=== PATIENT | male | born 1935 | race Caucasian/White ===

== ENCOUNTER 2017-01-24 16:46 | Inpatient (IN) | payer MEDICARE, OTHER, SELFPAY ==
[2017-01-24] VITALS (8 sets, daily range): BP systolic 94–124; BP diastolic 55–75; PULSE 73–82; RESP 16–20; TEMP 36.2–37; O2SAT 95–98; BMI 28.7; BMI 30.1
--- NOTE | 2017-01-24 17:23 | CT_ITS ---
CT Abdomen And Pelvis W/ Contrast INDICATION: RIGHT LEG SWELLING AND BACK PAIN X 6 DAYS, FACIAL SWELLING COMPARISON: None TECHNIQUE: Axial CT imaging of the abdomen and pelvis with IV contrast. Coronal and sagittal reformatted images. Radiation dose optimization technique applied. 86 mL of Isovue 300 were given. FINDINGS: Subsegmental atelectasis is seen at the visualized lung bases. The heart size is normal. The liver contains small cysts, otherwise homogeneous. Liver and spleen are normal in size. Gallbladder contains multiple small stones, no evidence of pericholecystic fluid. Adrenal glands and pancreas are unremarkable. The kidneys enhance contrast symmetrically bilaterally and are without evidence of hydronephrosis. A complex 6.5 cm left cortical renal cyst is present with a septation. Smaller right cortical renal cysts are present. Bowel loops are nondistended. Appendix is unremarkable. Urinary bladder is nondistended. There is no evidence of free air or free fluid. Osseous structures demonstrate multilevel degenerative disc disease, most severe at L4-5 with spinal canal and neuroforaminal narrowing. CT/Abdomen/Pelvis W IV Cont ONLY IMPRESSION: Small liver cysts and the 6.5 cm complex left cortical renal cyst. Follow-up as clinically warranted. Cholelithiasis without evidence of acute cholecystitis. Diffuse arteriosclerotic disease. L4-5 degenerative disc disease with spinal canal and neuroforaminal narrowing. at 1925 Reported and signed by: Beba Moser MD Electronically Signed: Beba Moser MD at 18:24 EDT Tel , Service support ,
[2017-01-24] MEDS: 0.9% Normal Saline 1,000 ML 150 ML IV ×2 (17:58→22:39)
[2017-01-24 18:31] LABS: Bacteria 0 SEEN /hpf (None Seen); Mucous, Urine 0 SEEN /hpf (<or=2+)
[2017-01-24 18:32] LABS: Color, Urine Yellow (Yellow); Glucose, Dipstick Normal (Normal); Ketone-Dipstick Negative (Negative); Leukocyte Esterase-Dipstick 25 /ul (Negative); Nitrite-Dipstick Negative (Negative); Occult Blood-Urine 250 /ul (Negative); Protein-Dipstick 30 mg/dl (Negative); Urine Clarity Clear (Clear); Urine Urobilinogen 1 mg/dl (Normal)
[2017-01-24 18:35] LABS: Anion Gap 8 (5-15); BUN 42 mg/dL (7-18); BUN/Creat Ratio 21.5 RATIO (10-20); Calcium,Total 8.6 mg/dL (8.5-10.1); Chloride 97 mmol/L (98-107); Creatinine, Serum 1.95 mg/dL (0.70-1.30); EST Glomerular Filtration Rate 35 mL/min (>60); Est Glom Filt Rate - Afr Amer 43 mL/min (>60); Glucose 110 mg/dL (70-110); Sodium Level 132 mmol/L (136-145)
[2017-01-24 18:38] LABS: Urine Bilirubin Dipstick 1 mg/dL (Negative)
[2017-01-24 18:42] LABS: Red Blood Cells-Urine 0-5 SEEN /hpf (0-5); Squamous Epithelial Cells - UA 0-5 SEEN /hpf (0-5); White Blood Cells 0-5 SEEN /hpf (0-5)
[2017-01-24 18:43] LABS: Hyaline Cast 10-25 SEEN /lpf (0-5)
[2017-01-24 18:46] LABS: Absolute Lymphocyte Count 0.51 X10^3/ul (0.83-4.51); Eosinophil# 0.26 X10^3/uL; Eosinophils% 5.2 % (0-5); Hematocrit 41.1 % (40-54); Hemoglobin 14.3 g/dl (13.0-16.5); Lymphocyte # 0.51 X10^3/ul (4.0); Lymphocyte % 10.1 % (19-41); Mean Corp Hgb Conc 34.8 g/gl (32-36); Mean Corpuscular Hgb 31.6 pg (27.0-32.0); Mean Corpuscular Volume 90.9 fL (80-94); Mean Platelet Vol. 11.2 fl (6.2-12.0); Monocyte# 0.31 X10^3/uL; Monocyte% 6.2 % (0-10); Neutrophil # 3.96 X10^3/uL (2.7-7.7); Neutrophil % 78.5 % (47-70); Platelet Count 120 K/mm3 (150-450); RBC Distribution Width CV 12.8 % (11.6-14.6); RBC Distribution Width SD 42.5 fl (35.1-43.9); Red Blood Count 4.52 M/mm3 (4.6-6.2)
[2017-01-24 18:50] LABS: Differential Indicated SCAN CRITERIA MET; POSITIVE COUNT NO; POSITIVE DIFFERENTIAL YES; POSITIVE MORPHOLOGY NO
[2017-01-24 19:00] LABS: CPK Total, Creatine Kinase 6022 U/L (39-308)
[2017-01-24 19:12] LABS: Anisocytosis RARE; Macrocytosis RARE; Platelet Estimate SLT DEC (ADEQ)
[2017-01-24] MEDS: Ondansetron 4 MG/2 ML Vial IV (20:31)
--- NOTE | 2017-01-24 20:34 | PCM.HP.STD ---
Problem List (1) Rhabdomyolysis Status: Acute (2) Swelling of right lower extremity Status: Acute (3) Allergic reaction caused by a drug Status: Acute (4) Hypothyroidism Status: Acute (5) Coronary artery disease Status: Chronic History of Present Illness Date of Admission: 01/24/17 Chief Complaint: Right lower extremity swelling since Tuesday and fever The patient is a 81 year old M history of coronary artery disease status post stents in 2005, last treadmill nuclear stress test in July 2013 was negative with EF 65% came to ER multiple times with right lower extremity pain and swelling with intermittent fever. 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 He had 2 venous Doppler recently and was negative for DVT. He also had right ankle and right leg x-ray which was negative. Patient denies claudication pain or rest pain. Last ER visit, he was given Keflex after that he developed hives on the face. In the ER, no fever noted, no tachycardia, tachypnea or hypoxia. WBC count is normal. CK and 6000, creatinine 1.95, BUN 42. Blood culture ?2 with PA and urine culture ordered. [] Past Medical History Past Medical History (Chronic Problems): Chronic Problems Coronary artery disease (Chronic) Allergies cephalexin [From Keflex] Allergy (Verified 01/24/17 16:48) Swelling diazepam [From Valium] Allergy (Verified 01/24/17 16:48) Other Home Medications: Ambulatory Orders Medication Instructions Recorded Clopidogrel Bisulfate [Plavix] 75 mg PO DAILY 04/08/13 Isosorbide Mononitrate [Imdur] 15 mg PO DAILY 04/08/13 Levothyroxine [Synthroid] 75 mcg PO DAILY 04/08/13 Metoprolol Tartrate [Lopressor] 25 mg PO BID 04/08/13 [place]-3 Fatty Acids/Fish Oil [Fish 1 each PO DAILY 04/08/13 Oil 1,000 mg Softgel] Donepezil HCl [Aricept] 5 mg PO DAILY 01/19/17 Hydrocodone/APAP 7.5-325/15Ml 5 - 10 ml PO Q4H PRN PRN #100 ml 01/21/17 [Lortab [Replacement] 7.5-325/15] Aspirin [Aspirin EC] 81 mg PO DAILY 01/22/17 Simvastatin [Zocor] 40 mg PO DAILY 01/22/17 Smoking Status: Former smoker - *Family History Paternal History Items: No pertinent history Review of Systems Constitutional: Reports: Chills, Fever HEENT: Denies: Head Aches, Sinus Congestion, Sinus Drainage Cardiovascular: Denies: Chest Pain, Palpitations Respiratory: Denies: Cough, Shortness of breath at rest, Sputum production Gastrointestinal: Denies: Abdominal Pain, Nausea, Vomiting Genitourinary: Denies: Dysuria Musculoskeletal: Denies: Joint Pain, Joint Tenderness Skin: Reports: Rash, Skin Changes - Small blister on the right. Denies: Wounds Neurological: Denies: Numbness, Tingling, Focal weakness Psychiatric: Denies: Anxiety, Depression, Homicidal Ideations, Suicidal Ideations Hematologic/ Lymphatic: Denies: Easy Bruising, Easy Bleeding VTE Information - Inpt Only VTE Present on Admission: No VTE Mechan Device Prophylaxis: Thigh High IRIS Hose VTE Pharm Prophylaxis ordered?: Yes - Physical Exam General: Alert, Oriented x3, Cooperative HEENT: Atraumatic, PERRLA, EOMI, Normocephalic Oral: Moist Mucosa Neck: Supple, No JVD, Negative Carotid Bruits Lungs: Clear to auscultation, Normal air movement, No rhonchi, No wheeze, No rales Cardiovascular: Regular rate, Regular Rhythm, Normal S1, Normal S2, No murmurs Abdomen: Bowel Sounds Present, Soft, Non Tender, Non-Distended Extremities: Capillary Refill Less than 3 Seconds, Edema - Right lower extremity edema with tenderness Skin: No breakdown, Rash Present - Erythematous rash present over right lower leg with a small blister but no bulla or cyst Musculoskeletal: No Tenderness to Palpation of Joints or Extremities Neurological: Cranial nerves II-XII grossly intact Psych/Mental Status: Normal Affect, Appropriate Vital Signs Temp Pulse Resp BP Pulse Ox 97.4 F 79 16 116/74 97 01/24/17 20:04 01/24/17 20:04 01/24/17 20:04 01/24/17 20:04 01/24/17 20:04 Oxygen Delivery Method Room Air Weight: 90.718 kg Body Mass Index (BMI) 28.7 Laboratory Tests Past 24 Hrs 01/24/17 01/24/17 01/24/17 17:55 17:55 17:55 WBC 5.0 RBC 4.52 L Hgb 14.3 Hct 41.1 MCV 90.9 MCH 31.6 MCHC 34.8 RDW 12.8 RDW Differential 42.5 Plt Count 120 L MPV 11.2 Immature Gran % (Auto) 0.000 Neut % (Auto) 78.5 H Lymph % (Auto) 10.1 L [place] % (Auto) 6.2 Eos % (Auto) 5.2 H Baso % (Auto) 0.0 Absolute Neuts (auto) 4.0 Absolute Lymphs (auto) 0.51 L Total Counted Not Reportable Differential Comment SEE COMMENT Platelet Estimate SLT DEC Anisocytosis RARE Macrocytosis RARE Sodium 132 L Potassium 5.0 Chloride 97 L Carbon Dioxide 27.0 Anion Gap 8 BUN 42 H Creatinine 1.95 H Estim Creat Clear Calc 31.20 Est GFR (MDRD) Af Amer 43 L Est GFR (MDRD) Non-Af 35 L BUN/Creatinine Ratio 21.5 H Glucose 110 Calcium 8.6 Total Creatine Kinase 6022 H Urine Color Urine Clarity Urine pH Ur Specific [place] Urine Protein Urine Glucose (UA) Urine Ketones Urine Occult Blood Urine Nitrite Urine Bilirubin Urine Urobilinogen Ur Leukocyte Esterase Urine RBC Urine WBC Ur Squamous Epith Cells Urine Bacteria Hyaline Casts Urine Mucus 01/24/17 18:26 WBC RBC Hgb Hct MCV MCH MCHC RDW RDW Differential Plt Count MPV Immature Gran % (Auto) Neut % (Auto) Lymph % (Auto) [place] % (Auto) Eos % (Auto) Baso % (Auto) Absolute Neuts (auto) Absolute Lymphs (auto) Total Counted Differential Comment Platelet Estimate Anisocytosis Macrocytosis Sodium Potassium Chloride Carbon Dioxide Anion Gap BUN Creatinine Estim Creat Clear Calc Est GFR (MDRD) Af Amer Est GFR (MDRD) Non-Af BUN/Creatinine Ratio Glucose Calcium Total Creatine Kinase Urine Color Yellow Urine Clarity Clear Urine pH 5.0 Ur Specific [place] 1.020 Urine Protein 30 H Urine Glucose (UA) Normal Urine Ketones Negative Urine Occult Blood 250 H Urine Nitrite Negative Urine Bilirubin 1 H Urine Urobilinogen 1 H Ur Leukocyte Esterase 25 H Urine RBC 0-5 SEEN Urine WBC 0-5 SEEN Ur Squamous Epith Cells 0-5 SEEN Urine Bacteria 0 SEEN Hyaline Casts 10-25 SEEN Urine Mucus 0 SEEN Assessment/Plan The patient is a 81 year old M history of coronary artery disease status post stents in 2005, last treadmill nuclear stress test in July 2013 was negative with EF 65% came to ER multiple times with right lower extremity pain and swelling with intermittent fever. 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 He had 2 venous Doppler recently and was negative for DVT. He also had right ankle and right leg x-ray which was negative. Patient denies claudication pain or rest pain. Last ER visit, he was given Keflex after that he developed hives on the face. In the ER, no fever noted, no tachycardia, tachypnea or hypoxia. WBC count is normal. CK and 6000, creatinine 1.95, BUN 42. Blood culture ?2 with PA and urine culture ordered. 1 right lower extremity swelling and erythema, probably inflammatory with rhabdomyolysis or possible viral: Patient is being admitted on the monitored bed. IV fluid normal saline at 1 50 mL/h. Monitor CK, kidney function and electrolytes. Currently, patient does not have SIRS criteria or qSOFA criteria and will hold on antibiotic. If patient develops fever, can consider fluoroquinolones. Follow blood culture, UA and urine culture. Right lower extremity rash probably from viral cause. Right lower extremity arterial Doppler ordered 2. Acute kidney injury with rhabdomyolysis: Creatinine 1.95, BUN 42. Baseline creatinine runs around 1.2, last one 1.5 on January 20, 2017. K5.0. Monitor urine lites and CK. 3. Elevated transaminases from myositis/viral college: During previous visit, total bili 1.8, AST 120 but ALT and alkaline phosphatase normal. AST from muscle origin. CRP, LFT, acute hepatitis profile and Starla-Davis virus profile ordered. 4. Other comorbidities including coronary artery disease status post stents, dyslipidemia, dementia and hypothyroidism: Home medication reconciliation done. Hold statin. 8. DVT prophylaxis: On heparin 5000 subcu twice daily and bilateral thigh-high IRIS hose.
[2017-01-24] MEDS: Metoprolol Tartrate 25 MG Tablet PO (22:38)
[2017-01-24] MEDS: Heparin Injection 5,000 UNITS/ML Syringe 5000 UNITS SC (22:38)
[2017-01-24 22:39] LABS: AST(SGOT) 171 U/L (15-37); Alanine Aminotransfer ALT/SGPT 92 U/L (12-78); Albumin, Serum 2.4 g/dL (3.4-5.0); Alkaline Phosphatase 58 U/L (45-117); Bilirubin, Direct 0.17 mg/dL (0.00-0.30); Globulin 3.4 g/dL (2.2-4.2); Protein, Total 5.8 g/dL (6.4-8.2)
[2017-01-25] VITALS (15 sets, daily range): BP systolic 112–133; BP diastolic 47–57; PULSE 76–122; RESP 18; TEMP 36.6–38.5; O2SAT 92–97
[2017-01-25] MEDS: 0.9% NaCl Peripheral Flush Adult/Peds IV ×3 (00:22→21:03)
[2017-01-25 03:44] LABS: Mucous, Urine 0 SEEN /hpf (<or=2+); White Blood Cells 0 SEEN /hpf (0-5)
[2017-01-25 03:48] LABS: Color, Urine Yellow (Yellow); Glucose, Dipstick Normal (Normal); Ketone-Dipstick 5 mg/dl (Negative); Leukocyte Esterase-Dipstick Negative /ul (Negative); Nitrite-Dipstick Negative (Negative); Occult Blood-Urine 25 /ul (Negative); Protein-Dipstick 30 mg/dl (Negative); Specific Gravity, Urine 1.015 (1.002-1.030); Urine Bilirubin Dipstick Negative (Negative); Urine Clarity Clear (Clear); Urine Urobilinogen Normal (Normal)
[2017-01-25 03:54] LABS: Bacteria RARE /hpf (None Seen); Red Blood Cells-Urine 0-5 SEEN /hpf (0-5); Squamous Epithelial Cells - UA 0-5 SEEN /hpf (0-5)
[2017-01-25] MEDS: 0.9% Normal Saline 1,000 ML 150 ML IV ×3 (04:35→18:00)
--- NOTE | 2017-01-25 05:55 | ADU_ITS ---
Reason For Study: swelling Right Velocities Left Velocities Common Femoral Artery, dist = 120 cm./sec. Common Femoral Artery, dist = 113 cm./sec. Supf Femoral Artery, prox = 154 cm./sec. Supf. Femoral Artery, prox = 147 cm./sec. Supf Femoral Artery, mid = 105 cm./sec. Supf. Femoral Artery, mid = 102 cm./sec. Supf Femoral Artery, dist. = 86.4 cm./sec. Supf. Femoral Artery, dist = 88.8 cm./sec. Profunda Femoral Artery = 96.6 cm./sec. Profunda Femoral Artery = 140 cm./sec. Popliteal Artery, mid = 84.1 cm./sec. Popliteal Artery, mid = 99.8 cm./sec. Post. Tibial Artery, mid = 165 cm./sec. Post. Tibial Artery, prox = 89.6 cm./sec. Post. Tibial Artery, dist = 117 cm./sec. Post Tibial Artery, mid = 127 cm./sec. Peroneal Artery, mid = 98.2 cm./sec. Post Tibial Artery, dist. = 88.8 cm./sec. Peroneal Artery,dist = 118 cm./sec. Peroneal Artery, prox = 58.1 cm./sec. Ant. Tibial Artery, prox = 84.5 cm./sec. Peroneal Artery, mid = 98.2 cm./sec. Ant. Tibial Artery, mid = 90.4 cm./sec. Peroneal Artery,dist. = 73.1 cm./sec. Ant. Tibial Artery, dist = 129 cm./sec. Ant.Tibial Artery, prox = 68.4 cm./sec. Unable to image Proximal [employer] and Peroneal A due Ant Tibial Artery, mid = 76.2 cm./sec. to edema. Ant. Tibial Artery, distal = 77.0 cm./sec. Interpretation Summary Pulsatile arterial flow and normal waveforms are demonstrated at all levels in the arterial tree of the lower extremities bilaterally. The right proximal posterior tibial artery and right peroneal artery were not visualized due to edema. There is no evidence of significant stenosis or occlusion. Ordering Physician: Santino Loza Referring Physician: Geo Morales MD Performed By: Adam Condon RVT
[2017-01-25] MEDS: Levothyroxine 75 MCG Tablet PO (05:56)
[2017-01-25 07:10] LABS: Absolute Neutrophil Count 3.4 X10^3/uL (2.0-7.7); Basophil# 0.01 X10^3/uL; Basophil% 0.2 % (0-1); Eosinophil# 0.31 X10^3/uL; Eosinophils% 6.8 % (0-5); Hematocrit 38.1 % (40-54); Hemoglobin 13.4 g/dl (13.0-16.5); Lymphocyte % 13.2 % (19-41); Mean Corp Hgb Conc 35.2 g/gl (32-36); Mean Corpuscular Hgb 31.9 pg (27.0-32.0); Mean Corpuscular Volume 90.7 fL (80-94); Mean Platelet Vol. 11.7 fl (6.2-12.0); Monocyte# 0.21 X10^3/uL; Monocyte% 4.6 % (0-10); Neutrophil # 3.37 X10^3/uL (2.7-7.7); Neutrophil % 74.5 % (47-70); Platelet Count 87 K/mm3 (150-450); RBC Distribution Width CV 12.8 % (11.6-14.6); RBC Distribution Width SD 41.9 fl (35.1-43.9); White Blood Count 4.5 K/mm3 (4.4-11.0)
[2017-01-25 07:15] LABS: Differential Indicated SCAN CRITERIA MET; POSITIVE COUNT NO; POSITIVE DIFFERENTIAL YES; POSITIVE MORPHOLOGY NO
[2017-01-25 07:34] LABS: Anion Gap 9 (5-15); BUN 32 mg/dL (7-18); BUN/Creat Ratio 23.2 RATIO (10-20); CPK Total, Creatine Kinase 3741 U/L (39-308); Calcium,Total 7.6 mg/dL (8.5-10.1); Chloride 101 mmol/L (98-107); Cholesterol 114 mg/dL (200); Creatinine, Serum 1.38 mg/dL (0.70-1.30); EST Glomerular Filtration Rate 53 mL/min (>60); Est Glom Filt Rate - Afr Amer 64 mL/min (>60); Estimated Creatinine Clearance 44.08 ml/min; Glucose 91 mg/dL (70-110); High Density Lipoprotein 22 mg/dL; Platelet Estimate SLT DEC (ADEQ); Potassium 4.8 mmol/L (3.5-5.1); Sodium Level 131 mmol/L (136-145); Triglycerides 207 mg/dL; Very Low Density Lipoprotein 41 mg/dL (5-40)
--- NOTE | 2017-01-25 09:05 | PCM.PN.HOSP ---
Patient Problems: Active and Suspected Problems Allergic reaction caused by a drug (Acute) Hypothyroidism (Acute) Rhabdomyolysis (Acute) Swelling of right lower extremity (Acute) Subjective: has been complaining of myalgias since last Tuesday. Denies any new medication(s). Also, complains of bilateral temproal region. + Jaw claudication. Vitals/I&O's: Vital Signs Temp Pulse Resp BP Pulse Ox 37.7 C 83 18 112/47 92 01/25/17 03:13 01/25/17 04:12 01/25/17 03:13 01/25/17 03:13 01/25/17 03:13 Oxygen Delivery Method Room Air Weight: 95.254 kg Body Mass Index (BMI) 30.1 Intake and Output for Last 24 Hours 01/23/17 01/24/17 01/25/17 23:59 23:59 23:59 Intake Total 1501 Output Total 600 Balance 901 General: Alert, Cooperative, No apparent distress HEENT: Atraumatic, Normocephalic, - - bilateral termporal fullness w/o tenderness. Neck: No Nodes, Thyroid Normal Size and Texture Lungs: Clear to auscultation, Normal air movement, No rhonchi, No wheeze Cardiovascular: Regular rate, Regular Rhythm, Normal S1, Normal S2, No murmurs Abdomen: Bowel Sounds Present, Soft, Non Tender, Non-Distended, No Hepato-splenomegaly Extremities: No clubbing, No cyanosis, No edema, No Calf Tenderness Skin: No rashes, No breakdown Musculoskeletal: No Tenderness to Palpation of Joints or Extremities, No Muscle Wasting Neurological: Neuro grossly intact, Motor Exam 5/5 strength throughout Psych/Mental Status: Normal Affect, Appropriate Laboratory Results 01/24/17 21:40: Total Bilirubin 0.80, Direct Bilirubin 0.17, AST 171 H, ALT 92 H, Alkaline Phosphatase 58, Total Protein 5.8 L, Albumin 2.4 L, Globulin 3.4 01/24/17 21:40: C-React Prot Ext Range 119.00 H 01/24/17 21:40: Troponin I < 0.02 01/25/17 02:30: Troponin I < 0.02 01/25/17 03:30: Urine Creatinine Pending 01/25/17 03:30: Urine Color Yellow, Urine Clarity Clear, Urine pH 5.0, Ur Specific [place] 1.015, Urine Protein 30 H, Urine Glucose (UA) Normal, Urine Ketones 5 H, Urine Occult Blood 25 H, Urine Nitrite Negative, Urine Bilirubin Negative, Urine Urobilinogen Normal, Ur Leukocyte Esterase Negative, Urine RBC 0-5 SEEN, Urine WBC 0 SEEN, Ur Squamous Epith Cells 0-5 SEEN, Urine Bacteria RARE, Urine Mucus 0 SEEN 01/25/17 03:30: Ur Random Sodium Pending, Urine Potassium Pending, Urine Chloride Pending 01/25/17 06:32: EBV Capsid Ag IgG Ab Pending, EBV Capsid Ag IgM Ab Pending, EBV Early Antigen IgG Pending 01/25/17 06:32: WBC 4.5, RBC 4.20 L, Hgb 13.4, Hct 38.1 L, MCV 90.7, MCH 31.9, MCHC 35.2, RDW 12.8, RDW Differential 41.9, Plt Count 87 L, MPV 11.7, Immature Gran % (Auto) 0.700, Neut % (Auto) 74.5 H, Lymph % (Auto) 13.2 L, [place] % (Auto) 4.6, Eos % (Auto) 6.8 H, Baso % (Auto) 0.2, Absolute Neuts (auto) 3.4, Absolute Lymphs (auto) 0.60 L, Total Counted Not Reportable, Platelet Estimate SLT 01/25/17 06:32: Sodium 131 L, Potassium 4.8, Chloride 101, Carbon Dioxide 21.0, Anion Gap 9, BUN 32 H, Creatinine 1.38 H, Estim Creat Clear Calc 44.08, Est GFR (MDRD) Af Amer 64, Est GFR (MDRD) Non-Af 53 L, BUN/Creatinine Ratio 23.2 H, Glucose 91, Calcium 7.6 L, Total Creatine Kinase 3741 H, Troponin I < 0.02, Triglycerides 207 H, Cholesterol 114, LDL Cholesterol 51, VLDL Cholesterol 41 H, HDL Cholesterol 22 L Current Medications Acetaminophen (Tylenol) 650 mg PO Q6H PRN PRN PRN Reason: Mild Pain (scale 0-3)/T>100.7 Hydrocodone Bitart/Acetaminophen (Lortab [Replacement] 7.5-325/15) 5 - 10 ml PO Q4H PRN PRN PRN Reason: PAIN Aspir[facility] ([facility]) [facility] Bisacodyl (Dulcolax) 10 mg RECTAL DAILY PRN PRN PRN Reason: Constipation Clopidogrel Bisulfate (Plavix) 75 mg PO DAILY [facility] Docusate Sodium (Colace) 200 mg PO BID PRN PRN PRN Reason: Constipation Donepezil HCl (Aricept) 5 mg PO DAILY [facility] Heparin Sodium (Porcine) () 5,000 units SC BID [facility] Last Admin: 01/24/17 22:38 Dose: 5,000 units Sodium Chloride () 1,000 mls @ 150 mls/hr IV .Q6H40M [facility] Last Admin: 01/25/17 04:35 Dose: 150 mls/hr Influenza Virus Vaccine Quadrival (Fluarix/Fluzone) 0.5 ml IM .ONCE ONE Stop: 01/25/17 10:01 Isosorbide Mononitrate (Imdur) 15 mg PO DAILY [facility] Levothyroxine Sodium (Synthroid) 75 mcg PO DAILY@0600 [facility] Last Admin: 01/25/17 05:56 Dose: 75 mcg Metoprolol Tartrate (Lopressor (Beta Norma)) 25 mg PO BID [facility] Last Admin: 01/24/17 22:38 Dose: 25 mg Morphine Sulfate (Morphine) 1 - 2 mg IV Q4H PRN PRN PRN Reason: SEVERE PAIN (6-10/10) Last Admin: 01/25/17 00:22 Dose: 2 mg Nutritional Formula (Lactose Free) (Ensure Enlive) 120 ml PO 4X/DAY [facility] Ondansetron HCl (Zofran) 4 mg IV Q8H PRN PRN PRN Reason: Nausea Sodium Chloride () 5 - 30 ml IV UD PRN PRN Reason: SALINE FLUSH Last Admin: 01/25/17 00:22 Dose: 10 ml Assessment/Plan Active and Suspected Problems Allergic reaction caused by a drug (Acute) Hypothyroidism (Acute) Rhabdomyolysis (Acute) Swelling of right lower extremity (Acute) 1. rhabdomyolysis unclear etiology no recent falls possibilities, though not exclusive: statin-induced, PMR/GCA, autoimmune (dermatomyosis, polymyositis.) check ESR, SANDRA, anti-Jo1, TSH continue with IVF. 2. ALPA improved continue to monitor 3. DVT prophylaxis LMWH heparin.
--- NOTE | 2017-01-25 09:14 | PN_ITS ---
Patient Problems: Active and Suspected Problems Allergic reaction caused by a drug (Acute) Hypothyroidism (Acute) Rhabdomyolysis (Acute) Swelling of right lower extremity (Acute) Subjective: has been complaining of myalgias since last Tuesday. Denies any new medication (s). Also, complains of bilateral temproal region. + Jaw claudication. Vitals/I&O's: Vital Signs Temp Pulse Resp BP Pulse Ox 37.7 C 83 18 112/47 92 01/25/17 03:13 01/25/17 04:12 01/25/17 03:13 01/25/17 03:13 01/25/17 03:13 Oxygen Delivery Method Room Air Weight: 95.254 kg Body Mass Index (BMI) 30.1 Intake and Output for Last 24 Hours 01/23/17 01/24/17 01/25/17 23:59 23:59 23:59 Intake Total 1501 Output Total 600 Balance 901 General: Alert, Cooperative, No apparent distress HEENT: Atraumatic, Normocephalic, - - bilateral termporal fullness w/o tenderness. Neck: No Nodes, Thyroid Normal Size and Texture Lungs: Clear to auscultation, Normal air movement, No rhonchi, No wheeze Cardiovascular: Regular rate, Regular Rhythm, Normal S1, Normal S2, No murmurs Abdomen: Bowel Sounds Present, Soft, Non Tender, Non-Distended, No Hepato- splenomegaly Extremities: No clubbing, No cyanosis, No edema, No Calf Tenderness Skin: No rashes, No breakdown Musculoskeletal: No Tenderness to Palpation of Joints or Extremities, No Muscle Wasting Neurological: Neuro grossly intact, Motor Exam 5/5 strength throughout Psych/Mental Status: Normal Affect, Appropriate Laboratory Results 01/24/17 21:40: Total Bilirubin 0.80, Direct Bilirubin 0.17, AST 171 H, ALT 92 H , Alkaline Phosphatase 58, Total Protein 5.8 L, Albumin 2.4 L, Globulin 3.4 01/24/17 21:40: C-React Prot Ext Range 119.00 H 01/24/17 21:40: Troponin I < 0.02 01/25/17 02:30: Troponin I < 0.02 01/25/17 03:30: Urine Creatinine Pending 01/25/17 03:30: Urine Color Yellow, Urine Clarity Clear, Urine pH 5.0, Ur Specific [place] 1.015, Urine Protein 30 H, Urine Glucose (UA) Normal, Urine Ketones 5 H, Urine Occult Blood 25 H, Urine Nitrite Negative, Urine Bilirubin Negative, Urine Urobilinogen Normal, Ur Leukocyte Esterase Negative, Urine RBC 0 -5 SEEN, Urine WBC 0 SEEN, Ur Squamous Epith Cells 0-5 SEEN, Urine Bacteria RARE , Urine Mucus 0 SEEN 01/25/17 03:30: Ur Random Sodium Pending, Urine Potassium Pending, Urine Chloride Pending 01/25/17 06:32: EBV Capsid Ag IgG Ab Pending, EBV Capsid Ag IgM Ab Pending, EBV Early Antigen IgG Pending 01/25/17 06:32: WBC 4.5, RBC 4.20 L, Hgb 13.4, Hct 38.1 L, MCV 90.7, MCH 31.9, MCHC 35.2, RDW 12.8, RDW Differential 41.9, Plt Count 87 L, MPV 11.7, Immature Gran % (Auto) 0.700, Neut % (Auto) 74.5 H, Lymph % (Auto) 13.2 L, [place] % (Auto) 4.6, Eos % (Auto) 6.8 H, Baso % (Auto) 0.2, Absolute Neuts (auto) 3.4, Absolute Lymphs (auto) 0.60 L, Total Counted Not Reportable, Platelet Estimate SLT 01/25/17 06:32: Sodium 131 L, Potassium 4.8, Chloride 101, Carbon Dioxide 21.0, Anion Gap 9, BUN 32 H, Creatinine 1.38 H, Estim Creat Clear Calc 44.08, Est GFR (MDRD) Af Amer 64, Est GFR (MDRD) Non-Af 53 L, BUN/Creatinine Ratio 23.2 H, Glucose 91, Calcium 7.6 L, Total Creatine Kinase 3741 H, Troponin I < 0.02, Triglycerides 207 H, Cholesterol 114, LDL Cholesterol 51, VLDL Cholesterol 41 H , HDL Cholesterol 22 L Current Medications Acetaminophen (Tylenol) 650 mg PO Q6H PRN PRN PRN Reason: Mild Pain (scale 0-3)/T>100.7 Hydrocodone Bitart/Acetaminophen (Lortab [Replacement] 7.5-325/15) 5 - 10 ml PO Q4H PRN PRN PRN Reason: PAIN [facility] ([facility]) [facility] Bisacodyl (Dulcolax) 10 mg RECTAL DAILY PRN PRN PRN Reason: Constipation Clopidogrel Bisulfate (Plavix) [address] [facility] Docusate Sodium (Colace) 200 mg PO BID PRN PRN PRN Reason: Constipation Donepezil HCl (Aricept) [address] [facility] Heparin Sodium (Porcine) () 5,[address] [facility] Last Admin: 01/24/17 22:38 Dose: 5,000 units Sodium Chloride () 1,000 mls @ 150 mls/hr IV .Q6H40M [facility] Last Admin: 01/25/17 04:35 Dose: 150 mls/hr Influenza Virus Vaccine Quadrival (Fluarix/Fluzone) 0.5 ml IM .ONCE ONE Stop: 01/25/17 10:01 Isosorbide Mononitrate (Imdur) [address] [facility] Levothyroxine Sodium (Synthroid) 75 mcg PO DAILY@0600 [facility] Last Admin: 01/25/17 05:56 Dose: 75 mcg Metoprolol Tartrate (Lopressor (Beta Norma)) [address] [facility] Last Admin: 01/24/17 22:38 Dose: 25 mg Morphine Sulfate (Morphine) 1 - 2 mg IV Q4H PRN PRN PRN Reason: SEVERE PAIN (6-10/10) Last Admin: 01/25/17 00:22 Dose: 2 mg Nutritional Formula (Lactose Free) (Ensure Enlive) 120 ml PO 4X/DAY [facility] Ondansetron HCl (Zofran) 4 mg IV Q8H PRN PRN PRN Reason: Nausea Sodium Chloride () 5 - 30 ml IV UD PRN PRN Reason: SALINE FLUSH Last Admin: 01/25/17 00:22 Dose: 10 ml Assessment/Plan Active and Suspected Problems Allergic reaction caused by a drug (Acute) Hypothyroidism (Acute) Rhabdomyolysis (Acute) Swelling of right lower extremity (Acute) 1. rhabdomyolysis * unclear etiology * no recent falls * possibilities, though not exclusive: statin-induced, PMR/GCA, autoimmune ( dermatomyosis, polymyositis.) * check ESR, SANDRA, anti-Jo1, TSH * continue with IVF. 2. ALPA * improved * continue to monitor 3. DVT prophylaxis * LMWH heparin.
[2017-01-25] MEDS: Heparin Injection 5,000 UNITS/ML Syringe 5000 UNITS SC ×2 (09:18→21:03)
[2017-01-25] MEDS: Clopidogrel Bisulfate 75 MG Tablet PO (09:18)
[2017-01-25] MEDS: HYDROCODONE/APAP 7.5-325/15ML 15 ML UDC PO ×3 (09:18→23:46)
[2017-01-25] MEDS: Aspirin E.C. 81 MG Tablet PO (09:18)
[2017-01-25] MEDS: Isosorbide Mononitrate 30 MG Tablet 15 MG PO (09:18)
[2017-01-25] MEDS: Metoprolol Tartrate 25 MG Tablet PO ×2 (09:28→21:09)
[2017-01-25 10:00] LABS: Thyroid Stim Hormone (TSH) 6.97 uIU/mL (0.358-3.74)
[2017-01-25 10:53] LABS: Erythrocyte Sedimentation Rate 21 mm/hr (0-20)
--- NOTE | 2017-01-25 11:53 | PCM.HP.ID ---
Reason for Consult: Rhabdomyolysis, right calf pain, fever at home History of Present Illness: The patient is a 81 year old M [] This is an 81-year-old gentleman with a history of coronary artery disease, who developed acute right calf pain last Tuesday. Patient was subsequently seen in emergency department had Doppler studies to rule out DVT and was given Keflex to go home on. Apparently patient developed a rash with Keflex and was admitted because of persistent right calf pain and swelling. No erythema of the right leg. Denies any trauma to the right leg. Was found to have a markedly elevated CPK levels consistent with rhabdomyolysis. He also has some renal insufficiency. Denies any cardiopulmonary distress no headaches no focal neurological symptoms he has not had any documented fevers during his hospitalization. No recent falls. No one has been ill for which she been in contact with. - Medical History Allergies/Adverse Reactions: Allergies cephalexin [From Keflex] Allergy (Verified 01/24/17 16:48) Swelling diazepam [From Valium] Allergy (Verified 01/24/17 16:48) Other Home Medications: Ambulatory Orders Medication Instructions Recorded Clopidogrel Bisulfate [Plavix] 75 mg PO DAILY 04/08/13 Isosorbide Mononitrate [Imdur] 15 mg PO DAILY 04/08/13 Levothyroxine [Synthroid] 75 mcg PO DAILY 04/08/13 Metoprolol Tartrate [Lopressor] 25 mg PO BID 04/08/13 [place]-3 Fatty Acids/Fish Oil [Fish 1 each PO DAILY 04/08/13 Oil 1,000 mg Softgel] Aspirin [Aspirin EC] 81 mg PO DAILY 01/22/17 Simvastatin [Zocor] 40 mg PO DAILY 01/22/17 Vital Signs Temp Pulse Resp BP Pulse Ox 99.0 F 95 18 133/51 95 01/25/17 09:05 01/25/17 09:28 01/25/17 09:05 01/25/17 09:05 01/25/17 09:05 Oxygen Delivery Method Room Air Weight: 95.254 kg Body Mass Index (BMI) 30.1 Laboratory Tests Past 24 Hrs 01/24/17 01/24/17 01/24/17 21:40 21:40 21:40 WBC RBC Hgb Hct MCV MCH MCHC RDW RDW Differential Plt Count MPV Immature Gran % (Auto) Neut % (Auto) Lymph % (Auto) [place] % (Auto) Eos % (Auto) Baso % (Auto) Absolute Neuts (auto) Absolute Lymphs (auto) Total Counted Platelet Estimate ESR Sodium Potassium Chloride Carbon Dioxide Anion Gap BUN Creatinine Estim Creat Clear Calc Est GFR (MDRD) Af Amer Est GFR (MDRD) Non-Af BUN/Creatinine Ratio Glucose Calcium Total Bilirubin 0.80 Direct Bilirubin 0.17 AST 171 H ALT 92 H Alkaline Phosphatase 58 Total Creatine Kinase Troponin I < 0.02 C-React Prot Ext Range 119.00 H Total Protein 5.8 L Albumin 2.4 L Globulin 3.4 Triglycerides Cholesterol LDL Cholesterol VLDL Cholesterol HDL Cholesterol TSH Urine Color Urine Clarity Urine pH Ur Specific Shirley Urine Protein Urine Glucose (UA) Urine Ketones Urine Occult Blood Urine Nitrite Urine Bilirubin Urine Urobilinogen Ur Leukocyte Esterase Urine RBC Urine WBC Ur Squamous Epith Cells Urine Bacteria Urine Mucus Ur Random Sodium Urine Creatinine Urine Potassium Urine Chloride SANDRA Screen DELTA-1 Antibody SS-A/Ro IgG Antibody SS-B/La IgG Antibody Sm (Morales) Antibody [employer]MER Antibody Scl-70 Scleroderma Ab Double Strand DNA Ab Centromere B Antibody EBV Capsid Ag IgG Ab EBV Capsid Ag IgM Ab EBV Early Antigen IgG Hepatitis A IgM Ab Hep Bs Antigen Hep B Core IgM Ab Hepatitis C Ab (EIA) 01/25/17 01/25/17 01/25/17 02:30 03:30 03:30 WBC RBC Hgb Hct MCV MCH MCHC RDW RDW Differential Plt Count MPV Immature Gran % (Auto) Neut % (Auto) Lymph % (Auto) [place] % (Auto) Eos % (Auto) Baso % (Auto) Absolute Neuts (auto) Absolute Lymphs (auto) Total Counted Platelet Estimate ESR Sodium Potassium Chloride Carbon Dioxide Anion Gap BUN Creatinine Estim Creat Clear Calc Est GFR (MDRD) Af Amer Est GFR (MDRD) Non-Af BUN/Creatinine Ratio Glucose Calcium Total Bilirubin Direct Bilirubin AST ALT Alkaline Phosphatase Total Creatine Kinase Troponin I < 0.02 C-React Prot Ext Range Total Protein Albumin Globulin Triglycerides Cholesterol LDL Cholesterol VLDL Cholesterol HDL Cholesterol TSH Urine Color Yellow Urine Clarity Clear Urine pH 5.0 Ur Specific [place] 1.015 Urine Protein 30 H Urine Glucose (UA) Normal Urine Ketones 5 H Urine Occult Blood 25 H Urine Nitrite Negative Urine Bilirubin Negative Urine Urobilinogen Normal Ur Leukocyte Esterase Negative Urine RBC 0-5 SEEN Urine WBC 0 SEEN Ur Squamous Epith Cells 0-5 SEEN Urine Bacteria RARE Urine Mucus 0 SEEN Ur Random Sodium Urine Creatinine Pending Urine Potassium Urine Chloride SANDRA Screen DELTA-1 Antibody SS-A/Ro IgG Antibody SS-B/La IgG Antibody Sm (Morales) Antibody [employer]GRAMMER Antibody Scl-70 Scleroderma Ab Double Strand DNA Ab Centromere B Antibody EBV Capsid Ag IgG Ab EBV Capsid Ag IgM Ab EBV Early Antigen IgG Hepatitis A IgM Ab Hep Bs Antigen Hep B Core IgM Ab Hepatitis C Ab (EIA) 01/25/17 01/25/17 01/25/17 03:30 06:32 06:32 WBC 4.5 RBC 4.20 L Hgb 13.4 Hct 38.1 L MCV 90.7 MCH 31.9 MCHC 35.2 RDW 12.8 RDW Differential 41.9 Plt Count 87 L MPV 11.7 Immature Gran % (Auto) 0.700 Neut % (Auto) 74.5 H Lymph % (Auto) 13.2 L [place] % (Auto) 4.6 Eos % (Auto) 6.8 H Baso % (Auto) 0.2 Absolute Neuts (auto) 3.4 Absolute Lymphs (auto) 0.60 L Total Counted Not Reportable Platelet Estimate SLT DEC ESR Sodium Potassium Chloride Carbon Dioxide Anion Gap BUN Creatinine Estim Creat Clear Calc Est GFR (MDRD) Af Amer Est GFR (MDRD) Non-Af BUN/Creatinine Ratio Glucose Calcium Total Bilirubin Direct Bilirubin AST ALT Alkaline Phosphatase Total Creatine Kinase Troponin I C-React Prot Ext Range Total Protein Albumin Globulin Triglycerides Cholesterol LDL Cholesterol VLDL Cholesterol HDL Cholesterol TSH Urine Color Urine Clarity Urine pH Ur Specific [place] Urine Protein Urine Glucose (UA) Urine Ketones Urine Occult Blood Urine Nitrite Urine Bilirubin Urine Urobilinogen Ur Leukocyte Esterase Urine RBC Urine WBC Ur Squamous Epith Cells Urine Bacteria Urine Mucus Ur Random Sodium Pending Urine Creatinine Urine Potassium Pending Urine Chloride Pending SANDRA Screen DELTA-1 Antibody SS-A/Ro IgG Antibody SS-B/La IgG Antibody Sm (Morales) Antibody [employer]GRAMMER Antibody Scl-70 Scleroderma Ab Double Strand DNA Ab Centromere B Antibody EBV Capsid Ag IgG Ab Pending EBV Capsid Ag IgM Ab Pending EBV Early Antigen IgG Pending Hepatitis A IgM Ab Hep Bs Antigen Hep B Core IgM Ab Hepatitis C Ab (EIA) 01/25/17 01/25/17 01/25/17 06:32 06:32 10:30 WBC RBC Hgb Hct MCV MCH MCHC RDW RDW Differential Plt Count MPV Immature Gran % (Auto) Neut % (Auto) Lymph % (Auto) [place] % (Auto) Eos % (Auto) Baso % (Auto) Absolute Neuts (auto) Absolute Lymphs (auto) Total Counted Platelet Estimate ESR Sodium 131 L Potassium 4.8 Chloride 101 Carbon Dioxide 21.0 Anion Gap 9 BUN 32 H Creatinine 1.38 H Estim Creat Clear Calc 44.08 Est GFR (MDRD) Af Amer 64 Est GFR (MDRD) Non-Af 53 L BUN/Creatinine Ratio 23.2 H Glucose 91 Calcium 7.6 L Total Bilirubin Direct Bilirubin AST ALT Alkaline Phosphatase Total Creatine Kinase 3741 H Troponin I < 0.02 C-React Prot Ext Range Total Protein Albumin Globulin Triglycerides 207 H Cholesterol 114 LDL Cholesterol 51 VLDL Cholesterol 41 H HDL Cholesterol 22 L TSH 6.97 H Urine Color Urine Clarity Urine pH Ur Specific [place] Urine Protein Urine Glucose (UA) Urine Ketones Urine Occult Blood Urine Nitrite Urine Bilirubin Urine Urobilinogen Ur Leukocyte Esterase Urine RBC Urine WBC Ur Squamous Epith Cells Urine Bacteria Urine Mucus Ur Random Sodium Urine Creatinine Urine Potassium Urine Chloride SANDRA Screen DELTA-1 Antibody SS-A/Ro IgG Antibody SS-B/La IgG Antibody Sm (Morales) Antibody [employer]GRAMMER Antibody Scl-70 Scleroderma Ab Double Strand DNA Ab Centromere B Antibody EBV Capsid Ag IgG Ab EBV Capsid Ag IgM Ab EBV Early Antigen IgG Hepatitis A IgM Ab Pending Hep Bs Antigen Pending Hep B Core IgM Ab Pending Hepatitis C Ab (EIA) Pending 01/25/17 01/25/17 10:30 10:30 WBC RBC Hgb Hct MCV MCH MCHC RDW RDW Differential Plt Count MPV Immature Gran % (Auto) Neut % (Auto) Lymph % (Auto) [place] % (Auto) Eos % (Auto) Baso % (Auto) Absolute Neuts (auto) Absolute Lymphs (auto) Total Counted Platelet Estimate ESR 21 H Sodium Potassium Chloride Carbon Dioxide Anion Gap BUN Creatinine Estim Creat Clear Calc Est GFR (MDRD) Af Amer Est GFR (MDRD) Non-Af BUN/Creatinine Ratio Glucose Calcium Total Bilirubin Direct Bilirubin AST ALT Alkaline Phosphatase Total Creatine Kinase Troponin I C-React Prot Ext Range Total Protein Albumin Globulin Triglycerides Cholesterol LDL Cholesterol VLDL Cholesterol HDL Cholesterol TSH Urine Color Urine Clarity Urine pH Ur Specific [place] Urine Protein Urine Glucose (UA) Urine Ketones Urine Occult Blood Urine Nitrite Urine Bilirubin Urine Urobilinogen Ur Leukocyte Esterase Urine RBC Urine WBC Ur Squamous Epith Cells Urine Bacteria Urine Mucus Ur Random Sodium Urine Creatinine Urine Potassium Urine Chloride SANDRA Screen Pending DELTA-1 Antibody Pending SS-A/Ro IgG Antibody Pending SS-B/La IgG Antibody Pending Sm (Morales) Antibody Pending [employer]IOR [employer] PROGRAMMER Antibody Pending Scl-70 Scleroderma Ab Pending Double Strand DNA Ab Pending Centromere B Antibody Pending EBV Capsid Ag IgG Ab EBV Capsid Ag IgM Ab EBV Early Antigen IgG Hepatitis A IgM Ab Hep Bs Antigen Hep B Core IgM Ab Hepatitis C Ab (EIA) - Other Studies Radiology: [] Other Studies: [] Route of nutrition/ use of supplements: [] Nutritional Intake: [] IV Site: [] Kraus Catheter: [] Patient is alert does not appear toxic head and neck exams unremarkable lungs are clear heart exam S1-S2 abdomen soft nontender his lower extremities there is no erythema there is no signs of active infection in his legs. Laboratory studies reviewed blood cultures are pending - Assessment/Plan Antibiotics: [] Assessment/Plan: [] Active and Suspected Problems Allergic reaction caused by a drug (Acute) Hypothyroidism (Acute) Rhabdomyolysis (Acute) Swelling of right lower extremity (Acute) Rhabdomyolysis and apparently fever at home. Clinically no signs of active infection at this time. We will continue to observe off antibiotic therapy. Etiology is rhabdomyolysis is unclear.
[2017-01-25] MEDS: Ondansetron 4 MG/2 ML Vial IV (17:01)
[2017-01-25 18:09] LABS: Urine Chloride 42 mmol/L (Not Establ.); Urine Sodium 15 mmol/L (Not Establ.)
[2017-01-25] MEDS: Docusate Sodium 100 MG Capsule 200 MG PO (19:38)
[2017-01-25] MEDS: Acetaminophen 325 MG Tablet 650 MG PO (21:03)
--- NOTE | 2017-01-25 21:09 | RAD_ITS ---
XR Chest 1 View INDICATION: SHORT OF BREATH COMPARISON: January 22, 2017 TECHNIQUE: Portable chest x-ray FINDINGS: The heart size is within normal limits, stable compared to the previous exam. Pulmonary vascularity is within normal limits. The lungs remain clear. No evidence of pleural effusion or pneumothorax. RAD/Chest 1 View (Portable) IMPRESSION: Stable examination without radiographic evidence of acute intrathoracic disease. at 2147 Reported and signed by: Beba Moser MD Electronically Signed: Beba Moser MD at 20:46 EDT Tel , Service support ,
--- NOTE | 2017-01-25 21:47 | NURSING ---
Spoke to Binta Simmons. Cannot evaluate until medically cleared. Follow protocol for suicide precautions.
--- NOTE | 2017-01-25 21:52 | NURSING ---
Yulisa, , notified via telephone of suicidal thoughts. States he lost his first at an early age due to disease and 2 sons to disease contracted from homosexuality. given direct line to floor. Notified of suicide prec and room camera.
[2017-01-25 22:21] LABS: AST(SGOT) 117 U/L (15-37); Alanine Aminotransfer ALT/SGPT 88 U/L (12-78); Albumin, Serum 1.9 g/dL (3.4-5.0); Alkaline Phosphatase 50 U/L (45-117); Bilirubin, Direct 0.18 mg/dL (0.00-0.30); Globulin 3.1 g/dL (2.2-4.2); Lactic Acid 1.3 mmol/L (0.4-2.0)
[2017-01-25] MEDS: 0.9% Normal Saline 1,000 ML 250 ML IV (23:00)
--- NOTE | 2017-01-25 23:22 | NURSING ---
Verbal handoff to UNIQUE Guardado. Debby to sit at bedside with patient.
[2017-01-26] VITALS (13 sets, daily range): BP systolic 101–113; BP diastolic 51–60; PULSE 82–108; RESP 16–18; TEMP 37.2–38.2; O2SAT 93–94
[2017-01-26] MEDS: 0.9% Normal Saline 1,000 ML 250 ML IV ×6 (02:12→22:34)
[2017-01-26 05:07] LABS: HEPATITIS B SURFACE AG Negative (Negative); Hepatitis A IgM Antibody Negative (Negative); Hepatitis B Core AB IgM Negative (Negative)
[2017-01-26] MEDS: Levothyroxine 75 MCG Tablet PO (05:35)
[2017-01-26] MEDS: 0.9% NaCl Peripheral Flush Adult/Peds IV (05:36)
[2017-01-26 06:09] LABS: Absolute Lymphocyte Count 0.74 X10^3/ul (0.83-4.51); Absolute Neutrophil Count 6.7 X10^3/uL (2.0-7.7); Eosinophil# 0.36 X10^3/uL; Eosinophils% 4.5 % (0-5); Lymphocyte # 0.74 X10^3/ul (4.0); Lymphocyte % 9.3 % (19-41); Mean Corpuscular Hgb 31.7 pg (27.0-32.0); Mean Corpuscular Volume 90.7 fL (80-94); Mean Platelet Vol. 10.7 fl (6.2-12.0); Monocyte# 0.17 X10^3/uL; Monocyte% 2.1 % (0-10); Neutrophil # 6.65 X10^3/uL (2.7-7.7); Neutrophil % 83.8 % (47-70); Platelet Count 161 K/mm3 (150-450); RBC Distribution Width CV 12.9 % (11.6-14.6); RBC Distribution Width SD 42.3 fl (35.1-43.9); Red Blood Count 4.41 M/mm3 (4.6-6.2); White Blood Count 7.9 K/mm3 (4.4-11.0)
[2017-01-26 06:33] LABS: POSITIVE COUNT NO; POSITIVE DIFFERENTIAL NO; POSITIVE MORPHOLOGY NO
[2017-01-26 06:55] LABS: Anion Gap 6 (5-15); BUN 29 mg/dL (7-18); BUN/Creat Ratio 19.3 RATIO (10-20); CPK Total, Creatine Kinase 2998 U/L (39-308); Calcium,Total 7.7 mg/dL (8.5-10.1); Chloride 104 mmol/L (98-107); Cholesterol 95 mg/dL (200); EST Glomerular Filtration Rate 48 mL/min (>60); Est Glom Filt Rate - Afr Amer 58 mL/min (>60); Estimated Creatinine Clearance 40.56 ml/min; Glucose 111 mg/dL (70-110); High Density Lipoprotein 19 mg/dL; Potassium 4.5 mmol/L (3.5-5.1); Sodium Level 135 mmol/L (136-145); Triglycerides 195 mg/dL; Very Low Density Lipoprotein 39 mg/dL (5-40)
[2017-01-26] MEDS: Aspirin E.C. 81 MG Tablet PO (08:28)
[2017-01-26] MEDS: HYDROCODONE/APAP 7.5-325/15ML 15 ML UDC PO ×3 (08:28→21:08)
[2017-01-26] MEDS: Clopidogrel Bisulfate 75 MG Tablet PO (08:33)
[2017-01-26] MEDS: Metoprolol Tartrate 25 MG Tablet PO ×2 (08:33→21:08)
[2017-01-26] MEDS: Isosorbide Mononitrate 30 MG Tablet 15 MG PO (08:34)
[2017-01-26 08:59] LABS: Hep C Antibodies <0.1 s/co ratio (0.0-0.9)
--- NOTE | 2017-01-26 09:59 | PN.ID_ITS ---
Patient Problems: Active and Suspected Problems Allergic reaction caused by a drug (Acute) Hypothyroidism (Acute) Rhabdomyolysis (Acute) Swelling of right lower extremity (Acute) Subjective: Patient is alert complaining of body aches. Also complains some nausea. Had low-grade fevers overnight this morning. No headaches. I did talk to the patient's at the bedside gave me more of a history over the last 1-2 weeks. Objective: Alert does not appear toxic lungs are clear heart exam S1-S2 abdomen soft no focal tenderness. Laboratory studies reviewed including chemistry profile CBC blood cultures remain negative to date - Physical Exam Vital Signs Temp Pulse Resp BP Pulse Ox 100.4 F 102 18 107/54 93 01/26/17 08:24 01/26/17 08:33 01/26/17 08:24 01/26/17 08:24 01/26/17 08:24 Oxygen Delivery Method Room Air Weight: 95.254 kg Body Mass Index (BMI) 30.1 Intake and Output for Last 24 Hours 01/24/17 01/25/17 01/26/17 23:59 23:59 23:59 Intake Total 4125 3110 Output Total 800 350 Balance 3325 2760 Laboratory Tests Past 24 Hrs 01/25/17 01/25/17 01/25/17 06:32 10:30 10:30 WBC RBC Hgb Hct MCV MCH MCHC RDW RDW Differential Plt Count MPV Immature Gran % (Auto) Neut % (Auto) Lymph % (Auto) [place] % (Auto) Eos % (Auto) Baso % (Auto) Absolute Neuts (auto) Absolute Lymphs (auto) Total Counted ESR 21 H Sodium Potassium Chloride Carbon Dioxide Anion Gap BUN Creatinine Estim Creat Clear Calc Est GFR (MDRD) Af Amer Est GFR (MDRD) Non-Af BUN/Creatinine Ratio Glucose Lactic Acid Calcium Total Bilirubin Direct Bilirubin AST ALT Alkaline Phosphatase Total Creatine Kinase Troponin I Total Protein Albumin Globulin Triglycerides Cholesterol LDL Cholesterol VLDL Cholesterol HDL Cholesterol TSH 6.97 H Ur Random Sodium Urine Creatinine Urine Potassium Urine Chloride SANDRA Screen DELTA-1 Antibody SS-A/Ro IgG Antibody SS-B/La IgG Antibody Sm (Morales) Antibody [employer]ELD [employer] MAN Antibody Scl-70 Scleroderma Ab Double Strand DNA Ab Centromere B Antibody Hepatitis A IgM Ab Negative Hep Bs Antigen Negative Hep B Core IgM Ab Negative Hepatitis C Ab (EIA) <0.1 01/25/17 01/25/17 01/25/17 10:30 12:58 17:30 WBC RBC Hgb Hct MCV MCH MCHC RDW RDW Differential Plt Count MPV Immature Gran % (Auto) Neut % (Auto) Lymph % (Auto) [place] % (Auto) Eos % (Auto) Baso % (Auto) Absolute Neuts (auto) Absolute Lymphs (auto) Total Counted ESR Sodium Potassium Chloride Carbon Dioxide Anion Gap BUN Creatinine Estim Creat Clear Calc Est GFR (MDRD) Af Amer Est GFR (MDRD) Non-Af BUN/Creatinine Ratio Glucose Lactic Acid Calcium Total Bilirubin Direct Bilirubin AST ALT Alkaline Phosphatase Total Creatine Kinase Troponin I < 0.02 Total Protein Albumin Globulin Triglycerides Cholesterol LDL Cholesterol VLDL Cholesterol HDL Cholesterol TSH Ur Random Sodium Urine Creatinine 211.00 Urine Potassium Urine Chloride SANDRA Screen Pending DELTA-1 Antibody Pending SS-A/Ro IgG Antibody Pending SS-B/La IgG Antibody Pending Sm (Morales) Antibody Pending [employer] Antibody Pending Scl-70 Scleroderma Ab Pending Double Strand DNA Ab Pending Centromere B Antibody Pending Hepatitis A IgM Ab Hep Bs Antigen Hep B Core IgM Ab Hepatitis C Ab (EIA) 01/25/17 01/25/17 01/25/17 17:30 21:42 21:42 WBC RBC Hgb Hct MCV MCH MCHC RDW RDW Differential Plt Count MPV Immature Gran % (Auto) Neut % (Auto) Lymph % (Auto) [place] % (Auto) Eos % (Auto) Baso % (Auto) Absolute Neuts (auto) Absolute Lymphs (auto) Total Counted ESR Sodium Potassium Chloride Carbon Dioxide Anion Gap BUN Creatinine Estim Creat Clear Calc Est GFR (MDRD) Af Amer Est GFR (MDRD) Non-Af BUN/Creatinine Ratio Glucose Lactic Acid 1.3 Calcium Total Bilirubin 0.70 Direct Bilirubin 0.18 AST 117 H ALT 88 H Alkaline Phosphatase 50 Total Creatine Kinase Troponin I Total Protein 5.0 L Albumin 1.9 L Globulin 3.1 Triglycerides Cholesterol LDL Cholesterol VLDL Cholesterol HDL Cholesterol TSH Ur Random Sodium 15 Urine Creatinine Urine Potassium 89.0 Urine Chloride 42 SANDRA Screen DELTA-1 Antibody SS-A/Ro IgG Antibody SS-B/La IgG Antibody Sm (Morales) Antibody [employer] Antibody Scl-70 Scleroderma Ab Double Strand DNA Ab Centromere B Antibody Hepatitis A IgM Ab Hep Bs Antigen Hep B Core IgM Ab Hepatitis C Ab (EIA) 10/18/17 10/18/17 05:30 05:30 WBC 7.9 RBC 4.41 L Hgb 14.0 Hct 40.0 MCV 90.7 MCH 31.7 MCHC 35.0 RDW 12.9 RDW Differential 42.3 Plt Count 161 MPV 10.7 Immature Gran % (Auto) 0.300 Neut % (Auto) 83.8 H Lymph % (Auto) 9.3 L [place] % (Auto) 2.1 Eos % (Auto) 4.5 Baso % (Auto) 0.0 Absolute Neuts (auto) 6.7 Absolute Lymphs (auto) 0.74 L Total Counted Not Reportable ESR Sodium 135 L Potassium 4.5 Chloride 104 Carbon Dioxide 25.0 Anion Gap 6 BUN 29 H Creatinine 1.50 H Estim Creat Clear Calc 40.56 Est GFR (MDRD) Af Amer 58 L Est GFR (MDRD) Non-Af 48 L BUN/Creatinine Ratio 19.3 Glucose 111 H Lactic Acid Calcium 7.7 L Total Bilirubin Direct Bilirubin AST ALT Alkaline Phosphatase Total Creatine Kinase 2998 H Troponin I Total Protein Albumin Globulin Triglycerides 195 Cholesterol 95 LDL Cholesterol 37 VLDL Cholesterol 39 HDL Cholesterol 19 L TSH Ur Random Sodium Urine Creatinine Urine Potassium Urine Chloride SANDRA Screen DELTA-1 Antibody SS-A/Ro IgG Antibody SS-B/La IgG Antibody Sm (Morales) Antibody [employer] Antibody Scl-70 Scleroderma Ab Double Strand DNA Ab Centromere B Antibody Hepatitis A IgM Ab Hep Bs Antigen Hep B Core IgM Ab Hepatitis C Ab (EIA) Route of nutrition/ use of supplements: [] Nutritional Intake: [] IV Site: [] Kraus Catheter: [] - Assessment/Plan Fever but no obvious sites of infection clinically would observe off antibiotics and follow his liver function tests CPK levels and renal profile.
[2017-01-26] MEDS: Docusate Sodium 100 MG Capsule 200 MG PO ×2 (11:23→18:31)
[2017-01-26] MEDS: Heparin Injection 5,000 UNITS/ML Syringe 5000 UNITS SC ×2 (11:23→21:09)
--- NOTE | 2017-01-26 11:56 | CASEMGMT ---
See RN CM Assessment link. SW referral-recommending crisis be called prior to dc when medically stable. Home on dc with family support. Raquel CALHOUN BSN ACM
--- NOTE | 2017-01-26 15:22 | PCM.PN.HOSP ---
Patient Problems: Active and Suspected Problems Allergic reaction caused by a drug (Acute) Hypothyroidism (Acute) Rhabdomyolysis (Acute) Swelling of right lower extremity (Acute) Subjective: Is resting comfortably, no complaints Objective: Vital signs trend reviewed, still with some low-grade fevers although trending down, T-max 100.8 Vitals/I&O's: Vital Signs Temp Pulse Resp BP Pulse Ox 99.0 F 94 18 101/60 93 01/26/17 14:00 01/26/17 14:00 01/26/17 14:00 01/26/17 14:00 01/26/17 14:00 Oxygen Delivery Method Room Air Weight: 210 lb Body Mass Index (BMI) 30.1 Intake and Output for Last 24 Hours 01/24/17 01/25/17 01/26/17 23:59 23:59 23:59 Intake Total 4125 4591 Output Total 800 450 Balance 3325 4141 General: Oriented x3, Cooperative Neck: No JVD Lungs: Clear to auscultation, Normal air movement Cardiovascular: Regular rate, Regular Rhythm, Normal S1, Normal S2 Abdomen: Soft, Non Tender Extremities: - - Right suprapatellar and joint effusion, mildly asymmetric right lower extremity edema Microbiology Past 72 Hours 01/25/17 03:30 Urine, Clean Catch Urine Culture - Preliminary GPC Poss Enterococcus sp Laboratory Results 01/25/17 10:30: Hepatitis A IgM Ab Negative, Hep Bs Antigen Negative, Hep B Core IgM Ab Negative, Hepatitis C Ab (EIA) <0.1 01/25/17 17:30: Urine Creatinine 211.00 01/25/17 17:30: Ur Random Sodium 15, Urine Potassium 89.0, Urine Chloride 42 01/25/17 21:42: Lactic Acid 1.3 01/25/17 21:42: Total Bilirubin 0.70, Direct Bilirubin 0.18, AST 117 H, ALT 88 H, Alkaline Phosphatase 50, Total Protein 5.0 L, Albumin 1.9 L, Globulin 3.1 01/26/17 05:30: WBC 7.9, RBC 4.41 L, Hgb 14.0, Hct 40.0, MCV 90.7, MCH 31.7, MCHC 35.0, RDW 12.9, RDW Differential 42.3, Plt Count 161, MPV 10.7, Immature Gran % (Auto) 0.300, Neut % (Auto) 83.8 H, Lymph % (Auto) 9.3 L, [place] % (Auto) 2.1, Eos % (Auto) 4.5, Baso % (Auto) 0.0, Absolute Neuts (auto) 6.7, Absolute Lymphs (auto) 0.74 L, Total Counted Not Reportable 01/26/17 05:30: Sodium 135 L, Potassium 4.5, Chloride 104, Carbon Dioxide 25.0, Anion Gap 6, BUN 29 H, Creatinine 1.50 H, Estim Creat Clear Calc 40.56, Est GFR (MDRD) Af Amer 58 L, Est GFR (MDRD) Non-Af 48 L, BUN/Creatinine Ratio 19.3, Glucose 111 H, Calcium 7.7 L, Total Creatine Kinase 2998 H, Triglycerides 195, Cholesterol 95, LDL Cholesterol 37, VLDL Cholesterol 39, HDL Cholesterol 19 L Current Medications Acetaminophen (Tylenol) 650 mg PO Q6H PRN PRN PRN Reason: Mild Pain (scale 0-3)/T>100.7 Last Admin: 01/25/17 21:03 Dose: 650 mg Hydrocodone Bitart/Acetaminophen (Lortab [Replacement] 7.5-325/15) 5 - 10 ml PO Q4H PRN PRN PRN Reason: PAIN Last Admin: 01/26/17 13:41 Dose: 10 ml [facility] Last Admin: 01/26/17 08:28 Dose: 81 mg Bisacodyl (Dulcolax) 10 mg RECTAL DAILY PRN PRN PRN Reason: Constipation Clopidogrel Bisulfate (Plavix) 75 mg PO DAILY [facility] Last Admin: 01/26/17 08:33 Dose: 75 mg Docusate Sodium (Colace) 200 mg PO BID PRN PRN PRN Reason: Constipation Last Admin: 01/26/17 11:23 Dose: 200 mg Donepezil HCl (Aricept) 5 mg PO DAILY [facility] Last Admin: 01/26/17 08:35 Dose: Not Given Heparin Sodium (Porcine) () 5,000 units SC BID [facility] Last Admin: 01/26/17 11:23 Dose: 5,000 units Sodium Chloride () 1,000 mls @ 250 mls/hr IV .Q4H [facility] Last Admin: 01/26/17 13:41 Dose: 250 mls/hr Isosorbide Mononitrate (Imdur) 15 mg PO DAILY [facility] Last Admin: 01/26/17 08:34 Dose: 15 mg Levothyroxine Sodium (Synthroid) 75 mcg PO DAILY@0600 [facility] Last Admin: 01/26/17 05:35 Dose: 75 mcg Metoprolol Tartrate (Lopressor (Beta Norma)) 25 mg PO BID [facility] Last Admin: 01/26/17 08:33 Dose: 25 mg Morphine Sulfate (Morphine) 1 - 2 mg IV Q4H PRN PRN PRN Reason: SEVERE PAIN (6-10) Last Admin: 01/26/17 11:23 Dose: 2 mg Nutritional Formula (Lactose Free) (Ensure Enlive) 120 ml PO 4X/DAY [facility] Last Admin: 01/26/17 13:41 Dose: 120 ml Ondansetron HCl (Zofran) 4 mg IV Q8H PRN PRN PRN Reason: Nausea Last Admin: 01/25/17 17:01 Dose: 4 mg Sodium Chloride () 5 - 30 ml IV UD PRN PRN Reason: SALINE FLUSH Last Admin: 01/26/17 05:36 Dose: 10 ml Assessment/Plan Active and Suspected Problems Allergic reaction caused by a drug (Acute) Hypothyroidism (Acute) Rhabdomyolysis (Acute) Swelling of right lower extremity (Acute) 81-year-old gentleman with history of CAD, PCI/stent 2005, nuclear stress test 2013 negative for ischemia EF 65%, admitted with acute rhabdomyolysis with ALPA BUN/creatinine 42/1.95. Transaminases were elevated 2-3 times control, AST 171, ALT 92, with normal total bilirubin and alkaline phosphatase. Initial CK 6022. He ruled out for acute coronary syndrome. He is being aggressively hydrated with improvement in CK and creatinine. Immunology panel is pending Hepatitis acute panel is negative. EBV titers pending. CBC was noncontributory. Chart notes indicate he had some fevers prior to admission with myalgias. Lower extremity duplex ultrasound 02/25 and 01/22/17 were negative for DVT R LE. CT abdomen pelvis 01/24/2017 revealed small liver cyst, 6.5 cm complex left renal cyst, cholelithiasis, DJD, diffuse arteriosclerotic disease. Has history of skin rash secondary to cephalexin He has been seen and followed in infectious disease consultation, agree with observing off antibiotics. His medications listed prior to admission were metoprolol, ImDur, levothyroxine, Plavix, fish oil, Zocor, aspirin, Aricept. 1. Rhabdomyolysis Improved with hydration. Statin discontinued. Etiologies may have been viral illness, with superimposed drug reaction/statin plus or minus Keflex 2. ALPA secondary to rhabdo -improved with hydration 3. Right lower extremity edema -he has right knee suprapatellar effusion, suspect this is related to this 4. Elevated AST, ALT in the setting of rhabdomyolysis 5. Mild thrombocytopenia 6. CAD 7. Hyperlipidemia 8. Hypothyroid Currently being monitored off antibiotics. Would add orthopedic consultation for right knee effusion. Will check right knee x-ray Serial lab ordered
--- NOTE | 2017-01-26 15:49 | PN_ITS ---
Patient Problems: Active and Suspected Problems Allergic reaction caused by a drug (Acute) Hypothyroidism (Acute) Rhabdomyolysis (Acute) Swelling of right lower extremity (Acute) Subjective: Is resting comfortably, no complaints Objective: Vital signs trend reviewed, still with some low-grade fevers although trending down, T-max 100.8 Vitals/I&O's: Vital Signs Temp Pulse Resp BP Pulse Ox 99.0 F 94 18 101/60 93 01/26/17 14:00 01/26/17 14:00 01/26/17 14:00 01/26/17 14:00 01/26/17 14:00 Oxygen Delivery Method Room Air Weight: 210 lb Body Mass Index (BMI) 30.1 Intake and Output for Last 24 Hours 01/24/17 01/25/17 01/26/17 23:59 23:59 23:59 Intake Total 4125 4591 Output Total 800 450 Balance 3325 4141 General: Oriented x3, Cooperative Neck: No JVD Lungs: Clear to auscultation, Normal air movement Cardiovascular: Regular rate, Regular Rhythm, Normal S1, Normal S2 Abdomen: Soft, Non Tender Extremities: - - Right suprapatellar and joint effusion, mildly asymmetric right lower extremity edema Microbiology Past 72 Hours 01/25/17 03:30 Urine, Clean Catch Urine Culture - Preliminary GPC Poss Enterococcus sp Laboratory Results 01/25/17 10:30: Hepatitis A IgM Ab Negative, Hep Bs Antigen Negative, Hep B Core IgM Ab Negative, Hepatitis C Ab (EIA) <0.1 01/25/17 17:30: Urine Creatinine 211.00 01/25/17 17:30: Ur Random Sodium 15, Urine Potassium 89.0, Urine Chloride 42 01/25/17 21:42: Lactic Acid 1.3 01/25/17 21:42: Total Bilirubin 0.70, Direct Bilirubin 0.18, AST 117 H, ALT 88 H , Alkaline Phosphatase 50, Total Protein 5.0 L, Albumin 1.9 L, Globulin 3.1 01/26/17 05:30: WBC 7.9, RBC 4.41 L, Hgb 14.0, Hct 40.0, MCV 90.7, MCH 31.7, MCHC 35.0, RDW 12.9, RDW Differential 42.3, Plt Count 161, MPV 10.7, Immature Gran % (Auto) 0.300, Neut % (Auto) 83.8 H, Lymph % (Auto) 9.3 L, [place] % (Auto) 2.1, Eos % (Auto) 4.5, Baso % (Auto) 0.0, Absolute Neuts (auto) 6.7, Absolute Lymphs (auto) 0.74 L, Total Counted Not Reportable 01/26/17 05:30: Sodium 135 L, Potassium 4.5, Chloride 104, Carbon Dioxide 25.0, Anion Gap 6, BUN 29 H, Creatinine 1.50 H, Estim Creat Clear Calc 40.56, Est GFR (MDRD) Af Amer 58 L, Est GFR (MDRD) Non-Af 48 L, BUN/Creatinine Ratio 19.3, Glucose 111 H, Calcium 7.7 L, Total Creatine Kinase 2998 H, Triglycerides 195, Cholesterol 95, LDL Cholesterol 37, VLDL Cholesterol 39, HDL Cholesterol 19 L Current Medications Acetaminophen (Tylenol) 650 mg PO Q6H PRN PRN PRN Reason: Mild Pain (scale 0-3)/T>100.7 Last Admin: 01/25/17 21:03 Dose: 650 mg Hydrocodone Bitart/Acetaminophen (Lortab [Replacement] 7.5-325/15) 5 - 10 ml PO Q4H PRN PRN PRN Reason: PAIN Last Admin: 01/26/17 13:41 Dose: 10 ml [facility]) [facility] Last Admin: 01/26/17 08:28 Dose: 81 mg Bisacodyl (Dulcolax) 10 mg RECTAL DAILY PRN PRN PRN Reason: Constipation Clopidogrel Bisulfate (Plavix) 75 mg PO DAILY [facility] Last Admin: 01/26/17 08:33 Dose: 75 mg Docusate Sodium (Colace) 200 mg PO BID PRN PRN PRN Reason: Constipation Last Admin: 01/26/17 11:23 Dose: 200 mg Donepezil HCl (Aricept) 5 mg PO DAILY [facility] Last Admin: 01/26/17 08:35 Dose: Not Given Heparin Sodium (Porcine) () 5,000 units SC BID [facility] Last Admin: 01/26/17 11:23 Dose: 5,000 units Sodium Chloride () 1,000 mls @ 250 mls/hr IV .Q4H [facility] Last Admin: 01/26/17 13:41 Dose: 250 mls/hr Isosorbide Mononitrate (Imdur) 15 mg PO DAILY [facility] Last Admin: 01/26/17 08:34 Dose: 15 mg Levothyroxine Sodium (Synthroid) 75 mcg PO DAILY@0600 [facility] Last Admin: 01/26/17 05:35 Dose: 75 mcg Metoprolol Tartrate (Lopressor (Beta Norma)) 25 mg PO BID [facility] Last Admin: 01/26/17 08:33 Dose: 25 mg Morphine Sulfate (Morphine) 1 - 2 mg IV Q4H PRN PRN PRN Reason: SEVERE PAIN (6-10) Last Admin: 01/26/17 11:23 Dose: 2 mg Nutritional Formula (Lactose Free) (Ensure Enlive) 120 ml PO 4X/DAY [facility] Last Admin: 01/26/17 13:41 Dose: 120 ml Ondansetron HCl (Zofran) 4 mg IV Q8H PRN PRN PRN Reason: Nausea Last Admin: 01/25/17 17:01 Dose: 4 mg Sodium Chloride () 5 - 30 ml IV UD PRN PRN Reason: SALINE FLUSH Last Admin: 01/26/17 05:36 Dose: 10 ml Assessment/Plan Active and Suspected Problems Allergic reaction caused by a drug (Acute) Hypothyroidism (Acute) Rhabdomyolysis (Acute) Swelling of right lower extremity (Acute) 81-year-old gentleman with history of CAD, PCI/stent 2005, nuclear stress test 2013 negative for ischemia EF 65%, admitted with acute rhabdomyolysis with ALPA BUN/creatinine 42/1.95. Transaminases were elevated 2-3 times control, AST 171, ALT 92, with normal total bilirubin and alkaline phosphatase. Initial CK 6022. He ruled out for acute coronary syndrome. He is being aggressively hydrated with improvement in CK and creatinine. Immunology panel is pending Hepatitis acute panel is negative. EBV titers pending. CBC was noncontributory. Chart notes indicate he had some fevers prior to admission with myalgias. Lower extremity duplex ultrasound 02/25 and 01/22/17 were negative for DVT R LE. CT abdomen pelvis 01/24/2017 revealed small liver cyst, 6.5 cm complex left renal cyst, cholelithiasis, DJD, diffuse arteriosclerotic disease. Has history of skin rash secondary to cephalexin He has been seen and followed in infectious disease consultation, agree with observing off antibiotics. His medications listed prior to admission were metoprolol, ImDur, levothyroxine , Plavix, fish oil, Zocor, aspirin, Aricept. 1. Rhabdomyolysis Improved with hydration. Statin discontinued. Etiologies may have been viral illness, with superimposed drug reaction/statin plus or minus Keflex 2. ALPA secondary to rhabdo -improved with hydration 3. Right lower extremity edema -he has right knee suprapatellar effusion, suspect this is related to this 4. Elevated AST, ALT in the setting of rhabdomyolysis 5. Mild thrombocytopenia 6. CAD 7. Hyperlipidemia 8. Hypothyroid Currently being monitored off antibiotics. Would add orthopedic consultation for right knee effusion. Will check right knee x-ray Serial lab ordered
--- NOTE | 2017-01-26 15:50 | RAD_ITS ---
STUDY: X-RAY - RIGHT KNEE REASON FOR EXAM: Male, 81 years old. Right knee swelling. TECHNIQUE: 3 view(s) of the knee. COMPARISON: None. FINDINGS: Normal visualized distal femur. Normal visualized proximal tibia and fibula. Normal proximal tibiofibular articulation. There is no demonstrated fracture. Normal medial femorotibial compartment. Normal lateral femorotibial compartment. Normal patellofemoral articulation. There is chondrocalcinosis in both tibiofemoral compartments. There is diffuse soft tissue swelling with no gross effusion. RAD/Knee 3 Views IMPRESSION: Chondrocalcinosis. No fractures, dislocation, or effusion. There is diffuse soft tissue swelling. Electronically Signed: José Miguel Gu MD at 16:39 EDT , Service support ,
--- NOTE | 2017-01-26 16:38 | CHAPLAIN ---
Type of Pastoral Visit ___ Initial Visit ___ Follow-up Visit ___ On-call Visit ___ General Patient Visit ___ Spiritual Assessment ___ Family Conference ___ Bereavement ___ Rapid Response ___ Code Blue _x__ Other (describe below) Pastoral Care Referral From ___ Patient ___ Family ___ Nurse ___ Physician ___ Retail Department Reset ___ Arts Education Teacher ___ Other (describe below) Sacrament/Intervention ___ Active listening ___ Anointing ___ Oriental Orthodox ___ Bereavement ___ Communion ___ Malika exploration ___ ___ Life review ___ Prayer ___ Reconciliation ___ Sacrament of Sick ___ Supportive presence ___ Wedding ___ Other (describe below) Pastoral Comments two attempts to visit patient and he has been sleeping both times
[2017-01-26] MEDS: Acetaminophen 325 MG Tablet 650 MG PO (16:53)
--- NOTE | 2017-01-26 17:02 | NURSING ---
PT HAD REPORTED THAT HE HURT SO BAD EVERYWHERE, I CANT EVEN GET COMFORTABLE. DECLINED MORPHINE, BUT AGREEABLE TO TYLENOL, LORTAB NOT DUE YET.
[2017-01-26] MEDS: Tamsulosin HCl 0.4 MG Capsule PO (20:59)
[2017-01-27] VITALS (19 sets, daily range): BP systolic 95–109; BP diastolic 53–60; PULSE 86–160; RESP 14–20; TEMP 36.4–37.5; O2SAT 94–96
[2017-01-27 00:24] LABS: ANTINUCLEAR ANTIBODIES DIRECT Negative (Negative)
[2017-01-27 00:25] LABS: EBV Acute VCA IgM < 36.0 U/mL (0.0-35.9); EBV Early Antigen IgG <9.0 U/mL (0.0-8.9); EBV-VCA IgG 96.5 U/mL (0.0-17.9)
[2017-01-27] MEDS: 0.9% NaCl Peripheral Flush Adult/Peds IV ×2 (01:05→08:43)
[2017-01-27] MEDS: 0.9% Normal Saline 1,000 ML 250 ML IV (02:53)
[2017-01-27] MEDS: HYDROCODONE/APAP 7.5-325/15ML 15 ML UDC PO ×2 (05:35→11:19)
[2017-01-27] MEDS: Levothyroxine 75 MCG Tablet PO (05:35)
[2017-01-27] MEDS: Bisacodyl 10 MG Suppository RECTAL (05:58)
[2017-01-27 07:52] LABS: Absolute Lymphocyte Count 0.45 X10^3/ul (0.83-4.51); Absolute Neutrophil Count 10.5 X10^3/uL (2.0-7.7); Basophil# 0.01 X10^3/uL; Basophil% 0.1 % (0-1); Eosinophil# 0.46 X10^3/uL; Eosinophils% 3.9 % (0-5); Hematocrit 40.1 % (40-54); Hemoglobin 13.7 g/dl (13.0-16.5); Lymphocyte # 0.45 X10^3/ul (4.0); Lymphocyte % 3.8 % (19-41); Mean Corp Hgb Conc 34.2 g/gl (32-36); Mean Corpuscular Volume 90.7 fL (80-94); Mean Platelet Vol. 10.9 fl (6.2-12.0); Monocyte# 0.29 X10^3/uL; Monocyte% 2.5 % (0-10); Neutrophil % 89.4 % (47-70); Platelet Count 163 K/mm3 (150-450); RBC Distribution Width CV 13.1 % (11.6-14.6); RBC Distribution Width SD 43.8 fl (35.1-43.9); Red Blood Count 4.42 M/mm3 (4.6-6.2); White Blood Count 11.7 K/mm3 (4.4-11.0)
[2017-01-27 07:55] LABS: Differential Indicated SCAN CRITERIA MET; POSITIVE COUNT NO; POSITIVE DIFFERENTIAL YES; POSITIVE MORPHOLOGY NO
[2017-01-27 08:11] LABS: AST(SGOT) 71 U/L (15-37); Alanine Aminotransfer ALT/SGPT 82 U/L (12-78); Alkaline Phosphatase 37 U/L (45-117); Anion Gap 9 (5-15); BUN 28 mg/dL (7-18); BUN/Creat Ratio 22.2 RATIO (10-20); CPK Total, Creatine Kinase 2199 U/L (39-308); Calcium,Total 7.4 mg/dL (8.5-10.1); Chloride 105 mmol/L (98-107); Creatinine, Serum 1.26 mg/dL (0.70-1.30); EST Glomerular Filtration Rate 59 mL/min (>60); Est Glom Filt Rate - Afr Amer 71 mL/min (>60); Estimated Creatinine Clearance 48.28 ml/min; Glucose 133 mg/dL (70-110); Potassium 4.9 mmol/L (3.5-5.1); Sodium Level 134 mmol/L (136-145)
[2017-01-27] MEDS: 0.9% Normal Saline 1,000 ML 75 ML IV ×2 (08:35→23:21)
[2017-01-27] MEDS: Aspirin E.C. 81 MG Tablet PO (08:35)
[2017-01-27] MEDS: Docusate Sodium 100 MG Capsule 200 MG PO (08:38)
[2017-01-27] MEDS: Heparin Injection 5,000 UNITS/ML Syringe 5000 UNITS SC ×2 (08:41→21:16)
[2017-01-27] MEDS: Isosorbide Mononitrate 30 MG Tablet 15 MG PO (08:41)
[2017-01-27] MEDS: Metoprolol Tartrate 25 MG Tablet PO ×2 (08:42→21:16)
[2017-01-27] MEDS: Clopidogrel Bisulfate 75 MG Tablet PO (08:42)
[2017-01-27 09:54] LABS: ALB/GLOB Ratio 1.1 RATIO (0.9-2.4); Globulin 3.7 g/dL (2.2-4.2); Protein, Total 7.7 g/dL (6.4-8.2)
--- NOTE | 2017-01-27 10:13 | PCM.PN.ID ---
Patient Problems: Active and Suspected Problems Allergic reaction caused by a drug (Acute) Hypothyroidism (Acute) Rhabdomyolysis (Acute) Swelling of right lower extremity (Acute) Subjective: Patient is alert. States of marginal appetite no nausea or vomiting. Patient had a Kraus catheter placed overnight because of urinary retention. Low-grade fever overnight T-max 100.4. No cardiopulmonary distress no abdominal pain Objective: Alert does not appear toxic lungs are clear heart exam S1-S2 abdomen soft no focal tenderness Kraus catheter in place. CBC and chemistry profile reviewed liver function tests have improved compared to previous studies CPK levels slightly improved. Blood cultures remain negative urine culture grew enterococcus which I doubt is clinically significant - Physical Exam Vital Signs Temp Pulse Resp BP Pulse Ox 99.5 F 93 18 102/55 95 01/27/17 08:00 01/27/17 08:42 01/27/17 08:00 01/27/17 08:00 01/27/17 08:00 Oxygen Delivery Method Room Air Weight: 95.254 kg Body Mass Index (BMI) 30.1 Intake and Output for Last 24 Hours 01/25/17 01/26/17 01/27/17 23:59 23:59 23:59 Intake Total 4125 7772 1517 Output Total 800 850 200 Balance 3325 6922 1317 Microbiology Past 72 Hours 01/25/17 03:30 Urine Culture - Final Urine, Clean Catch GPC Poss Enterococcus sp Laboratory Tests Past 24 Hrs 01/25/17 01/25/17 01/27/17 06:32 10:30 06:46 WBC 11.7 H RBC 4.42 L Hgb 13.7 Hct 40.1 MCV 90.7 MCH 31.0 MCHC 34.2 RDW 13.1 RDW Differential 43.8 Plt Count 163 MPV 10.9 Immature Gran % (Auto) 0.300 Neut % (Auto) 89.4 H Lymph % (Auto) 3.8 L [place] % (Auto) 2.5 Eos % (Auto) 3.9 Baso % (Auto) 0.1 Absolute Neuts (auto) 10.5 H Absolute Lymphs (auto) 0.45 L Total Counted Not Reportable Differential Comment COMMENT Sodium Potassium Chloride Carbon Dioxide Anion Gap BUN Creatinine Estim Creat Clear Calc Est GFR (MDRD) Af Amer Est GFR (MDRD) Non-Af BUN/Creatinine Ratio Glucose Calcium Total Bilirubin AST ALT Alkaline Phosphatase Total Creatine Kinase Total Protein Albumin Globulin Albumin/Globulin Ratio SANDRA Screen Negative DELTA-1 Antibody Not Reportable SS-A/Ro IgG Antibody Not Reportable SS-B/La IgG Antibody Not Reportable Sm (Morales) Antibody Not Reportable ANTHROPOLOGY DEPARTMENT CHAIR Antibody Not Reportable Scl-70 Scleroderma Ab Not Reportable Double Strand DNA Ab Not Reportable Centromere B Antibody Not Reportable EBV Capsid Ag IgG Ab 96.5 H EBV Capsid Ag IgM Ab < 36.0 EBV Early Antigen IgG <9.0 01/27/17 06:46 WBC RBC Hgb Hct MCV MCH MCHC RDW RDW Differential Plt Count MPV Immature Gran % (Auto) Neut % (Auto) Lymph % (Auto) [place] % (Auto) Eos % (Auto) Baso % (Auto) Absolute Neuts (auto) Absolute Lymphs (auto) Total Counted Differential Comment Sodium 134 L Potassium 4.9 Chloride 105 Carbon Dioxide 20.0 L Anion Gap 9 BUN 28 H Creatinine 1.26 Estim Creat Clear Calc 48.28 Est GFR (MDRD) Af Amer 71 Est GFR (MDRD) Non-Af 59 L BUN/Creatinine Ratio 22.2 H Glucose 133 H Calcium 7.4 L Total Bilirubin 0.60 AST 71 H ALT 82 H Alkaline Phosphatase 37 L Total Creatine Kinase 2199 H Total Protein 7.7 Albumin 4.0 Globulin 3.7 Albumin/Globulin Ratio 1.1 SANDRA Screen DELTA-1 Antibody SS-A/Ro IgG Antibody SS-B/La IgG Antibody Sm (Morales) Antibody ANTHROPOLOGY DEPARTMENT CHAIR Antibody Scl-70 Scleroderma Ab Double Strand DNA Ab Centromere B Antibody EBV Capsid Ag IgG Ab EBV Capsid Ag IgM Ab EBV Early Antigen IgG Route of nutrition/ use of supplements: [] Nutritional Intake: [] IV Site: [] Kraus Catheter: [] - Assessment/Plan Low-grade fevers but no clinical signs of infection at this point we will continue to observe off antimicrobial therapy.
--- NOTE | 2017-01-27 12:51 | PCM.PN.HOSP ---
Patient Problems: Active and Suspected Problems Allergic reaction caused by a drug (Acute) Hypothyroidism (Acute) Rhabdomyolysis (Acute) Swelling of right lower extremity (Acute) Subjective: Patient's fever curve is decreasing. Kraus catheter was placed secondary to urinary retention, Flomax was started. Patient remains in positive fluid balance with generalized edema of right greater than left lower extremity. Right knee x-ray revealed soft tissue edema but no joint effusion. SANDRA panel was negative, hepatitis panel negative, EBV acute negative. The patient's CK, transaminases, and creatinine are all decreasing. Albumin is 4.0. Random urinary sodium is 15 and he is saturating 94-95% on room air, with otherwise stable vitals. Objective: Pleasant and nontoxic-appearing. Family members at bedside. Vitals/I&O's: Vital Signs Temp Pulse Resp BP Pulse Ox 99.5 F 101 18 102/55 95 01/27/17 08:00 01/27/17 10:05 01/27/17 08:00 01/27/17 08:00 01/27/17 08:00 Oxygen Delivery Method Room Air Weight: 210 lb Body Mass Index (BMI) 30.1 Intake and Output for Last 24 Hours 01/25/17 01/26/17 01/27/17 23:59 23:59 23:59 Intake Total 4125 7772 1517 Output Total 800 850 200 Balance 3325 6922 1317 General: Cooperative, Well developed Oral: Moist Mucosa Neck: Supple Lungs: Clear to auscultation Cardiovascular: Regular rate, Regular Rhythm, Normal S1, Normal S2 Abdomen: Bowel Sounds Present, Non Tender Extremities: - - Generalized soft tissue edema of right greater than left lower extremity Microbiology Past 72 Hours 01/25/17 03:30 Urine, Clean Catch Urine Culture - Final GPC Poss Enterococcus sp Laboratory Results 01/25/17 06:32: EBV Capsid Ag IgG Ab 96.5 H, EBV Capsid Ag IgM Ab < 36.0, EBV Early Antigen IgG <9.0 01/25/17 10:30: SANDRA Screen Negative, DELTA-1 Antibody Not Reportable, SS-A/Ro IgG Antibody Not Reportable, SS-B/La IgG Antibody Not Reportable, Sm (Morales) Antibody Not Reportable, ELECTRONIC ASSEMBLER Antibody Not Reportable, Scl-70 Scleroderma Ab Not Reportable, Double Strand DNA Ab Not Reportable, Centromere B Antibody Not Reportable 01/27/17 06:46: WBC 11.7 H, RBC 4.42 L, Hgb 13.7, Hct 40.1, MCV 90.7, MCH 31.0, MCHC 34.2, RDW 13.1, RDW Differential 43.8, Plt Count 163, MPV 10.9, Immature Gran % (Auto) 0.300, Neut % (Auto) 89.4 H, Lymph % (Auto) 3.8 L, [place] % (Auto) 2.5, Eos % (Auto) 3.9, Baso % (Auto) 0.1, Absolute Neuts (auto) 10.5 H, Absolute Lymphs (auto) 0.45 L, Total Counted Not Reportable, Differential Comment COMMENT 01/27/17 06:46: Sodium 134 L, Potassium 4.9, Chloride 105, Carbon Dioxide 20.0 L, Anion Gap 9, BUN 28 H, Creatinine 1.26, Estim Creat Clear Calc 48.28, Est GFR (MDRD) Af Amer 71, Est GFR (MDRD) Non-Af 59 L, BUN/Creatinine Ratio 22.2 H, Glucose 133 H, Calcium 7.4 L, Total Bilirubin 0.60, AST 71 H, ALT 82 H, Alkaline Phosphatase 37 L, Total Creatine Kinase 2199 H, Total Protein 7.7, Albumin 4.0, Globulin 3.7, Albumin/Globulin Ratio 1.1 Current Medications Acetaminophen (Tylenol) 650 mg PO Q6H PRN PRN PRN Reason: Mild Pain (scale 0-3)/T>100.7 Last Admin: 01/26/17 16:53 Dose: 650 mg Hydrocodone Bitart/Acetaminophen (Lortab [Replacement] 7.5-325/15) 5 - 10 ml PO Q4H PRN PRN PRN Reason: PAIN Last Admin: 01/27/17 11:19 Dose: 10 ml [facility] ([facility]) [facility] Last Admin: 01/27/17 08:35 Dose: 81 mg Bisacodyl (Dulcolax) 10 mg RECTAL DAILY PRN PRN PRN Reason: Constipation Last Admin: 01/27/17 05:58 Dose: 10 mg Clopidogrel Bisulfate (Plavix) 75 mg PO DAILY [facility] Last Admin: 01/27/17 08:42 Dose: 75 mg Docusate Sodium (Colace) 200 mg PO BID PRN PRN PRN Reason: Constipation Last Admin: 01/27/17 08:38 Dose: 200 mg Heparin Sodium (Porcine) () 5,000 units SC BID [facility] Last Admin: 01/27/17 08:41 Dose: 5,000 units Sodium Chloride () 1,000 mls @ 75 mls/hr IV .[id number] [facility] Last Admin: 01/27/17 08:35 Dose: 75 mls/hr Isosorbide Mononitrate (Imdur) 15 mg PO DAILY [facility] Last Admin: 01/27/17 08:41 Dose: 15 mg Levothyroxine Sodium (Synthroid) 75 mcg PO DAILY@0600 [facility] Last Admin: 01/27/17 05:35 Dose: 75 mcg Metoprolol Tartrate (Lopressor (Beta Norma)) 25 mg PO BID [facility] Last Admin: 01/27/17 08:42 Dose: 25 mg Morphine Sulfate (Morphine) 1 - 2 mg IV Q4H PRN PRN PRN Reason: SEVERE PAIN (6-10/10) Last Admin: 01/27/17 01:05 Dose: 2 mg Nutritional Formula (Lactose Free) (Ensure Enlive) 120 ml PO 4X/DAY [facility] Last Admin: 01/27/17 08:41 Dose: 120 ml Ondansetron HCl (Zofran) 4 mg IV Q8H PRN PRN PRN Reason: Nausea Last Admin: 01/25/17 17:01 Dose: 4 mg Sodium Chloride () 5 - 30 ml IV UD PRN PRN Reason: SALINE FLUSH Last Admin: 01/27/17 08:43 Dose: 10 ml Tamsulosin HCl (Flomax) 0.4 mg PO DAILY@1730 [facility] Last Admin: 01/26/17 20:59 Dose: 0.4 mg Assessment/Plan Active and Suspected Problems Allergic reaction caused by a drug (Acute) Hypothyroidism (Acute) Rhabdomyolysis (Acute) Swelling of right lower extremity (Acute) 81-year-old gentleman with history of CAD, PCI/stent 2005, nuclear stress test 2013 negative for ischemia EF 65%, admitted with acute rhabdomyolysis with ALPA BUN/creatinine 42/1.95. Transaminases were elevated 2-3 times control, AST 171, ALT 92, with normal total bilirubin and alkaline phosphatase. Initial CK 6022. He ruled out for acute coronary syndrome. SANDRA was negative, hepatitis acute panel negative, EBV acute panel negative. Lower extremity duplex ultrasound 02/25 and 01/22/17 were negative for DVT R LE. CT abdomen pelvis 01/24/2017 revealed small liver cyst, 6.5 cm complex left renal cyst, cholelithiasis, DJD, diffuse arteriosclerotic disease. Has history of skin rash secondary to cephalexin. His fever curve is decreasing, and he is demonstrating serial improvement in CK, creatinine, and LFTs as expected. There is no evidence of ACS, with serial troponins negative agree with withholding antibiotics. This may have been secondary to intercurrent viral syndrome in the setting of statin use. He is in positive fluid balance. Orthopedic opinion is greatly appreciated. Lymphedema appliances will be applied to lower extremities. Per family request, repeat echocardiogram will be obtained, as well as cardiology opinion. Urine output is poor, Kraus was placed secondary to retention, Flomax started, and will begin diuresis. Continue to follow serial CK, creatinine. Thrombocytopenia has resolved. His medications listed prior to admission were metoprolol, ImDur, levothyroxine, Plavix, fish oil, Zocor, aspirin, Aricept. His Aricept was discontinued by his due to side effects prior to admission. 1. Rhabdomyolysis, etiology unclear, suspect secondary to intercurrent viral illness superimposed on statin Continue hydration, add Lasix diuresis, serial lab CBCs have been stable, will follow with chemistries only. 2. AK I secondary to rhabdomyolysis, improving 3. Generalized volume overload, will initiate Lasix diuresis 4. Thrombocytopenia resolved 5. CAD -aspirin, isosorbide, metoprolol 6. Hyperlipidemia--statin held 7. Hypothyroid -levothyroxine; TSH was 6.97, acceptable Follow serial lab with attention to fluid balance.
--- NOTE | 2017-01-27 13:08 | ECHOD_ITS ---
Reason For Study: CHF Procedure This was a 2D Doppler, Color Flow transthoracic echocardiogram. The exam was of fair technical quality due to diminished acoustic windows. Exam performed portable in patient room. Left Ventricle Normal LV size. Left ventricular systolic function is hyperdynamic. The estimated ejection fraction is 75 %. No regional wall motion abnormalities noted. Right Ventricle Normal RV size. Normal systolic function. Atria Normal left atrium. Normal right atrium. No doppler evidence for ASD. Mitral Valve There is no mitral annular calcification. Normal mitral valve. Trivial mitral valve insufficiency. Tricuspid Valve Normal tricuspid valve. Trivial tricuspid valve insufficiency. Aortic Valve Trisinus/trileaflet aortic valve. Mild focal aortic valve thickening. Pulmonic Valve The pulmonic valve is not well visualized. Great Vessels The aortic root is not well visualized. Pericardium/Pleural No pericardial effusion. MMode/2D Measurements & Calculations LVIDd: 4.4 cm IVSd: 1.1 cm LA dimension: 2.7 cm LVIDs: 3.3 cm LVPWd: 1.1 cm RVDd: 2.7 cm FS: 26.0 % LAV(MOD-sp4): 39.5 ml LA A4 area: 14.0 cm2 RA A4 area: 12.7 cm2 Doppler Measurements & Calculations MV E max noel: 55.0 cm/sec Lat Peak E' Noel: 4.4 cm/sec Med Peak E' Noel: 5.0 cm/sec MV A max noel: 72.1 cm/sec E/E' lat: 12.5 E/E' med: 11.1 MV E/A: 0.76 MV P1/2t max noel: 56.0 cm/sec Ao V2 max: 182.6 cm/sec LV V1 max: 129.1 cm/sec MV P1/2t: 106.1 msec Ao max P.3 mmHg LV V1 max P.7 mmHg MV dec slope: 154.6 cm/sec2 MVA(P1/2t): 2.1 cm2 PA V2 max: 145.5 cm/sec Interpretation Summary Left ventricular systolic function is hyperdynamic. The estimated ejection fraction is 75 %. Trivial mitral valve insufficiency. Trivial tricuspid valve insufficiency. Mild focal aortic valve thickening. Ordering Physician: Cuca Mercedes Referring Physician: CURLY GARCIA Performed By: Verónica Nichols, ISHAN, RVT
--- NOTE | 2017-01-27 13:15 | PN_ITS ---
Patient Problems: Active and Suspected Problems Allergic reaction caused by a drug (Acute) Hypothyroidism (Acute) Rhabdomyolysis (Acute) Swelling of right lower extremity (Acute) Subjective: Patient's fever curve is decreasing. Kraus catheter was placed secondary to urinary retention, Flomax was started. Patient remains in positive fluid balance with generalized edema of right greater than left lower extremity. Right knee x-ray revealed soft tissue edema but no joint effusion. SANDRA panel was negative, hepatitis panel negative, EBV acute negative. The patient's CK, transaminases, and creatinine are all decreasing. Albumin is 4.0. Random urinary sodium is 15 and he is saturating 94-95% on room air, with otherwise stable vitals. Objective: Pleasant and nontoxic-appearing. Family members at bedside. Vitals/I&O's: Vital Signs Temp Pulse Resp BP Pulse Ox 99.5 F 101 18 102/55 95 01/27/17 08:00 01/27/17 10:05 01/27/17 08:00 01/27/17 08:00 01/27/17 08:00 Oxygen Delivery Method Room Air Weight: 210 lb Body Mass Index (BMI) 30.1 Intake and Output for Last 24 Hours 01/25/17 01/26/17 01/27/17 23:59 23:59 23:59 Intake Total 4125 7772 1517 Output Total 800 850 200 Balance 3325 6922 1317 General: Cooperative, Well developed Oral: Moist Mucosa Neck: Supple Lungs: Clear to auscultation Cardiovascular: Regular rate, Regular Rhythm, Normal S1, Normal S2 Abdomen: Bowel Sounds Present, Non Tender Extremities: - - Generalized soft tissue edema of right greater than left lower extremity Microbiology Past 72 Hours 01/25/17 03:30 Urine, Clean Catch Urine Culture - Final GPC Poss Enterococcus sp Laboratory Results 01/25/17 06:32: EBV Capsid Ag IgG Ab 96.5 H, EBV Capsid Ag IgM Ab < 36.0, EBV Early Antigen IgG <9.0 01/25/17 10:30: SANDRA Screen Negative, DELTA-1 Antibody Not Reportable, SS-A/Ro IgG Antibody Not Reportable, SS-B/La IgG Antibody Not Reportable, Sm (Morales) Antibody Not Reportable, TEACHING ARTIST Antibody Not Reportable, Scl-70 Scleroderma Ab Not Reportable, Double Strand DNA Ab Not Reportable, Centromere B Antibody Not Reportable 01/27/17 06:46: WBC 11.7 H, RBC 4.42 L, Hgb 13.7, Hct 40.1, MCV 90.7, MCH 31.0, MCHC 34.2, RDW 13.1, RDW Differential 43.8, Plt Count 163, MPV 10.9, Immature Gran % (Auto) 0.300, Neut % (Auto) 89.4 H, Lymph % (Auto) 3.8 L, [place] % (Auto) 2.5, Eos % (Auto) 3.9, Baso % (Auto) 0.1, Absolute Neuts (auto) 10.5 H, Absolute Lymphs (auto) 0.45 L, Total Counted Not Reportable, Differential Comment COMMENT 01/27/17 06:46: Sodium 134 L, Potassium 4.9, Chloride 105, Carbon Dioxide 20.0 L , Anion Gap 9, BUN 28 H, Creatinine 1.26, Estim Creat Clear Calc 48.28, Est GFR (MDRD) Af Amer 71, Est GFR (MDRD) Non-Af 59 L, BUN/Creatinine Ratio 22.2 H, Glucose 133 H, Calcium 7.4 L, Total Bilirubin 0.60, AST 71 H, ALT 82 H, Alkaline Phosphatase 37 L, Total Creatine Kinase 2199 H, Total Protein 7.7, Albumin 4.0, Globulin 3.7, Albumin/Globulin Ratio 1.1 Current Medications Acetaminophen (Tylenol) 650 mg PO Q6H PRN PRN PRN Reason: Mild Pain (scale 0-3)/T>100.7 Last Admin: 01/26/17 16:53 Dose: 650 mg Hydrocodone Bitart/Acetaminophen (Lortab [Replacement] 7.5-325/15) 5 - 10 ml PO Q4H PRN PRN PRN Reason: PAIN Last Admin: 01/27/17 11:19 Dose: 10 ml [facility] Last Admin: 01/27/17 08:35 Dose: 81 mg Bisacodyl (Dulcolax) 10 mg RECTAL DAILY PRN PRN PRN Reason: Constipation Last Admin: 01/27/17 05:58 Dose: 10 mg Clopidogrel Bisulfate (Plavix) 75 mg PO DAILY [facility] Last Admin: 01/27/17 08:42 Dose: 75 mg Docusate Sodium (Colace) 200 mg PO BID PRN PRN PRN Reason: Constipation Last Admin: 01/27/17 08:38 Dose: 200 mg Heparin Sodium (Porcine) () 5,000 units SC BID [facility] Last Admin: 01/27/17 08:41 Dose: 5,000 units Sodium Chloride () 1,000 mls @ 75 mls/hr IV .[id number] [facility] Last Admin: 01/27/17 08:35 Dose: 75 mls/hr Isosorbide Mononitrate (Imdur) 15 mg PO DAILY [facility] Last Admin: 01/27/17 08:41 Dose: 15 mg Levothyroxine Sodium (Synthroid) 75 mcg PO DAILY@0600 [facility] Last Admin: 01/27/17 05:35 Dose: 75 mcg Metoprolol Tartrate (Lopressor (Beta Norma)) 25 mg PO BID [facility] Last Admin: 01/27/17 08:42 Dose: 25 mg Morphine Sulfate (Morphine) 1 - 2 mg IV Q4H PRN PRN PRN Reason: SEVERE PAIN (6-10/10) Last Admin: 01/27/17 01:05 Dose: 2 mg Nutritional Formula (Lactose Free) (Ensure Enlive) 120 ml PO 4X/DAY [facility] Last Admin: 01/27/17 08:41 Dose: 120 ml Ondansetron HCl (Zofran) 4 mg IV Q8H PRN PRN PRN Reason: Nausea Last Admin: 01/25/17 17:01 Dose: 4 mg Sodium Chloride () 5 - 30 ml IV UD PRN PRN Reason: SALINE FLUSH Last Admin: 01/27/17 08:43 Dose: 10 ml Tamsulosin HCl (Flomax) 0.4 mg PO DAILY@1730 [facility] Last Admin: 01/26/17 20:59 Dose: 0.4 mg Assessment/Plan Active and Suspected Problems Allergic reaction caused by a drug (Acute) Hypothyroidism (Acute) Rhabdomyolysis (Acute) Swelling of right lower extremity (Acute) 81-year-old gentleman with history of CAD, PCI/stent 2005, nuclear stress test 2013 negative for ischemia EF 65%, admitted with acute rhabdomyolysis with ALPA BUN/creatinine 42/1.95. Transaminases were elevated 2-3 times control, AST 171, ALT 92, with normal total bilirubin and alkaline phosphatase. Initial CK 6022. He ruled out for acute coronary syndrome. SANDRA was negative, hepatitis acute panel negative, EBV acute panel negative. Lower extremity duplex ultrasound 02/25 and 01/22/17 were negative for DVT R LE. CT abdomen pelvis 01/24/2017 revealed small liver cyst, 6.5 cm complex left renal cyst, cholelithiasis, DJD, diffuse arteriosclerotic disease. Has history of skin rash secondary to cephalexin. His fever curve is decreasing, and he is demonstrating serial improvement in CK , creatinine, and LFTs as expected. There is no evidence of ACS, with serial troponins negative agree with withholding antibiotics. This may have been secondary to intercurrent viral syndrome in the setting of statin use. He is in positive fluid balance. Orthopedic opinion is greatly appreciated. Lymphedema appliances will be applied to lower extremities. Per family request , repeat echocardiogram will be obtained, as well as cardiology opinion. Urine output is poor, Kraus was placed secondary to retention, Flomax started, and will begin diuresis. Continue to follow serial CK, creatinine. Thrombocytopenia has resolved. His medications listed prior to admission were metoprolol, ImDur, levothyroxine , Plavix, fish oil, Zocor, aspirin, Aricept. His Aricept was discontinued by his due to side effects prior to admission. 1. Rhabdomyolysis, etiology unclear, suspect secondary to intercurrent viral illness superimposed on statin Continue hydration, add Lasix diuresis, serial lab CBCs have been stable, will follow with chemistries only. 2. AK I secondary to rhabdomyolysis, improving 3. Generalized volume overload, will initiate Lasix diuresis 4. Thrombocytopenia resolved 5. CAD -aspirin, isosorbide, metoprolol 6. Hyperlipidemia--statin held 7. Hypothyroid -levothyroxine; TSH was 6.97, acceptable Follow serial lab with attention to fluid balance.
--- NOTE | 2017-01-27 14:22 | PCM.CONS.GEN ---
Problem List (1) Swelling of right lower extremity Status: Acute Reason for Consult Date of Consultation: 01/27/17 Reason for Consultation: bilateral LE swelling r>l History of Present Illness: The patient is a 81 year old M who had fever and right calf pain and was seen in er, ultrasound of right leg neg for dvt but questionable uri and antibiotics started. patient then had reaction to keflex, worsening of right le edema/ pain and brought to ER for reeval and ck found to be elevated at that time. labs proved rhabdo and patient was admitted for eval/txt. Patient had increasing swelling and pain of right leg and ortho consulted. Patient states he is able to ambulate around with physical therapy. He feels worse when he is standing still or laying around. Patient denies pain of his calf with passive ankle active ankle range of motion. States the swelling is getting worse up his quad however is not painful unless extremes of motion. Denies current fevers chills nausea vomiting shortness of breath chest pain or other constitutional symptoms. and daughter at bedside and provide much of information. [] Past Medical History Allergies cephalexin [From Keflex] Allergy (Verified 01/24/17 16:48) Swelling diazepam [From Valium] Allergy (Verified 01/24/17 16:48) Other Home Medications: Ambulatory Orders Medication Instructions Recorded Clopidogrel Bisulfate [Plavix] 75 mg PO DAILY 04/08/13 Isosorbide Mononitrate [Imdur] 15 mg PO DAILY 04/08/13 Levothyroxine [Synthroid] 75 mcg PO DAILY 04/08/13 Metoprolol Tartrate [Lopressor] 25 mg PO BID 04/08/13 [place]-3 Fatty Acids/Fish Oil [Fish 1 each PO DAILY 04/08/13 Oil 1,000 mg Softgel] Aspirin [Aspirin EC] 81 mg PO DAILY 01/22/17 Simvastatin [Zocor] 40 mg PO DAILY 01/22/17 Smoking Status: Former smoker - *Family History Paternal History Items: No pertinent history Review of Systems Constitutional: Denies: Chills, Fever, Weight Change HEENT: Denies: Head Aches, Sinus Congestion, Sinus Drainage Cardiovascular: Denies: Chest Pain, Palpitations Respiratory: Denies: Cough, Shortness of breath at rest, Sputum production Gastrointestinal: Denies: Abdominal Pain, Nausea, Vomiting Genitourinary: Denies: Dysuria Musculoskeletal: Reports: Leg Pain - bilateral LE swelling/edema r>l. Denies: Joint Pain, Joint Tenderness Skin: Denies: Rash, Wounds Neurological: Denies: Numbness, Tingling, Focal weakness Psychiatric: Denies: Anxiety, Depression, Homicidal Ideations, Suicidal Ideations Hematologic/ Lymphatic: Denies: Easy Bruising, Easy Bleeding Patient Problems: Active and Suspected Problems Allergic reaction caused by a drug (Acute) Hypothyroidism (Acute) Rhabdomyolysis (Acute) Swelling of right lower extremity (Acute) - Physical Exam General: Alert, Oriented x3, Cooperative HEENT: Atraumatic, PERRLA, EOMI, Normocephalic Neck: Supple, No JVD, Negative Carotid Bruits Lungs: Clear to auscultation, Normal air movement Cardiovascular: Regular rate, No murmurs Abdomen: Bowel Sounds Present, Soft, Non Tender Extremities: No edema, Capillary Refill Less than 3 Seconds Skin: No rashes, No breakdown Musculoskeletal: Tenderness - r>l edema, no pain to prom/arom, compts swollen w pitting edema Neurological: Cranial nerves II-XII grossly intact Psych/Mental Status: Normal Affect, Appropriate Vital Signs Temp Pulse Resp BP Pulse Ox 99.5 F 101 18 102/55 95 01/27/17 08:00 01/27/17 10:05 01/27/17 08:00 01/27/17 08:00 01/27/17 08:00 Oxygen Delivery Method Room Air Weight: 95.254 kg Body Mass Index (BMI) 30.1 Intake and Output for Last 24 Hours 01/25/17 01/26/17 01/27/17 23:59 23:59 23:59 Intake Total 4125 7772 1517 Output Total 800 850 200 Balance 3325 6922 1317 Microbiology Past 72 Hours 01/25/17 03:30 Urine Culture - Final Urine, Clean Catch GPC Poss Enterococcus sp Laboratory Tests Past 24 Hrs 01/25/17 01/25/17 01/27/17 06:32 10:30 06:46 WBC 11.7 H RBC 4.42 L Hgb 13.7 Hct 40.1 MCV 90.7 MCH 31.0 MCHC 34.2 RDW 13.1 RDW Differential 43.8 Plt Count 163 MPV 10.9 Immature Gran % (Auto) 0.300 Neut % (Auto) 89.4 H Lymph % (Auto) 3.8 L [place] % (Auto) 2.5 Eos % (Auto) 3.9 Baso % (Auto) 0.1 Absolute Neuts (auto) 10.5 H Absolute Lymphs (auto) 0.45 L Total Counted Not Reportable Differential Comment COMMENT Sodium Potassium Chloride Carbon Dioxide Anion Gap BUN Creatinine Estim Creat Clear Calc Est GFR (MDRD) Af Amer Est GFR (MDRD) Non-Af BUN/Creatinine Ratio Glucose Calcium Total Bilirubin AST ALT Alkaline Phosphatase Total Creatine Kinase Total Protein Albumin Globulin Albumin/Globulin Ratio SANDRA Screen Negative DELTA-1 Antibody Not Reportable SS-A/Ro IgG Antibody Not Reportable SS-B/La IgG Antibody Not Reportable Sm (Morales) Antibody Not Reportable FINANCIAL REPORT SERVICE SALES AGENT Antibody Not Reportable Scl-70 Scleroderma Ab Not Reportable Double Strand DNA Ab Not Reportable Centromere B Antibody Not Reportable EBV Capsid Ag IgG Ab 96.5 H EBV Capsid Ag IgM Ab < 36.0 EBV Early Antigen IgG <9.0 01/27/17 06:46 WBC RBC Hgb Hct MCV MCH MCHC RDW RDW Differential Plt Count MPV Immature Gran % (Auto) Neut % (Auto) Lymph % (Auto) [place] % (Auto) Eos % (Auto) Baso % (Auto) Absolute Neuts (auto) Absolute Lymphs (auto) Total Counted Differential Comment Sodium 134 L Potassium 4.9 Chloride 105 Carbon Dioxide 20.0 L Anion Gap 9 BUN 28 H Creatinine 1.26 Estim Creat Clear Calc 48.28 Est GFR (MDRD) Af Amer 71 Est GFR (MDRD) Non-Af 59 L BUN/Creatinine Ratio 22.2 H Glucose 133 H Calcium 7.4 L Total Bilirubin 0.60 AST 71 H ALT 82 H Alkaline Phosphatase 37 L Total Creatine Kinase 2199 H Total Protein 7.7 Albumin 4.0 Globulin 3.7 Albumin/Globulin Ratio 1.1 SANDRA Screen [place]TA-1 Antibody SS-A/Ro IgG Antibody SS-B/La IgG Antibody Sm (Morales) Antibody FINANCIAL REPORT SERVICE SALES AGENT Antibody Scl-70 Scleroderma Ab Double Strand DNA Ab Centromere B Antibody EBV Capsid Ag IgG Ab EBV Capsid Ag IgM Ab EBV Early Antigen IgG Assessment/Plan Active and Suspected Problems Allergic reaction caused by a drug (Acute) Hypothyroidism (Acute) Rhabdomyolysis (Acute) Swelling of right lower extremity (Acute) rhanbdo with fluid trxt resulting in increasing right no compartment syndrome on exam today but will follow d/w hospitalist- will decrease fluids, patient now on lasix, i ordered PT lymph wraps of legs to help with swelling and labs normalizing if pain with PROM increases, contact me immediately at [phone], WBAT bilateral UE/.LE
[2017-01-27] MEDS: Furosemide 40 MG/4 ML Vial IV ×2 (14:36→21:15)
--- NOTE | 2017-01-27 15:06 | CHAPLAIN ---
Type of Pastoral Visit ___ Initial Visit ___ Follow-up Visit ___ On-call Visit ___ General Patient Visit ___ Spiritual Assessment ___ Family Conference ___ Bereavement ___ Rapid Response ___ Code Blue ___ Other (describe below) Pastoral Care Referral From ___ Patient ___ Family ___ Nurse ___ Physician ___ Brush Holder Assembler ___ Receiving Inspector ___ Other (describe below) Sacrament/Intervention ___ Active listening ___ Anointing ___ Presybeterian ___ Bereavement ___ Communion ___ Malika exploration ___ ___ Life review ___ Prayer ___ Reconciliation ___ Sacrament of Sick ___ Supportive presence ___ Wedding ___ Other (describe below) Pastoral Comments patient was unavailable
[2017-01-27] MEDS: Tamsulosin HCl 0.4 MG Capsule PO (16:41)
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
--- NOTE | 2017-01-27 18:14 | CON.PCM_ITS ---
Problem List (1) CAD (coronary artery disease) Status: Chronic Qualifiers: Coronary Disease-Associated Artery/Lesion type: [place] artery (2) S/P PTCA (percutaneous transluminal coronary angioplasty) Status: Chronic (3) Rhabdomyolysis Status: Acute (4) Swelling of right lower extremity Status: Acute Reason for Consult Date of Consultation: 01/27/17 History of Present Illness: The patient is a 81 year old white male with a past medical history of underlying CAD status post PTCA/stent (2005) referred for concerns of elevated CPK levels thought secondary to rhabdomyolysis and lower extremity edema. Since his last outpatient cardiovascular visit on 12/22/2016 he had been doing well until just recently. Recently, after spending 1-2 days in an slow-moving automobile, assisting with work-related projects, he began to note a variety of symptoms. It appears he has had a variety of symptoms which have included fevers, lower extremity discomforts, and lower extremity edema. He has been evaluated as an outpatient by his PCP as well as by the [facility] emergency department staff. Upon reevaluation there were concerns as to whether or not he may have developed rhabdomyolysis and thus a CPK level obtained and was found to be markedly elevated. He was brought into the hospital for further evaluation and care. He does not recall having any concerning chest discomfort or difficulty breathing. There has been no near syncope or syncope. There has been no prolonged periods of total immobility. 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 He does not recall any injuries to his lower extremities. There is been no evidence of any insect bites or wounds to the lower extremities. He states there is been no new medications initiated recently. He has been on simvastatin for many years without any obvious adverse effect. Since being in the hospital he has had his cardiac enzymes performed. His troponin I level was negative. A [facility] emergency department ECG was performed. It was reportedly remarkable. Is unavailable for review at the moment. He did have a transthoracic echocardiogram performed today. His left ventricular systolic function was thought to be normal to hyperdynamic with an estimated LVEF of 75%. He has been treated with IV fluids. His been noted as he has been treated that his creatinine level and hepatic transaminase levels, which were elevated upon admission, have been declining. However during this time he has been having increasing edema of the lower extremities. He is also been noted to have low total protein levels. His albumin level was low. The moment he states he does not have much of an appetite. He states he also feels very weak. He can get up with assistance of physical therapy. [] Past Medical History Allergies/Adverse Reactions: Allergies cephalexin [From Keflex] Allergy (Verified 01/24/17 16:48) Swelling diazepam [From Valium] Allergy (Verified 01/24/17 16:48) Other Home Medications: Ambulatory Orders Medication Instructions Recorded Clopidogrel Bisulfate [Plavix] 75 mg PO DAILY 04/08/13 Isosorbide Mononitrate [Imdur] 15 mg PO DAILY 04/08/13 Levothyroxine [Synthroid] 75 mcg PO DAILY 04/08/13 Metoprolol Tartrate [Lopressor] 25 mg PO BID 04/08/13 [place]-3 Fatty Acids/Fish Oil [Fish 1 each PO DAILY 04/08/13 Oil 1,000 mg Softgel] Aspirin [Aspirin EC] 81 mg PO DAILY 01/22/17 Simvastatin [Zocor] 40 mg PO DAILY 01/22/17 Past Medical History (Chronic Problems): Chronic Problems CAD (coronary artery disease) (Chronic) S/P PTCA (percutaneous transluminal coronary angioplasty) (Chronic) - *Family History Paternal History Items: No pertinent history Lives: Spouse/ Significant Other Smoking Status: Former smoker Alcohol: None Drugs: None Review of Systems - Review of Systems General: Reports: Fever, Fatigue, Weakness, Decreased Appetite. Denies: Night Sweats Cardiovascular: Reports: Peripheral Edema. Denies: Chest Discomfort, Shortness of Breath, Orthopnea, PND, Palpitations, Lightheadedness, Dizziness, Near Syncope, Syncope Respiratory: Denies: Cough, Sputum Production, Hemoptysis Gastrointestinal: Denies: Hematemesis, Hematochezia, Melena Genitourinary: Denies: Dysuria, Hematuria Muscoloskeletal: Reports: Muscle Weakness Skin: Denies: Rash Subjectve: This is an 81-year-old white male who appears resting comfortably at the moment in no acute cardiovascular distress. Objective: Vital Signs Temp Pulse Resp BP Pulse Ox 98.5 F 91 18 99/53 94 01/27/17 16:40 01/27/17 16:40 01/27/17 16:40 01/27/17 16:40 01/27/17 16:40 Oxygen Delivery Method Room Air Weight: 95.254 kg Body Mass Index (BMI) 30.1 Intake and Output for Last 24 Hours 01/25/17 01/26/17 01/27/17 23:59 23:59 23:59 Intake Total 4281 6770 2133 Output Total 800 850 450 Balance 3327 2621 1683 General: Awake, Alert, Oriented x 3, Cooperative, No Acute Distress Neck: No JVD Lungs: Clear to auscultation Cardiovascular: Regular Rhythm, Normal S1, Normal S2, Positive S4 Vascular: No Carotid Bruits Abdomen: Bowel Sounds Present, Soft, Non Tender Extremities: Moderate RLE Edema, Moderate LLE Edema 01/27/17 06:46: WBC 11.7 H, RBC 4.42 L, Hgb 13.7, Hct 40.1, MCV 90.7, MCH 31.0, MCHC 34.2, RDW 13.1, RDW Differential 43.8, Plt Count 163, MPV 10.9, Immature Gran % (Auto) 0.300, Neut % (Auto) 89.4 H, Lymph % (Auto) 3.8 L, [place] % (Auto) 2.5, Eos % (Auto) 3.9, Baso % (Auto) 0.1, Absolute Neuts (auto) 10.5 H, Total Counted Not Reportable 01/27/17 06:46: Sodium 134 L, Potassium 4.9, Chloride 105, Carbon Dioxide 20.0 L , Anion Gap 9, BUN 28 H, Creatinine 1.26, Est GFR (MDRD) Af Amer 71, Est GFR ( MDRD) Non-Af 59 L, BUN/Creatinine Ratio 22.2 H, Glucose 133 H, Calcium 7.4 L, Total Bilirubin 0.60 Rhythm: Sinus rhythm ECHO: Please see official report Stress Test: 07/19/2013: Exercise tolerance test/imaging study: Considered negative for evidence of inducible myocardial ischemia; LVEF of 65% Cardiac Cath: 08/09/2006: [facility]: Left ventricle with subtle mid anterolateral hypokinesis with an LVEF of 55%; left main coronary artery with 10-20% stenosis; LAD being considered a large wraparound vessel with proximal 20-30% stenosis, widely patent proximal stent with 20-30% proximal in-stent stenosis, diffuse disease distally with 95-99% terminal apical stenosis; first diagonal branch being a small vessel with 20-30% stenosis in 40-50% stenosis; LCx being an extremely large dominant vessel with proximal 10-20% stenosis; first OM with 40-50% stenosis; second OM with 20-30% stenosis; RCA being a small nondominant vessel with proximal 80-90% stenosis and subsequent subtotal occlusion; recommendations were made for continued medical management at that time Chest x-ray: Per report: No acute cardiopulmonary disease appreciated Assessment/Plan 1. CAD status post LAD PCI/stent-remote The patient has a history of underlying cardiovascular disease. At the present time he does not appear to have any acute symptoms suggestive of an acute coronary syndrome or myocardial injury/infarction. He has undergone noninvasive evaluation as noted above. At the present time he would continue medical management. Ideally this would include his aspirin, nitrates, beta-blockers, afterload reducing agents as tolerated, and lipid-lowering agents. However, based on his ongoing issues, his antiplatelet agents with respect to his clopidogrel/Plavix therapy, will be placed on hold in case the patient does require further invasive evaluation and/or therapy for his lower extremity edema with concerns of developing compartment syndrome and requiring further surgical intervention. Also based upon the patient's renal function changes, agents such as KEVIN inhibitors or ARB's are on hold. The patient has been on a statin for many years without any obvious adverse events. However based upon his recent event, to minimize any input from such agents, his statin has been placed on hold. Otherwise it does not appear the patient requires additional cardiac diagnostic studies or therapeutic intervention at this time. 2. Rhabdomyolysis Etiology is unclear at this time. He has been treated with IV fluids. It appears his renal function and hepatic function are improving. However now he is progressed to the point of having significant lower extremity edema. Thus his IV fluids are decreasing. He has also been placed on medical management with IV diuretics. His edematous status will need to be monitored. 3. Edema The patient does have lower extremity edema. It does not appear this is related to an acute cardiovascular condition with diminished LV systolic function based upon his echocardiographic findings, etc. There is concern this may be related to his IV volume that he required for his rhabdomyolysis as well as concern of his decreased total protein and albumin levels which may allow for third spacing. At the present time his IV fluid intake is being decreased. He is also been placed on diuretic therapy. His edema will need to be monitored going forward for its response to medication adjustment. Her all, from a cardiovascular standpoint, the patient will continue medical therapy with adjustment as noted above. Again it does not appear he requires further cardiac diagnostic studies or therapeutic intervention at this time. He will need continued medical management for his rhabdomyolysis and associated changes with respect to his renal and hepatic function. Hopefully his protein levels will increase which may help with his lower extremity edema as well. Comment: The above was discussed and reviewed with the patient and his spouse. This note was generated with [employer] software. It may contain incorrect words, spelling, and punctuation that were not noted in checking the note before signing.
[2017-01-27] MEDS: Acetaminophen 325 MG Tablet 650 MG PO (21:16)
--- NOTE | 2017-01-27 23:24 | NURSING ---
respond to tele alarm heart rate 160. pt stated feeling short of breath. 2L NC applied. vitals obtained, hospitalist paged, and called Respiratory for EKG. Dr. ortega answered page, updated on pt history and current EKG showing A-fib. ordered metoprolol 2.5mg IV and increase daily PO to 50mg BID. Will continue to monitor.
[2017-01-27] MEDS: Metoprolol Tartrate 5 MG/5 ML Vial 2.5 MG IV ×2 (23:33→23:49)
--- NOTE | 2017-01-27 23:39 | EKG12_ITS ---
Test Reason : TACHYCARDIA Blood Pressure : / mmHG Vent. Rate : 152 BPM Atrial Rate : 141 BPM P-R Int : 000 ms QRS Dur : 084 ms QT Int : 290 ms P-R-T Axes : 000 -48 031 degrees QTc Int : 461 ms Atrial fibrillation Left axis deviation Low voltage QRS Inferior infarct , age undetermined Abnormal ECG Confirmed by ADONAY NICHOLE, CLARA ([id number]), makeup editor MG DUMONT ([id number]) on 02/07/2017 3:26:13 PM Referred By: JAYDEN Confirmed By:CLARA URIAS MD
--- NOTE | 2017-01-27 23:43 | NURSING ---
Dr. ortega on unit reviewed pt EKG and spoke with pt. Heart rate fluctuating between 120s -150s at this time. Second dose of metoprolol 2.5mg IV ordered. will continue to monitor.
[2017-01-28] VITALS (35 sets, daily range): BP systolic 90–133; BP diastolic 48–102; PULSE 72–161; RESP 16–27; TEMP 36.2–37.1; O2SAT 2–98
--- NOTE | 2017-01-28 00:43 | NURSING ---
Patients called in to get update about patient. This RN updated about current situation. gave this RN her number to call later. Primary RN notified.
--- NOTE | 2017-01-28 00:53 | NURSING ---
called and updated again about patient being transferred to PCU room 124.
[2017-01-28] MEDS: Digoxin 250 MCG/ML Ampul 500 MCG IV (01:05)
--- NOTE | 2017-01-28 01:12 | PCM.HOSP.N ---
Hospitalist Note Called by nurse for A. fib with RVR. EKG reviewed and shows A. fib. Heart rate 140-150s. Metoprolol 2.5 mg ?2 ordered is still heart rate in 140s. Digoxin 0.5 mg IV ordered with extra dose of metoprolol 25 mg NOW. Transferred to PCU. Metoprolol dose increased to 50 mg twice daily from tomorrow. Dr. Momin is already on the case.
[2017-01-28] MEDS: Metoprolol Tartrate 25 MG Tablet PO (01:13)
--- NOTE | 2017-01-28 01:17 | NURSING ---
GAVE REPORT TO PCU, DENIS CALHOUN. PT BEING TRANSFERRED TO ROOM 124 BY Vignesh BARAKAT RN AND Rekha TIDWELL RN.
[2017-01-28] MEDS: Benzonatate 100 MG Capsule 200 MG PO ×3 (04:15→22:10)
[2017-01-28] MEDS: Levothyroxine 75 MCG Tablet PO (05:54)
[2017-01-28 07:53] LABS: ALB/GLOB Ratio 0.5 RATIO (0.9-2.4); AST(SGOT) 55 U/L (15-37); Alanine Aminotransfer ALT/SGPT 86 U/L (12-78); Albumin, Serum 1.4 g/dL (3.4-5.0); Alkaline Phosphatase 37 U/L (45-117); Anion Gap 10 (5-15); BUN 30 mg/dL (7-18); Calcium,Total 7.6 mg/dL (8.5-10.1); Chloride 107 mmol/L (98-107); EST Glomerular Filtration Rate 62 mL/min (>60); Est Glom Filt Rate - Afr Amer 75 mL/min (>60); Estimated Creatinine Clearance 50.69 ml/min; Globulin 2.6 g/dL (2.2-4.2); Glucose 112 mg/dL (70-110); Potassium 4.3 mmol/L (3.5-5.1); Sodium Level 137 mmol/L (136-145)
--- NOTE | 2017-01-28 08:20 | PN.CARD_ITS ---
Subjectve: The patient is now in the PCU. He developed atrial fibrillation late yesterday evening. He was noted to have rapid ventricular response. According to the PCU staff he developed rapid ventricular response with minimal activity. He states that he still feels weak and becomes short of breath with activity. He has denied any chest discomfort. Objective: Vital Signs Temp Pulse Resp BP Pulse Ox 97.2 F 143 18 102/53 97 01/28/17 07:50 01/28/17 07:50 01/28/17 07:50 01/28/17 07:50 01/28/17 07:50 Oxygen Flow Rate 2 Oxygen Delivery Method Nasal Cannula Weight: 95.254 kg Body Mass Index (BMI) 30.1 Intake and Output for Last 24 Hours 01/26/17 01/27/17 01/28/17 23:59 23:59 23:59 Intake Total 7772 2635 1273 Output Total 850 1550 1100 Balance 6922 1085 173 General: Awake, Cooperative, No Acute Distress Neck: No JVD Lungs: Clear to auscultation Cardiovascular: Irregular Rhythm, Normal S1, Normal S2 Abdomen: Bowel Sounds Present, Soft, Non Tender Extremities: - - Bilateral lower extremities: Artur wraps 01/27/17 06:46: Total Counted Not Reportable 01/28/17 02:55: Troponin I < 0.02 01/28/17 06:35: Sodium 137, Potassium 4.3, Chloride 107, Carbon Dioxide 20.0 L, Anion Gap 10, BUN 30 H, Creatinine 1.20, Est GFR (MDRD) Af Amer 75, Est GFR ( MDRD) Non-Af 62, BUN/Creatinine Ratio 25.0 H, Glucose 112 H, Calcium 7.6 L, Total Bilirubin 0.40 01/28/17 06:35: Troponin I 0.03 Rhythm: Atrial fibrillation EKG: Atrial fibrillation; low voltage QRS limb leads; left axis deviation; poor R-wave progression Assessment/Plan 1. CAD status post LAD PCI/stent-remote The patient has a history of underlying cardiovascular disease. At the present time he does not appear to have any acute symptoms suggestive of an acute coronary syndrome or myocardial injury/infarction. He has undergone noninvasive evaluation as noted above. At the present time he would continue medical management. Ideally this would include his aspirin, nitrates, beta-blockers, afterload reducing agents as tolerated, and lipid-lowering agents. However, based on his ongoing issues, his antiplatelet agents with respect to his clopidogrel/Plavix therapy, will be placed on hold in case the patient does require further invasive evaluation and/or therapy for his lower extremity edema with concerns of developing compartment syndrome and requiring further surgical intervention. Also based upon the patient's renal function changes, agents such as ARTUR inhibitors or ARB's are on hold. The patient has been on a statin for many years without any obvious adverse events. However based upon his recent event, to minimize any input from such agents, his statin has been placed on hold. Otherwise it does not appear the patient requires additional cardiac diagnostic studies or therapeutic intervention at this time. 2. Atrial fibrillation with rapid ventricular response The patient has developed atrial fibrillation with rapid ventricular response. This may be secondary to a combination of his age, cardiovascular disease, and his ongoing acute illness. At the present time he will need to continue rate control therapy. This may include agents such as IV diltiazem. He may also need an attempt at regaining sinus rhythm with antiarrhythmic therapy. Based upon his history of underlying CAD this would include agents such as amiodarone. He should also continue anticoagulant therapy as deemed appropriate. He will need follow-up of his laboratory studies. This will include hepatic studies, especially if initiation of antiarrhythmic such as amiodarone. Also include thyroid studies. 2. Rhabdomyolysis The etiology is unclear at this time. He has been treated with IV fluids. It appears his renal function and hepatic function are improving. However now he is progressed to the point of having significant lower extremity edema. Thus his IV fluids are decreasing. He has also been placed on medical management with IV diuretics. His edematous status will need to be monitored. 3. Edema The patient does have lower extremity edema. It does not appear this is related to an acute cardiovascular condition with diminished LV systolic function based upon his echocardiographic findings, etc. There is concern this may be related to his IV volume that he required for his rhabdomyolysis as well as concern of his decreased total protein and albumin levels which may allow for third spacing. At the present time his IV fluid intake is being decreased. He is also been placed on diuretic therapy. His edema will need to be monitored going forward for its response to medication adjustment. Comment: The above was discussed and reviewed with the patient and his spouse. This note was generated with [employer] software. It may contain incorrect words, spelling, and punctuation that were not noted in checking the note before signing.
[2017-01-28 08:24] LABS: CPK Total, Creatine Kinase 1396 U/L (39-308); Magnesium 1.8 mg/dL (1.8-2.4)
[2017-01-28] MEDS: 0.9% NaCl Peripheral Flush Adult/Peds IV ×2 (09:20→21:46)
[2017-01-28] MEDS: HYDROCODONE/APAP 7.5-325/15ML 15 ML UDC PO (09:21)
[2017-01-28] MEDS: Heparin Injection 5,000 UNITS/ML Syringe 5000 UNITS SC ×2 (09:22→21:46)
[2017-01-28] MEDS: Aspirin E.C. 81 MG Tablet PO (09:22)
[2017-01-28] MEDS: Isosorbide Mononitrate 30 MG Tablet 15 MG PO (09:23)
[2017-01-28] MEDS: Furosemide 40 MG/4 ML Vial IV ×2 (09:33→21:46)
[2017-01-28] MEDS: Metoprolol Tartrate 50 MG Tablet PO ×2 (09:33→21:46)
--- NOTE | 2017-01-28 09:54 | PCM.PN.ID ---
Patient Problems: Active and Suspected Problems Allergic reaction caused by a drug (Acute) Hypothyroidism (Acute) Rhabdomyolysis (Acute) Swelling of right lower extremity (Acute) Subjective: Patient is out of bed to a chair. Overall clinically stable no further fevers. No abdominal pain no gastrointestinal distress Kraus catheter remains in place Objective: Alert does not appear toxic. Lungs are clear heart exam S1-S2 abdomen soft nontender. Laboratory studies reviewed including liver function tests and CPK from this morning. Multiple blood cultures remain negative - Physical Exam Vital Signs Temp Pulse Resp BP Pulse Ox 97.2 F 129 18 102/53 97 01/28/17 07:50 01/28/17 09:33 01/28/17 07:50 01/28/17 07:50 01/28/17 07:50 Oxygen Flow Rate 2 Oxygen Delivery Method Nasal Cannula Weight: 95.254 kg Body Mass Index (BMI) 30.1 Intake and Output for Last 24 Hours 01/26/17 01/27/17 01/28/17 23:59 23:59 23:59 Intake Total 7772 2635 1273 Output Total 850 1550 1100 Balance 6922 1085 173 Microbiology Past 72 Hours 01/25/17 22:36 Blood Culture - Preliminary Blood Culture (Wb) - Left Forearm No growth in 48 hours. 01/25/17 21:42 Blood Culture - Preliminary Blood Culture (Wb) - Anticubital Left No growth in 48 hours. 01/25/17 03:30 Urine Culture - Final Urine, Clean Catch GPC Poss Enterococcus sp Laboratory Tests Past 24 Hrs 01/27/17 01/28/17 01/28/17 06:46 02:55 06:35 Sodium 137 Potassium 4.3 Chloride 107 Carbon Dioxide 20.0 L Anion Gap 10 BUN 30 H Creatinine 1.20 Estim Creat Clear Calc 50.69 Est GFR (MDRD) Af Amer 75 Est GFR (MDRD) Non-Af 62 BUN/Creatinine Ratio 25.0 H Glucose 112 H Calcium 7.6 L Magnesium Total Bilirubin 0.40 AST 55 H ALT 86 H Alkaline Phosphatase 37 L Total Creatine Kinase Troponin I < 0.02 Total Protein 7.7 4.0 L Albumin 4.0 1.4 L Globulin 3.7 2.6 Albumin/Globulin Ratio 1.1 0.5 L 01/28/17 01/28/17 06:35 06:35 Sodium Potassium Chloride Carbon Dioxide Anion Gap BUN Creatinine Estim Creat Clear Calc Est GFR (MDRD) Af Amer Est GFR (MDRD) Non-Af BUN/Creatinine Ratio Glucose Calcium Magnesium 1.8 Total Bilirubin AST ALT Alkaline Phosphatase Total Creatine Kinase 1396 H Troponin I 0.03 Total Protein Albumin Globulin Albumin/Globulin Ratio Route of nutrition/ use of supplements: [] Nutritional Intake: [] IV Site: [] Kraus Catheter: [] - Assessment/Plan History of recent fevers currently euthermic with no clinical signs of active infection. Observe off antimicrobial therapy.
--- NOTE | 2017-01-28 11:47 | PCM.PN.ORT ---
Patient Problems: Active and Suspected Problems Allergic reaction caused by a drug (Acute) Hypothyroidism (Acute) Rhabdomyolysis (Acute) Swelling of right lower extremity (Acute) Subjective: Patient seen and examined at bedside today. Patient feels much better although he little bit of a spell of the arrhythmia last night he was transferred to the PCU. Patient states the swelling in his leg is better he has been up to chair today states he feels better overall. Denies fevers chills shortness of breath chest pain or other constitutional symptoms. States legs feel much better as well. - Physical Exam General: Alert, Oriented x3, Cooperative HEENT: Atraumatic, PERRLA, EOMI, Normocephalic Neck: Supple, No JVD, Negative Carotid Bruits Lungs: Clear to auscultation, Normal air movement Cardiovascular: Regular rate, No murmurs Abdomen: Bowel Sounds Present, Soft, Non Tender Extremities: No edema, Capillary Refill Less than 3 Seconds Skin: No rashes, No breakdown Musculoskeletal: No Tenderness to Palpation of Joints or Extremities - no pain with passive range of motion of ankles toes or knees. Decrease pitting edema comparatively to yesterday, active range of motion sensation grossly intact bilateral lower extremities Neurological: Cranial nerves II-XII grossly intact Psych/Mental Status: Normal Affect, Appropriate Vital Signs Temp Pulse Resp BP Pulse Ox 97.8 F 110 16 91/55 96 01/28/17 11:00 01/28/17 11:07 01/28/17 11:00 01/28/17 11:00 01/28/17 11:00 Oxygen Flow Rate 2 Oxygen Delivery Method Nasal Cannula Weight: 95.254 kg Body Mass Index (BMI) 30.1 Intake and Output for Last 24 Hours 01/26/17 01/27/17 01/28/17 23:59 23:59 23:59 Intake Total 7772 2635 1273 Output Total 850 1550 1100 Balance 6922 1085 173 Microbiology Past 72 Hours 01/25/17 22:36 Blood Culture - Preliminary Blood Culture (Wb) - Left Forearm No growth in 48 hours. 01/25/17 21:42 Blood Culture - Preliminary Blood Culture (Wb) - Anticubital Left No growth in 48 hours. 01/25/17 03:30 Urine Culture - Final Urine, Clean Catch GPC Poss Enterococcus sp Laboratory Tests Past 24 Hrs 01/28/17 01/28/17 01/28/17 02:55 06:35 06:35 Sodium 137 Potassium 4.3 Chloride 107 Carbon Dioxide 20.0 L Anion Gap 10 BUN 30 H Creatinine 1.20 Estim Creat Clear Calc 50.69 Est GFR (MDRD) Af Amer 75 Est GFR (MDRD) Non-Af 62 BUN/Creatinine Ratio 25.0 H Glucose 112 H Calcium 7.6 L Magnesium 1.8 Total Bilirubin 0.40 AST 55 H ALT 86 H Alkaline Phosphatase 37 L Total Creatine Kinase 1396 H Troponin I < 0.02 Total Protein 4.0 L Albumin 1.4 L Globulin 2.6 Albumin/Globulin Ratio 0.5 L 01/28/17 01/28/17 06:35 10:03 Sodium Potassium Chloride Carbon Dioxide Anion Gap BUN Creatinine Estim Creat Clear Calc Est GFR (MDRD) Af Amer Est GFR (MDRD) Non-Af BUN/Creatinine Ratio Glucose Calcium Magnesium Total Bilirubin AST ALT Alkaline Phosphatase Total Creatine Kinase Troponin I 0.03 0.04 Total Protein Albumin Globulin Albumin/Globulin Ratio Assessment/Plan Active and Suspected Problems Allergic reaction caused by a drug (Acute) Hypothyroidism (Acute) Rhabdomyolysis (Acute) Swelling of right lower extremity (Acute) rhabdo with fluid trxt resulting in increasing bilateral lower extremities no compartment syndrome on exam today, edema improved remarkably since yesterday d/w hospitalist- will decrease fluids, patient now on lasix, i ordered PT lymph wraps of legs to help with swelling and labs normalizing if pain with PROM increases, contact me immediately at [phone], WBAT bilateral UE/LE will follow peripherally, please call if there is any changes in his current care but he seems to be doing much better today from swelling/edema perspective of his lower extremities
[2017-01-28] MEDS: 0.9% Normal Saline 1,000 ML 75 ML IV (13:27)
--- NOTE | 2017-01-28 14:36 | PN_ITS ---
Patient Problems: Active and Suspected Problems Allergic reaction caused by a drug (Acute) Hypothyroidism (Acute) Rhabdomyolysis (Acute) Swelling of right lower extremity (Acute) Subjective: Patient's primary complaint is that he feels tired and weak. He does have some soreness in his shoulders and his bilateral thighs. He reports he still has significant swelling in his thighs as well. He has no fevers or chills, no nausea or vomiting, he is tolerating p.o. although he does not have much of an appetite. He feels that he is improving. - Physical Exam General: Alert, Oriented x3, Cooperative HEENT: Atraumatic, PERRLA, EOMI, Normocephalic Neck: Supple, No JVD, Negative Carotid Bruits Lungs: Clear to auscultation, Normal air movement Cardiovascular: No murmurs, Irregular Rate, Tachycardic Abdomen: Bowel Sounds Present, Soft, Non Tender Extremities: No edema, Capillary Refill Less than 3 Seconds, - - Swelling in bilateral thighs, does not seem to involve the distal extremities although these are Artur wrapped Skin: No rashes, No breakdown Musculoskeletal: No Tenderness to Palpation of Joints or Extremities Neurological: Cranial nerves II-XII grossly intact Psych/Mental Status: Normal Affect, Appropriate, Alert and oriented to time, place, person, mood and affect Vital Signs Temp Pulse Resp BP Pulse Ox 98.4 F 83 18 91/52 94 01/28/17 12:00 01/28/17 13:00 01/28/17 13:00 01/28/17 13:00 01/28/17 13:00 Oxygen Flow Rate 2 Oxygen Delivery Method Room Air Weight: 95.254 kg Body Mass Index (BMI) 30.1 Intake and Output for Last 24 Hours 01/26/17 01/27/17 01/28/17 23:59 23:59 23:59 Intake Total 7772 2635 2023 Output Total 850 1550 1675 Balance 6922 1085 348 Microbiology Past 72 Hours 01/25/17 22:36 Blood Culture - Preliminary Blood Culture (Wb) - Left Forearm No growth in 48 hours. 01/25/17 21:42 Blood Culture - Preliminary Blood Culture (Wb) - Anticubital Left No growth in 48 hours. 01/25/17 03:30 Urine Culture - Final Urine, Clean Catch GPC Poss Enterococcus sp Laboratory Tests Past 24 Hrs 01/28/17 01/28/17 01/28/17 02:55 06:35 06:35 Sodium 137 Potassium 4.3 Chloride 107 Carbon Dioxide 20.0 L Anion Gap 10 BUN 30 H Creatinine 1.20 Estim Creat Clear Calc 50.69 Est GFR (MDRD) Af Amer 75 Est GFR (MDRD) Non-Af 62 BUN/Creatinine Ratio 25.0 H Glucose 112 H Calcium 7.6 L Magnesium 1.8 Total Bilirubin 0.40 AST 55 H ALT 86 H Alkaline Phosphatase 37 L Total Creatine Kinase 1396 H Troponin I < 0.02 Total Protein 4.0 L Albumin 1.4 L Globulin 2.6 Albumin/Globulin Ratio 0.5 L 01/28/17 01/28/17 06:35 10:03 Sodium Potassium Chloride Carbon Dioxide Anion Gap BUN Creatinine Estim Creat Clear Calc Est GFR (MDRD) Af Amer Est GFR (MDRD) Non-Af BUN/Creatinine Ratio Glucose Calcium Magnesium Total Bilirubin AST ALT Alkaline Phosphatase Total Creatine Kinase Troponin I 0.03 0.04 Total Protein Albumin Globulin Albumin/Globulin Ratio Assessment/Plan Active and Suspected Problems Allergic reaction caused by a drug (Acute) Hypothyroidism (Acute) Rhabdomyolysis (Acute) Swelling of right lower extremity (Acute) 1. Rhabdomyolysis-IV fluids were discontinued after orthopedics saw the patient. They felt that he is becoming fluid overloaded which is contributing to the swelling in his thighs. His CK does improve continue to improve. He is now on IV Lasix. Swelling controlled in the lower extremities where they are Artur wrapped, add wraps above the knees as well. The inciting event for this episode of rhabdomyolysis is not clear as he did not have a distinct injury or fall. 2. Atrial fibrillation with RVR-cardiology following, continue amiodarone. Troponin negative. 3. CAD-status post LAD PCI stent. Continue medical management, aspirin, Imdur , Lopressor. ARTUR inhibitor held at admission, statin held at admission 4. ALPA-resolved, trend as he will now be off fluids and starting Lasix. 5. BPH-continue Flomax. 6. Hypothyroid-continue Synthroid 7. Hyperlipidemia-statin held, LDL well below goal, 37. 8. Thrombocytopenia-resolved DVT prophylaxis: Heparin-monitor platelets as he has had thrombocytopenia Discharge planning-we will reevaluate in the morning. Continue physical therapy.
--- NOTE | 2017-01-28 15:00 | NURSING ---
This RN taking over care at this time
[2017-01-28] MEDS: Docusate Sodium 100 MG Capsule 200 MG PO (15:25)
[2017-01-28] MEDS: Acetaminophen 325 MG Tablet 650 MG PO ×2 (15:25→23:49)
[2017-01-28] MEDS: Tamsulosin HCl 0.4 MG Capsule PO (17:46)
[2017-01-29] VITALS (19 sets, daily range): BP systolic 92–114; BP diastolic 50–80; PULSE 74–98; RESP 14–22; TEMP 36.4–36.9; O2SAT 93–96
[2017-01-29] MEDS: Amiodarone 200 MG Tablet 300 MG PO ×2 (05:26→21:32)
[2017-01-29] MEDS: Levothyroxine 75 MCG Tablet PO (05:26)
--- NOTE | 2017-01-29 05:55 | EKG12_ITS ---
Test Reason : AM EKG Blood Pressure : / mmHG Vent. Rate : 083 BPM Atrial Rate : 083 BPM P-R Int : 182 ms QRS Dur : 100 ms QT Int : 400 ms P-R-T Axes : 033 -26 027 degrees QTc Int : 470 ms Normal sinus rhythm Normal ECG When compared with ECG of 27-JAN-2017 23:22, MANUAL COMPARISON REQUIRED, DATA IS UNCONFIRMED Confirmed by ADONAY NICHOLE, CLARA ([id number]), book or script editor MG DUMONT ([id number]) on 02/03/2017 9:01:35 AM Referred By: VINAY Confirmed By:CLARA URIAS MD
[2017-01-29 06:45] LABS: Anion Gap 9 (5-15); BUN 30 mg/dL (7-18); BUN/Creat Ratio 25.2 RATIO (10-20); Calcium,Total 8.2 mg/dL (8.5-10.1); Chloride 103 mmol/L (98-107); Creatinine, Serum 1.19 mg/dL (0.70-1.30); EST Glomerular Filtration Rate 63 mL/min (>60); Est Glom Filt Rate - Afr Amer 76 mL/min (>60); Estimated Creatinine Clearance 51.12 ml/min; Glucose 129 mg/dL (70-110); Magnesium 1.8 mg/dL (1.8-2.4); Potassium 3.5 mmol/L (3.5-5.1); Sodium Level 138 mmol/L (136-145)
--- NOTE | 2017-01-29 09:07 | PN.CARD_ITS ---
Subjectve: Patient was seen and evaluated and appears to be doing well though he is mildly confused Objective: Vital Signs Temp Pulse Resp BP Pulse Ox 98.5 F 86 19 111/58 95 01/29/17 06:00 01/29/17 07:00 01/29/17 06:00 01/29/17 06:00 01/29/17 07:52 Oxygen Flow Rate 2 Oxygen Delivery Method Room Air Weight: 95.254 kg Body Mass Index (BMI) 30.1 Intake and Output for Last 24 Hours 01/27/17 01/28/17 01/29/17 23:59 23:59 23:59 Intake Total 2635 2672.7 466 Output Total 1550 2125 1750 Balance 1085 547.7 -1284 General: Awake HEENT: Atraumatic Neck: Supple Lungs: Clear to auscultation Cardiovascular: Regular Rhythm Vascular: No Carotid Bruits Abdomen: Bowel Sounds Present Extremities: No edema Neurological: No Focal Motor or Sensory Deficit 01/28/17 10:03: Troponin I 0.04 01/28/17 16:30: Troponin I 0.03 01/29/17 05:55: Sodium 138, Potassium 3.5, Chloride 103, Carbon Dioxide 26.0, Anion Gap 9, BUN 30 H, Creatinine 1.19, Est GFR (MDRD) Af Amer 76, Est GFR (MDRD ) Non-Af 63, BUN/Creatinine Ratio 25.2 H, Glucose 129 H, Calcium 8.2 L, Magnesium 1.8 Assessment/Plan 1. CAD status post LAD PCI/stent-remote The patient has a history of underlying cardiovascular disease. At the present time he does not appear to have any acute symptoms suggestive of an acute coronary syndrome or myocardial injury/infarction. He has undergone noninvasive evaluation as noted above. At the present time he would continue medical management. Ideally this would include his aspirin, nitrates, beta-blockers, afterload reducing agents as tolerated, and lipid-lowering agents. Recommend holding antiplatelet agents at this time. In addition I would hold the statins due to his recent rhabdomyolysis. 2. Atrial fibrillation with rapid ventricular response The patient has developed atrial fibrillation with rapid ventricular response. This may be secondary to a combination of his age, cardiovascular disease, and his ongoing acute illness. As converted back to sinus rhythm and the plan will be to continue him on his current medical therapy I would not recommend anticoagulation at this time. 3. Rhabdomyolysis The etiology is unclear at this time. He has been treated with IV fluids. We will continue to monitor his renal function. Thank you for allowing me to participate in his care.
[2017-01-29] MEDS: Aspirin E.C. 81 MG Tablet PO (09:25)
[2017-01-29] MEDS: Heparin Injection 5,000 UNITS/ML Syringe 5000 UNITS SC ×2 (09:25→21:32)
[2017-01-29] MEDS: Isosorbide Mononitrate 30 MG Tablet 15 MG PO (09:26)
[2017-01-29] MEDS: Metoprolol Tartrate 50 MG Tablet PO ×2 (09:26→21:32)
[2017-01-29] MEDS: Furosemide 40 MG/4 ML Vial IV ×2 (09:26→21:31)
[2017-01-29] MEDS: 0.9% NaCl Peripheral Flush Adult/Peds IV ×2 (09:31→21:41)
[2017-01-29] MEDS: Benzonatate 100 MG Capsule 200 MG PO (14:03)
--- NOTE | 2017-01-29 14:22 | CASEMGMT ---
Pt states wants to go home with but states she was interested in TCU as pt has not been very helpful with transfers. Advised that per PT/OT notes, pt transferred on own today and walked 250ft contact guard, voices understanding and then states to this RN RONAN that she spoke with her daughter who is a nurse at [facility] states that she spoke with a urologist that she works with and that pt needs to be getting D51/2NS to get the fluid off properly and if we don't give him the fluid then she wants him transferred immediately. Dr. Dickey, [facility] PCU charge and La Nena CALHOUN all aware at this time and Dr. Dickey back into room to speak with pt/ at this time. Nicole CALHOUN CM
--- NOTE | 2017-01-29 15:41 | PCM.PROGNOTE ---
Patient Problems: Active and Suspected Problems Allergic reaction caused by a drug (Acute) Hypothyroidism (Acute) Rhabdomyolysis (Acute) Swelling of right lower extremity (Acute) Subjective: Patient is reporting improvement, he has less swelling in his thighs, he has less pain and achiness in his shoulders and legs. He has no fevers or chills. He is eating, and he is transferring on his own. He still is very weak, but is not interested in senior care or outpatient physical therapy. - Physical Exam General: Alert, Oriented x3, Cooperative HEENT: Atraumatic, PERRLA, EOMI, Normocephalic Neck: Supple, No JVD, Negative Carotid Bruits Lungs: Clear to auscultation, Normal air movement Cardiovascular: Regular rate, No murmurs Abdomen: Bowel Sounds Present, Soft, Non Tender Extremities: No edema, Capillary Refill Less than 3 Seconds, - - Nonpitting edema of the bilateral thighs. Skin: No rashes, No breakdown Musculoskeletal: No Tenderness to Palpation of Joints or Extremities Neurological: Cranial nerves II-XII grossly intact Psych/Mental Status: Normal Affect, Appropriate, Alert and oriented to time, place, person, mood and affect Vital Signs Temp Pulse Resp BP Pulse Ox 97.7 F 81 14 95/50 95 01/29/17 15:15 01/29/17 15:15 01/29/17 15:15 01/29/17 15:15 01/29/17 15:15 Oxygen Flow Rate 2 Oxygen Delivery Method Room Air Weight: 95.254 kg Body Mass Index (BMI) 30.1 Intake and Output for Last 24 Hours 01/27/17 01/28/17 01/29/17 23:59 23:59 23:59 Intake Total 2635 2672.7 516 Output Total 1550 2125 2000 Balance 1085 547.7 -1484 Microbiology Past 72 Hours 01/25/17 22:36 Blood Culture - Preliminary Blood Culture (Wb) - Left Forearm No growth in 48 hours. 01/25/17 21:42 Blood Culture - Preliminary Blood Culture (Wb) - Anticubital Left No growth in 48 hours. 01/25/17 03:30 Urine Culture - Final Urine, Clean Catch GPC Poss Enterococcus sp Laboratory Tests Past 24 Hrs 01/28/17 01/29/17 16:30 05:55 Sodium 138 Potassium 3.5 Chloride 103 Carbon Dioxide 26.0 Anion Gap 9 BUN 30 H Creatinine 1.19 Estim Creat Clear Calc 51.12 Est GFR (MDRD) Af Amer 76 Est GFR (MDRD) Non-Af 63 BUN/Creatinine Ratio 25.2 H Glucose 129 H Calcium 8.2 L Magnesium 1.8 Troponin I 0.03 Assessment/Plan Active and Suspected Problems Allergic reaction caused by a drug (Acute) Hypothyroidism (Acute) Rhabdomyolysis (Acute) Swelling of right lower extremity (Acute) 1. Rhabdomyolysis-IV fluids were discontinued after orthopedics saw the patient. They felt that he is becoming fluid overloaded which is contributing to the swelling in his thighs. His CK does improve continue to improve. He is now on IV Lasix. Swelling controlled in the lower extremities where they are Artur wrapped, add wraps above the knees as well. The inciting event for this episode of rhabdomyolysis is not clear as he did not have a distinct injury or fall. -Fluids stopped and Lasix started. Renal function seems to be tolerating it at this time. Swelling is improved. 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 After the exposure he developed severe pain in his legs when pushing a gas pedal when driving. The patient freely admits that he was not wearing any sort of mask or breathing protection when he was doing this work. There was no other inciting activity or event reported. 2. Atrial fibrillation with RVR-cardiology following, continue amiodarone p.o., rate is now controlled. Troponin negative ?3. 3. CAD-status post LAD PCI stent. Continue medical management, aspirin, Imdur, Lopressor. ARTUR inhibitor held at admission, statin held at admission 4. ALPA-resolved, trend as he will now be off fluids and starting Lasix. 5. BPH-continue Flomax. 6. Hypothyroid-continue Synthroid 7. Hyperlipidemia-statin held, LDL well below goal, 37. 8. Thrombocytopenia-resolved 9. Debility-continue PT OT, patient does not desire to go to skilled at this point. DVT prophylaxis: Heparin-monitor platelets as he has had thrombocytopenia Discharge planning-we will reevaluate in the morning. Continue physical therapy.
--- NOTE | 2017-01-29 16:53 | NURSING ---
1515- PT'S CAME UP TO THIS RN AND ADMITTED TO GIVING THE PT ONE TABLET OF TYLENOL AND ONE TABLET OF MOTRIN. PT'S EDUCATED ON THE IMPORTANCE OF ADMINISTERING MEDICATIONS PER THE MAR AND THAT IS VERY UNSAFE FOR THE PATIENT TO BE ADMINISTERED MEDICATIONS BY ANYONE BUT NURSING STAFF WHILE PT IS IN THE HOSPITAL. PT'S STATES I KNEW I WASNT ALLOWED TO AND I WILL NOT DO IT AGAIN.
[2017-01-29] MEDS: Tamsulosin HCl 0.4 MG Capsule 0.8 MG PO (17:09)
[2017-01-30] VITALS (8 sets, daily range): BP systolic 101–122; BP diastolic 41–58; PULSE 79–87; RESP 16–20; TEMP 36.4–37.2; O2SAT 93–95
[2017-01-30] MEDS: Benzonatate 100 MG Capsule 200 MG PO ×2 (03:21→12:51)
[2017-01-30 06:32] LABS: Absolute Lymphocyte Count 0.94 X10^3/ul (0.83-4.51); Absolute Neutrophil Count 3.7 X10^3/uL (2.0-7.7); Basophil# 0.01 X10^3/uL; Basophil% 0.1 % (0-1); Eosinophil# 1.46 X10^3/uL; Eosinophils% 21.3 % (0-5); Hematocrit 31.9 % (40-54); Hemoglobin 10.9 g/dl (13.0-16.5); Lymphocyte # 0.94 X10^3/ul (4.0); Lymphocyte % 13.7 % (19-41); Mean Corp Hgb Conc 34.2 g/gl (32-36); Mean Corpuscular Hgb 31.1 pg (27.0-32.0); Mean Corpuscular Volume 90.9 fL (80-94); Mean Platelet Vol. 9.7 fl (6.2-12.0); Monocyte# 0.64 X10^3/uL; Monocyte% 9.3 % (0-10); Neutrophil # 3.72 X10^3/uL (2.7-7.7); Neutrophil % 54.1 % (47-70); Platelet Count 265 K/mm3 (150-450); RBC Distribution Width CV 13.1 % (11.6-14.6); RBC Distribution Width SD 42.7 fl (35.1-43.9); Red Blood Count 3.51 M/mm3 (4.6-6.2); White Blood Count 6.9 K/mm3 (4.4-11.0)
[2017-01-30] MEDS: Levothyroxine 75 MCG Tablet PO (06:33)
[2017-01-30 06:41] LABS: POSITIVE COUNT NO; POSITIVE DIFFERENTIAL NO; POSITIVE MORPHOLOGY NO
[2017-01-30 06:58] LABS: Anion Gap 7 (5-15); BUN 25 mg/dL (7-18); BUN/Creat Ratio 23.1 RATIO (10-20); CPK Total, Creatine Kinase 382 U/L (39-308); Calcium,Total 8.2 mg/dL (8.5-10.1); Chloride 101 mmol/L (98-107); Creatinine, Serum 1.08 mg/dL (0.70-1.30); EST Glomerular Filtration Rate 70 mL/min (>60); Est Glom Filt Rate - Afr Amer 85 mL/min (>60); Estimated Creatinine Clearance 56.33 ml/min; Glucose 96 mg/dL (70-110); Potassium 3.3 mmol/L (3.5-5.1); Sodium Level 138 mmol/L (136-145)
[2017-01-30] MEDS: Aspirin E.C. 81 MG Tablet PO (07:53)
--- NOTE | 2017-01-30 08:59 | PN.CARD_ITS ---
Subjectve: Seen and evaluated and appears to be doing well. Objective: Vital Signs Temp Pulse Resp BP Pulse Ox 97.9 F 80 20 122/41 93 01/30/17 03:15 01/30/17 07:09 01/30/17 03:15 01/30/17 03:15 01/30/17 08:12 Oxygen Flow Rate 2 Oxygen Delivery Method Room Air Weight: 95.254 kg Body Mass Index (BMI) 30.1 Intake and Output for Last 24 Hours 01/28/17 01/29/17 01/30/17 23:59 23:59 23:59 Intake Total 2672.7 996 100 Output Total 2125 3250 1100 Balance 547.7 -9768 -1000 General: Awake, Disoriented HEENT: Atraumatic Neck: Supple Lungs: Clear to auscultation Cardiovascular: Regular Rhythm Vascular: No Carotid Bruits Abdomen: Bowel Sounds Present Extremities: No edema Neurological: No Focal Motor or Sensory Deficit 01/30/17 05:30: Sodium 138, Potassium 3.3 L, Chloride 101, Carbon Dioxide 30.0, Anion Gap 7, BUN 25 H, Creatinine 1.08, Est GFR (MDRD) Af Amer 85, Est GFR (MDRD ) Non-Af 70, BUN/Creatinine Ratio 23.1 H, Glucose 96, Calcium 8.2 L 01/30/17 05:30: WBC 6.9, RBC 3.51 L, Hgb 10.9 L, Hct 31.9 L, MCV 90.9, MCH 31.1 , MCHC 34.2, RDW 13.1, RDW Differential 42.7, Plt Count 265, MPV 9.7, Immature Gran % (Auto) 1.500 H, Neut % (Auto) 54.1, Lymph % (Auto) 13.7 L, Davison % (Auto) 9.3, Eos % (Auto) 21.3 H, Baso % (Auto) 0.1, Absolute Neuts (auto) 3.7, Total Counted Not Reportable Rhythm: EKG: ECHO: Stress Test: Cardiac Cath: PCI: CT Surgery: Holter monitor: EPS: PPM: CXR: Chest CT Scan: Assessment/Plan 1. CAD status post LAD PCI/stent-remote The patient has a history of underlying cardiovascular disease. At the present time he does not appear to have any acute symptoms suggestive of an acute coronary syndrome or myocardial injury/infarction. He has undergone noninvasive evaluation as noted above. At the present time he would continue medical management. Ideally this would include his aspirin, nitrates, beta-blockers, afterload reducing agents as tolerated, and lipid-lowering agents. Recommend holding antiplatelet agents at this time. In addition I would hold the statins due to his recent rhabdomyolysis. 2. Atrial fibrillation with rapid ventricular response The patient had developed atrial fibrillation with rapid ventricular response. This may be secondary to a combination of his age, cardiovascular disease, and his ongoing acute illness. As converted back to sinus rhythm and the plan will be to continue him on his current medical therapy I would not recommend anticoagulation at this time. Recommend amiodarone 200 mg once a day. Discussed with hospitalist. 3. Rhabdomyolysis The etiology is unclear at this time. He has been treated with IV fluids. We will continue to monitor his renal function. Thank you for allowing me to participate in his care. Follow-up with Dr. Reuben dykes
[2017-01-30] MEDS: Heparin Injection 5,000 UNITS/ML Syringe 5000 UNITS SC (09:23)
[2017-01-30] MEDS: Amiodarone 200 MG Tablet PO (09:23)
[2017-01-30] MEDS: Isosorbide Mononitrate 30 MG Tablet 15 MG PO (09:23)
[2017-01-30] MEDS: Metoprolol Tartrate 50 MG Tablet PO (09:24)
[2017-01-30] MEDS: Furosemide 40 MG Tablet PO (09:24)
--- NOTE | 2017-01-30 09:30 | NURSING ---
Kraus catheter removed at this time. 10cc saline removed from balloon. Patient tolerated without signs of discomfort. Catheter tip intact. Urinal within patient reach. patient denies other needs at this time. Call light in reach. Will continue to monitor.
--- NOTE | 2017-01-30 12:07 | PCM.DC ---
- Discharge Diagnoses Current Active Problems: Current Active and Chronic Problems Allergic reaction caused by a drug (Acute) Hypothyroidism (Acute) Rhabdomyolysis (Acute) Swelling of right lower extremity (Acute) CAD (coronary artery disease) (Chronic) S/P PTCA (percutaneous transluminal coronary angioplasty) (Chronic) You will use the following diet at home:: Cardiac Your food should be the consistency of: Regular Your liquids should be the consistency of: Regular/Thin Discharge Activity: Return to Normal Activity Allergies/Adverse Reactions: Allergies cephalexin [From Keflex] Allergy (Verified 01/24/17 16:48) Swelling diazepam [From Valium] Allergy (Verified 01/24/17 16:48) Other Medications to take at Discharge Isosorbide Mononitrate [Imdur] 15 mg PO DAILY 04/08/13 Levothyroxine [Synthroid] 75 mcg PO DAILY 04/08/13 [place]-3 Fatty Acids/Fish Oil [Fish Oil 1,000 mg Softgel] 1 each PO DAILY 04/08/13 Aspirin [Aspirin EC] 81 mg PO DAILY 01/22/17 Amiodarone HCl [Cordarone] 200 mg PO DAILY #30 tablet 01/30/17 Metoprolol Tartrate [Lopressor (beta nilson)] 50 mg PO BID #60 tablet 01/30/17 Tamsulosin HCl [Flomax] 0.8 mg PO DAILY@1730 #30 capsule 01/30/17 The following prescriptions were given: Amiodarone HCl [Cordarone] 200 mg PO DAILY #30 tablet Metoprolol Tartrate [Lopressor (beta nilson)] 50 mg PO BID #60 tablet Tamsulosin HCl [Flomax] 0.8 mg PO DAILY@1730 #30 capsule Primary Care Physician: Geo Morales MD [Primary Care Provider] - Please follow up with your Primary Care Physician in: 1 week Please Follow Up With: Johnny Momin MD When: 1-2 weeks Proposed Discharge Date: 01/30/17
--- NOTE | 2017-01-30 16:12 | PCM.DC.SUM ---
Discharge Date and Diagnosis Date of Admission: 01/24/17 Date of Discharge: 01/30/17 - Primary Discharge Diagnosis Rhabdomyolysis - likely 2/2 hydrocarbon inhalation and concomitant statin therapy AF with RVR ALPA resolved CAD BPH Thrombocytopenia resolved Hypothyroid Debility HLD - Secondary Discharge Diagnosis Chronic Problems CAD (coronary artery disease) (Chronic) S/P PTCA (percutaneous transluminal coronary angioplasty) (Chronic) Hospital Course and Treatment Imaging Results: Arterial studies of the bilateral lower extremities were normal. Echocardiogram was done which revealed EF 75% no regional wall abnormalities, LV systolic function is hyperdynamic, trivial MVI, trivial TVI, mild focal aortic valve thickening. Consultations Alli - Cardiology Cristhian Liriano - SOL 01/25/17 21:26 Consult: Mental Health/Crisis Routine Reason for consult?: suicidal thoughts Date Notified:: 01/25/17 Time notified:: 21:49 Operations: None Procedures: 2-D Echocardiogram Summary of Care Provided: Physical exam on day of discharge: General: Resting comfortably NAD Psych: A/Ox3 normal affect HEENT: PEARRLA AT NC Neck: Supple NT CV: RRR no m/t/r/g/h Resp: CTA Abd: [id number] Soft NT no guarding or rigidity Ext: Swelling in bilateral thighs is improved with bilateral Artur wraps. Skin: W/D normal turgor Lymph/Heme: No active bleeding or adenopathy Neuro: CN2-12 intact Hospital course: The patient is a 81 year old M who presented to the emergency room with acute swelling of the right lower extremity and fever. 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 He adamantly denied any falls or trauma. This continued until he presented to the emergency room 3 days later. He had a venous Doppler which was negative for DVTs. An x-ray of the right ankle and right leg which was negative. He had a normal white count but elevated CK and elevated creatinine. He was admitted to the hospital for rhabdomyolysis which is likely secondary to hydrocarbon exposure and inhalation. Is also on a statin and this was stopped at the time of admission. Due to his fever infectious disease was consulted who kept the patient off antibiotics is no underlying infectious etiology was suspected. He was given aggressive IV hydration. He had severe bilateral thigh swelling so orthopedics was consulted. Fluids were stopped and he was placed on Lasix to help with the swelling as it was thought to be fluid overload. Arterial studies were done which were negative. He developed an episode of atrial fibrillation with rapid ventricular response so cardiology was consulted he was placed on an amiodarone drip. This was transitioned to p.o. amiodarone. Echo was performed which was unremarkable. He converted back to normal sinus rhythm. At one point crisis was consulted as he had made some comments that potentially indicated self-harm. They saw him and thoroughly interviewed him and cleared him from a psych perspective. He did develop a single episode of second-degree heart block, amiodarone was decreased. He remained in normal sinus rhythm after that. His CK continue to trend down and his renal function stabilized. He was able to have his Kraus removed and he continued to empty his bladder without difficulty. He did have some debility secondary to the above conditions but was not interested in pursuing further physical therapy. He was discharged home with his in stable condition, he will need to follow-up with cardiology for A. fib with RVR, and he will need to follow-up with his PCP. [] Discharge Diet: Low fat/ Low Cholesterol, 4000 mg Sodium Diet Discharge Activity: Return to Normal Activity Home Medications: Medications to take at Discharge Isosorbide Mononitrate [Imdur] 15 mg PO DAILY 04/08/13 Levothyroxine [Synthroid] 75 mcg PO DAILY 04/08/13 [place]-3 Fatty Acids/Fish Oil [Fish Oil 1,000 mg Softgel] 1 each PO DAILY 04/08/13 Aspirin [Aspirin EC] 81 mg PO DAILY 01/22/17 Amiodarone HCl [Cordarone] 200 mg PO DAILY #30 tablet 01/30/17 Metoprolol Tartrate [Lopressor (beta nilson)] 50 mg PO BID #60 tablet 01/30/17 Tamsulosin HCl [Flomax] 0.8 mg PO DAILY@1730 #30 capsule 01/30/17 Following Prescrptions Were Given to Patient: Amiodarone HCl [Cordarone] 200 mg PO DAILY #30 tablet Metoprolol Tartrate [Lopressor (beta nilson)] 50 mg PO BID #60 tablet Tamsulosin HCl [Flomax] 0.8 mg PO DAILY@1730 #30 capsule Primary Care Physician: Geo Morales MD [Primary Care Provider] - Please follow up with your Primary Care Physician in: 1 week Please Follow Up With: Johnny Momin MD When: 1-2 weeks Disposition: Home Minutes spent on discharge:: 40 Patient Condition:: Stable Meaningful Use Info Meaningful Use Diagnoses (Choose all that apply): None applicable
== END 2017-01-30 15:21 | disposition home or self-care (01) | DRG 918 ==
PROVIDERS: Internal Medicine; Internal Medicine Cardiovascular Disease; Physician Assistant; Admitting Provider Internal Medicine; Emergency Provider Emergency Medicine; Family Provider Family Medicine; PCP Family Medicine; Visit Provider Internal Medicine
DX: T59.891A Toxic effect of other specified gases, fumes and vapors, accidental (unintentional), initial encounter (principal); N17.9 Acute kidney failure, unspecified; D69.6 Thrombocytopenia, unspecified; I48.91 Unspecified atrial fibrillation; M62.82 Rhabdomyolysis; I44.1 Atrioventricular block, second degree; T46.6X5A Adverse effect of antihyperlipidemic and antiarteriosclerotic drugs, initial encounter; G30.9 Alzheimer's disease, unspecified; F02.80 Dementia in other diseases classified elsewhere, unspecified severity, without behavioral disturbance, psychotic disturbance, mood disturbance, and anxiety; Z23 Encounter for immunization; E03.9 Hypothyroidism, unspecified; I25.10 Atherosclerotic heart disease of native coronary artery without angina pectoris; Z95.5 Presence of coronary angioplasty implant and graft; Z87.891 Personal history of nicotine dependence; E78.5 Hyperlipidemia, unspecified; Z79.02 Long term (current) use of antithrombotics/antiplatelets; N40.1 Benign prostatic hyperplasia with lower urinary tract symptoms; R33.8 Other retention of urine; M79.89 Other specified soft tissue disorders; J02.9 Acute pharyngitis, unspecified; I10 Essential (primary) hypertension; Z79.82 Long term (current) use of aspirin; Z79.899 Other long term (current) drug therapy
CPT/HCPCS: 36415; 71010; 71046; 73562; 73590; 73610; 73630; 74176; 80048; 80053; 80061; 80074; 80076; 81001; 82436; 82550; 82570; 83605; 83690; 83735; 83880; 84133; 84300; 84443; 84484; 85025; 85652; 86038; 86140; 86225; 86235; 86663; 86665; 87040; 87086; 87088; 93005; 93306; 93925; 93971; 96360; 97110; 97116; 97161; 97165; 97530; 97802; 99284; 99285; J7030; Q9967; 90686; A4216; J1940; J2405

== ENCOUNTER → 2017-06-10 13:56 | Outpatient (CLI) | payer MEDICARE, OTHER, SELFPAY | PROVIDERS: Family Provider Family Medicine; PCP Family Medicine; Visit Provider Nurse Practitioner Family | DX: I48.0 Paroxysmal atrial fibrillation (principal) | CPT/HCPCS: 93225; 93226 ==

== ENCOUNTER → 2017-09-01 10:48 | Outpatient (CLI) | payer MEDICARE, OTHER, SELFPAY ==
[2017-09-01 12:48] LABS: AST(SGOT) 13 U/L (15-37); Alanine Aminotransfer ALT/SGPT 20 U/L (16-61); Albumin, Serum 3.7 g/dL (3.2-5.0); Alkaline Phosphatase 78 U/L (45-117); Bilirubin, Direct 0.19 mg/dL (0.00-0.30); Cholesterol 214 mg/dL (200); Globulin 3.4 g/dL (2.2-4.2); High Density Lipoprotein 36 mg/dL; Protein, Total 7.1 g/dL (6.4-8.2); Triglycerides 107 mg/dL; Very Low Density Lipoprotein 21 mg/dL (5-40)
== END ==
PROVIDERS: Family Provider Family Medicine; PCP Family Medicine; Visit Provider Physician Assistant Medical
DX: E78.5 Hyperlipidemia, unspecified (principal); E03.2 Hypothyroidism due to medicaments and other exogenous substances
CPT/HCPCS: 36415; 80061; 80076

== ENCOUNTER → 2018-03-01 10:09 | Outpatient (CLI) | payer MEDICARE, OTHER, SELFPAY ==
[2018-03-01 12:26] LABS: Hematocrit 41.4 % (40-54); Hemoglobin 13.9 g/dl (13.0-16.5); Mean Corp Hgb Conc 33.6 g/gl (32-36); Mean Corpuscular Hgb 31.7 pg (27.0-32.0); Mean Corpuscular Volume 94.3 fL (80-94); Mean Platelet Vol. 11.3 fl (6.2-12.0); Platelet Count 140 K/mm3 (150-450); RBC Distribution Width CV 12.7 % (11.6-14.6); RBC Distribution Width SD 42.4 fl (35.1-43.9); Red Blood Count 4.39 M/mm3 (4.6-6.2); White Blood Count 4.6 K/mm3 (4.4-11.0)
[2018-03-01 12:37] LABS: Scan Indicated on CBC? Y/N NO
[2018-03-01 12:43] LABS: AST(SGOT) 18 U/L (15-37); Alanine Aminotransfer ALT/SGPT 24 U/L (16-61); Albumin, Serum 3.5 g/dL (3.2-5.0); Alkaline Phosphatase 80 U/L (45-117); Anion Gap 9 (5-15); BUN 19 mg/dL (7-18); BUN/Creat Ratio 13.6 RATIO (10-20); Chloride 110 mmol/L (98-107); EST Glomerular Filtration Rate 52 mL/min (>60); Est Glom Filt Rate - Afr Amer 63 mL/min (>60); Globulin 3.5 g/dL (2.2-4.2); Glucose 93 mg/dL (74-106); Potassium 4.3 mmol/L (3.5-5.1); Sodium Level 143 mmol/L (136-145); Thyroid Stim Hormone (TSH) 4.25 uIU/mL (0.358-3.74)
== END ==
PROVIDERS: Family Provider Family Medicine; PCP Family Medicine; Visit Provider Family Medicine
DX: G30.9 Alzheimer's disease, unspecified (principal); I10 Essential (primary) hypertension
CPT/HCPCS: 36415; 80053; 84443; 85027

== ENCOUNTER → 2018-07-19 08:51 | Outpatient (CLI) | payer MEDICARE, OTHER, SELFPAY ==
[2018-06-12 11:46] VITALS: BMI 30.2
[2018-07-19 10:49] LABS: AST(SGOT) 15 U/L (15-37); Alanine Aminotransfer ALT/SGPT 19 U/L (16-61); Albumin, Serum 3.5 g/dL (3.2-5.0); Alkaline Phosphatase 81 U/L (45-117); Cholesterol 227 mg/dL (200); Globulin 3.5 g/dL (2.2-4.2); High Density Lipoprotein 37 mg/dL; Triglycerides 88 mg/dL; Very Low Density Lipoprotein 18 mg/dL (5-40)
== END ==
PROVIDERS: Family Provider Family Medicine; PCP Family Medicine; Referring Provider Internal Medicine Cardiovascular Disease; Visit Provider Internal Medicine Cardiovascular Disease
DX: E78.00 Pure hypercholesterolemia, unspecified (principal); I25.10 Atherosclerotic heart disease of native coronary artery without angina pectoris
CPT/HCPCS: 36415; 80061; 80076

== ENCOUNTER → 2018-08-28 11:16 | Outpatient (CLI) | payer MEDICARE, OTHER, SELFPAY ==
[2018-06-12 11:46] VITALS: BMI 30.2
[2018-08-28 12:33] LABS: Hematocrit 41.1 % (40-54); Hemoglobin 13.9 g/dl (13.0-16.5); Mean Corp Hgb Conc 33.8 g/gl (32-36); Mean Corpuscular Volume 91.7 fL (80-94); Mean Platelet Vol. 10.9 fl (6.2-12.0); Platelet Count 140 K/mm3 (150-450); RBC Distribution Width CV 12.9 % (11.6-14.6); Red Blood Count 4.48 M/mm3 (4.6-6.2)
[2018-08-28 12:35] LABS: Scan Indicated on CBC? Y/N NO
[2018-08-28 13:18] LABS: Anion Gap 7 (5-15); BUN 19 mg/dL (7-18); BUN/Creat Ratio 14.3 RATIO (10-20); Calcium,Total 9.1 mg/dL (8.5-10.1); Chloride 111 mmol/L (98-107); Creatinine, Serum 1.33 mg/dL (0.70-1.30); EST Glomerular Filtration Rate 55 mL/min (>60); Est Glom Filt Rate - Afr Amer 66 mL/min (>60); Glucose 93 mg/dL (74-106); Potassium 4.2 mmol/L (3.5-5.1); Sodium Level 143 mmol/L (136-145); Thyroid Stim Hormone (TSH) 3.74 uIU/mL (0.358-3.74)
[2018-08-28 14:36] LABS: Microalbumin,Random Urine 5.1 mg/L (NO RANGE EST.)
== END ==
PROVIDERS: Family Provider Family Medicine; PCP Family Medicine; Visit Provider Family Medicine
DX: I10 Essential (primary) hypertension (principal); E03.9 Hypothyroidism, unspecified; D69.6 Thrombocytopenia, unspecified
CPT/HCPCS: 36415; 80048; 82043; 82570; 84443; 85027

== ENCOUNTER → 2019-03-05 15:27 | Outpatient (CLI) | payer MEDICARE, OTHER, SELFPAY ==
[2018-12-29 13:01] VITALS: BMI 29.1
[2019-03-05 15:29] LABS: Lyme Ab Screen Interpretation REF LAB
[2019-03-07 15:50] LABS: Lyme Scn Total Ab w/Rflx <0.91 ISR (0.00-0.90)
== END ==
PROVIDERS: Family Provider Family Medicine; PCP Family Medicine; Visit Provider Family Medicine
DX: T14.8XXA Other injury of unspecified body region, initial encounter (principal); W57.XXXA Bitten or stung by nonvenomous insect and other nonvenomous arthropods, initial encounter; Y93.9 Activity, unspecified; Y92.9 Unspecified place or not applicable; Y99.9 Unspecified external cause status
CPT/HCPCS: 36415; 86618

== ENCOUNTER 2020-03-21 14:28 | Emergency (ER) | payer MEDICARE, OTHER, SELFPAY ==
[2019-10-01 14:56] VITALS: BMI 28.7
[2020-03-21 14:30] VITALS: BP 125/37; PULSE 68; RESP 18; TEMP 35.8; O2SAT 99; BMI 28.4
--- NOTE | 2020-03-21 14:51 | CT_ITS ---
STUDY: CT ABDOMEN AND PELVIS WITH CONTRAST REASON FOR EXAM: Male, 84 years old. Mid upper abdomen pain today nausea RADIATION DOSAGE (If Supplied By Facility): CTDIvol = ( 17.72 ) mGy, DLP = ( 986.23 ) mGycm TECHNIQUE: CT images were obtained from the dome of the diaphragm to the symphysis pubis without oral contrast. IV 100mL Isovue-300 was administered. Sagittal and coronal images were reconstructed. Individualized dose optimization techniques were used for this CT. COMPARISON: 24 January 2017 FINDINGS: Lung bases are atelectatic. There are no pleural effusions. Normal liver with simple benign cyst not requiring further imaging follow-up. Gallbladder contains multiple small stones without inflammation or biliary dilation. Normal spleen. Normal pancreas. Normal bilateral adrenal glands. There is no hydronephrosis or urinary calculi. There is a 2 cm endophytic interpolar region anterior cortical right renal cyst. There is a 5 cm left renal cyst exophytically and 1 cm endophytic lower pole cyst. These do not require follow-up. However, there are small bilateral subcentimeter lesions, too small to reliably characterize although low risk appearing. Some of the lesions have mildly increased since 2017 Normal visualized stomach. Normal small intestine. Normal colon. The appendix is visualized and appears normal. Normal abdominal aorta. Normal inferior vena cava. Normal retroperitoneum. Normal urinary bladder. Normal abdominal wall. 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 CT/Abdomen/Pelvis W IV Cont ONLY IMPRESSION: 1. No acute findings. 2. Cholecystolithiasis, no cholecystitis. However, ultrasonography can be utilized for more definitive assessment of right upper quadrant. 3. Bilateral low risk renal lesions, too small to reliably characterize. These are statistically likely to be benign cysts. Extended follow-up in 12-18 months can be performed. Electronically Signed: Ashutosh Bautista, at 17:01 EST Tel , Service support ,
[2020-03-21] MEDS: Morphine 4 MG/ML Syringe IV (15:09)
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
[2020-03-21 15:28] LABS: Bacteria 0 SEEN /hpf (None Seen); Mucous, Urine 0 SEEN /hpf (<or=2+); Red Blood Cells-Urine 0 SEEN /hpf (0-5); Squamous Epithelial Cells - UA 0 SEEN /hpf (0-5)
[2020-03-21 15:33] LABS: Absolute Lymphocyte Count 1.37 X10^3/uL (0.83-4.51); Absolute Neutrophil Count 3.7 X10^3/uL (2.0-7.7); Basophil# 0.02 X10^3/uL; Basophil% 0.4 % (0-1); Eosinophil# 0.05 X10^3/uL; Eosinophils% 0.9 % (0-5); Hematocrit 43.7 % (40-54); Hemoglobin 14.6 g/dL (13.0-16.5); Lymphocyte # 1.37 X10^3/ul (4.0); Lymphocyte % 24.7 % (19-41); Mean Corp Hgb Conc 33.4 g/dL (32-36); Mean Corpuscular Hgb 31.1 pg (27.0-32.0); Mean Corpuscular Volume 93.2 fL (80-94); Mean Platelet Vol. 10.6 fl (6.2-12.0); Monocyte# 0.42 X10^3/uL; Monocyte% 7.6 % (0-10); NRBC Flagged by Analyzer 0 % (0-5); Neutrophil # 3.66 X10^3/uL (2.7-7.7); Platelet Count 141 K/mm3 (150-450); RBC Distribution Width CV 12.2 % (11.6-14.6); Red Blood Count 4.69 M/mm3 (4.6-6.2); White Blood Count 5.5 K/mm3 (4.4-11.0)
[2020-03-21 15:39] LABS: Color, Urine Yellow (Yellow); Glucose, Dipstick Normal (Normal); Ketone-Dipstick Negative (Negative); Leukocyte Esterase-Dipstick 25 /ul (Negative); Nitrite-Dipstick Negative (Negative); Occult Blood-Urine Negative /ul (Negative); Protein-Dipstick 15 mg/dl (Negative); Urine Bilirubin Dipstick Negative (Negative); Urine Clarity Clear (Clear); Urine Urobilinogen 1 mg/dl (Normal)
[2020-03-21 15:52] LABS: ALB/GLOB Ratio 1.1 RATIO (0.9-2.4); AST(SGOT) 21 U/L (15-37); Alanine Aminotransfer ALT/SGPT 27 U/L (16-61); Albumin, Serum 3.8 g/dL (3.2-5.0); Alkaline Phosphatase 86 U/L (45-117); Anion Gap 4 (5-15); BUN 18 mg/dL (7-18); BUN/Creat Ratio 13.1 RATIO (10-20); Calcium,Total 9.3 mg/dL (8.5-10.1); Chloride 106 mmol/L (98-107); Creatinine, Serum 1.37 mg/dL (0.70-1.30); EST Glomerular Filtration Rate 53 mL/min (>60); Est Glom Filt Rate - Afr Amer 64 mL/min (>60); Estimated Creatinine Clearance 42.18 ml/min; Globulin 3.4 g/dL (2.2-4.2); Glucose 114 mg/dL (74-106); Lipase 151 U/L (73-393); Potassium 3.7 mmol/L (3.5-5.1); Protein, Total 7.2 g/dL (6.4-8.2); Sodium Level 141 mmol/L (136-145)
[2020-03-21 16:06] LABS: Lactic Acid 1.3 mmol/L (0.4-1.9)
[2020-03-21 16:21] LABS: White Blood Cells 0-5 SEEN /hpf (0-5)
== END 2020-03-21 17:48 | disposition home or self-care (01) ==
PROVIDERS: Emergency Provider Emergency Medicine; PCP Family Medicine
DX: K80.20 Calculus of gallbladder without cholecystitis without obstruction (principal); Z87.891 Personal history of nicotine dependence
CPT/HCPCS: 74177; 80053; 81001; 83605; 83690; 84484; 85025; 96374; 99283; Q9967; A4216

== ENCOUNTER → 2020-09-16 11:04 | Outpatient (CLI) | payer MEDICARE, OTHER, SELFPAY ==
[2020-07-09 15:37] VITALS: BMI 29.1
[2020-09-16 14:58] LABS: Absolute Lymphocyte Count 1.72 X10^3/uL (0.83-4.51); Absolute Neutrophil Count 2.1 X10^3/uL (2.0-7.7); Basophil# 0.03 X10^3/uL; Basophil% 0.7 % (0-1); Eosinophils% 2.3 % (0-5); Hematocrit 43.6 % (40-54); Hemoglobin 14.4 g/dL (13.0-16.5); Lymphocyte # 1.72 X10^3/ul (0.83-4.51); Lymphocyte % 39.3 % (19-41); Mean Platelet Vol. 11.7 fl (6.2-12.0); Monocyte# 0.42 X10^3/uL; Monocyte% 9.6 % (0-10); NRBC Flagged by Analyzer 0 % (0-5); Neutrophil % 47.9 % (47-70); Platelet Count 131 K/mm3 (150-450); RBC Distribution Width CV 12.3 % (11.6-14.6); RBC Distribution Width SD 42.6 fl (35.1-43.9); Red Blood Count 4.64 M/mm3 (4.6-6.2); White Blood Count 4.4 K/mm3 (4.4-11.0)
[2020-09-16 15:46] LABS: ALB/GLOB Ratio 1.1 RATIO (0.9-2.4); AST(SGOT) 13 U/L (15-37); Alanine Aminotransfer ALT/SGPT 19 U/L (16-61); Albumin, Serum 3.7 g/dL (3.2-5.0); Alkaline Phosphatase 84 U/L (45-117); Anion Gap 5 (5-15); BUN 17 mg/dL (7-18); Calcium,Total 9.8 mg/dL (8.5-10.1); Chloride 107 mmol/L (98-107); Creatinine, Serum 1.21 mg/dL (0.70-1.30); EST Glomerular Filtration Rate 61 mL/min (>60); Est Glom Filt Rate - Afr Amer 74 mL/min (>60); Globulin 3.4 g/dL (2.2-4.2); Glucose 83 mg/dL (74-106); PSA,Total- Diagnostic 6.46 ng/mL (0.0-4.0); Protein, Total 7.1 g/dL (6.4-8.2); Sodium Level 139 mmol/L (136-145); Thyroid Stim Hormone (TSH) 5.11 uIU/mL (0.358-3.74)
== END ==
PROVIDERS: PCP Family Medicine; Visit Provider Family Medicine
DX: G30.9 Alzheimer's disease, unspecified (principal)
CPT/HCPCS: 36415; 80053; 84153; 84443; 85025

== ENCOUNTER → 2021-11-20 | Outpatient (CLI) | payer MEDICARE, OTHER, SELFPAY ==
[2021-11-20 17:41] LABS: Absolute Lymphocyte Count 1.81 X10^3/uL (0.83-4.51); Absolute Neutrophil Count 2.1 X10^3/uL (2.0-7.7); Basophil# 0.04 X10^3/uL; Basophil% 0.9 % (0-1); Eosinophil# 0.11 X10^3/uL; Eosinophils% 2.4 % (0-5); Hematocrit 42.2 % (40-54); Hemoglobin 13.8 g/dL (13.0-16.5); Lymphocyte # 1.81 X10^3/ul (0.83-4.51); Mean Corp Hgb Conc 32.7 g/dL (32-36); Mean Corpuscular Hgb 31.7 pg (27.0-32.0); Mean Platelet Vol. 11.2 fl (6.2-12.0); Monocyte# 0.42 X10^3/uL; Monocyte% 9.3 % (0-10); NRBC Flagged by Analyzer 0 % (0-5); Neutrophil # 2.14 X10^3/uL (2.7-7.7); Neutrophil % 47.4 % (47-70); Platelet Count 142 K/mm3 (150-450); RBC Distribution Width CV 12.3 % (11.6-14.6); RBC Distribution Width SD 43.9 fl (35.1-43.9); Red Blood Count 4.35 M/mm3 (4.6-6.2); White Blood Count 4.5 K/mm3 (4.4-11.0)
[2021-11-20 18:12] LABS: ALB/GLOB Ratio 1.1 RATIO (0.9-2.4); AST(SGOT) 14 U/L (15-37); Alanine Aminotransfer ALT/SGPT 23 U/L (16-61); Albumin, Serum 3.6 g/dL (3.2-5.0); Alkaline Phosphatase 65 U/L (45-117); Anion Gap 5 (5-15); BUN 18 mg/dL (7-18); CRP < 2.90 mg/L (0.0-3.0); Chloride 109 mmol/L (98-107); EST Glomerular Filtration Rate 61 mL/min (>60); Est Glom Filt Rate - Afr Amer 74 mL/min (>60); Globulin 3.3 g/dL (2.2-4.2); Glucose 93 mg/dL (74-106); Lipase 121 U/L (73-393); Potassium 4.1 mmol/L (3.5-5.1); Protein, Total 6.9 g/dL (6.4-8.2); Sodium Level 142 mmol/L (136-145)
== END | disposition home or self-care (01) ==
LOC: MFPLAB 15:52
PROVIDERS: PCP Family Medicine; Referring Provider Family Medicine; Visit Provider Family Medicine
DX: K80.20 Calculus of gallbladder without cholecystitis without obstruction (principal)
CPT/HCPCS: 36415; 80053; 83690; 85025; 86140

== ENCOUNTER → 2021-11-25 | Outpatient (CLI) | payer MEDICARE, OTHER, SELFPAY ==
--- NOTE | 2021-11-25 09:45 | US_ITS ---
EXAM: US ABDOMEN LIMITED, RIGHT UPPER QUADRANT CLINICAL INDICATION: RUQ pain, known gallstones TECHNIQUE: Real-time ultrasound of the right upper quadrant with image documentation. This report was created using [employer] report generation technology. COMPARISON: None. FINDINGS: LIVER: Low attenuation focus in the liver consistent with a hepatic cyst. No follow-up is necessary. There is normal echotexture. No intrahepatic biliary ductal dilation. GALLBLADDER: Multiple stones are present within the gallbladder. No gallbladder wall thickening is demonstrated. No pericholecystic fluid. Negative sonographic Sanchez''s sign. COMMON BILE DUCT: Common bile duct measures 6 mm in maximum diameter. The proximal common bile duct is within normal limits for the patient''s age. PANCREAS: Pancreas is obscured by overlying bowel gas. RIGHT KIDNEY: 2 cm right renal cyst. No specific follow-up is indicated. There is no hydronephrosis. No shadowing calculus. US/Abdomen Limited IMPRESSION: Cholelithiasis. Electronically Signed: Chris Spencer MD at 14:29 EDT ,
== END | disposition home or self-care (01) ==
LOC: US 09:45
PROVIDERS: PCP Family Medicine; Referring Provider Family Medicine; Visit Provider Family Medicine
DX: K80.20 Calculus of gallbladder without cholecystitis without obstruction (principal)
CPT/HCPCS: 76705

== ENCOUNTER 2021-12-02 07:26 | Day surgery (SDC) | payer MEDICARE, OTHER, SELFPAY ==
--- NOTE | 2021-12-01 11:17 | EKG12_ITS ---
Test Reason : PRE-OP Blood Pressure : / mmHG Vent. Rate : 058 BPM Atrial Rate : 058 BPM P-R Int : 190 ms QRS Dur : 094 ms QT Int : 414 ms P-R-T Axes : 028 -46 038 degrees QTc Int : 406 ms Sinus bradycardia Left anterior fascicular block Poor R wave progression Abnormal ECG Confirmed by HUSAM NICHOLE, SUMMER ([id number]), story editor WAYNE MOSLEY ([id number]) on 12/02/2021 11:30:58 AM Referred By: Benigno Duron Confirmed By:SUMMER WEINER MD
[2021-12-01 11:59] LABS: Prothrombin Time (Protime)PT. 12.8 SECONDS (11.7-14.9)
[2021-12-01 12:00] LABS: Partial Thromboplast Time 58.4 Seconds (24.1-36.2)
[2021-12-01 12:54] LABS: AST(SGOT) 23 U/L (15-37); Alanine Aminotransfer ALT/SGPT 22 U/L (16-61); Albumin, Serum 3.4 g/dL (3.2-5.0); Alkaline Phosphatase 68 U/L (45-117); Bilirubin, Direct 0.21 mg/dL (0.00-0.30); Globulin 3.4 g/dL (2.2-4.2); Protein, Total 6.8 g/dL (6.4-8.2); Thyroid Stim Hormone (TSH) 2.67 uIU/mL (0.358-3.74)
[2021-12-02] VITALS (9 sets, daily range): BP systolic 128–144; BP diastolic 64–72; PULSE 58–80; RESP 14–18; TEMP 35.9–36.4; O2SAT 93–100; BMI 27.1
--- NOTE | 2021-12-02 | GALL_PTH ---
PATIENT: ANGELIKA ROJO [place] [facility] [place][id number] AGE/SX: 86/M ROOM: RE12/02/[address]: Dr. Benigno Duron MD : [id number] BED: DIS: 12/02/2021 SPEC #: [id number] RECD: 12/02/21 10:51 STATUS: FATOU VALDEZ #: [id number] SVETLANA: 12/02/21 00:[address]: Benigno Duron DEPT: SURGICAL PATHOLOGY RECD BY: Marcus Snyder ENTERED: 12/02/21 11:50 SP TYPE: MIGUEL JOHNSON DR: Dr. Geo Morales MD Tissues: Gallbladder, NOS Procedures: Surgery Specimen Level III HEADER OPERATION: Laparoscopic cholecystectomy with IOC PRE-OP DIAGNOSIS: Cholelithiasis TISSUE SUBMITTED: Gallbladder MICROSCOPIC DIAGNOSIS Gallbladder, cholecystectomy: Chronic cholecystitis and cholelithiasis. AM:zach 12/03/2021 MICROSCOPIC DESCRIPTION Slides are reviewed. GROSS DESCRIPTION Received is one container labeled with the patient's name and designated gallbladder. The specimen consists of a gallbladder measuring 8.5 cm in length and up to 3 cm in diameter. The external surface is pink-baltazar, smooth and glistening for the most part. Focally it is granular, hemorrhagic and contains cautery artifact. The gallbladder contains hemorrhagic yellow bile and multiple black, irregular stones measuring in aggregate 4 x 3.5 x 1 cm and 0.1 to 0.7 cm in greatest dimension. The mucosa is bile-stained and without any mass lesions. The gallbladder wall measures up to 0.2 cm in thickness. Loom Tuner sections from the gallbladder and the cystic duct are submitted in one cassette. / SJ:zach 12/02/2021 TC:3 [facility]: [id number]
--- NOTE | 2021-12-02 08:00 | RAD_ITS ---
STUDY: REASON FOR EXAM: Male, 86 years old. Laparoscopic cholecystectomy. FLUOROSCOPY TIME (if supplied): ( 11 seconds ) minutes/seconds. A cine loop of 66 images was obtained. TECHNIQUE: An intraoperative cholangiogram was performed by the surgeon. Imaging was submitted. COMPARISON: None. FINDINGS: The common bile duct is not dilated. No intraluminal filling defect is seen. There is free flow of contrast into the duodenum. RAD/Cholangiogram/ O R,Initial IMPRESSION: Unremarkable intraoperative cholangiogram. Electronically Signed: Eben Fortune MD at 9:46 EDT ,
[2021-12-02] MEDS: Lactated Ringers 1,000 ML 15 ML IV (08:29)
--- NOTE | 2021-12-02 08:34 | PCM.HP.BLA ---
History and Physical Date of Admission: 12/02/21 Intake Vital Signs ? 11/26/2208:07 Height 5 ft 10 in Weight: 194 lb BMI 27.8 BP 141/69 H Blood Pressure Location Rt brachial Position Sitting Respiration 18 Intake Visit Reasons:?GALLSTONES Chief Complaint: gallstones Coating Mixer Tender Required: No Is patient in pain?: No Allergies cephalexin [From Keflex] Allergy (Verified 11/26/21 09:08) Swellingdiazepam [From Valium] Allergy (Verified 11/26/21 09:08) KiuumQozucrp-GXI-ZoG Reductase Inhibitor [Uyjhpgf-Jeu-Ivy Reductase Inhibitor] Adverse Reaction (Verified 11/26/21 09:08) Rhabdomylosis Medications docusate sodium 100 mg capsule (Dulcolax Stool Softener (docusate)) 100 mg PO QHS 10/01/19 [History Confirmed 11/26/21] diphenhydramine 25 mg-acetaminophen 500 mg tablet 1 ea PO QHS 03/21/20 [History Confirmed 11/26/21] multivitamin 1 ea PO BID 03/21/20 [History Confirmed 11/26/21] psyllium husk (with sugar) 3 gram/7 gram oral powder 822 gm PO PRN PRN Constipation 03/21/20 [History Confirmed 11/26/21] levothyroxine 75 mcg tablet 88 mcg PO DAILY 11/26/21 [History Confirmed 11/26/21] meclizine 12.5 mg tablet 12.5 mg PO TID PRN 11/26/21 [History Confirmed 11/26/21] PFSH Medical History? 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 Presence of coronary angioplasty implant and graft (~02/2006) S/P PTCA (percutaneous transluminal coronary angioplasty) Status post trigger finger release Family History? Mother CVA (cerebral vascular accident) CAD (coronary artery disease)Brother?? CAD (coronary artery disease) Cancer Myocardial infarctionSister?? ,? from congenital heart problems CAD (coronary artery disease)Father?? CAD (coronary artery disease) Myocardial infarction ?? ? of [place] Social History? Smoking Status:? Former smoker how long ago did patient quit smoking:? 1975 alcohol intake:? current alcohol intake frequency: a few times a month Alcohol type: beer and wine substance use type:? does not use caffeine:? Yes Type: tea Number of servings: 2 what type of physical activity do you participate in:? none seatbelt use:? always do you feel safe at home:? Yes HPI HPI HPI: ANGELIKA ROJO, is a 86 M who presents to the office today for quadrant pain.? The patient has been having attacks for a very long time and had an ultrasound that showed gallstones.? He reports that the attacks happen frequently and especially with greasy foods.? His last attack was about a week ago.? It happens in the right upper quadrant with pain radiating to the back. ROS General General: No weight change, appetite, fatigue, colon cancer, breast cancer or weakness HEENT HEENT: No difficulty swallowing, eye injury, eye surgery, swollen glands or hoarseness Endo Endocrine: Yes thyroid disease; No diabetes mellitus, thyroid cancer, Hair loss, heat intolerance or cold intolerance Skin Skin: Yes rash; No changing moles Breast Breast: No left breast lump, right breast lump, nipple discharge, breast pain, abnormal mammogram, abnormal US or breast enlargement Musc Musculoskeletal: Yes back problems and arthritis; No rheumatoid arthritis, gout or joint pain Cardio Cardiovascular: Yes heart disease and heart stent; No murmur, pacemaker, atrial fibrillation, high blood pressure, heart attack, palpitations, shortness of breat with exertion or chest pain Psych Psychiatric: Yes depression and anxiety; No hearing voices Resp Respiratory: No shortness of breath, No sleep apnea, No cough, No COPD, No asthma, No emphysema and No wheezing Gastro Gastrointestinal: Yes abdominal pain, Yes nausea or vomiting, No diarrhea, Yes constipation, No blood in stool, No acid reflux, No hemorrhoids, No ulcers, Yes gallbladder problem and No black,tarry stools Norbert Hematologic: No blood thinners, Yes blood disorders, No bleeding, No anemia and No blood clots Neuro Neurologic: No system reviewed and no additional complaints, except as documented, No as per HPI, No abnormal gait, No abnormal hearing, No abnormal movements, No abnormal speech, No behavioral changes, No burning sensations, No confusion, No convulsions, No disequilibrium, No dizziness, No localized weakness, No frequent falls, No headache(s), No lack of coordination, No loss of vision, No memory loss, Yes numbness, No other visual disturbances, No radicular pain, No restless legs, No sensory deficit, No syncope, Yes tingling, No tremor(s), No weakness and No other Exam Const General: cooperative Orientation: alert and oriented x3 HENMT Head: normal to inspection Neck Neck: normal visual inspection and full ROM Chest Chest palpation & inspection: normal inspection of the chest Resp Effort & Inspection: normal respiratory effort Auscultation: clear to auscultation bilaterally Cardio Rate: regular rate Rhythm: regular rhythm GI Inspection: non-distended Palpation: soft and nontender Skin General: no rashes or lesions noted Neuro General: patient alert and patient oriented x3 Extrem General: full ROM Psych Appearance: grossly normal Mental Status: mental status grossly normal Assessment and Plan Assessment and Plan (1) Cholelithiasis: ?Status:?Acute ?Plan: Patient has ultrasound showing gallstones and he does have symptoms suggesting biliary colic.? I recommended laparoscopic cholecystectomy. I discussed the procedure in detail with the patient.? I discussed the risks, benefits, and alternatives of the procedure.? I discussed the risks including but not limited to bleeding, infection, injury to surrounding organs such as the liver, bile duct, bowels.? I did discuss the possibility of having to convert to an open procedure as well as the possibility that if any injuries occurred this may necessitate further surgery at a tertiary care center. Benigno Duron MD Pager: [facility] [address] [place] [address], [address] [place] [address] Office: I have re-examined the patient. There are no clinical changes since date of exam.
[2021-12-02] MEDS: Bupivacaine 0.25% 30 ML Vial (09:42)
--- NOTE | 2021-12-02 10:12 | OP.PCM_ITS ---
Report of Operation Date of Procedure: 12/02/21 Pre-Operative Diagnosis: Cholelithiasis and biliary colic Post-Operative Diagnosis: Same Surgery/Procedure Performed:: Laparoscopic cholecystectomy with intraoperative cholangiogram Specimen's removed: Gallbladder Description of Procedure: After obtaining informed consent patient was brought back to the operating room. General anesthesia was induced. The abdomen was prepped and draped in usual sterile fashion. A small midline incision was made superior to the umbilicus and deepened to the level of fascia. The fascia was elevated and incised. Next the peritoneum was elevated and incised in the same fashion. Finger sweep was performed and the Arce trocar was placed into the abdomen. The balloon was inflated. The abdomen was inflated to 15 mmHg. Next a camera was introduced into the abdomen and the abdomen was inspected. Next under direct visualization three 5-mm ports were placed one subxiphoid and 2 subcostal. Next the gallbladder was elevated and retracted toward the right shoulder. The peritoneum was stripped from the gallbladder. The infundibulum was located and retracted laterally. Next the triangle of [place] was dissected and the cystic duct and cystic artery were identified. Cholangiograms were performed. The Harkins clamp was used to clamp across the infundibulum and the catheter needle was inserted into the gallbladder. Under fluoroscopy contrast was instilled into the gallbladder and the common duct, cystic duct as well as proximal hepatic ducts were identified. There was good filling of the duodenum. There were no filling defects noted in the common bile duct. The clamp was removed as well as the needle and the infundibulum was grasped once more. Three hemolock clips were placed across the cystic duct. The cystic duct was then divided leaving 2 clips on the stump. The cystic artery was clipped and divided in the same fashion. The hook cautery was then used to take the gallbladder off of the gallbladder bed. Hemostasis was obtained. Gallbladder fossa was irrigated and no active bleeding or bile leakage was noted. Next the camera was introduced in the subxiphoid port. An Endopouch bag was placed through the umbilical port and the gallbladder was placed into it. The gallbladder was then removed through the umbilical incision. The camera was then reinserted through the umbilical port. The gallbladder fossa was inspected once more and noted to be hemostatic with no leaking bile. The abdomen was suctioned dry. The 5 mm ports were removed under direct visualization. The umbilical port was then removed and the air was removed from the abdomen. Next using an 0 Vicryl suture the umbilical fascia was closed in a cufhqm-ex-ifmhd fashion. The umbilical port site was irrigated local anesthetic was administered to all the incisions. All the incisions were closed with interrupted subcuticular 4-0 Monocryl sutures followed by Steri-Strips and dressings. The patient was awoken and taken to [facility] in stable condition. Admit VTE Documentation VTE Mechan Device Prophylaxis: SCD's
--- NOTE | 2021-12-02 10:14 | DCINST_ITS ---
Discharge Instructions Procedure Gallbladder Diet Discharge Diet: Light diet - advance as tolerated Activity Discharge Activity: May Not Drive (for 2-3 days or while taking narcotic pain medications.) and - (Do not drive, work heavy equipment or sign legal documents for 24 hours.) May shower in (days): 1 Lifting Restrictions: 20 lbs for 2 weeks Additional Activity Instructions:: Pain medication may cause nausea. You should typically eat light foods as you take your pain medications. Pain medication may also cause constipation. If this is a problem for you, please discuss with your doctor. Dressing / Incision Call your doctor if your incision/area has: Continuous Slow Oozing, Sudden Increased Bleeding, Increased Pain/ Swelling, Increased Redness and Foul Smelling Discharge Call your doctor if you observe: Fever of 101 or Higher Suture Line Care: Avoid Pulling/Pushing and Avoid Pinching/Bending Remove Dressing in: 2 days Additional Dressing/Incision Instructions:: Leave operative bandaids on for 2 days. When you remove dressing, leave Steri-Strips on until your follow-up appointment, or until the Steri-Strips fall off on their own. Follow Up Care Please Follow Up With: Benigno Duron MD When: Please call to schedule 2 week follow up appointment. [phone] Test Results: Test results from this visit will be discussed in further detail at your follow- up appointment, if applicable. Discharge Plan Admission Attending Provider: Benigno Duron Primary Care Provider: Geo Morales Discharge Orders/Prescriptions Prescriptions: New oxycodone 5 mg tablet 5 mg PO Q4H PRN (Reason: pain) 5 Days Qty: 20 0RF Continued meclizine 12.5 mg tablet 12.5 mg PO QHS levothyroxine 75 mcg tablet 75 mcg PO DAILY diphenhydramine-acetaminophen 1 EACH tablet 1 ea PO QHS polyethylene glycol 3350 [Miralax] 17 gram Powder In Packet 17 g PO DAILY betamethasone dipropionate 0.05 % ointment 1 applic TOPICAL DAILY PRN PRN (Reason: SUMMER RASH) Osteo Bi-Flex Triple Strength 750 mg-644 mg- 30 mg-1 mg Tablet 1 tab PO BID Other Ambulatory Orders: 12 Lead EKG (Routine) Timeframe: 20211201 Location: None Selected Ordered By: Dr. Modesto Talbot Referrals / Follow Up: Geo Morales MD [Primary Care Provider] - Disposition Disposition (needs filled in before D/C Order can be placed): Home, Self Care
[2021-12-02] MEDS: Acetaminophen 325 MG Tablet 650 MG PO (11:16)
[2021-12-02] MEDS: oxyCODONE 5 MG Tablet PO (11:23)
== END 2021-12-02 15:15 | disposition home or self-care (01) ==
LOC: SDC 07:28 → AC 07:28
PROVIDERS: Anesthesiology; PCP Family Medicine; Referring Provider Surgery; Visit Provider Surgery
PROC: (CPT 47610; principal; 2021-12-02 08:40)
DX: K80.64 Calculus of gallbladder and bile duct with chronic cholecystitis without obstruction (principal); G30.9 Alzheimer's disease, unspecified; F02.80 Dementia in other diseases classified elsewhere, unspecified severity, without behavioral disturbance, psychotic disturbance, mood disturbance, and anxiety; I25.10 Atherosclerotic heart disease of native coronary artery without angina pectoris; I44.4 Left anterior fascicular block; E03.2 Hypothyroidism due to medicaments and other exogenous substances; Z95.5 Presence of coronary angioplasty implant and graft; Z79.899 Other long term (current) drug therapy; Z87.891 Personal history of nicotine dependence
CPT/HCPCS: 47563; 00790; 36415; 74300; 76000; 80076; 84443; 85610; 85730; 88304; 93005; J7120; J2405

== ENCOUNTER 2021-12-07 10:37 | Emergency (ER) | payer MEDICARE, OTHER, SELFPAY ==
[2021-12-07 10:38] VITALS: BP 131/76; PULSE 125; RESP 21; TEMP 36.4; O2SAT 94; BMI 27.4
--- NOTE | 2021-12-07 11:16 | RAD_ITS ---
STUDY: X-RAY CHEST REASON FOR EXAM: Male, 86 years old. cough TECHNIQUE: PA or AP and lateral COMPARISON: 02/02/2017 FINDINGS: The lungs demonstrate mild bibasilar fibrosis or less likely atelectasis. There is no demonstrated pleural abnormality. Interval resolution of bilateral pleural effusions. Normal size heart. Normal mediastinum and seng. Normal visualized pulmonary arteries. Normal visualized aortic arch and descending thoracic aorta. Mild degenerative disc disease mid and lower thoracic spine. This is more moderate at the T5-T9 levels. Slight wedge deformity of T6 and T7 stable and chronic. Normal visualized ribs, clavicles, and shoulders. There is no demonstrated abnormality of the visualized soft tissue structures of the upper abdomen. RAD/Chest PA and Lateral IMPRESSION: Interval resolution of bilateral pleural effusions. Mild bibasilar fibrosis stable. Degenerative changes thoracic spine with stable slight wedge deformities T6 and T7. Electronically Signed: Mike Padilla MD, PAULA at 12:03 EDT ,
--- NOTE | 2021-12-07 11:16 | EKG12_ITS ---
Test Reason : Blood Pressure : / mmHG Vent. Rate : 126 BPM Atrial Rate : 000 BPM P-R Int : 000 ms QRS Dur : 086 ms QT Int : 276 ms P-R-T Axes : 000 -50 052 degrees QTc Int : 399 ms Atrial fibrillation with rapid ventricular response Left anterior fascicular block Poor R wave progression Abnormal ECG Confirmed by HUSAM NICHOLE, SUMMER ([id number]), deputy editor in chief WAYNE MOSLEY ([id number]) on 12/08/2021 7:45:54 AM Referred By: Confirmed By:SUMMER WEINER MD
--- NOTE | 2021-12-07 11:21 | EX.ED.DYSGE1 ---
HPI History of Present Illness Chief Complaint: Palpitations Informant: patient and spouse/S.O. Narrative Narrative: Here with spouse recurrent atrial fibrillation after walking the dog 9:30 AM. History of Alzheimer's dementia and paroxysmal atrial fibrillation. Patient followed by Dr. Momin. Patient elective cholecystectomy postop day [address] Duron. His last atrial fibrillation event was 2016. No anticoagulants currently. No beta or calcium channel blockers. Patient mild lightheaded symptoms. Spouse attempted to call cardiology office however no immediate return therefore came here. He last seen cardiology few months ago. Postop he did have urine retention spouse retired nurse was able to place the Kraus and it has been removed since currently on Flomax. Denies dysuria. Yesterday noted mild cough congestion. No fevers. Mucinex was given. Denies respiratory symptoms. Denies any significant abdominal pain. Denies asthma or COPD history. Prior similar symptoms: Yes PFSH PFSH Medical History Allergic reaction caused by a drug Alzheimers disease Arthritis Atherosclerotic heart disease of [place] coronary artery without angina pectoris CAD (coronary artery disease) Cardiology follow-up encounter Depression Excessive bleeding Former smoker High cholesterol History of atrial fibrillation History of Clostridium difficile infection History of echocardiogram History of edema History of injury of tendon History of kidney stones History of steroid therapy History of stress test Hyperlipidemia Iatrogenic hypothyroidism Left carotid bruit Memory loss Paroxysmal atrial fibrillation Pure hypercholesterolemia Rhabdomyolysis Swelling of right lower extremity Thyroid disease Vertigo Wears glasses Home Medications diphenhydramine 25 mg-acetaminophen 500 mg tablet 1 ea PO QHS 03/21/20 [History Last Taken Unknown] levothyroxine 75 mcg tablet 75 mcg PO DAILY THYROID 11/26/21 [History Last Taken 12/02/21 06:15] meclizine 12.5 mg tablet 12.5 mg PO QHS 11/26/21 [History Last Taken Unknown] betamethasone dipropionate 0.05 % topical ointment 1 applic topical DAILY PRN PRN SUMMER RASH 11/30/21 [History Last Taken Unknown] glucosamine 750 [id number] no1 644 mg-C 30 mg-devorah 1 mg tablet (Osteo Bi-Flex Triple Strength) 1 tab PO BID 11/30/21 [History Last Taken Unknown] polyethylene glycol 3350 17 gram oral powder packet (Miralax) 17 g PO DAILY 11/30/21 [History Last Taken Unknown] oxycodone 5 mg tablet 5 mg PO Q4H PRN pain 5 days #20 tabs 12/02/21 [Rx Last Taken Unknown] tamsulosin 0.4 mg capsule 0.4 mg PO DAILY #7 caps 12/02/21 [Rx Last Taken Unknown] apixaban 5 mg tablet (Eliquis) 5 mg PO BID #60 tabs 12/07/21 [Rx Last Taken Unknown] metoprolol succinate 25 mg tablet,extended release 24 hr 25 mg PO DAILY #30 tabs 12/07/21 [Rx Last Taken Unknown] Allergy/AdvReac Type Severity Reaction Status Date / Time cephalexin [From Keflex] Allergy Swelling Verified 12/07/21 10:38 diazepam [From Valium] Allergy Other Verified 12/07/21 10:38 Baekvzr-YUU-LjR Reductase AdvReac Rhabdomylos Verified 12/07/21 10:38 Inhibitor is [Esdfffv-Aio-Ekj Reductase Inhibitor] Family History Mother CVA (cerebral vascular accident) CAD (coronary artery disease) Brother CAD (coronary artery disease) Cancer Myocardial infarction Sister , from congenital heart problems CAD (coronary artery disease) Father CAD (coronary artery disease) Myocardial infarction of [place] Surgical History History of bilateral cataract extraction History of colonoscopy Hx of cholecystectomy Presence of coronary angioplasty implant and graft (~02/2006) S/P PTCA (percutaneous transluminal coronary angioplasty) Status post trigger finger release Social History Smoking Status: Former smoker how long ago did patient quit smokin alcohol intake: current alcohol intake frequency: a few times a month Alcohol type: beer and wine substance use type: does not use caffeine: Yes Type: tea Number of servings: 2 what type of physical activity do you participate in: none seatbelt use: always do you feel safe at home: Yes ROS ROS ED Constitutional Constitutional ED: Denies chills, fever(s) or sweats Eyes Eyes: Denies change in vision ENT ENT ED: Denies dysphagia or sore throat Cardiovascular Cardiovascular: Reports palpitations; Denies chest pain, leg edema or racing heartbeat Respiratory/Chest Respiratory/Chest: Denies cough, dyspnea or dyspnea on exertion Gastrointestinal Gastrointestinal: Denies abdominal pain, diarrhea, nausea or vomiting Genitourinary Genitourinary ED: Denies dysuria, hematuria or urinary frequency Musculoskeletal Musculoskeletal: Denies back pain, extremity pain or neck pain Integumentary Denies rash or wounds Neurologic Neurologic: Denies headache(s), paresthesias or weakness EXAM Physical Exam Const Vital Signs: 12/07/21 10:38 12/07/21 11:30 12/07/21 12:30 Temperature 97.5 F L Temperature Source Temporal Pulse Rate 125 H 119 H 89 Respiratory Rate 21 H 20 H 19 H Blood Pressure 131/76 H 113/82 H 110/63 Blood Pressure Mean 94 92 78 Pulse Ox 94 93 96 Oxygen Delivery Method Room Air Room Air Room Air 12/07/21 13:00 12/07/21 15:27 Temperature Temperature Source Pulse Rate 83 84 Respiratory Rate 18 18 Blood Pressure 106/65 108/63 Blood Pressure Mean 78 Pulse Ox 96 97 Oxygen Delivery Method Room Air Positive well nourished and well developed General Appearance ED: well developed and NAD HEENT Reports moist mucous membranes normocephalic and atraumatic Eyes PERRL, EOMs intact bilaterally and conjunctivae normal General Eye ED: Yes normal appearance of both eyes Neck no lymphadenopathy and supple General: Negative for tenderness Chest Wall Chest: Negative for tenderness Resp normal respiratory effort and normal air movement Effort and Inspection: symmetric chest movement; Negative for respiratory distress Cardio no murmurs Rate: tachycardic Rhythm: abnormal rhythm Peripheral Pulses: pulses 2+ throughout GI normal to inspection, nondistended, normoactive bowel sounds and non-tender Palpation: Negative for guarding or rebound tenderness present Back/Spine no CVA tenderness and no thoracic nor lumbar tenderness Extremity normal to inspection General Extremety ED: Negative for edema or tenderness General Extremity: Negative for edema Neuro oriented x3 and no sensory deficits noted Sensorium / Orientation: awake and alert Skin no rashes or lesions noted and no wounds MDM MDM MDM Narrative Medical decision making narrative: Patient in A. fib RVR recurrent. Status postcholecystectomy. Mild cough symptoms. I did check labs normal creatinine 1.27 GFR 57 with clearance of 43. With recent Kraus urine was checked negative for infection. Chest x-ray reviewed by myself and read and radiology shows no acute process. He is given IV Lopressor x1 heart rate in the 80s blood pressure 108/63. He is clinically feeling better. No respiratory distress. 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 Momin with his history and findings and treatment. Discussed likely secondary to his recent surgery., Recommended metoprolol 25 mg XL and started him on Eliquis. This was discussed with spouse who understands. She will monitor his blood pressure for any lightheaded symptoms. He will follow-up with cardiology as an outpatient. Edition discussed with his surgeon Dr. Duron updated on patient's presentation being postop. He will keep his follow-up as an outpatient. Lab Data Attestation: I reviewed the patient's lab results. Labs: Laboratory Results - last 24 hr 12/07/21 12/07/21 12/07/21 11:23 11:23 12:40 WBC 4.9 RBC 4.34 L Hgb 13.9 Hct 40.1 MCV 92.4 MCH 32.0 MCHC 34.7 RDW Std Deviation 41.1 RDW Coeff of [place] 11.9 Plt Count 143 L MPV 10.1 Immature Gran % (Auto) 0.400 Neut % (Auto) 56.4 Lymph % (Auto) 30.3 [place] % (Auto) 9.6 Eos % (Auto) 2.7 Baso % (Auto) 0.6 Absolute Neuts (auto) 2.8 Absolute Lymphs (auto) 1.48 Nucleated RBC % 0 Sodium 139 Potassium 4.2 Chloride 109 H Carbon Dioxide 26.0 Anion Gap 4 L BUN 17 Creatinine 1.27 Estim Creat Clear Calc 43.91 Est GFR (MDRD) Af Amer 69 Est GFR (MDRD) Non-Af 57 L BUN/Creatinine Ratio 13.4 Glucose 104 Calcium 9.1 Total Bilirubin 0.80 AST 16 ALT 30 Alkaline Phosphatase 76 Troponin I High Sens 5 Total Protein 6.6 Albumin 3.2 Globulin 3.4 Albumin/Globulin Ratio 0.9 Urine Color Yellow Urine Clarity Clear Urine pH 7.0 Ur Specific [place] 1.005 Urine Protein Negative Urine Glucose (UA) Normal Urine Ketones Negative Urine Occult Blood Negative Urine Nitrite Negative Urine Bilirubin Negative Urine Urobilinogen Normal Ur Leukocyte Esterase Negative Urine RBC 0 SEEN Urine WBC 0 SEEN Ur Squamous Epith Cells 0 SEEN Urine Bacteria 0 SEEN Urine Mucus 0 SEEN Radiography Diagnostic Testing: Clinical Impression(s) from Imaging Studies Chest X-Ray 12/07/21 11:16 IMPRESSION: Interval resolution of bilateral pleural effusions. Mild bibasilar fibrosis stable. Degenerative changes thoracic spine with stable slight wedge deformities T6 and T7. Electronically Signed: Mike Padilla MD, PAULA at 12:03 EDT Reading Location ID and State: [facility] / [place] Tel , Service support , EKG Initial EKG: Attestation: I personally reviewed and interpreted this EKG as follows: Comments: A. fib RVR 126, no ST or T wave changes. Discharge Plan Triage Chief Complaint: Palpitations ED Provider: Jimbo Riojas Dx/Rx/DC Orders Clinical Impression: Atrial fibrillation with controlled ventricular rate, Palpitation, S/P cholecystectomy Instructions: ED AFIB Prescriptions: New Eliquis 5 mg tablet 5 mg PO BID Qty: 60 0RF metoprolol succinate 25 mg tablet extended release 24 hr 25 mg PO DAILY Qty: 30 0RF No Action meclizine 12.5 mg tablet 12.5 mg PO QHS levothyroxine 75 mcg tablet 75 mcg PO DAILY diphenhydramine-acetaminophen 1 EACH tablet 1 ea PO QHS polyethylene glycol 3350 [Miralax] 17 gram Powder In Packet 17 g PO DAILY betamethasone dipropionate 0.05 % ointment 1 applic TOPICAL DAILY PRN PRN (Reason: SUMMER RASH) Osteo Bi-Flex Triple Strength 750 mg-644 mg- 30 mg-1 mg Tablet 1 tab PO BID oxycodone 5 mg tablet 5 mg PO Q4H PRN (Reason: pain) 5 Days Qty: 20 0RF tamsulosin 0.4 mg capsule 0.4 mg PO DAILY Qty: 7 0RF Primary Care Provider: Geo Morales Referrals: Geo Morales MD [Primary Care Provider] - Johnny Momin MD [Med Staff - Active Staff] - 3-5 Days Activity Restrictions/Additional Instructions: Take medication as prescribed. Follow-up with Dr. Momin. Keep your scheduled appointment with Dr. Duron. Disposition Disposition: Home, Self Care Discharge Date/Time: 12/07/21 15:28
[2021-12-07 11:30] VITALS: BP 113/82; PULSE 119; RESP 20; O2SAT 93
[2021-12-07] MEDS: Metoprolol Tartrate 5 MG/5 ML Vial IV (11:35)
[2021-12-07 11:37] LABS: Absolute Lymphocyte Count 1.48 X10^3/uL (0.83-4.51); Absolute Neutrophil Count 2.8 X10^3/uL (2.0-7.7); Basophil# 0.03 X10^3/uL; Basophil% 0.6 % (0-1); Eosinophil# 0.13 X10^3/uL; Eosinophils% 2.7 % (0-5); Hematocrit 40.1 % (40-54); Hemoglobin 13.9 g/dL (13.0-16.5); Lymphocyte # 1.48 X10^3/ul (0.83-4.51); Lymphocyte % 30.3 % (19-41); Mean Corp Hgb Conc 34.7 g/dL (32-36); Mean Corpuscular Volume 92.4 fL (80-94); Mean Platelet Vol. 10.1 fl (6.2-12.0); Monocyte# 0.47 X10^3/uL; Monocyte% 9.6 % (0-10); NRBC Flagged by Analyzer 0 % (0-5); Neutrophil # 2.75 X10^3/uL (2.7-7.7); Neutrophil % 56.4 % (47-70); Platelet Count 143 K/mm3 (150-450); RBC Distribution Width CV 11.9 % (11.6-14.6); RBC Distribution Width SD 41.1 fl (35.1-43.9); Red Blood Count 4.34 M/mm3 (4.6-6.2); White Blood Count 4.9 K/mm3 (4.4-11.0)
[2021-12-07 11:52] LABS: ALB/GLOB Ratio 0.9 RATIO (0.9-2.4); AST(SGOT) 16 U/L (15-37); Alanine Aminotransfer ALT/SGPT 30 U/L (16-61); Albumin, Serum 3.2 g/dL (3.2-5.0); Alkaline Phosphatase 76 U/L (45-117); Anion Gap 4 (5-15); BUN 17 mg/dL (7-18); BUN/Creat Ratio 13.4 RATIO (10-20); Calcium,Total 9.1 mg/dL (8.5-10.1); Chloride 109 mmol/L (98-107); Creatinine, Serum 1.27 mg/dL (0.70-1.30); EST Glomerular Filtration Rate 57 mL/min (>60); Est Glom Filt Rate - Afr Amer 69 mL/min (>60); Estimated Creatinine Clearance 43.91 ml/min; Globulin 3.4 g/dL (2.2-4.2); Glucose 104 mg/dL (74-106); Potassium 4.2 mmol/L (3.5-5.1); Protein, Total 6.6 g/dL (6.4-8.2); Sodium Level 139 mmol/L (136-145); Troponin-I HS 5 pg/mL (3.0-78.0)
[2021-12-07 12:30] VITALS: BP 110/63; PULSE 89; RESP 19; O2SAT 96
[2021-12-07 12:46] LABS: Bacteria 0 SEEN /hpf (None Seen); Mucous, Urine 0 SEEN /hpf (<or=2+); Red Blood Cells-Urine 0 SEEN /hpf (0-5); Squamous Epithelial Cells - UA 0 SEEN /hpf (0-5); White Blood Cells 0 SEEN /hpf (0-5)
[2021-12-07 12:53] LABS: Color, Urine Yellow (Yellow); Glucose, Dipstick Normal (Normal); Ketone-Dipstick Negative (Negative); Leukocyte Esterase-Dipstick Negative /ul (Negative); Nitrite-Dipstick Negative (Negative); Occult Blood-Urine Negative /ul (Negative); Protein-Dipstick Negative (Negative); Specific Gravity, Urine 1.005 (1.002-1.030); Urine Bilirubin Dipstick Negative (Negative); Urine Clarity Clear (Clear); Urine Urobilinogen Normal (Normal)
[2021-12-07 13:00] VITALS: BP 106/65; PULSE 83; RESP 18; O2SAT 96
[2021-12-07] MEDS: APIXABAN 5 MG TABLET PO (15:15)
[2021-12-07] MEDS: Metoprolol(XL)Succ 25 MG Tablet PO (15:15)
[2021-12-07 15:27] VITALS: BP 108/63; PULSE 84; RESP 18; O2SAT 97
== END 2021-12-07 15:28 | disposition home or self-care (01) ==
PROVIDERS: Emergency Provider Emergency Medicine; PCP Family Medicine; Visit Provider Emergency Medicine
DX: I48.91 Unspecified atrial fibrillation (principal); G30.9 Alzheimer's disease, unspecified; F02.80 Dementia in other diseases classified elsewhere, unspecified severity, without behavioral disturbance, psychotic disturbance, mood disturbance, and anxiety; R00.2 Palpitations; I25.10 Atherosclerotic heart disease of native coronary artery without angina pectoris; E03.9 Hypothyroidism, unspecified; Z87.891 Personal history of nicotine dependence; Z79.01 Long term (current) use of anticoagulants; Z79.899 Other long term (current) drug therapy
CPT/HCPCS: 71046; 80053; 81001; 84484; 85025; 93005; 99285; J7030; A4216

== ENCOUNTER → 2022-02-02 | Outpatient (CLI) | payer MEDICARE, OTHER, SELFPAY | END | disposition home or self-care (01) | LOC: MFPLAB 14:39 | PROVIDERS: PCP Family Medicine; Referring Provider Family Medicine; Visit Provider Nurse Practitioner Family | DX: Z12.5 Encounter for screening for malignant neoplasm of prostate (principal); R97.20 Elevated prostate specific antigen [PSA] | CPT/HCPCS: 36415; 84153; G0103 ==

== ENCOUNTER → 2022-02-09 | Outpatient (CLI) | payer MEDICARE, OTHER, SELFPAY | END | disposition home or self-care (01) | LOC: LABSPEC 11:20 | PROVIDERS: PCP Family Medicine; Referring Provider Family Medicine; Visit Provider Family Medicine | DX: R35.0 Frequency of micturition (principal) | CPT/HCPCS: 87086 ==

== ENCOUNTER → 2022-07-27 | Outpatient (CLI) | payer MEDICARE, OTHER, SELFPAY | END | disposition home or self-care (01) | LOC: MFPLAB 15:35 | PROVIDERS: PCP Family Medicine; Visit Provider Family Medicine | DX: R97.20 Elevated prostate specific antigen [PSA] (principal) | CPT/HCPCS: 36415; 84153 ==

== ENCOUNTER 2022-08-06 09:30 | Outpatient (RCR) | payer MEDICARE, OTHER, SELFPAY ==
--- NOTE | 2022-07-05 12:47 | HP.PTEVAL ---
Patient's Visit Information ANGELIKA ROJO is a 86 year old M referred to Physical Therapy by Charan Watters PA-C with a diagnosis of L hip OA. Date of Evaluation: 07/05/22 Physical Therapist: Cj Zimmerman, PT, ATC - Visit Plan Frequency: 2-3x /Week Duration: 3 Weeks Plan: L hip stretching and strengthening, core stab ex's, nustep, and HEP - Subjective Pt reports his L hip has been sore for quite a while. Pt notes his L LE does go numb at time's, especially when he has his wallet in the back L pocket. Pt reports he had recent x-rays, which revealed OA. Pt reports most of his pain is located on the posterior aspect of his L hip. Pt reports the pain will extend down his leg. Pt reports he is unable to ambulate or sit for a prolonged period of time secondary to L LE pain. Pt reports sleep difficulty at this time secondary to pain. Pt denies any prior Hx of L hip complications. Pt reports he was given exercises to complete at home which helps with his pain when he is consistent with performing them. L hip pain ranges from 3-5/10 depending on the activity his performs. - Pain L hip Pain Intensity (Out of 10): 3 Pain Intensity Range: 5 - Objective Neuro: B LE sensation is WNL to light touch. B patellar reflex= 2/3. ROM: B LE's are WNL when compared bilaterally. MMT: B hips are grossly 4+/5 throughout. Special tests: pos piriformis sign - Balance/Special Test Scores Lower Extremity Functional Score: 43 - Goals Goal 1:: Increase L hip strength x 1 grade to aid with ambulation Goal Time Frame: 2-4 Weeks Goal 2:: Decrease L hip pain x 50% to aid with sleep Goal Time Frame: 2-4 Weeks Goal 3:: I with HEP Goal Time Frame: 2-4 Weeks - Rehabilitation Potential Physical Therapy Diagnosis: Pt has L hip pain, weakness, and difficulty with prolonged ambulation secondary to L hip OA Rehabilitation Potential: Good - Anticipated Interventions Patient/Client Instruction: Educate patient on: Condition, Plan of Care For the Purpose of:: To improve self management Therapeutic Exercise to Include: Strength training, Balance training, Flexibilty training, Dynamic Lumbar Stabilization For the Purpose of:: To decrease pain, To improve muscle performance and motor function Thank you for the opportunity to evaluate your patient. For Medicare and Medicare HMO plans, please review the plan of care and approve it. It will need to be FAXED BACK to us at [phone] for Medicare purposes. For Medicare only, by signing this I certify the plan of care. Please let me know if there are questions or concerns regarding this plan of care. Physician Signature: Date:
--- NOTE | 2022-08-06 10:05 | HP.PTDCSUM ---
It has been my pleasure to treat ANGELIKA ROJO referred by Charan Watters PA-C, with the diagnosis of L hip OA for a total of 7 visit(s). Discharge Date: Please see the following information for a summary of their discharge status. Subjective: L hip feels good today. Pt feels ready for discharge L hip Pain Intensity (Out of 10): 2 % Improvement: 80 Objective/Function: L hip pain ranges from 0-3/10. L hip MMT 5/5 throughout. Pt is I with HEP. Rx goals achieved Goal 1:: Increase L hip strength x 1 grade to aid with ambulation Goal Progress: Goal Met Goal 2:: Decrease L hip pain x 50% to aid with sleep Goal Progress: Goal Met Goal 3:: I with HEP Goal Progress: Goal Met Plan: Discharge to HEP If there are questions or concerns regarding this patient's physical therapy, please feel free to call me at [phone]. Thank you for the referral of this patient. Sincerely, Cj Zimmerman, PT, ATC Balance/Gait/Functional tests - Balance/Special Test Scores Lower Extremity Functional Score: 73
== END 2022-08-06 10:23 | disposition home or self-care (01) ==
LOC: PT 09:30
PROVIDERS: PCP Family Medicine; Referring Provider Physician Assistant; Visit Provider Physician Assistant
DX: M16.12 Unilateral primary osteoarthritis, left hip (principal)
CPT/HCPCS: 97110; 97161; 97164

== ENCOUNTER → 2023-11-10 | Outpatient (CLI) | payer MEDICARE, OTHER, SELFPAY ==
[2023-11-10 17:50] LABS: Absolute Lymphocyte Count 1.63 X10^3/uL (0.83-4.51); Absolute Neutrophil Count 2.5 X10^3/uL (2.0-7.7); Basophil# 0.02 X10^3/uL; Basophil% 0.4 % (0-1); Eosinophil# 0.08 X10^3/uL; Eosinophils% 1.7 % (0-5); Hematocrit 41.1 % (40-54); Hemoglobin 13.6 g/dL (13.0-16.5); Lymphocyte # 1.63 X10^3/ul (0.83-4.51); Lymphocyte % 34.5 % (19-41); Mean Corp Hgb Conc 33.1 g/dL (32-36); Mean Corpuscular Hgb 31.3 pg (27.0-32.0); Mean Corpuscular Volume 94.7 fL (80-94); Mean Platelet Vol. 10.6 fl (6.2-12.0); Monocyte# 0.47 X10^3/uL; NRBC Flagged by Analyzer 0 % (0-5); Neutrophil # 2.51 X10^3/uL (2.7-7.7); Neutrophil % 53.2 % (47-70); Platelet Count 139 K/mm3 (150-450); RBC Distribution Width CV 12.7 % (11.6-14.6); RBC Distribution Width SD 43.8 fl (35.1-43.9); Red Blood Count 4.34 M/mm3 (4.6-6.2); White Blood Count 4.7 K/mm3 (4.4-11.0)
[2023-11-10 18:14] LABS: ALB/GLOB Ratio 1.2 RATIO (0.9-2.4); AST(SGOT) 14 U/L (15-37); Alanine Aminotransfer ALT/SGPT 16 U/L (16-61); Albumin, Serum 3.6 g/dL (3.2-5.0); Alkaline Phosphatase 71 U/L (45-117); Anion Gap 5 (5-15); BUN 15 mg/dL (7-18); BUN/Creat Ratio 10.1 RATIO (10-20); Calcium,Total 9.3 mg/dL (8.5-10.1); Chloride 110 mmol/L (98-107); Creatinine, Serum 1.48 mg/dL (0.70-1.30); EST Glomerular Filtration Rate 48 mL/min (>60); Est Glom Filt Rate - Afr Amer 58 mL/min (>60); Globulin 3.1 g/dL (2.2-4.2); Glucose 89 mg/dL (74-106); Potassium 4.5 mmol/L (3.5-5.1); Protein, Total 6.7 g/dL (6.4-8.2); Sodium Level 139 mmol/L (136-145); T4 Free Direct 0.93 ng/dL (0.76-1.46); Thyroid Stim Hormone (TSH) 3.27 uIU/mL (0.358-3.74)
[2023-11-10 18:28] LABS: Microalbumin,Random Urine 6.3 mg/L (NO RANGE EST.); Microalbumin:Creatinine Ratio 3.9 mg/g CRE (<30 mg/g CRE)
== END | disposition home or self-care (01) ==
LOC: MFPLAB 15:27
PROVIDERS: PCP Family Medicine; Visit Provider Family Medicine
DX: I10 Essential (primary) hypertension (principal); E03.9 Hypothyroidism, unspecified
CPT/HCPCS: 36415; 80053; 82043; 82570; 84439; 84443; 85025

== ENCOUNTER 2024-08-18 22:41 | Emergency (ER) | payer MEDICARE, OTHER, SELFPAY ==
[2024-08-18] VITALS (7 sets, daily range): BP systolic 108–120; BP diastolic 54–89; PULSE 56–62; RESP 18–22; TEMP 36.8–36.9; O2SAT 95–98; BMI 28.4
--- NOTE | 2024-08-18 22:59 | EKG12_ITS ---
Test Reason : SOB Blood Pressure : */* mmHG Vent. Rate : 61 BPM Atrial Rate : 61 BPM P-R Int : 178 ms QRS Dur : 106 ms QT Int : 460 ms P-R-T Axes : 98 -47 54 degrees QTcB Int : 463 ms Normal sinus rhythm Left anterior fascicular block Cannot rule out Anterior infarct , age undetermined Abnormal ECG Confirmed by Pan Coley ([id number]), television news video editor WAYNE MOSLEY ([id number]) on 08/20/2024 9:15:36 AM Referred By: EDDIE Confirmed By: Pan Coley
--- NOTE | 2024-08-18 22:59 | EX.ED.DYSGE1 ---
HPI History of Present Illness Chief Complaint: Shortness of Breath Informant: patient and spouse/S.O. Limited: dementia Narrative Narrative: Patient is an 88-year-old male with history of coronary artery disease status post stent, proximal atrial fibrillation, pneumonia and dementia present with for cough. Patient woke up with cough this morning. 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 They did not have access to a chest x-ray. He was started on Augmentin. He was instructed to come to the ER for further evaluation of symptoms worsen. Initial symptom again felt that his respiratory sounds were worse until he came in. Patient does report a cough with mucus production. Does not know what color it is. No fever reported. Denies any chest pain. Feels mildly short of breath. Denies any swelling of his legs. No report of any nausea or vomiting. No report of any urinary symptoms. No other complaints or concerns at this time. [facility] Medical History Wears glasses History of Clostridium difficile infection Depression Thyroid disease History of steroid therapy Arthritis History of kidney stones High cholesterol Excessive bleeding Vertigo Former smoker History of edema History of stress test History of echocardiogram History of atrial fibrillation Cardiology follow-up encounter History of injury of tendon Alzheimers disease Atherosclerotic heart disease of [place] coronary artery without angina pectoris Pure hypercholesterolemia Memory loss Iatrogenic hypothyroidism Hyperlipidemia Left carotid bruit Paroxysmal atrial fibrillation CAD (coronary artery disease) Allergic reaction caused by a drug Swelling of right lower extremity Rhabdomyolysis Home Medications ?Medication ?Instructions ?Recorded ?Last Taken ?Type diphenhydramine 25 1 ea PO QHS 03/21/20 Unknown History mg-acetaminophen 500 mg tablet levothyroxine 75 mcg tablet 75 mcg PO DAILY THYROID 11/26/21 12/02/21 06:15 History betamethasone dipropionate 0.05 % 1 applic topical DAILY PRN PRN 11/30/21 Unknown History topical ointment SUMMER RASH glucosamine 750 qg-[id number] 1 tab PO BID 11/30/21 Unknown History no1 644 mg-C 30 mg-devorah 1 mg tablet (Osteo Bi-Flex Triple Strength) polyethylene glycol 3350 17 gram 17 g PO DAILY PRN constipation 12/10/21 Unknown History oral powder packet (Miralax) finasteride 5 mg tablet 10 mg PO DAILY 06/18/22 Unknown History loratadine 10 mg tablet (Claritin) 10 mg PO BID PRN allergy symptoms 12/22/22 Unknown History metoprolol succinate 25 mg 25 mg PO DAILY #90 tabs 10/03/23 Unknown Rx tablet,extended release 24 hr amiodarone 200 mg tablet 200 mg PO QDAY #30 tabs 04/19/24 Unknown Rx amoxicillin 875 mg-potassium 1 tab PO BID 7 days #14 tabs 08/18/24 Unknown Rx clavulanate 125 mg tablet Allergy/AdvReac Type Severity Reaction Status Date / Time cephalexin (From Keflex) Allergy Swelling Verified 08/18/24 22:44 diazepam (From Valium) Allergy Other Verified 08/18/24 22:44 [id number] Reductase AdvReac Rhabdomylos Verified 08/18/24 22:44 Inhibitor (Nivzvdd-Slj-Zwq is Reductase Inhibitor) Family History Mother CVA (cerebral vascular accident) CAD (coronary artery disease) Brother CAD (coronary artery disease) Cancer Myocardial infarction Sister , from congenital heart problems CAD (coronary artery disease) Father CAD (coronary artery disease) Myocardial infarction of [place] Surgical History S/P cholecystectomy Hx of cholecystectomy (~11/2021) History of colonoscopy History of bilateral cataract extraction Status post trigger finger release Presence of coronary angioplasty implant and graft (~02/2006) S/P PTCA (percutaneous transluminal coronary angioplasty) Social History Smoking Status: Former smoker how long ago did patient quit smokin alcohol intake: current alcohol intake frequency: a few times a month Alcohol type: beer and wine substance use type: does not use caffeine: Yes Type: tea Number of servings: 2 what type of physical activity do you participate in: none seatbelt use: always do you feel safe at home: Yes ROS ROS ED Constitutional Constitutional ED: Denies chills or fever(s) ENT ENT ED: Reports rhinorrhea and other Details: Worsening tinnitus when waking up this morning ; Denies sore throat Cardiovascular Cardiovascular: Denies chest pain or palpitations Respiratory/Chest Respiratory/Chest: Reports cough, dyspnea and sputum Gastrointestinal Gastrointestinal: Denies abdominal pain, diarrhea, nausea or vomiting Genitourinary Genitourinary ED: Denies dysuria or hematuria Musculoskeletal Musculoskeletal: Denies arthralgias or myalgias Integumentary Denies rash Neurologic Neurologic: Denies weakness Hematologic/Lymphatic Hematologic/Lymphatic: Denies easy bleeding or easy bruising EXAM Physical Exam Const Vital Signs: 08/18/24 22:41 08/18/24 22:44 08/18/24 22:57 Temperature 98.4 F 98.2 F Temperature Source Oral Oral Pulse Rate 62 62 Respiratory Rate 18 18 Respiratory Effort Normal Respiratory Depth Normal Respiratory Pattern Normal Blood Pressure 113/89 H 113/69 Blood Pressure Mean 97 83 Pulse Ox 98 98 Oxygen Delivery Method Room Air 08/18/24 23:13 08/18/24 23:15 08/18/24 23:15 Temperature Temperature Source Pulse Rate 59 L 59 L Respiratory Rate 22 H 18 Respiratory Effort Respiratory Depth Respiratory Pattern Blood Pressure 115/64 115/64 Blood Pressure Mean 80 80 Pulse Ox 96 95 Oxygen Delivery Method 08/18/24 23:30 08/18/24 23:45 08/19/24 00:03 Temperature Temperature Source Pulse Rate 56 L Respiratory Rate 20 H Respiratory Effort Respiratory Depth Respiratory Pattern Blood Pressure 108/54 L 120/73 Blood Pressure Mean 71 87 Pulse Ox 97 96 Oxygen Delivery Method Room Air 08/19/24 00:04 08/19/24 00:15 08/19/24 00:18 Temperature 98.1 F Temperature Source Pulse Rate 55 L 53 L 55 L Respiratory Rate 18 15 16 Respiratory Effort Respiratory Depth Respiratory Pattern Blood Pressure 122/105 H 107/62 107/62 Blood Pressure Mean 112 75 77 Pulse Ox 98 95 97 Oxygen Delivery Method Room Air Positive well nourished and well developed General Appearance ED: well developed and NAD HEENT Reports moist mucous membranes HEENT Narrative: Normal oropharynx Eyes PERRL and EOMs intact bilaterally Neck supple and no JVD Chest Wall inspection of chest normal and palpation of chest normal Resp normal respiratory effort Resp Narrative: Mild crackles noted at the bases bilaterally. Scattered and expiratory wheezing and scattered rhonchi present Cardio regular rate, regular rhythm and no murmurs GI normal to inspection, nondistended, normoactive bowel sounds and non-tender Palpation: soft Extremity normal to inspection General Extremety ED: Negative for edema General Extremity: Negative for edema Neuro Sensorium / Orientation: alert Motor Exam: Negative for general weakness Psych mental status grossly normal Skin no rashes or lesions noted and no wounds MDM MDM MDM Narrative Medical decision making narrative: Patient Cano for 1 day of cough, wheezing and crackles at the bases. No fever or other systemic symptoms. Denies any chest pain. Does have a history of pneumonia as well as coronary artery disease. Differential includes pneumonia, viral syndrome, CHF exacerbation ACS. Patient overall is well-appearing with normal vital signs. He is not hypoxic. Workup including two-view chest x-ray, CBC, BMP, high-sensitivity troponin and BNP as well as EKG is obtained. Workup largely normal. Two-view chest x-ray viewed by myself as well as radiology does not show any definitive infiltrate or signs of pulm vascular congestion/pleural effusion. I do question if there is a subtle developing infiltrate of the left lower lobe. Workup otherwise normal. He does have a mild elevation of his creatinine 1.51 with this appears near his baseline. Does not have an ALPA. Single high-sensitivity opponent normal at 7 EKG does not show any acute ischemic changes. Given that he does not have any chest pain the symptoms been present all day I do not think he requires further delta/trending of his troponins. BNP is normal low suspicion for acute heart failure. Patient is a leg emergency room with no hypoxia is asymptomatic. Patient be discharged home to continue his Augmentin. Will be given albuterol inhaler as well as spacer needs at home. Discussed using Mucinex and Tylenol for symptom control as well. Discussed continued follow-up with primary care doctor next week. Patient and agreeable this plan of care. Did discuss return precautions including increased work of breathing, worsening after 48 hours or further concerns. Lab Data Labs: Laboratory Results - last 24 hr 08/18/24 23:08 WBC 4.5 RBC 4.11 L Hgb 13.5 Hct 39.2 L MCV 95.4 H MCH 32.8 H MCHC 34.4 RDW Std Deviation 43.8 RDW Coeff of [place] 12.5 Plt Count 114 L MPV 10.5 Immature Gran % (Auto) 0.400 Neut % (Auto) 55.8 Lymph % (Auto) 27.5 [place] % (Auto) 12.9 H Eos % (Auto) 2.7 Baso % (Auto) 0.7 Absolute Neuts (auto) 2.5 Absolute Lymphs (auto) 1.23 Nucleated RBC % 0 Sodium 140 Potassium 4.4 Chloride 107 Carbon Dioxide 22.4 Anion Gap 10 BUN 24 H Creatinine 1.51 H Estim Creat Clear Calc 38.86 L Est GFR (MDRD) Non-Af 44 L BUN/Creatinine Ratio 15.6 Glucose 116 H Calcium 9.1 Troponin T High Sens 7 NT pro BNP II 146 Radiography Chest X-Ray - ED: 2 View, Read by ED Physician, Read by Radiologist and No Acute Disease Diagnostic Testing: Clinical Impression(s) from Imaging Studies Chest X-Ray 08/18/24 23:20 IMPRESSION: NO ACUTE FINDINGS. Reading Location: [facility] Rhythm Strip Rhythm Strip: Sinus Rhythm Rate: 61 Ectopy: None EKG Initial EKG: Attestation: I personally reviewed and interpreted this EKG as follows: Interpretation: Sinus Rhythm Comments: Normal sinus rhythm at a rate of 61 bpm Left axis deviation Left anterior fascicular block Normal ST segments Normal intervals Discharge Plan Triage Chief Complaint: Shortness of Breath ED Provider: Donna Owens Dx/Rx/DC Orders Clinical Impression: Lower respiratory tract infection, Cough Instructions: ED Pneumonia (Adult) Prescriptions: No Action finasteride 5 mg tablet 10 mg PO DAILY loratadine [Claritin] 10 mg tablet 10 mg PO BID PRN (Reason: allergy symptoms) amoxicillin-pot clavulanate 875-125 mg tablet 1 tab PO BID 7 Days Qty: 14 0RF levothyroxine 75 mcg tablet 75 mcg PO DAILY diphenhydramine-acetaminophen 1 EACH tablet 1 ea PO QHS betamethasone dipropionate 0.05 % ointment 1 applic TOPICAL DAILY PRN PRN (Reason: SUMMER RASH) Osteo Bi-Flex Triple Strength 750 mg-644 mg- 30 mg-1 mg Tablet 1 tab PO BID polyethylene glycol 3350 [Miralax] 17 gram powder in packet 17 g PO DAILY PRN (Reason: constipation) metoprolol succinate 25 mg tablet extended release 24 hr 25 mg PO DAILY Qty: 90 3RF amiodarone 200 mg tablet 200 mg PO QDAY Qty: 30 11RF Primary Care Provider: Geo Morales Referrals: Geo Morales MD [Primary Care Provider] - Activity Restrictions/Additional Instructions: Workup today was largely normal and reassuring. I suspect this is some type of infection whether it is bacterial pneumonia that is developing or a viral syndrome. Use inhaler to help with wheezing. Take [id number] Mucinex twice a day (per package instructions) to help thin up secretions and cough mild. Take Tylenol as needed for discomfort or fever. Take antibiotics as previously prescribed. If he is worsening especially after 48 hours or you have further concerns please do not hesitate to return the emergency room. Make sure you are encouraging fluids Use inhaler every 4-6 hours with spacer attached 1 to 2 puffs Print Language: Scottish Disposition Disposition: Home, Self Care
[2024-08-18 23:19] LABS: Absolute Lymphocyte Count 1.23 X10^3/uL (0.83-4.51); Absolute Neutrophil Count 2.5 X10^3/uL (2.0-7.7); Basophil# 0.03 X10^3/uL; Basophil% 0.7 % (0-1); Eosinophil# 0.12 X10^3/uL; Eosinophils% 2.7 % (0-5); Hematocrit 39.2 % (40-54); Hemoglobin 13.5 g/dL (13.0-16.5); Lymphocyte # 1.23 X10^3/ul (0.83-4.51); Lymphocyte % 27.5 % (19-41); Mean Corp Hgb Conc 34.4 g/dL (32-36); Mean Corpuscular Hgb 32.8 pg (27.0-32.0); Mean Corpuscular Volume 95.4 fL (80-94); Mean Platelet Vol. 10.5 fl (6.2-12.0); Monocyte# 0.58 X10^3/uL; Monocyte% 12.9 % (0-10); NRBC Flagged by Analyzer 0 % (0-5); Neutrophil % 55.8 % (47-70); Platelet Count 114 K/mm3 (150-450); RBC Distribution Width CV 12.5 % (11.6-14.6); RBC Distribution Width SD 43.8 fl (35.1-43.9); Red Blood Count 4.11 M/mm3 (4.6-6.2); White Blood Count 4.5 K/mm3 (4.4-11.0)
--- NOTE | 2024-08-18 23:20 | RAD_ITS ---
PROCEDURE: CHEST PA AND LATERAL 08/18/2024 REASON FOR EXAM: COUGH TECHNIQUE: Frontal and lateral views of the chest. COMPARISON: 12/07/2021 FINDINGS: Hardware: None Heart: Heart size is mildly enlarged. Mediastinum: The mediastinal contour is unremarkable. Lungs: Bibasilar atelectasis. No focal consolidation. No pneumothorax. No pleural effusion. Bones: Degenerative changes are identified within the thoracic spine. RAD/Chest PA and Lateral IMPRESSION: NO ACUTE FINDINGS. Reading Location: [facility]
[2024-08-18 23:37] LABS: Anion Gap 10 (5-15); BUN 24 mg/dL (4-19); BUN/Creat Ratio 15.6 RATIO (10-20); Calcium,Total 9.1 mg/dL (7.6-11.0); Carbon Dioxide 22.4 mmol/L (21.0-32.0); Chloride 107 mmol/L (98-108); Creatinine, Serum 1.51 mg/dL (0.70-1.20); EST Glomerular Filtration Rate 44 (>60); Estimated Creatinine Clearance 38.86 ml/min (50-250); Glucose 116 mg/dL (70-99); Potassium 4.4 mmol/L (3.3-5.1); Pro- Brain NATRIURETIC PEPTIDE 146 pg/mL (<=1800); Sodium Level 140 mmol/L (133-145); Troponin T High Sensitivity 7 ng/L (<=22)
[2024-08-19 00:03] VITALS: O2SAT 96
[2024-08-19 00:04] VITALS: BP 122/105; PULSE 55; RESP 18; O2SAT 98
[2024-08-19 00:15] VITALS: BP 107/62; PULSE 53; RESP 15; O2SAT 95
[2024-08-19 00:18] VITALS: BP 107/62; PULSE 55; RESP 16; TEMP 36.7; O2SAT 97
[2024-08-19] MEDS: Albuterol Sulfate 8 gm Inhaler (60 puffs) 2 PUFF INHALATION (00:26)
== END 2024-08-19 00:30 | disposition home or self-care (01) ==
PROVIDERS: Emergency Provider Emergency Medicine; PCP Family Medicine; Visit Provider Emergency Medicine
DX: J22 Unspecified acute lower respiratory infection (principal); F02.80 Dementia in other diseases classified elsewhere, unspecified severity, without behavioral disturbance, psychotic disturbance, mood disturbance, and anxiety; G30.9 Alzheimer's disease, unspecified; I25.10 Atherosclerotic heart disease of native coronary artery without angina pectoris; Z87.891 Personal history of nicotine dependence; Z79.899 Other long term (current) drug therapy; Z95.5 Presence of coronary angioplasty implant and graft
CPT/HCPCS: 71046; 80048; 83880; 84484; 85025; 93005; 99284; A4216

== ENCOUNTER → 2024-09-10 | Outpatient (CLI) | payer MEDICARE, OTHER, SELFPAY ==
[2024-09-10 12:32] LABS: PSA,Total- Diagnostic 2.74 ng/mL (0.00-4.00)
== END | disposition home or self-care (01) ==
LOC: LAB 10:47
PROVIDERS: PCP Family Medicine; Referring Provider Urology; Visit Provider Urology
DX: R97.20 Elevated prostate specific antigen [PSA] (principal)
CPT/HCPCS: 36415; 84153

== ENCOUNTER 2025-03-15 14:56 | Emergency (ER) | payer MEDICARE, OTHER, SELFPAY ==
[2025-03-15 14:57] VITALS: BP 118/55; PULSE 57; RESP 16; TEMP 37; O2SAT 98; BMI 26.9
--- OUTSIDE RECORDS SUMMARY | 2025-03-15 16:02 | XMS RPT_ITS | CCD ---
Author Organization [facility] Care Team Providers Care [employer] Name Role Phone Cara CALHOUN, Isidra Dubois Unavailable Felicita, Sara Unavailable Unavailable Felicita, Sara Unavailable Unavailable MARIA ISABEL DUMONT DR Attending Unavailable MARIA ISABEL DUMONT DR Primary Care Unavailable MARIA ISABEL DUMONT DR Admitting Unavailable RYANSYED TOSCANO PAC Admitting Unavailable RYANSYED TOSCANO PAC Attending Unavailable SYED DAVIS Primary Care Unavailable Dr. Curly Morales Primary Care Provider Dr. Curly Morales Referring Provider 1([facility])[phone] Dr. Benigno Duron Attending Provider [phone] Dr. Benigno Duron Referring Provider [phone] Dr. Benigno Duron Other Provider Dr. Johnny Momin Attending Provider [phone] Benigno Duron Referring Provider [phone] Dr. Curly Morales Primary Care Provider Dr. Curly Morales Referring Provider 1([facility])[phone] Dr. Benigno Duron Attending Provider [phone] Dr. Johnny Momin Attending Provider [phone] Benigno Duron Referring Provider [phone] Dr. Benigno Duron Other Provider Dr. Curly Morales Primary Care Provider [phone] Dr. Curly Morales Referring Provider [phone] Dr. Johnny Momin Attending Provider Dr. Curly Morales MD Primary Care Provider 1([facility])[phone] Dr. Curly Morales MD Referring Provider [phone] Inocencio Jesus Attending Provider Dr. Donna Owens DO Emergency Provider Dr. Donna Owens DO Attending Provider Laurel NICHOLE, Dr. Luis Browne Attending Provider Laurel NICHOLE, Dr. Luis Browne Referring Provider [phone] ANDREW NICHOLE, CURLY Moreland Primary Care Physician [phone] ANDREW NICHOLE, CURLY Moreland Primary Care Unavailable AMANDA JIMENEZ PA-C Attending Unavailable Curly Morales Primary Care Unavailable Curly Morales Referring Unavailable Inocencio Condon Attending Unavailable Curly Morales Primary Care Unavailable Luis Barragan Attending Unavailable Luis Barragan Referring Unavailable Donna Owens Attending Unavailable Curly Morales Primary Care Unavailable Curly Morales Primary Care Unavailable Curly Morales Referring Unavailable Kt Carson Attending Unavailable Andrew NICHOLE, Dr. Guardado Primary Care Physician Dr. Curly Morales MD Referring Provider Alli NICHOLE, Dr. Meraz Attending Physician Allergies Allergy Classification Reported Allergen(s) Allergy Type Date of Onset Reaction(s) Facility (2 sources) diazePAM; Translations: [VALIUM] Drug Allergy 3 [facility] Work Phone: (9 sources) Cephalexin Drug Allergy 2 Swelling [facility] (9 sources) diazePAM Drug Allergy 2 Other [facility] (9 sources) Chbignf-Xrv-Fsl Reductase Inhibitor Propensity to adverse reactions 2 Rhabdomylosis [facility] (1 source) Cephalexin Drug Allergy 5 [facility] (1 source) diazePAM Drug Allergy 5 [facility] (1 source) Zdkkuve-Mhu-Kxs Reductase Inhibitor Drug allergy (disorder) 5 [facility] Medications Current Medications Medication Drug Class(es) Dates Sig (Normalized) Sig (Original) acetaminophen 500 mg oral tablet (1 source) Start: 10-21-2025 take 1 tablet by mouth once daily Acetaminophen (Tylenol Extra Strength) 500 mg tablet Active 500 mg PO DAILY January 28, 2025 11:00pm Complies with drug therapy acetaminophen 500 mg / diphenhydrAMINE hydrochloride 25 mg oral tablet (9 sources) Histamine-1 Receptor Antagonist Start: 03-21-2020 Diphenhydramine-Artur taminophen 1 EACH tablet Active 1 NMA PO AT BEDTIME March 21, 2020 12:00am Complies with drug therapy Start: 03-21-2020 Diphenhydramin e-Acetaminophen Active 1 EACH PO AT BEDTIME March 21, 2020 1:00am amiodarone hydrochloride 200 mg oral tablet (14 sources) Antiarrhythmic Start: 04-19-2024 End: 01-28-2025 take 1 tablet by mouth once daily Amiodarone 200 mg tablet Active 200 mg PO daily 90 3 January 28, 2025 2:27pm Complies with drug therapy Start: 02-11-2017 take 1 tablet by [facility] once daily AMIODARONE HCL 200 MG TABS One tablet by mouth daily AMIODARONE HCL [id number] Isidra Marroquin RN Start: 01-30-2017 End: 07-11-2017 take 1 tablet by mouth once daily Amiodarone 200 MG tablet Discontinued 200 mg PO DAILY 30 January 29, 2017 11:00pm July 11, 2017 11:07am betamethasone 0.0005 mg/mg topical ointment (9 sources) Corticosteroid Start: 11-30-2021 Betamethasone Dipropionate 0.05 % ointment Active 1 NMA TOPICAL DAILY NEEDED as needed for SUMMER RASH November 29, 2021 11:00pm Complies with drug therapy finasteride 5 mg oral tablet (6 sources) 5-alpha Reductase Inhibitor Start: 01-29-2025 take 1 tablet by mouth once daily Finasteride 5 mg tablet Active 5 mg PO DAILY January 29, 2025 12:47pm Complies with drug therapy Start: 06-18-2022 End: 01-29-2025 take 2 tablets by mouth once daily Finasteride 5 mg tablet Discontinued 10 mg PO DAILY June 18, 2022 12:00am January 29, 2025 12:50pm Start: 06-18-2022 take 10 mg by mouth once daily Finasteride Active 10 MG PO DAILY June 18, 2022 1:00am Scscivsn-Xmhy-Qsm3-C-Devorah-Jonathon sw (Osteo Bi-Flex Triple Strength) 750 mg-644 mg- 30 mg-1 mg Tablet (9 sources) Start: 11-30-2021 Rhvdphuv-Iaky-Pkz5-C-Devorah-Jonathon sw (Osteo Bi-Flex Triple Strength) 750 mg-644 mg- 30 mg-1 mg Tablet Active 1 {tbl} PO TWICE A DAY November 29, 2021 11:00pm Complies with drug therapy Start: 11-30-2021 Glucosam-Teddy- Qal1-D-Xmfe-Bosw (Osteo Bi-Flex Triple Strength) 750 mg-644 mg- 30 mg-1 mg Tablet Active 1 {tbl} PO TWICE A DAY November 30, 2021 12:00am Start: 11-30-2021 take 1 tablet by evelyn th twice daily Uayqchur-Jyph-Uhv5-C-Devorah-Bosw (Osteo Bi -Flex Triple Strength) 750 mg-644 mg- 30 mg-1 mg Tablet Active 1 TABLET PO TWICE A DAY November 29, 2021 11:00pm Start: 11-30-2021 take 1 tablet by evelyn th twice daily Nhsqeqvm-Fuun-Hyt9-C-Devorah-Bosw (Osteo Bi -Flex Triple Strength) 750 mg-644 mg- 30 mg-1 mg Tablet Active 1 TABLET PO TWICE A DAY November 30, 2021 12:00am loratadine 10 mg oral tablet (8 sources) Start: 12-22-2022 take 1 tablet by mouth twice daily as needed Loratadine (Claritin) 10 mg tablet Active 10 mg PO TWICE A DAY as needed for allergy symptoms December 22, 2022 12:21pm Complies with drug therapy Start: 06-18-2022 End: 12-22-2022 take 1 tablet by mouth once daily Loratadine (Claritin) 10 mg tablet Discontinued 10 mg PO DAILY June 18, 2022 12:00am December 22, 2022 12:21pm 24 hr metoprolol succinate 25 mg extended release oral tablet (20 sources) beta-Adrenergic Norma Start: 02-14-2023 End: 09-21-2024 take 1 tablet by mouth once daily Metoprolol Succinate 25 mg tablet extended release 24 hr Active 25 mg PO DAILY 90 September 21, 2024 6:36am Complies with drug therapy Start: 01-14-2023 End: 02-14-2023 take 1 tablet by mouth twice daily Metoprolol Succinate 25 mg tablet extended release 24 hr Discontinued 25 mg PO TWICE A DAY 90 January 14, 2023 2:35pm February 14, 2023 1:18pm Start: 06-18-2022 End: 01-14-2023 take 1 tablet by mouth once daily Metoprolol Succinate 25 mg tablet extended release 24 hr Discontinued 25 mg PO DAILY 90 September 13, 2022 3:51pm January 14, 2023 2:35pm Start: 01-11-2022 End: 06-18-2022 take 1 tablet by mouth twice daily Metoprolol Succinate 25 mg tablet extended release 24 hr Discontinued 25 mg PO TWICE A DAY 180 January 11, 2022 9:28am June 18, 2022 1:12pm Start: 12-07-2021 End: 01-11-2022 take 1 tablet by mouth once daily Metoprolol Succinate 25 mg tablet extended release 24 hr Discontinued 25 mg PO DAILY 90 December 31, 2021 12:55pm January 11, 2022 9:29am Start: 12-29-2018 End: 12-29-2018 Metoprolol Tartrate 25 mg ta blet Discontinued 12.5 mg PO DAILY December 29, 2018 12:03pm December 29, 2018 12:25pm Start: 12-29-2018 End: 12-29-2018 take 12.5 mg by mouth once daily Metoprolol Tartrate Discontinued 12.5 MG PO DAILY December 29, 2018 1:03pm December 29, 2018 1:25pm Start: 03-23-2018 End: 12-29-2018 Metoprolol Tartrate 25 mg ta blet Discontinued 12.5 mg PO TWICE A DAY 90 March 23, 2018 3:13pm December 29, 2018 12:03pm Start: 03-23-2018 End: 12-29-2018 take 12.5 mg by mouth twice daily Metoprolol Tartrate Discontinued 12.5 MG PO TWICE A DAY March 23, 2018 4:13pm December 29, 2018 1:03pm Start: 12-09-2017 End: 03-23-2018 take 1 tablet by mouth twice daily Metoprolol Tartrate 25 mg tablet Discontinued 25 mg PO TWICE A DAY 60 11 December 08, 2017 11:00pm March 23, 2018 3:14pm Start: 08-10-2017 End: 12-09-2017 Metoprolol Tartrate 25 mg ta blet Discontinued 12.5 mg PO TWICE A DAY August 09, 2017 11:00pm December 09, 2017 6:14pm Start: 08-10-2017 End: 12-09-2017 take 12.5 mg by mouth twice daily Metoprolol Tartrate Discontinued 12.5 MG PO TWICE A DAY August 10, 2017 12:00am December 09, 2017 7:14pm Start: 07-11-2017 End: 08-10-2017 Metoprolol Tartrate 50 mg ta blet Discontinued 25 mg PO TWICE A DAY July 11, 2017 11:09am August 10, 2017 8:45am Start: 07-11-2017 End: 08-10-2017 take 25 mg by mouth twice daily Metoprolol Tartrate Di scontinued 25 MG PO TWICE A DAY July 11, 2017 12:09pm August 10, 2017 9:45am Start: 09-10-2010 End: 07-11-2017 take 1 tablet by mouth twice daily Metoprolol Tartrate 50 MG tablet Discontinued 50 mg PO TWICE A DAY 60 0 January 29, 2017 11:00pm July 11, 2017 11:10am Start: 09-10-2010 End: 01-30-2017 take 1 tablet by mouth twice daily Metoprolol Tartrate 25 MG tablet Discontinued 25 mg PO TWICE A DAY April 08, 2013 12:00am January 30, 2017 11:01am mirtazapine 7.5 mg oral tablet (1 source) Start: 01-29-2025 take 1 tablet by mouth once daily Mirtazapine 7.5 mg tablet Active 7.5 mg PO daily January 28, 2025 11:00pm Complies with drug therapy Ws-Px-Pf8-Dha-Epa-Fis h-Lut-Leighton (Ocuvite Adult 50 Plus) 250 mg (90 mg-160 mg) capsule (1 source) Start: 01-29-2025 Uh-Ku-Hx3-Dha- Epa- Ksqs-Vlb-Fge (Ocuvite Adult 50 Plus) 250 mg (90 mg-160 mg) capsule Active 1 NMA PO daily January 28, 2025 11:00pm Complies with drug therapy Relaxium (1 source) Start: 01-29-2025 sennosides, long term 8.6 mg oral capsule (1 source) Start: 01-29-2025 take 2 capsules by mouth at bedtime Sennosides (Senna) 8.6 mg capsule Active 17.2 mg PO AT BEDTIME January 28, 2025 11:00pm Complies with drug therapy tamsulosin hydrochloride 0.4 mg oral capsule (19 sources) alpha-Adrenerg ic Norma Start: 01-29-2025 take 1 capsule by mouth at bedtime Tamsulosin 0.4 mg capsule Active 0.4 mg PO AT BEDTIME January 28, 2025 11:00pm Complies with drug therapy Start: 12-02-2021 End: 12-10-2021 take 1 capsule by mouth once daily Tamsulosin 0.4 mg capsule Discontinued 0.4 mg PO DAILY 7 0 December 01, 2021 11:00pm December 10, 2021 12:33pm Start: 02-11-2017 take 2 tablets by mo [facility] once daily TAMSULOSIN HCL 0.4 MG CAPS Two tablets by mouth daily TAMSULOSIN HCL [id number] Isidra Marroquin RN Start: 01-30-2017 End: 07-11-2017 take 2 capsules by mouth once daily Tamsulosin 0.4 MG capsule Discontinued 0.8 mg PO DAILY@1730 30 0 January 29, 2017 11:00pm July 11, 2017 11:08am Start: 01-30-2017 End: 07-11-2017 take 0.8 mg by mouth once daily Tamsulosin Discontinue d 0.8 MG PO DAILY@1730 30 January 30, 2017 12:00am July 11, 2017 12:08pm Completed/Discontinued Medications Medication Drug Class(es) Dates Sig (Normalized) Sig (Original) amoxicillin 500 mg oral tablet (3 sources) Penicillin-class Antibacterial Start: 05-14-2023 End: 05-24-2023 take 1 tablet by mouth every twelve hours Amoxicillin 500 mg tablet Discontinued 500 mg PO Q12H 20 10 0 May 14, 2023 12:00am May 23, 2023 12:00am May 24, 2023 12:05am amoxicillin 875 mg / clavulanate 125 mg oral tablet (3 sources) Penicillin-class Antibacterial Start: 08-18-2024 End: 08-25-2024 Amoxicillin-Pot Clavulanate 875-125 mg tablet Discontinued 1 {tbl} PO TWICE A DAY 14 7 0 August 17, 2024 11:00pm August 23, 2024 11:00pm August 24, 2024 11:10pm apixaban 5 mg oral tablet (14 sources) Factor Xa Inhibitor Start: 01-14-2023 End: 12-21-2023 take 1 tablet by mouth twice daily Apixaban (Eliquis) 5 mg tablet Discontinued 5 mg PO TWICE A DAY 60 11 February 14, 2023 12:00am December 21, 2023 12:50pm Start: 12-07-2021 End: 12-16-2021 take 1 tablet by mouth twice daily Apixaban (Eliquis) 5 mg tablet Discontinued 5 mg PO TWICE A DAY 60 0 December 06, 2021 11:00pm December 16, 2021 8:06am aspirin 81 mg delayed release oral tablet (12 sources) Nonsteroidal Anti-inflammatory Drug Start: 01-13-2012 End: 10-01-2019 take 1 tablet by mouth once daily Aspirin 81 MG tablet,delayed release (DR/EC) Discontinued 81 mg PO DAILY January 21, 2017 11:00pm October 01, 2019 2:00pm Start: 01-13-2012 take 1 tablet by evelyn th once daily ASPIRIN 81 MG TABS One tablet by mouth daily ASPIRIN [id number] Rudi Benjamin MD Start: 09-10-2010 take 1 tablet by evelyn th once daily ASPIRIN 325 MG TABS One tablet by mouth daily ASPIRIN [id number] Evelin Burdick atorvastatin 80 mg oral tablet (1 source) HMG-CoA Reductase Inhibitor Start: 09-10-2010 take 1 tablet by mouth once daily ATORVASTATIN CALCIUM 80 MG TABS One tablet by mouth daily ATORVASTATIN CALCIUM [id number] Johnny Momin MD cholecalciferol 0.025 mg oral tablet (9 sources) Vitamin D Start: 07-05-2017 End: 12-29-2018 take 1 tablet by mouth once daily Cholecalciferol (Vitamin D3) 1,000 unit tablet Discontinued 1000 U PO daily July 04, 2017 11:00pm December 29, 2018 12:03pm clopidogrel 75 mg oral tablet (10 sources) P2Y12 Platelet Inhibitor Start: 09-10-2010 End: 01-30-2017 take 1 tablet by mouth once daily Clopidogrel 75 MG tablet Discontinued 75 mg PO DAILY April 08, 2013 12:00am January 30, 2017 11:01am [place]-3 Fatty Acids-Fish Oil (9 sources) Start: 04-08-2013 End: 07-11-2017 [place]-3 Fatty Acids-Fish Oil 1 EACH capsule Discontinued 1 NMA PO DAILY April 08, 2013 12:00am July 11, 2017 11:10am Start: 04-08-2013 End: 07-11-2017 [place]-3 Fatty Acids-Fish Oil 1 EACH capsule Discontinued 1 NMA PO DAILY April 08, 2013 1:00am July 11, 2017 12:10pm Start: 04-08-2013 End: 07-11-2017 [place]-3 Fatty Acids-Fish Oil Discontinued 1 EACH PO DAILY April 08, 2013 12:00am July 11, 2017 11:10am Start: 04-08-2013 End: 07-11-2017 [place]-3 Fatty Acids-Fish Oil Discontinued 1 EACH PO DAILY April 08, 2013 1:00am July 11, 2017 12:10pm donepezil hydrochloride 5 mg oral tablet (1 source) Cholinesterase Inhibitor Start: 03-16-2016 take 1 tablet by mouth once daily ARICEPT 5 MG TABS One tablet by mouth daily DONEPEZIL HCL [id number] MARTÍN GanC dronedarone 400 mg oral tablet (6 sources) Antiarrhythmic Start: 02-14-2023 End: 04-19-2024 take 1 tablet by mouth twice daily at mealtime Dronedarone (Multaq) 400 mg tablet Discontinued 400 mg PO TWICE A DAY 60 6 October 04, 2023 10:49am April 19, 2024 12:07pm must administer with a meal/food ezetimibe 10 mg oral tablet (2 sources) Dietary Cholesterol Absorption Inhibitor Start: 09-10-2010 End: 06-28-2011 take 1 tablet by mouth once daily ZETIA 10 MG TABS One tablet by mouth daily EZETIMIBE [id number] Rudi Benjamin MD fish oil (1 source) Start: 09-10-2010 take 1 tablet by mouth once daily FISH OIL CAPS One tablet by mouth daily OMEGA-3 FATTY ACIDS CAPS [id number] Evelin Burdick furosemide 40 mg oral tablet (10 sources) Loop Diuretic Start: 07-05-2017 End: 07-11-2017 take 1 tablet by mouth once daily Furosemide 40 mg tablet Discontinued 40 mg PO daily July 04, 2017 11:00pm July 11, 2017 11:10am Start: 01-31-2017 take 1 tablet by evelyn twice daily LASIX 40 MG TABS One tablet by mouth twice daily FUROSEMIDE [id number] Johnny Momin MD 24 hr isosorbide mononitrate 30 mg extended release oral tablet (11 sources) Start: 04-08-2013 End: 07-11-2017 Isosorbide Mononitrate 30 MG tablet Discontinued 15 mg PO DAILY April 08, 2013 12:00am July 11, 2017 11:10am Start: 09-10-2010 End: 07-11-2017 take 15 mg by mouth once daily Isosorbide Mononitrate Discontinued 15 MG PO DAILY April 08, 2013 1:00am July 11, 2017 12:10pm magnesium oxide 400 mg oral capsule (9 sources) Start: 06-12-2018 End: 12-29-2018 take 1 capsule by mouth once daily Magnesium Oxide 400 mg capsule Discontinued 400 mg PO DAILY June 12, 2018 12:00am December 29, 2018 12:03pm meclizine hydrochloride 12.5 mg oral tablet (9 sources) Antiemetic Start: 11-26-2021 End: 12-21-2023 take 1 tablet by mouth at bedtime Meclizine 12.5 mg tablet Discontinued 12.5 mg PO AT BEDTIME November 25, 2021 11:00pm December 21, 2023 12:51pm mometasone furoate 0.05 mg/actuat metered dose nasal spray (2 sources) Corticosteroid Start: 09-10-2010 End: 11-22-2012 NASONEX 50 MCG/ACT SUSP Take as directed MOMETASONE FUROATE [id number] Evelin Burdick MULTIPLE VITAMINS-MINERALS (1 source) Start: 12-22-2016 take 1 tablet by mouth once daily MULTIVITAMIN ADULT TABS One tablet by mouth daily MULTIPLE VITAMINS-MINERALS [id number] Johnny Momin MD Multivitamin preparation (6 sources) Start: 06-12-2018 End: 12-29-2018 take 1 tablet by mouth once daily Multivitamin Discontinued 1 TABLET PO DAILY June 12, 2018 12:00am December 29, 2018 12:03pm Start: 06-12-2018 End: 12-29-2018 take 1 tablet by mouth once daily Multivitamin Discontinued 1 TABLET PO DAILY June 12, 2018 1:00am December 29, 2018 1:03pm Multivitamin tablet (3 sources) Start: 06-12-2018 End: 12-29-2018 Multivitamin tablet Disconti nued 1 {tbl} PO DAILY June 12, 2018 12:00am December 29, 2018 12:03pm Start: 06-12-2018 End: 12-29-2018 Multivitamin tablet Disconti nued 1 {tbl} PO DAILY June 12, 2018 1:00am December 29, 2018 1:03pm 24 hr niacin 1000 mg extended release oral tablet (4 sources) Nicotinic Acid Start: 11-22-2012 End: 07-02-2013 take 0.5 tablet by mouth once daily at bedtime NIASPAN 1000 MG CR-TABS 1/2 tablet by mouth daily at bedtime NIACIN (ANTIHYPERLIPIDEMIC) [id number] Johnny Momin MD Start: 01-31-2012 take 1 tablet by evelyn th once daily at bedtime NIASPAN 1000 MG CR-TABS One tablet by mouth daily at bedtime NIACIN (ANTIHYPERLIPIDEMIC) [id number] Johnny Momin MD Start: 09-10-2010 NIASPAN 500 MG CR-TABS 1/2 tablet every night at bedtime NIACIN (ANTIHYPERLIPIDEMIC) [id number] Evelin Burdick nitroglycerin 0.4 mg sublingual tablet (2 sources) Nitrate Vasodilator Start: 08-01-2012 NITROSTAT 0.4 MG SUBL 1 tablet under tongue every 5 min up to 3 X NITROGLYCERIN [id number] Idalmis De Los Santos RN Start: 09-10-2010 NITROGLYCERIN 0.4 MG/HR PT24 1 tablet under tongue every 5 min up to 3 X NITROGLYCERIN [id number] Rudi Benjamin MD [place]-3 Fatty Acids-Fish Oil (6 sources) Start: 07-11-2017 End: 12-29-2018 take 1 capsule by mouth twice daily [place]-3 Fatty Acids-Fish Oil Discontinued 1 CAP PO TWICE A DAY July 11, 2017 11:07am December 29, 2018 12:03pm Start: 07-11-2017 End: 12-29-2018 take 1 capsule by mouth twice daily [place]-3 Fatty Acids-Fish Oil Discontinued 1 CAP PO TWICE A DAY July 11, 2017 12:07pm December 29, 2018 1:03pm [place]-3 Fatty Acids-Fish Oil 300-1,000 mg capsule (3 sources) Start: 07-11-2017 End: 12-29-2018 [place]-3 Fatty Acids-Fish Oil 300-1,000 mg capsule Discontinued 1 NMA PO TWICE A DAY July 11, 2017 11:07am December 29, 2018 12:03pm Start: 07-11-2017 End: 12-29-2018 [place]-3 Fatty Acids-Fish Oil 300-1,000 mg capsule Discontinued 1 NMA PO TWICE A DAY July 11, 2017 12:07pm December 29, 2018 1:03pm omeprazole 40 mg delayed release oral capsule (2 sources) Proton Pump Inhibitor Start: 01-13-2012 take 1 tablet by mouth once daily as needed PRILOSEC 40 MG CPDR One tablet by mouth daily as needed OMEPRAZOLE [id number] Johnny Momin MD oxyCODONE hydrochloride 5 mg oral tablet (8 sources) Opioid Agonist Start: 12-02-2021 End: 12-10-2021 take 1 tablet by mouth every four hours as needed for pain Oxycodone 5 mg tablet Discontinued 5 mg PO Q4H as needed for pain 20 5 0 December 02, 2021 December 10, 2021 12:32pm Cholelithiasis Calculus of gallbladder without cholecystitis without obstruction polyethylene glycol 3350 64285 mg powder for oral solution (16 sources) Osmotic Laxative Start: 11-30-2021 End: 01-29-2025 Polyethylene Glycol 3350 (Miralax) 17 gram powder in packet Discontinued 17 g PO DAILY as needed for constipation December 10, 2021 12:32pm January 29, 2025 12:49pm potassium gluconate 2.5 meq oral tablet (9 sources) Start: 07-05-2017 End: 07-11-2017 take 1 tablet by mouth once daily Potassium 99 mg tablet Discontinued 99 mg PO daily July 04, 2017 11:00pm July 11, 2017 11:08am PROBIOTIC PRODUCT (2 sources) Start: 11-22-2012 take 1 tablet by mouth once daily PROBIOTIC CAPS One tablet by mouth daily PROBIOTIC PRODUCT [id number] Johnny Momin MD Start: 11-22-2012 End: 07-02-2013 take 1 tablet by mouth once daily PROBIOTIC CAPS One tablet by mouth daily PROBIOTIC PRODUCT [id number] Johnny Momin MD raNITIdine 150 mg oral tablet (12 sources) Histamine-2 Receptor Antagonist Start: 07-05-2017 End: 07-11-2017 Ranitidine Hcl (Acid Control (Ranitidine)) 150 mg tablet Discontinued 150 mg PO .As Needed July 04, 2017 11:00pm July 11, 2017 11:08am Start: 11-22-2012 End: 03-16-2016 take 1 tablet by mouth twice daily RANITIDINE HCL 150 MG TABS One tablet by mouth twice daily RANITIDINE HCL [id number] Johnny Momin MD rosuvastatin calcium 40 mg oral tablet (1 source) HMG-CoA Reductase Inhibitor Start: 09-10-2010 take 1 tablet by mouth at bedtime CRESTOR 40 MG TABS One tablet by mouth at bedtime. ROSUVASTATIN CALCIUM [id number] Johnny Momin MD simvastatin 40 mg oral tablet (11 sources) HMG-CoA Reductase Inhibitor Start: 09-10-2010 End: 02-11-2017 take 1 tablet by mouth once daily Simvastatin (Zocor) 40 MG tablet Discontinued 40 mg PO DAILY January 21, 2017 11:00pm January 30, 2017 11:01am spironolactone 25 mg oral tablet (9 sources) Aldosterone Antagonist Start: 07-11-2017 End: 06-12-2018 take 1 tablet by mouth once daily in the morning Spironolactone 25 mg tablet Discontinued 25 mg PO EVERY MORNING July 10, 2017 11:00pm June 12, 2018 11:47am levothyroxine sodium 0.075 mg oral tablet (19 sources) l-Thyroxine Start: 09-10-2010 End: 11-26-2021 take 1 tablet by mouth once daily Levothyroxine 75 MCG tablet Discontinued 75 ug PO DAILY April 08, 2013 12:00am November 26, 2021 8:08am vitamin d 1000 unt oral tablet (1 source) Start: 09-01-2015 take 1 tablet by mouth once daily VITAMIN D 1000 UNIT TABS One tablet by mouth daily CHOLECALCIFEROL [id number] Johnny Momin MD Problems Active Problems Problem Classification Problem Date Documented Da te Episodic/Chronic Abdominal pain (9 sources) Abdominal pain; Translations: [Unspecified abdominal pain] 03-22-2020 Episodic Biliary tract disease (20 sources) Biliary calculus; Translations: [Calculus of gallbladder without cholecystitis without obstruction] Episodic Cardiac dysrhythmias (20 sources) Paroxysmal atrial fibrillation; Translations: [Paroxysmal atrial fibrillation] Chronic Cardiac dysrhythmias (8 sources) Palpitations; Translations: [Palpitations] 12-15-2021 Episodic Coronary atherosclerosis and other heart disease (20 sources) Coronary arteriosclerosis; Translations: [Coronary atherosclerosis] Onset: 09-10-2010 09-10-2010 Chronic Coronary atherosclerosis and other heart disease (20 sources) Coronary angioplasty status; Translations: [Stented coronary artery] Onset: 04-11-2005 09-10-2010 Episodic Comment on above: 08/05/05, PTCA,Stent (TAXUS) to LAD; 02/14, PTCA/stent to LAD Disorders of lipid metabolism (20 sources) Hyperlipidemia; Translations: [Pure hypercholesterolemia ] Onset: 09-10-2010 09-10-2010 Chronic Disorders of teeth and jaw (3 sources) Infection of tooth; Translations: [Periapical abscess without sinus] 05-14-2023 Episodic Neoplasms of unspecified nature or uncertain behavior (2 sources) Neoplasm of uncertain behavior of skin; Translations: [Neoplasm of uncertain behavior of skin] Onset: 10-28-2017 Episodic Other aftercare (9 sources) Long-term current use of drug therapy; Translations: [Other terminal block assembler (current) drug therapy] 07-05-2017 Episodic Other circulatory disease (10 sources) Carotid bruit; Translations: [Other specified symptoms and signs involving the circulatory and respiratory systems] Onset: 02-26-2015 02-26-2015 Episodic Other lower respiratory disease (5 sources) Lower respiratory tract infection; Translations: [Unspecified acute lower respiratory infection] 08-18-2024 Episodic Other lower respiratory disease (3 sources) Cough; Translations: [Cough] 08-19-2024 Episodic Skull and face fractures (3 sources) Fracture of tooth ; Translations: [Fracture of tooth (traumatic), initial encounter for closed fracture] 05-14-2023 Episodic Thyroid disorders (19 sources) Iatrogenic hypothyroidism; Translations: [Hypothyroidism due to medicaments and other exogenous substances] Onset: 09-10-2010 09-10-2010 Chronic Unclassified (3 sources) Long-term drug therapy; Translations: [Long-term (current) use of other medications] Onset: 06-24-2011 Resolved: 02-24-2015 06-24-2011 Unclassified (2 sources) Other intervertebral disc degeneration, lumbar region with discogenic back pain only; Translations: [Other intervertebral disc degeneration, lumbar region with discogenic back pain only] Onset: 09-25-2024 Past or Other Problems Problem Classification Problem Date Documented Da te Episodic/Chronic Other lower respiratory disease (1 source) Dyspnea; Translations: [Shortness of breath] Onset: 09-10-2010 09-10-2010 Episodic Other lower respiratory disease (1 source) Shortness of breath; Translations: [Shortness of breath] Onset: 08-24-2024 Episodic Other lower respiratory disease (1 source) Unspecified acute lower respiratory infection; Translations: [Unspecified acute lower respiratory infection] Onset: 08-18-2024 Episodic Other screening for suspected conditions (not mental disorders or infectious disease) (1 source) Elevated prostate specific antigen [PSA]; Translations: [Elevated prostate specific antigen [PSA]] Onset: 09-14-2024 Episodic Unclassified (7 sources) Body mass index (BMI) 28.0-28.9, adult; Translations: [Body mass index (BMI) 29.0-29.9, adult] Onset: 07-02-2013 Resolved: 02-24-2015 01-07-2014 Episodic Results Test Name Value Interpretation Reference Range Facility Cardiology Visit Reporton Cardiology Visit Report [facility] [address] [place], [place] [address]. [address] [place] [address] OFFICE VISIT Date of Service: 01/29/25 MR#: [id number] Acct: [id number] Name: ANGELIKA LUNA Rep #: [id number] : 1935 Provider: Dr. Kt Carson MD Age/Sex: 89/M Location: [facility] Status: Signed HPI HPI History of Present Illness Details: ANGELIKA LUNA, is a 89 M who presents to the office today for today for a cardiovascular follow-up. He has a history of coronary artery disease with angioplasty and stenting of his proximal LAD and mid LAD. He also has a history of paroxysmal atrial fibrillation in the setting of elevated CPK levels, hyperlipidemia and hypo-thyroidism. He was started on dronedarone and has tolerated it since. His major issue according to his at the moment is actually his Alzheimer's. He otherwise has been doing well. He denies any chest pain or shortness breath or paroxysmal nocturnal dyspnea pedal edema he has had no neck arm or jaw discomfort suggest angina. 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 Accompanied by: Daughter Is patient in pain?: No Allergies cephalexin (From Keflex) Allergy (Verified 01/29/25 13:47) Swelling diazepam (From Valium) Allergy (Verified 01/29/25 13:47) Other Zoeiaza-ALT-VhZ Reductase Inhibitor (Dczeirj-Scn-Snx Reductase Inhibitor) Adverse Reaction (Verified 01/29/25 13:47) Rhabdomylosis Medications ???Medication ???Instructions ???Recorded ???Confirmed ???Type diphenhydramine 25 1 ea PO QHS 03/21/20 01/29/25 Hist ory mg-acetaminophen 500 mg tablet levothyroxine 75 mcg tablet 75 mcg PO DAILY THYROID 11/26/21 1 History betamethasone dipropionate 0.05 % 1 applic topical DAILY PRN PRN 01/29/25 History topical ointment SUMMER RASH glucosamine 750 ik-wetlorxnfur-sql 1 tab PO BID 11/30/21 01/29/25 H istory no1 644 mg-C 30 mg-devorah 1 mg tablet (Osteo Bi-Flex Triple Strength) loratadine 10 mg tablet (Claritin) 10 mg PO BID PRN allergy symptom s 12/22/22 01/29/25 History metoprolol succinate 25 mg 25 mg PO DAILY #90 tabs 09/21/24 1 Rx tablet,extended release 24 hr amiodarone 200 mg tablet 200 mg PO QDAY #90 tabs 01/28/25 1 Rx Relaxium PO 01/29/25 History acetaminophen 500 mg tablet 500 mg PO DAILY 01/29/25 01/29/25 History (Tylenol Extra Strength) finasteride 5 mg tablet 5 mg PO DAILY 01/29/25 01/29/25 Hi story mirtazapine 7.5 mg tablet 7.5 mg PO QDAY 01/29/25 01/29/25 H istory tkrtnjwo-hso-sfabc1 250 mg-dha 90 1 cap PO QDAY 01/29/25 01/29/25 H istory mg-epa 160 qh-zwhq-oqca-zeax capsule (Ocuvite Adult 50 Plus) sennosides 8.6 mg capsule (senna) 17.2 mg PO QHS 01/29/25 01/29/25 History tamsulosin 0.4 mg capsule 0.4 mg PO QHS 01/29/25 01/29/25 Hi story Ejection fraction %: 75 Have you fallen in the past year?: No PFSH Medical History Wears glasses History of Clostridium difficile infection Depression Thyroid disease History of steroid therapy Arthritis History of kidney stones High cholesterol Excessive bleeding Vertigo Former smoker History of edema History of stress test History of echocardiogram History of atrial fibrillation Cardiology follow-up encounter History of injury of tendon Alzheimers disease Atherosclerotic heart disease of [place] coronary artery without angina pectoris Pure hypercholesterolemia Memory loss Iatrogenic hypothyroidism Hyperlipidemia Left carotid bruit Paroxysmal atrial fibrillation CAD (coronary artery disease) Allergic reaction caused by a drug Swelling of right lower extremity Rhabdomyolysis Surgical History S/P cholecystectomy Hx of cholecystectomy ( 11/2021) History of colonoscopy History of bilateral cataract extraction Status post trigger finger release Presence of coronary angioplasty implant and graft ( 02/2006) S/P PTCA (percutaneous transluminal coronary angioplasty) Family History Mother CVA (cerebral vascular accident) CAD (coronary artery disease) Brother CAD (coronary artery disease) Cancer Myocardial infarction Sister , from congenital heart problems CAD (coronary artery disease) Father CAD (coronary artery disease) Myocardial infarction of [place] Social History Smoking Status: For (more content not included)... Normal [facility] PSA,Total- Diagnosticon 06-0 PSA, DIAGNOSTIC 2.74 ng/mL Normal 0.00-4.00 [facility] Comment on above: Result Comment: This test was performed using the [employer] tPSA method. Measured values of a patient??sample can vary depending on the testing procedure used. PSA values determined on patient samples by different testing procedures cannot be used interchangeably. If there is a change in PSA assays while monitoring therapy, sequential testing should be performed to confirm baseline values. Performed By: #### L 501.9940 #### [facility] [address] [facility] [place], [address] L499.0042on 08-19-2024 Trop T High Sen Normal <=22 [facility] Comment on above: Result Comment: Fareed walters via OM: Ordered Performed By: #### L 499.0042 #### [facility] [address] [place], [address] L499.0043on 08-19-2024 Trop T High Sen Normal <=22 [facility] Comment on above: Result Comment: Fareed walters via OM: Ordered Performed By: #### L 499.0043 ####[facility] [id number] [facility] [place], [address] 12 Lead EKGon 08-18-2024 12 Lead EKG [facility] [address] [place] [address] 12 Lead EKG 08/18/242306 MR#: [id number] Acct: [id number] Name: ANGELIKA LUNA Rep #: [id number] : 1935 88 From: Pan Coley MD Attending Dr: Status: DEP ER Ordering Dr: Donna Owens DO Date: 08/18/24 Location: ED Sex: M C Admitted: Test Reason : SOB Blood Pressure : */* mmHG Vent. Rate : 61 BPM Atrial Rate : 61 BPM P-R Int : 178 ms QRS Dur : 106 ms QT Int : 460 ms P-R-T Axes : 98 -47 54 degrees QTcB Int : 463 ms Normal sinus rhythm Left anterior fascicular block Cannot rule out Anterior infarct , age undetermined Abnormal ECG Confirmed by Pan Coley ([id number]), desk editor WAYNE MOSLEY ([id number]) on 08/20/2024 9:15:36 AM Referred By: CG Confirmed By: Pan Coley 08/20/24 0915 Date Pan Coley MD CC: Dr. Donna Owens DO; Dr. Curly Morales MD Signed Normal [facility] Absolute lymphocyte countOrd ered By: Donna Owens on 08-18-2024 Lymphocytes Auto (Unsp spec) [#/Vol] 1.23 10*3/uL 0.83-4.51 [facility] Absolute neutrophil countOrd ered By: Donna Owens on 08-18-2024 Neutrophils (Bld) [#/Vol] 2.5 10*3/uL 2.0-7.7 [facility] Anion gap in Serum or Plasma Ordered By: Donna Owens on 08-18-2024 Anion gap [Moles/Vol] 10 mmol/L - [facility] Automated lymphocyte count a s percentage of total leukocytesOrdered By: Donna Owens on 08-18-2024 Lymphocytes/100 WBC Auto (Unsp spec) 27.5 % - [facility] BUN/creatinine ratioOrdered By: Donna Owens on 08-18-2024 Urea nitrogen/Creatinine [Mass ratio] 15.6 mg/mg - [facility] Basic Metabolic Profile (BMP )on 08-18-2024 BUN/CRE 15.6 RATIO Normal 01-28 [facility] Comment on above: Performed By: #### L 503.7505, L500.2500, L501.4021, L100.0100 #### [facility] [address] [place], [address] Calcium [Mass/Vol] 9.1 mg/dL Normal 7.6-11.0 [facility] Comment on above: Performed By: #### L 503.7505, L500.2500, L501.4021, L100.0100 #### [facility] [address] [place], [address] Chloride [Moles/Vol] 107 mmol/L Normal 98-108 [facility] Comment on above: Performed By: #### L 503.7505, L500.2500, L501.4021, L100.0100 #### [facility] [address] [place], [address] CO2 [Moles/Vol] 22.4 mmol/L Normal 21.0-32.0 [facility] Comment on above: Performed By: #### L 503.7505, L500.2500, L501.4021, L100.0100 #### [facility] [address] [place], [address] Creatinine [Mass/Vol] 1.51 mg/dL High 0.70-1.20 [facility] Comment on above: Performed By: #### L 503.7505, L500.2500, L501.4021, L100.0100 #### [facility] [address] [place], [address] ECRCL 38.86 ml/min Low 50-250 [facility] Comment on above: Performed By: #### L 503.7505, L500.2500, L501.4021, L100.0100 #### [facility] [address] [place], [address] GAP 10 Normal 5-15 [facility] Comment on above: Performed By: #### L 503.7505, L500.2500, L501.4021, L100.0100 #### [facility] [address] [place], [address] GFR/1.73 sq M.predicted among non-blacks MDRD (S/P/Bld) [Vol rate/Area] 44 mL/min/{1.73_m2} Low >60 [facility] Comment on above: Result Comment: mL/m in/1.73m2 CKD-EPI Creatinine Equation (2020) Performed By: #### L 503.7505, L500.2500, L501.4021, L100.0100 #### [facility] [address] [place], [address] Glucose [Mass/Vol] 116 mg/dL High 70-99 [facility] Comment on above: Performed By: #### L 503.7505, L500.2500, L501.4021, L100.0100 #### [facility] [address] [place], [address] Potassium [Moles/Vol] 4.4 mmol/L Normal 3.3-5.1 [facility] Comment on above: Performed By: #### L 503.7505, L500.2500, L501.4021, L100.0100 #### [facility] [address] [place], [address] Sodium [Moles/Vol] 140 mmol/L Normal 133-145 [facility] Comment on above: Performed By: #### L 503.7505, L500.2500, L501.4021, L100.0100 #### [facility] [address] [place], [address] Urea nitrogen [Mass/Vol] 24 mg/dL High 4-19 [facility] Comment on above: Performed By: #### L 503.7505, L500.2500, L501.4021, L100.0100 #### [facility] [address] [place], [address] Basophil percentageOrdered B y: Donna Owens on 08-18-2024 Basophils/100 WBC (Bld) 0.7 % 0-1 [facility] CBC W/Diff, Automatedon 08-09-2024 Absolute Lymph 1.23 X10 3/uL Normal 0.83-4.51 [facility] Comment on above: Performed By: #### L 503.7505, L500.2500, L501.4021, L100.0100 #### [facility] [address] [place], [address] Absolute Neut 2.5 X10 3/uL Normal 2.0-7.7 [facility] Comment on above: Performed By: #### L 503.7505, L500.2500, L501.4021, L100.0100 #### [facility] [address] [place], [address] Basophils/100 WBC (Bld) 0.7 % Normal 0-1 [facility] Comment on above: Performed By: #### L 503.7505, L500.2500, L501.4021, L100.0100 #### [facility] [address] [place], [address] Eosinophils/100 WBC (Bld) 2.7 % Normal 0-5 [facility] Comment on above: Performed By: #### L 503.7505, L500.2500, L501.4021, L100.0100 #### [facility] [address] [place], [address] Erythrocyte distribution width (RBC) [Ratio] 12.5 % Normal 11.6-14.6 [facility] Comment on above: Performed By: #### L 503.7505, L500.2500, L501.4021, L100.0100 #### [facility] [address] [place], [address] Hematocrit (Bld) [Volume fraction] 39.2 % Low 40-54 [facility] Comment on above: Performed By: #### L 503.7505, L500.2500, L501.4021, L100.0100 #### [facility] [address] [place], [address] Hemoglobin (Bld) [Mass/Vol] 13.5 g/dL Normal 13.0-16.5 [facility] Comment on above: Performed By: #### L 503.7505, L500.2500, L501.4021, L100.0100 #### [facility] [address] [place], [address] IG% 0.400 Normal 0.0-0.9 [facility] Comment on above: Result Comment: IG% - Immature Granulocytes (promyelocytes, myelocytes and metamyelocytes) > 1% indicates that a LEFT SHIFT is Present. Performed By: #### L 503.7505, L500.2500, L501.4021, L100.0100 #### [facility] [address] [place], [address] Lymphocytes/100 WBC (Bld) 27.5 % Normal 19-41 [facility] Comment on above: Performed By: #### L 503.7505, L500.2500, L501.4021, L100.0100 #### [facility] [address] [place], [address] MCH (RBC) [Entitic mass] 32.8 pg High 27.0-32.0 [facility] Comment on above: Performed By: #### L 503.7505, L500.2500, L501.4021, L100.0100 #### [facility] [address] [place], [address] MCHC (RBC) [Mass/Vol] 34.4 g/dL Normal 32-36 [facility] Comment on above: Performed By: #### L 503.7505, L500.2500, L501.4021, L100.0100 #### [facility] [address] [place], [address] MCV (RBC) [Entitic vol] 95.4 fL High 80-94 [facility] Comment on above: Performed By: #### L 503.7505, L500.2500, L501.4021, L100.0100 #### [facility] [address] [place], [address] Monocytes/100 WBC (Bld) 12.9 % High 0-10 [facility] Comment on above: Performed By: #### L 503.7505, L500.2500, L501.4021, L100.0100 #### [facility] [address] [place], [address] Neutrophils/100 WBC (Bld) 55.8 % Normal 47-70 [facility] Comment on above: Performed By: #### L 503.7505, L500.2500, L501.4021, L100.0100 #### [facility] [address] [place], [address] Nucleated RBC (Bld) [#/Vol] 0 10*3/uL Normal 0-5 [facility] Comment on above: Performed By: #### L 503.7505, L500.2500, L501.4021, L100.0100 #### [facility] [address] [place], [address] Platelet mean volume (Bld) [Entitic vol] 10.5 fL Normal 6.2-12.0 [facility] Comment on above: Performed By: #### L 503.7505, L500.2500, L501.4021, L100.0100 #### [facility] [address] [place], [address] Platelets (Bld) [#/Vol] 114 10*3/uL Low 150-450 [facility] Comment on above: Performed By: #### L 503.7505, L500.2500, L501.4021, L100.0100 #### [facility] [address] [place], [address] RBC (Bld) [#/Vol] 4.11 10*6/uL Low 4.6-6.2 [facility] Comment on above: Performed By: #### L 503.7505, L500.2500, L501.4021, L100.0100 #### [facility] [address] [place], [address] RDW SD 43.8 fl Normal 35.1-43.9 [facility] Comment on above: Performed By: #### L 503.7505, L500.2500, L501.4021, L100.0100 #### [facility] [address] [place], [address] WBC (Bld) [#/Vol] 4.5 10*3/uL Normal 4.4-11.0 [facility] Comment on above: Performed By: #### L 503.7505, L500.2500, L501.4021, L100.0100 #### [facility] [address] [place], [address] Carbon dioxide, total [Moles /volume] in Central venous bloodOrdered By: Donna Owens on 08-18-2024 CO2 [Moles/Vol] 22.4 mmol/L 21.0-32.0 [facility] Chest PA and Lateralon 08-18 Chest PA and Lateral [facility] Imaging Services [address] [place] [address] Chest PA and Lateral MR#: [id number] Acct: [id number] Name: ANGELIKA LUNA Rep #: [id number] : 1935 M 88 From: Rubin hurtado MD PCP: Dr. Curly Morales MD Status: REG ER Study: Chest PA and Lateral Date of Exam: 08/18/24 Exam# [id number] Ordering Dr: Donna Owens DO PROCEDURE: CHEST PA AND LATERAL 08/18/2024 REASON FOR EXAM: COUGH TECHNIQUE: Frontal and lateral views of the chest. COMPARISON: 12/07/2021 FINDINGS: Hardware: None Heart: Heart size is mildly enlarged. Mediastinum: The mediastinal contour is unremarkable. Lungs: Bibasilar atelectasis. No focal consolidation. No pneumothorax. No pleural effusion. Bones: Degenerative changes are identified within the thoracic spine. RAD/Chest PA and Lateral IMPRESSION: NO ACUTE FINDINGS. Reading Location: [facility] CC: Dr. Donna Owens DO; Dr. 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 Curly Morales MD Status:REG ER Location: ED HPI History of Present Illness Chief Complaint: Shortness of Breath Informant: patient and spouse/S.O. Limited: dementia Narrative Narrative: Patient is an 88-year-old male with history of coronary artery disease status post stent, proximal atrial fibrillation, pneumonia and dementia present with for cough. Patient woke up with cough this morning. 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 They did not have access to a chest x-ray. He was started on Augmentin. He was instructed to come to the ER for further evaluation of symptoms worsen. Initial symptom again felt that his respiratory sounds were worse until he came in. Patient does report a cough with mucus production. Does not know what color it is. No fever reported. Denies any chest pain. Feels mildly short of breath. Denies any swelling of his legs. No report of any nausea or vomiting. No report of any urinary symptoms. No other complaints or concerns at this time. [facility] Medical History Wears glasses History of Clostridium difficile infection Depression Thyroid disease History of steroid therapy Arthritis History of kidney stones High cholesterol Excessive bleeding Vertigo Former smoker History of edema History of stress test History of echocardiogram History of atrial fibrillation Cardiology follow-up encounter History of injury of tendon Alzheimers disease Atherosclerotic heart disease of [place] coronary artery without angina pectoris Pure hypercholesterolemia Memory loss Iatrogenic hypothyroidism Hyperlipidemia Left carotid bruit Paroxysmal atrial fibrillation CAD (coronary artery disease) Allergic reaction caused by a drug Swelling of right lower extremity Rhabdomyolysis Home Medications ???Medication ???Instructions ???Recorded ???Last Taken ???Type diphenhydramine 25 1 ea PO QHS 03/21/20 Unknown Histo ry mg-acetaminophen 500 mg tablet levothyroxine 75 mcg tablet 75 mcg PO DAILY THYROID 11/26/21 0 12/02/21 06:15 History betamethasone dipropionate 0.05 % 1 applic topical DAILY PRN PRN Unknown History topical ointment SUMMER RASH glucosamine 750 kv-dzngankymsc-oqa 1 tab PO BID 11/30/21 Unknown Hi story no1 644 mg-C 30 mg-devorah 1 mg tablet (Osteo Bi-Flex Triple Strength) polyethylene glycol 3350 17 gram 17 g PO DAILY PRN constipation 05/02 Unknown History oral powder packet (Miralax) finasteride 5 mg tablet 10 mg PO DAILY 06/18/22 Unknown Hi story loratadine 10 mg tablet (Claritin) 10 mg PO BID PRN allergy symptom s 12/22/22 Unknown History metoprolol succinate 25 mg 25 mg PO DAILY #90 tabs 10/03/23 U nknown Rx tablet,extended release 24 hr amiodarone 200 mg tablet 200 mg PO QDAY #30 tabs 04/19/24 U nknown Rx amoxicillin 875 mg-potassium 1 tab PO BID 7 days #14 tabs 08/18 Unknown Rx clavulanate 125 mg tablet Allergy/AdvReac Type Severity Reaction Status Date / Time cephalexin (From Keflex) Allergy Swelling Verified 08/18/24 22:44 diazepam (From Valium) Allergy Other Verified 08/18/24 22:44 Tocvgsz-OLZ-DsF Reductase AdvReac Rhabdomylos Verified 08/18/24 22:44 Inhibitor (Rtjlsjp-Ybw-Mmi is Reductase Inhibitor) Family History Mother CVA (cerebral vascular accident) CAD (coronary artery disease) Brother CAD (coronary artery disease) Cancer Myocardial infarction Sister , from congenital heart problems CAD (coronary artery disease) Father CAD (coronary artery disease) Myocardial infarction of [place] Surgical History S/P cholecystectomy Hx of cholecystectomy ( 11/2021) History of colonoscopy History of bilateral cataract extraction Status post trigger finger release Presence of coronary angioplasty implant and graft ( 02/2006) S/P PTCA (percutaneous transluminal coronary angioplasty) Social History Smoking Status: Former smoker how long ago did patient quit smokin alcohol intake: current alcohol intake frequency: a few times a month Alcohol type: beer and wine substance use type: does not use caffeine: Yes Type: tea Number of servings: 2 what type of physical activity do you par (more content not included)... Normal [facility] Eosinophil percentageOrdered By: Donna Owens on 08-18-2024 Eosinophils/100 WBC (Bld) 2.7 % 0-5 [facility] Erythrocyte distribution wid th ratioOrdered By: Donna Owens on 08-18-2024 Erythrocyte distribution width (RBC) [Ratio] 12.5 % 11.6-14.6 [facility] Erythrocyte distribution wid th standard deviationOrdered By: Donna Owens on 08-18-2024 Erythrocyte distribution width (RBC) [Ratio] 43.8 fl 35.1-43.9 [facility] Glomerular filtration rate ( GFR) estimation/1.73 sq m using serum, plasma, or whole bOrdered By: Donna Owens on 08-18-2024 GFR/1.73 sq M.predicted among non-blacks MDRD (S/P/Bld) [Vol rate/Area] 44 mL/min/{1.73_m2} Low >60 [facility] Comment on above: mL/min/1.73m2 CKD-EP I Creatinine Equation (2020) Hematocrit Auto (Bld) [Volum e fraction]Ordered By: Donna Owens on 08-18-2024 Hematocrit (Bld) [Volume fraction] 39.2 % Low 40-54 [facility] Hemoglobin measurementOrdere d By: Donna Owens on 08-18-2024 Hemoglobin (Bld) [Mass/Vol] 13.5 g/dL 13.0-16.5 [facility] Immature granulocytes/100 WB C Auto (Bld)Ordered By: Donna Owens on 08-18-2024 Immature granulocytes/100 WBC (Bld) 0.400 % 0.0-0.9 [facility] Comment on above: IG% - Immature Granu locytes (promyelocytes, myelocytes and metamyelocytes) > 1% indicates that a LEFT SHIFT is Present. L501.4021on 08-18-2024 Trop T High Sen 7 ng/L Normal <=22 [facility] Comment on above: Performed By: #### L 503.7505, L500.2500, L501.4021, L100.0100 #### [facility] [address] [place], [place], [address] L503.7505on 08-18-2024 Natriuretic peptide B (Bld) [Mass/Vol] 146 pg/mL Normal <=1800 [facility] Comment on above: Result Comment: Hear t Failure Unlikely: < 300 pg/mL Heart Failure Likely < 50 Years: > 450 pg/mL 50-75 Years: > 900 pg/mL >75 Years: > 1800 pg/mL Performed By: #### L 503.7505, L500.2500, L501.4021, L100.0100 #### [facility] [address] [place], [address] MCV (mean corpuscular volume ) determinationOrdered By: Donna Owens on 08-18-2024 MCV (RBC) [Entitic vol] 95.4 fL High 80-94 [facility] Mean corpuscular hemoglobin (MCH) determinationOrdered By: Donna Owens on 08-18-2024 MCH (RBC) [Entitic mass] 32.8 pg High 27.0-32.0 [facility] Mean corpuscular hemoglobin concentration (MCHC) determinationOrdered By: Donna Owens on 08-18-2024 MCHC (RBC) [Mass/Vol] 34.4 g/dL 32-36 [facility] Mean platelet volume determi nationOrdered By: Donna Owens on 08-18-2024 Platelet mean volume (Bld) [Entitic vol] 10.5 fL 6.2-12.0 [facility] Monocyte percentageOrdered B y: Donna Owens on 08-18-2024 Monocytes/100 WBC (Bld) 12.9 % High 0-10 [facility] Natriuretic peptide.B prohor gerald N-Terminal [Mass/volume] in Serum or PlasmaOrdered By: Donna Owens 08-18-2024 Natriuretic peptide.B prohormone N-Terminal [Mass/Vol] 146 pg/mL <1800 [facility] Comment on above: Heart Failure Unlike ly: < 300 pg/mLHeart Failure Likely< 50 Years: > 450 pg/mL50-75 Years: > 900 pg/mL>75 Years: > 1800 pg/mL Neutrophil percentageOrdered By: Donna Owens on 08-18-2024 Neutrophils/100 WBC (Bld) 55.8 % 47-70 [facility] Nucleated red blood cell per centageOrdered By: Donna Owens on 08-18-2024 Nucleated RBC/100 WBC (Bld) [Ratio] 0 % 0-5 [facility] Platelet countOrdered By: Frank Owens on 08-18-2024 Platelets (Bld) [#/Vol] 114 10*3/uL Low 150-450 [facility] Potassium measurement (mass/ volume)Ordered By: Donna Owens on 08-18-2024 Potassium (Unsp spec) [Mass/Vol] 4.4 mmol/L 3.3-5.1 [facility] RBC Auto (Bld) [#/Vol]Ordere d By: Donna Owens on 08-18-2024 RBC (Bld) [#/Vol] 4.11 10*6/uL Low 4.6-6.2 [facility] Serum creatinine measurement (mass/volume)Ordered By: Donna Owens on 08-18-2024 Creatinine [Mass/Vol] 1.51 mg/dL High 0.70-1.20 [facility] Serum glucose measurement (m ass/volume)Ordered By: Donna Owens on 08-18-2024 Glucose [Mass/Vol] 116 mg/dL High 70-99 [facility] Serum or plasma calcium sofi urement (mass/volume)Ordered By: Donna Owens on 08-18-2024 Calcium [Mass/Vol] 9.1 mg/dL 7.6-11.0 [facility] Serum or plasma urea nitroge n measurement (mass/volume)Ordered By: Donna Owens on 08-18-2024 Urea nitrogen [Mass/Vol] 24 mg/dL High 4-19 [facility] Sodium levelOrdered By: Xiomara Owens on 08-18-2024 Sodium [Moles/Vol] 140 mmol/L 133-145 [facility] Troponin T.cardiac [Mass/vol ume] in Serum or Plasma by High sensitivity methodOrdered By: Donna Owens on 08-18-2024 Troponin T.cardiac High sensitivity method [Mass/Vol] 7 ng/L <22 [facility] Urgent Care Visit Reporton 0 08-18-2024 Urgent Care Visit Report [facility] [address] , [address] [place] [address] OFFICE VISIT Date of Service: 08/18/24 MR#: [id number] Acct: [id number] Name: ANGELIKA LUNA Rep #: [id number] : 1935 Provider: SARAH De La Torre Age/Sex: 88/M Location: [facility] Status: Signed Intake Vital Signs 12/21/23 13:33 08/18/24 10:25 Height 5 ft 10 in Weight: 193 lb BMI 27.6 BP 113/64 118/68 Blood Pressure Location Lt brachial Lt brachial Position Sitting Sitting Respiration 18 16 Pulse 54 L 91 Pulse Source Monitor NIBP Temp 97.7 F L Temp Source Oral Pulse Oximetry (%) 96 97 Oxygen Delivery Method room air Intake Visit Reasons: EAR RINGING, CRACKLING NOISES Chief Complaint: ear ringing, cough Planning Engineer Required: No Is patient in pain?: No Allergies cephalexin (From Keflex) Allergy (Verified 08/18/24 10:26) Swelling diazepam (From Valium) Allergy (Verified 08/18/24 10:26) Other Cvjobni-KZB-ShE Reductase Inhibitor (Stvruku-Qtf-Pov Reductase Inhibitor) Adverse Reaction (Verified 08/18/24 10:26) Rhabdomylosis Have you fallen in the past year?: Yes Nurse's Note: bilateral ear ringing intermittently, cough since last night. believes she hears crackles in lung bases. concern for PNA. denies fever, MARRERO, ST, lung hx PFSH Medical History Wears glasses History of Clostridium difficile infection Depression Thyroid disease History of steroid therapy Arthritis History of kidney stones High cholesterol Excessive bleeding Vertigo Former smoker History of edema History of stress test History of echocardiogram History of atrial fibrillation Cardiology follow-up encounter History of injury of tendon Alzheimers disease Atherosclerotic heart disease of [place] coronary artery without angina pectoris Pure hypercholesterolemia Memory loss Iatrogenic hypothyroidism Hyperlipidemia Left carotid bruit Paroxysmal atrial fibrillation CAD (coronary artery disease) Allergic reaction caused by a drug Swelling of right lower extremity Rhabdomyolysis Surgical History S/P cholecystectomy Hx of cholecystectomy ( 11/2021) History of colonoscopy History of bilateral cataract extraction Status post trigger finger release Presence of coronary angioplasty implant and graft ( 02/2006) S/P PTCA (percutaneous transluminal coronary angioplasty) Family History Mother CVA (cerebral vascular accident) CAD (coronary artery disease) Brother CAD (coronary artery disease) Cancer Myocardial infarction Sister , from congenital heart problems CAD (coronary artery disease) Father CAD (coronary artery disease) Myocardial infarction of [place] Social History Smoking Status: Former smoker how long ago did patient quit smokin alcohol intake: current alcohol intake frequency: a few times a month Alcohol type: beer and wine substance use type: does not use caffeine: Yes Type: tea Number of servings: 2 what type of physical activity do you participate in: none seatbelt use: always do you feel safe at home: Yes HPI HPI Chief Complaint: ear ringing, cough Details: ANGELIKA LUNA, is a 88 M who presents to the office today for evaluation of wheezing and crackles. Patient's states that the patient has Alzheimer's dementia and therefore provided much of the history from the encounter. She states that the patient started with an episode of tinnitus yesterday that has since resolved but upon awakening this morning he complained of SOB and wheezing. 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 Patient states that his wheezing seems to worsen when supine but does not worsen with activity. He denies chest pain, dizziness, fever, coughing, sputum production, and change in mental status above baseline. Patient's notes concern since the patient historically was hospitalized for pneumonia. Patient has a past medical history consistent with CAD (stent x 1 in LAD) and atrial fibrillation but is stable with medication management from cardiology. ROS Const Constitutional: No chills, fever(s) or weakness Eyes Eyes: No irritation, discharge or eye pain ENT ENT: No ear or mastoid pain, ear discharge, nasal congestion, sinus pressure, sinus pain, nasal discharge or post nasal drip Resp Respiratory: No cough, chest congestion, excessive phlegm production or shortness of breath Cardio Cardiology: No chest pain at rest, chest pain with exertion, dyspne (more content not included)... Normal [facility] White blood cell (WBC) count Ordered By: Donna Owens on 08-18-2024 WBC (Bld) [#/Vol] 4.5 10*3/uL 4.4-11.0 [facility] No Panel InformationOrdered By: Dr. Morales on 07-27-2022 Prostate Specific Antigen Total 2.40 ng/mL 0.0-4.0 [facility] Comment on above: This test was perfor med using the TPSA assay method for theDimension chemistry system. Values obtained with differentassay methods cannot be used interchangably.When changing PSA assays in the course of monitoring apatient, additional sequential testing should be carriedout to confirm baseline values. No Panel Informationon 02-02 Prostate Specific Antigen Screen 7.70 ng/mL 0.00-4.00 [facility] Work Phone: Comment on above: This test was perfor med using the TPSA assay method for theDimension chemistry system. Values obtained with differentassay methods cannot be used interchangably.When changing PSA assays in the course of monitoring apatient, additional sequential testing should be carriedout to confirm baseline values. Absolute lymphocyte counton 12-07-2021 Lymphocytes Auto (Unsp spec) [#/Vol] 1.48 10*3/uL 0.83-4.51 [facility] Work Phone: Basophil percentageon 2021 Basophil percentage 0 SEEN /hpf 0-5 [facility] Work Phone: Basophils/100 WBC (Bld) 0.6 % 0-1 [facility] Work Phone: Bilirubin [Mass/Vol] 0.80 mg/dL 0.20-1.00 [facility] Work Phone: Comment on above: For patients on eltr ombopag therapy, use of Dimension [place] TBIL is not recommended. Chloride [Moles/Vol] 109 mmol/L 98-107 [facility] Work Phone: Eosinophils/100 WBC (Bld) 2.7 % 0-5 [facility] Work Phone: Glucose [Mass/Vol] 104 mg/dL 74-106 [facility] Work Phone: Comment on above: Fasting Glucose resu lt from 100 to 125 mg/dL suggests IMPAIRED HOMEOSTASIS per A.D.A. criteria. Neutrophils (Bld) [#/Vol] 2.8 10*3/uL 2.0-7.7 [facility] Work Phone: Neutrophils/100 WBC (Bld) 56.4 % 47-70 [facility] Work Phone: Potassium [Moles/Vol] 4.2 mmol/L 3.5-5.1 [facility] Work Phone: Protein [Mass/Vol] 6.6 g/dL 6.4-8.2 [facility] Work Phone: Sodium [Moles/Vol] 139 mmol/L 136-145 [facility] Work Phone: WBC (Bld) [#/Vol] 4.9 10*3/uL 4.4-11.0 [facility] Work Phone: Bilirubin Test strip Ql (U)o n 12-07-2021 Bilirubin Ql (U) Negative Negative [facility] Work Phone: Blood erythrocytes count (nu mber/volume)on 12-07-2021 RBC (Bld) [#/Vol] 4.34 10*6/uL 4.6-6.2 [facility] Work Phone: Blood hemoglobin measurement (mass/volume)on 12-07-2021 Hemoglobin (Bld) [Mass/Vol] 13.9 g/dL 13.0-16.5 [facility] Work Phone: Blood lymphocytes/100 leukoc yteson 12-07-2021 Lymphocytes/100 WBC (Bld) 30.3 % 19-41 [facility] Work Phone: [phone] Blood monocytes/100 leukocyt eson 12-07-2021 Monocytes/100 WBC (Bld) 9.6 % 0-10 [facility] Work Phone: Blood platelet mean volumeon 12-07-2021 Platelet mean volume (Bld) [Entitic vol] 10.1 fL 6.2-12.0 [facility] Work Phone: Determination of erythrocyte mean corpuscular volume (MCV)on 12-07-2021 MCV (RBC) [Entitic vol] 92.4 fL 80-94 [facility] Work Phone: Hematocrit Auto (Bld) [Volum e fraction]on 12-07-2021 Hematocrit (Bld) [Volume fraction] 40.1 % 40-54 [facility] Work Phone: Ketones Test strip Ql (U)on 12-07-2021 Ketones Ql (U) Negative Negative [facility] Work Phone: Laboratory - Chemistry and C hemistry - challengeon 12-07-2021 ALP [Catalytic activity/Vol] 76 U/L 45-117 [facility] Work Phone: ALT [Catalytic activity/Vol] 30 U/L 16-61 [facility] Work Phone: CO2 [Moles/Vol] 26.0 mmol/L 21.0-32.0 [facility] Work Phone: Globulin (S) [Mass/Vol] 3.4 g/dL 2.2-4.2 [facility] Work Phone: Urea nitrogen/Creatinine [Mass ratio] 13.4 mg/mg 10-20 [facility] Work Phone: Laboratory - Hematology and Cell countson 12-07-2021 Erythrocyte distribution width (RBC) [Entitic vol] 41.1 fL 35.1-43.9 [facility] Work Phone: Erythrocyte distribution width (RBC) [Ratio] 11.9 % 11.6-14.6 [facility] Work Phone: Immature granulocytes/100 WBC (Bld) 0.400 % 0.0-0.9 [facility] Work Phone: Comment on above: IG% - Immature Granu locytes (promyelocytes, myelocytes and metamyelocytes) > 1% indicates that a LEFT SHIFT is Present. MCH (RBC) [Entitic mass] 32.0 pg 27.0-32.0 [facility] Work Phone: Nucleated RBC/100 WBC (Bld) [Ratio] 0 % 0-5 [facility] Work Phone: MCHC Auto (RBC) [Mass/Vol]on 12-07-2021 MCHC (RBC) [Mass/Vol] 34.7 g/dL 32-36 [facility] Work Phone: Mucus LM Ql (Urine sed)on Mucus Ql (Urine sed) 0 SEEN /hpf [facility] Work Phone: Nitrite Test strip Ql (U)on 12-07-2021 Nitrite Ql (U) Negative Negative [facility] Work Phone: No Panel Informationon 12-07 Estimated Creatinine Clearance Calc 43.91 ml/min [facility] Work Phone: Estimated GFR (MDRD) Amer 69 mL/min >60 [facility] Work Phone: Comment on above: GFR Calc Estimated GFR (MDRD) Non-Af Amer 57 mL/min >60 [facility] Work Phone: Comment on above: Non- GFR Calc Troponin I High Sensitivity 5 pg/mL 3.0-78.0 [facility] Work Phone: Comment on above: Please Note: New Prisca t Units and Gender Specific Reference Ranges. For more information see Policy Stat Procedure [place] High Sensitivity Troponin (TNIH) and attachments. Platelets bldon 12-07-2021 Platelets (Bld) [#/Vol] 143 10*3/uL 150-450 [facility] Work Phone: Protein Test strip Ql (U)on 12-07-2021 Protein Ql (U) Negative Negative [facility] Work Phone: Serum or plasma albumin sofi urement (mass/volume)on 12-07-2021 Albumin [Mass/Vol] 3.2 g/dL 3.2-5.0 [facility] Work Phone: Serum or plasma albumin/glob ulin mass ratioon 12-07-2021 Albumin/Globulin [Mass ratio] 0.9 {ratio} 0.9-2.4 [facility] Work Phone: Serum or plasma calcium sofi urement (mass/volume)on 12-07-2021 Calcium [Mass/Vol] 9.1 mg/dL 8.5-10.1 [facility] Work Phone: Serum or plasma creatinine m easurement (mass/volume)on 12-07-2021 Creatinine [Mass/Vol] 1.27 mg/dL 0.70-1.30 [facility] Work Phone: Comment on above: The validity of the calculated GFR & GFRAA in patients over 70 years has not been determined. Clinical correlation is essential. Serum or plasma urea nitroge n measurement (mass/volume)on 12-07-2021 Urea nitrogen [Mass/Vol] 17 mg/dL 7-18 [facility] Work Phone: Squamous epithelial cells de tection in urine sediment by light microscopyon 12-07-2021 Epithelial cells.squamous LM Ql (Urine sed) 0 SEEN /hpf 0-5 [facility] Work Phone: Thin prep Papanicolaou smear with manual screeningon 12-07-2021 Thin prep Papanicolaou smear with manual screening 16 U/L 15-37 [facility] Work Phone: Thin prep Papanicolaou smear with manual screening 4 5-15 [facility] Work Phone: Urine blood detectionon 11-10 RBC Ql (U) Negative Negative [facility] Work Phone: RBC Ql (U) 0 SEEN /hpf 0-5 [facility] Work Phone: Urine clarityon 12-07-2021 Clarity (U) Clear Clear [facility] Work Phone: Urine color determinationon 12-07-2021 Color (U) Yellow Yellow [facility] Work Phone: Urine glucose detectionon Glucose Ql (U) Normal mg/dl Normal [facility] Work Phone: Urine leukocyte esterase det ection by dipstickon 12-07-2021 Leukocyte esterase Test strip Ql (U) Negative Negative [facility] Work Phone: Urine pHon 12-07-2021 pH (U) 7.0 [pH] 5.0 - 8.0 [facility] Work Phone: Urine sediment bacteria coun t by microscopy (number/high power field)on 12-07-2021 Bacteria LM.HPF (Urine sed) [#/Area] 0 /[HPF] None Seen [facility] Work Phone: Urine specific gravity measu rementon 12-07-2021 Specific gravity (U) [Rel density] 1.005 1.002-1.030 [facility] Work Phone: Urobilinogen Auto test strip Ql (U)on 12-07-2021 Urobilinogen Ql (U) Normal mg/dl Normal [facility] Work Phone: Basophil percentageon 2021 Bilirubin [Mass/Vol] 0.80 mg/dL 0.20-1.00 [facility] Work Phone: Comment on above: For patients on eltr ombopag therapy, use of Dimension [place] TBIL is not recommended. Protein [Mass/Vol] 6.8 g/dL 6.4-8.2 [facility] Work Phone: Direct bilirubinon 2 Bilirubin.direct [Mass/Vol] 0.21 mg/dL 0.00-0.30 [facility] Work Phone: INR in Blood by Coagulation assayon 12-01-2021 INR Coag (Bld) [Relative time] 1.0 {INR} [facility] Work Phone: Laboratory - Chemistry and C hemistry - challengeon 12-01-2021 ALP [Catalytic activity/Vol] 68 U/L 45-117 [facility] Work Phone: ALT [Catalytic activity/Vol] 22 U/L 16-61 [facility] Work Phone: Globulin (S) [Mass/Vol] 3.4 g/dL 2.2-4.2 [facility] Work Phone: Laboratory - Coagulationon 0 12-01-2021 aPTT Coag (Bld) [Time] 58.4 s 24.1-36.2 [facility] Work Phone: PT Coag (PPP) [Time] 12.8 s 11.7-14.9 [facility] Work Phone: No Panel Informationon 12-01 Thyroid Stimulating Hormone (TSH) 2.67 uIU/mL 0.358-3.74 [facility] Work Phone: Serum or plasma albumin sofi urement (mass/volume)on 12-01-2021 Albumin [Mass/Vol] 3.4 g/dL 3.2-5.0 [facility] Work Phone: Thin prep Papanicolaou smear with manual screeningon 12-01-2021 Thin prep Papanicolaou smear with manual screening 23 U/L 15-37 [facility] Work Phone: Absolute lymphocyte counton 11-20-2021 Lymphocytes Auto (Unsp spec) [#/Vol] 1.81 10*3/uL 0.83-4.51 [facility] Work Phone: Basophil percentageon 2021 Basophils/100 WBC (Bld) 0.9 % 0-1 [facility] Work Phone: Bilirubin [Mass/Vol] 0.60 mg/dL 0.20-1.00 [facility] Work Phone: Comment on above: For patients on eltr ombopag therapy, use of Dimension [place] TBIL is not recommended. Chloride [Moles/Vol] 109 mmol/L 98-107 [facility] Work Phone: Eosinophils/100 WBC (Bld) 2.4 % 0-5 [facility] Work Phone: [phone] Glucose [Mass/Vol] 93 mg/dL 74-106 [facility] Work Phone: [phone] Neutrophils (Bld) [#/Vol] 2.1 10*3/uL 2.0-7.7 [facility] Work Phone: [phone] Neutrophils/100 WBC (Bld) 47.4 % 47-70 [facility] Work Phone: [phone] Potassium [Moles/Vol] 4.1 mmol/L 3.5-5.1 [facility] Work Phone: [phone] Protein [Mass/Vol] 6.9 g/dL 6.4-8.2 [facility] Work Phone: [phone] Sodium [Moles/Vol] 142 mmol/L 136-145 [facility] Work Phone: WBC (Bld) [#/Vol] 4.5 10*3/uL 4.4-11.0 [facility] Work Phone: Blood erythrocytes count (nu mber/volume)on 11-20-2021 RBC (Bld) [#/Vol] 4.35 10*6/uL 4.6-6.2 [facility] Work Phone: [phone] Blood hemoglobin measurement (mass/volume)on 11-20-2021 Hemoglobin (Bld) [Mass/Vol] 13.8 g/dL 13.0-16.5 [facility] Work Phone: [phone] Blood lymphocytes/100 leukoc yteson 11-20-2021 Lymphocytes/100 WBC (Bld) 40.0 % 19-41 [facility] Work Phone: [phone] Blood monocytes/100 leukocyt eson 11-20-2021 Monocytes/100 WBC (Bld) 9.3 % 0-10 [facility] Work Phone: Blood platelet mean volumeon 11-20-2021 Platelet mean volume (Bld) [Entitic vol] 11.2 fL 6.2-12.0 [facility] Work Phone: Determination of erythrocyte mean corpuscular volume (MCV)on 11-20-2021 MCV (RBC) [Entitic vol] 97.0 fL 80-94 [facility] Work Phone: Hematocrit Auto (Bld) [Volum e fraction]on 11-20-2021 Hematocrit (Bld) [Volume fraction] 42.2 % 40-54 [facility] Work Phone: Laboratory - Chemistry and C hemistry - challengeon 11-20-2021 ALP [Catalytic activity/Vol] 65 U/L 45-117 [facility] Work Phone: ALT [Catalytic activity/Vol] 23 U/L 16-61 [facility] Work Phone: CO2 [Moles/Vol] 28.0 mmol/L 21.0-32.0 [facility] Work Phone: Globulin (S) [Mass/Vol] 3.3 g/dL 2.2-4.2 [facility] Work Phone: Lipase [Catalytic activity/Vol] 121 U/L 73-393 [facility] Work Phone: Urea nitrogen/Creatinine [Mass ratio] 15.0 mg/mg 10-20 [facility] Work Phone: Laboratory - Hematology and Cell countson 11-20-2021 Erythrocyte distribution width (RBC) [Entitic vol] 43.9 fL 35.1-43.9 [facility] Work Phone: Erythrocyte distribution width (RBC) [Ratio] 12.3 % 11.6-14.6 [facility] Work Phone: Immature granulocytes/100 WBC (Bld) 0.000 % 0.0-0.9 [facility] Work Phone: Comment on above: IG% - Immature Granu locytes (promyelocytes, myelocytes and metamyelocytes) > 1% indicates that a LEFT SHIFT is Present. MCH (RBC) [Entitic mass] 31.7 pg 27.0-32.0 [facility] Work Phone: Nucleated RBC/100 WBC (Bld) [Ratio] 0 % 0-5 [facility] Work Phone: MCHC Auto (RBC) [Mass/Vol]on 11-20-2021 MCHC (RBC) [Mass/Vol] 32.7 g/dL 32-36 [facility] Work Phone: No Panel Informationon 11-20 Estimated GFR (MDRD) Amer 74 mL/min >60 [facility] Work Phone: Comment on above: GFR Calc Estimated GFR (MDRD) Non-Af Amer 61 mL/min >60 [facility] Work Phone: Comment on above: Non- GFR Calc Platelets bldon 11-20-2021 Platelets (Bld) [#/Vol] 142 10*3/uL 150-450 [facility] Work Phone: Serum or plasma C reactive p rotein measurement (mass/volume)on 11-20-2021 CRP [Mass/Vol] mg/L 0.0-3.0 [facility] Work Phone: Comment on above: C-Reactive Protein ( CRP) provides useful information for thediagnosis, therapy and monitoring of inflammatory processesand associated diseases. For the evaluation of Relative Riskfor Cardiovascular Disease, a High Sensitivity CRP (HSCRP)should be ordered. Serum or plasma albumin sofi urement (mass/volume)on 11-20-2021 Albumin [Mass/Vol] 3.6 g/dL 3.2-5.0 [facility] Work Phone: Serum or plasma albumin/glob ulin mass ratioon 11-20-2021 Albumin/Globulin [Mass ratio] 1.1 {ratio} 0.9-2.4 [facility] Work Phone: Serum or plasma calcium sofi urement (mass/volume)on 11-20-2021 Calcium [Mass/Vol] 9.0 mg/dL 8.5-10.1 [facility] Work Phone: Serum or plasma creatinine m easurement (mass/volume)on 11-20-2021 Creatinine [Mass/Vol] 1.20 mg/dL 0.70-1.30 [facility] Work Phone: Comment on above: The validity of the calculated GFR & GFRAA in patients over 70 years has not been determined. Clinical correlation is essential. Serum or plasma urea nitroge n measurement (mass/volume)on 11-20-2021 Urea nitrogen [Mass/Vol] 18 mg/dL 7-18 [facility] Work Phone: Thin prep Papanicolaou smear with manual screeningon 11-20-2021 Thin prep Papanicolaou smear with manual screening 14 U/L 15-37 [facility] Work Phone: Thin prep Papanicolaou smear with manual screening 5 5-15 [facility] Work Phone: CORONAVIRUS PCR - [facility] 12-09-2020 SARS-CoV-2 (COVID-19) RNA HEMAL+probe Ql (Unsp spec) Negative Normal NORMAL: NEGATIVE [facility] Comment on above: Performed By: [id number] #### [facility],[address] [place] [address] SEND TO IC? YES Normal [facility] Comment on above: Result Comment: RESU LTS FAXED TO INFECTION CONTROL. SARS-CoV-2 THIS TEST IS BEING USED UNDER THE FDA EUA PROCEDURE. THIS ASSAY HAS BEEN VALIDATED IN THE [facility] FOR USE WITH NASOPHARYNGEAL SPECIMENS IN [facility]. INTERPRETIVE DATA LABORATORY TEST RESULTS SHOULD ALWAYS BE CONSIDERED IN THE CONTEXT OF CLINICAL OBSERVATIONS AND EPIDEMIOLOGICAL DATA IN MAKING FINAL DIAGNOSIS AND PATIENT MANAGEMENT DECISIONS. PATIENT MANAGEMENT SHOULD FOLLOW CURRENT CDC GUIDELINES. A POSITIVE TEST RESULT FOR COVID-19 INDICATES THAT RNA FROM SARS-CoV-2 WAS DETECTED, AND THE PATIENT IS INFECTED WITH THE VIRUS AND PRESUMED TO BE CONTAGIOUS. A NEGATIVE TEST RESULT FOR THIS TEST MEANS THAT SARS-CoV-2 RNA WAS NOT PRESENT IN THE SPECIMEN ABOVE THE LIMIT OF DETECTION. HOWEVER, A NEGATVIE RESULT DOES NOT RULE OUT COVID-19 AND SHOULD NOT BE USED THE SOLE BASIS FOR TREATMENT OR PATIENT MANAGEMENT DECISIONS. A NEGATIVE RESULT DOES NOT EXCLUDE THE POSSIBILITY OF COVID-19. WHEN DIAGNOSTIC TESTING IS NEGATIVE, THE POSSIBLILTY OF A FALSE NEGATIVE RESULT SHOULD BE CONSIDERED IN THE CONTEXT OF A PATIENT'S RECENT EXPOSURES AND THE PRESENCE OF CLINICAL SIGNS AND SYMPTOMS CONSISTENT WITH COVID-19. THE POSSIBILITY OF A FALSE NEGATIVE RESULT SHOULD ESPECIALLY BE CONSIDERED IF THE PATIENT'S RECENT EXPOSURES OR CLINICAL PRESENTATION INDICATE THAT COVID-19 IS LIKELY, AND DIAGNOSTIC TESTS FOR OTHER CAUSES OF ILLNESS (e.g., OTHER RESPIRATORY ILLNESS) ARE NEGATIVE. IF COVID-19 IS STILL SUSPECTED BASED ON EXPOSURE HISTORY TOGETHER WITH OTHER CLINICAL FINDINGS, RE-TESTED SHOULD BE CONSIDERED BY HEALTHCARE PROVIDERS IN CONSULTATION WITH PUBLIC HEALTH AUTHORITIES. Performed By: #### [id number] #### No[facility],[address] [place] [id number] Surgical Pathologyon 018 Surgical Pathology [id number] [facility] PATHOLOGY AND LABORATORY MEDICINE [address] [place] [address] FINAL SURGICAL PATHOLOGY REPORT NAME: ANGELIKA LUNA .O.B.: 1935 81 Y M BILLING NO.: [id number] PROCEDURE 10/28/2017 DATE:SURGEON: SARAH NAGEL RECEIVED 10/28/2017 DATE:ATTENDING: SARA MEADOWS MD REPORT DATE: 10/31/2017 COPIES TO: DIAGNOSIS:SKIN, LEFT THIGH, PUNCH (DIF) - NEGATIVE DIRECT IMMUNOFLUORESCENCE.Comm ent: Direct antibody localization demonstrates no evidence ofimmunoreactivity for immunoglobulins IgG, IgM, IgA, complement C3, orfibrinogen on sections of frozen skin.LILLIAN CALDERÓN M.D. CLINICAL INFORMATION: Atypical nevi versus BP versus urticariaSPECIMEN: SKIN GROSS DESCRIPTION:Left thighReceived in Polytransport buffer is a core of pink-baltazar, hair-bearingskin that measures 0.2 x 0.2 x 0.4 cm. Specimen will be entirelysubmitted into a single cassette and set aside for special processing.(1 ns, 1) ASJ/JAFDisclaimer: The following statement applies to allimmunohistochemistry , in situ hybridization, molecular studies, andimmunofluorescence testing.The use of one or more reagents in the above tests is regulated as ananalyte specific reagent (ASR). These tests were developed and theirperformance characteristics determined by the clinical laboratories [facility]. They have not been cleared by the US Food and DrugAdministration (FDA). The FDA has determined that such clearance orapproval is not necessary.All the above immunostains were performed on paraffin embedded tissue.Appropriate positive and negative controls (where applicable) were runin parallel with the patient's specimen; these controls showed expectedstaining pattern, with acceptable intensity of staining.Immunohistoche mical assays have not been validated on decalcifiedtissues. Results should be interpreted with caution given the raisedpossibility of false negativity on decalcified specimens.Professional Performing Location: [address] [address]. 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 Left ventricular Ejection fraction 75 % Invalid Interpretation Code [facility] Work Phone: [phone] Office Visiton 12-22-2016 Dietary management education, guidance, and counseling (procedure) yes Invalid Interpretation Code [facility] Phone: [phone] Documentation of current medications (procedure) Done Invalid Interpretation Code [facility] Phone: [phone] Fall risk assessment No Invalid Interpretation Code [facility] Phone: [phone] Tobacco use CPHS Former smoker Invalid Interpretation Code [facility] Work Phone: [phone] Replaced Document: Shaylee MORGAN Observationson 03-16-2016 EKG QRS axis -40 deg Invalid Interpretation Code [facility] Phone: [phone] Interpretation Sinus Bradycardia -L eft axis -anterior fascicular block. -consider old anterior infarct. ABNORMAL Invalid Interpretation Code [facility] Phone: [phone] P [place] 31 deg Invalid Interpretation Code [facility] Phone: [phone] OR Interval 194 ms Invalid Interpretation Code [facility] Phone: [phone] Pulse (Heart Rate) 57 /min Invalid Interpretation Code [facility] Phone: [phone] QRS Duration 102 ms Invalid Interpretation Code [facility] Phone: [phone] QT Interval new path ms Invalid Interpretation Code [facility] Phone: [phone] QTc Geller 421 ms Invalid Interpretation Code [facility] Phone: [phone] T [place] 39 deg Invalid Interpretation Code [facility] Phone: [phone] Lab Report: Basic Metabolic Profile (BMP)on 03-09-2016 Anion gap 7 mmol/L Invalid Interpretation Code 5-15 [facility] Phone: [phone] BUN/Creatinine Ratio 16.0 RATIO Invalid Interpretation Code 10-20 [facility] [employer] Work Phone: [phone] Calcium 9.2 mg/dL Invalid Interpretation Code 8.5-10.1 [facility] Phone: [phone] Chloride 110 mmol/L High 98-107 [facility] Phone: [phone] CO2 27.0 mmol/L Invalid Interpretation Code 21.0-32.0 [facility] [employer] Work Phone: [phone] Creatinine 1.19 mg/dL Invalid Interpretation Code 0.70-1.30 [facility] Work Phone: [phone] eGFR (non-black) 76 mL/min/{1.73_m2} Invalid Interpretation Code >60 [employer] Work Phone: [phone] eGFR (non-black) 63 mL/min/{1.73_m2} Invalid Interpretation Code >60 [employer] Work Phone: [phone] Glucose mass conc 92 mg/dL Invalid Interpretation Code 70-110 [employer] Work Phone: [phone] Potassium molar conc 4.2 mmol/L Invalid Interpretation Code 3.5-5.1 [facility] Work Phone: [phone] Sodium 144 mmol/L Invalid Interpretation Code 136-145 [employer] Work Phone: [phone] Urea nitrogen 19 mg/dL High 7-18 [facility] [employer] Work Phone: [phone] Lab Report: Lipid Profileon 03-09-2016 Cholesterol 164 mg/dL Invalid Interpretation Code 200 [employer] Work Phone: [phone] HDL Cholesterol 46 mg/dL Invalid Interpretation Code [facility] Work Phone: [phone] LDL Cholesterol 102 mg/dL Invalid Interpretation Code 0-130 [employer] [employer] Work Phone: [phone] Triglyceride 80 mg/dL Invalid Interpretation Code [facility] [facility] Work Phone: [phone] very low density lipoproteins 16 mg/dL Invalid Interpretation Code 5-40 [facility] Work Phone: [phone] Lab Report: Liver Profileon 03-09-2016 Alanine aminotransferase (ALT) 18 U/L Invalid Interpretation Code 12-78 [employer] Work Phone: [phone] Albumin 3.6 g/dL Invalid Interpretation Code 3.4-5.0 [facility] Work Phone: [phone] Alkaline phosphatase (ALP) 90 U/L Invalid Interpretation Code 45-117 [employer] Work Phone: [phone] Aspartate aminotransferase (AST) 12 U/L Low 15-37 [employer] Work Phone: [phone] Bilirubin (direct) 0.21 mg/dL Invalid Interpretation Code 0.00-0.30 [facility] Work Phone: [phone] Bilirubin (total) 0.80 mg/dL Invalid Interpretation Code 0.20-1.00 [facility] [employer] Work Phone: [phone] Globulin 3.2 g/dL Invalid Interpretation Code 2.3-3.5 [facility] Work Phone: [phone] Protein 6.8 g/dL Invalid Interpretation Code 6.4-8.2 [employer] Work Phone: [phone] External Other: Preferred Me thod of Contacton 09-06-2015 methcontact secmsg Invalid Interpretation Code [facility] Work Phone: [phone] Lab Report: SANDRA w/Comprehens iveon 08-30-2015 anti-centromere antibody, serum <0.2 AI Invalid Interpretation Code 0.0-0.9 [facility] Work Phone: [phone] ANTI-DELTA <0.2 AI Invalid Interpretation Code 0.0-0.9 [facility] Work Phone: [phone] DNA double strand antibody 1 [IU]/mL Invalid Interpretation Code 0-9 [facility] Work Phone: [phone] ribonucleoprotein extractable nuclear antibody, serum, quantitative <0.2 AI Invalid Interpretation Code 0.0-0.9 [facility] [employer] Work Phone: [phone] SCL-70 extractable nuclear Ab, serum <0.2 Invalid Interpretation Code 0.0-0.9 [facility] Work Phone: [phone] Sjogren's syndrome-A, extractable nuclear Ab, serum 2.1 High 0.0-0.9 [facility] Work Phone: [phone] Sjogren's syndrome-B, extractable nuclear Ab, serum < 0.2 Invalid Interpretation Code 0.0-0.9 [facility] Work Phone: [phone] MORALES Ab <0.2 Invalid Interpretation Code 0.0-0.9 [facility] Work Phone: [phone] Lab Report: Rapid Plasmin Re agin (RPR)on 08-29-2015 Reagin antibody presence REACTIVE High NONREACTIVE [facility] Work Phone: Lab Report: ANTINUCLEAR ANTI BODIES DIRECTon 08-28-2015 SANDRA Titer Positive High Negative [employer] Work Phone: [phone] Lab Report: Erythrocyte Sed Rateon 08-25-2015 Erythrocyte sedimentation rate 8 mm/h Invalid Interpretation Code 0-20 [facility] Work Phone: Lab Report: Ferritinon 08-24 Ferritin 145 ng/mL Invalid Interpretation Code 26-388 [facility] Work Phone: [phone] Lab Report: Folates, (Folic Acid)on 08-25-2015 Folate 42.80 ng/mL High 3.1-17.5 [facility] Work Phone: [phone] Lab Report: Free T3on 2015 Triiodothyronine (T3) free 2.5 pg/mL Invalid Interpretation Code 2.18-3.98 [facility] Work Phone: Lab Report: Partial Thrombop last Timeon 08-25-2015 aPTT 40.3 s High 24.1-36.2 [facility] Work Phone: Lab Report: Prothrombin Time w/INRon 08-25-2015 INR Coag RelTime (PPP) 0.9 {INR} Invalid Interpretation Code [facility] Work Phone: [phone] Prothrombin time (PT) Coag time (PPP) 12.3 s Invalid Interpretation Code 11.7-14.9 [facility] Work Phone: Lab Report: T4 Free Directon 08-25-2015 Thyroxine (T4) free 0.96 ng/dL Invalid Interpretation Code 0.76-1.46 [facility] Work Phone: Lab Report: Thyroid Stim Hor gerald (TSH)on 08-25-2015 Thyroid stimulating hormone (TSH) 3.44 u[iU]/mL Invalid Interpretation Code 0.358-3.74 [facility] Work Phone: Lab Report: Vitamin B12on Cobalamins (Vitamin B12) 634 pg/mL Invalid Interpretation Code 211-911 [facility] Work Phone: [phone] Replaced Document: (P) CBC W /Diff, Automatedon 08-25-2015 Absolute Neut 2.3 X10 3/UL Invalid Interpretation Code 2.0-7.7 [facility] Work Phone: [phone] Basophils/100 WBC Auto (Bld) 0.4 % Invalid Interpretation Code 0-1 [facility] Work Phone: [phone] Eosinophils/100 leukocytes 2.2 % Invalid Interpretation Code 0-5 [facility] Work Phone: [phone] Erythrocyte distribution width Auto Ratio (RBC) 12.9 % Invalid Interpretation Code 11.6-14.6 [facility] Work Phone: [phone] Erythrocytes (RBC) 4.53 10*6/uL Low 4.6-6.[address] [facility] Work Phone: [phone] Hematocrit (HCT) 42.6 % Invalid Interpretation Code 40-54 [facility] Work Phone: [phone] Hemoglobin mass conc (Bld) 14.2 g/dL Invalid Interpretation Code 13.0-16.5 [facility] Work Phone: [phone] Immature granulocytes/100 WBC (Bld) 0.200 % Invalid Interpretation Code 0.0-0.9 [facility] Work Phone: [phone] Lymphocytes 1.65 X10 3/UL Invalid Interpretation Code 0.83-4.51 [facility] Work Phone: [phone] Lymphocytes/100 leukocytes 36.7 % Invalid Interpretation Code 19-41 [facility] Work Phone: [phone] MCH 31.3 pg Invalid Interpretation Code 27.0-32.0 [facility] Work Phone: [phone] MCHC mass conc (RBC) 33.3 G/GL Invalid Interpretation Code 32-36 [facility] Work Phone: [phone] MCV 94.0 fL Invalid Interpretation Code 80-94 [facility] Work Phone: [phone] Monocytes/100 leukocytes 10.0 % Invalid Interpretation Code 0-10 [facility] Work Phone: Neutrophils/100 WBC Auto (Bld) 50.5 % Invalid Interpretation Code 47-70 [facility] Work Phone: [phone] Platelets 134 10*3/mm3 Low 150-450 [facility] Work Phone: [phone] PMV by Carina 12.0 fL Invalid Interpretation Code 6.2-12.0 [facility] Work Phone: [phone] RDW SD 43.2 fL Invalid Interpretation Code 35.1-43.9 [facility] Work Phone: [phone] WBC (Leukocytes) 4.5 10*3/uL Invalid Interpretation Code 4.4-11.0 [facility] Work Phone: [phone] Office Visiton 08-26-2014 cardiac risk group C Invalid Interpretation Code [facility] Work Phone: [phone] General cardiovascular disease 10Y risk [#] [place].Janneth'Agostnabil N/A Invalid Interpretation Code [facility] Work Phone: [phone] Lab Report: Comprehensive Wy tabolic Profilon 08-21-2014 Albumin/Globulin Ratio 1.1 {ratio} Invalid Interpretation Code 0.9-2.4 [facility] Work Phone: [phone] Replaced Document: [employer] E CG Observationson 01-13-2012 Pulse (Heart Rate) 406 ms Invalid Interpretation Code [facility] Work Phone: [phone] Office Visiton 06-28-2011 Alcoholism counseling (procedure) no Invalid Interpretation Code [facility] Work Phone: [phone] Culture, urine Bacteria identified Cx Nom (U) Culture exhibits no growth. [facility] Work Phone: Vital Signs Date Time Vital Sign Value Performing Clinician Faci lity 01-29-2025 13:32-0400 Body height 177.[address] Curly Morales MD Work Phone: [facility] 01-29-2025 13:32-0400 Body mass index (BMI) [Ratio] 27.9 kg/m2 Dr. Curly Morales MD Work Phone: [facility] 01-29-2025 13:32-0400 Body weight 88.[address] Curly Morales MD Work Phone: [phone])256-975567 [place] [address] 01-29-2025 13:32-0400 Diastolic blood pressure 59 mm[Hg] Dr. Curly Morales MD Work Phone: 0(129)590-052165 [place] [address] 01-29-2025 13:32-0400 Heart rate 55 /min Dr. Curly Morales MD Work Phone: 0(745)770-268765 [place] [address] 01-29-2025 13:32-0400 Respiratory rate 16 /min Dr. Curly Morales MD Work Phone: 6(003)949-926265 [place] [address] 01-29-2025 13:32-0400 Systolic blood pressure 100 mm[Hg] Dr. Curly Morales MD Work Phone: 6(281)711-147465 [place] [address] 08-19-2024 00:18-0400 Body temperature 98.1 [degF] Dr. Curly Morales MD Work Phone: 1(039)238-826165 [place] [address] 08-19-2024 00:18-0400 Diastolic blood pressure 62 mm[Hg] Dr. Curly Morales MD Work Phone: 3(468)454-105965 [place] [address] 08-19-2024 00:18-0400 Heart rate 55 /min Dr. Curly Morales MD Work Phone: 3(639)515-056465 [place] [address] 08-19-2024 00:18-0400 Respiratory rate 16 /min Dr. Curly Morales MD Work Phone: 3([phone])967-392265 [place] [address] 08-19-2024 00:18-0400 SaO2% (BldA) [Mass fraction] 97 % Dr. Curly Morales MD Work Phone: 9(282)029-707365 [place] [address] 08-19-2024 00:18-0400 Systolic blood pressure 107 mm[Hg] Dr. Curly Morales MD Work Phone: 2([phone])760-635865 [place] [address] 08-18-2024 22:41-0400 Body height 177.[address] Curly Morales MD Work Phone: 8([phone])953-770465 [place] [address] 08-18-2024 22:41-0400 Body mass index (BMI) [Ratio] 28.4 kg/m2 Dr. Curly Morales MD Work Phone: [facility] 08-18-2024 22:41-0400 Body weight 89.[address] Curly Morales MD Work Phone: [facility] 08-18-2024 10:25-0400 Body temperature 97.7 [degF] Dr. Curly Morales MD Work Phone: [facility] 08-18-2024 10:25-0400 Diastolic blood pressure 68 mm[Hg] Dr. Curly Morales MD Work Phone: [facility] 08-18-2024 10:25-0400 Heart rate 91 /min Dr. Curly Morales MD Work Phone: [facility] 08-18-2024 10:25-0400 Respiratory rate 16 /min Dr. Curly Morales MD Work Phone: 3([phone])407-934465 [address] 08-18-2024 10:25-0400 SaO2% (BldA) [Mass fraction] 97 % Dr. Curly Morales MD Work Phone: [facility] 08-18-2024 10:25-0400 Systolic blood pressure 118 mm[Hg] Dr. Curly Morales MD Work Phone: [facility] 06-18-2022 13:09-0500 Body height 177.[address] Curly Morales Work Phone: [facility] 06-18-2022 13:09-0500 Body mass index (BMI) [Ratio] 27.8 kg/m2 Dr. Curly Morales Work Phone: [facility] 06-18-2022 13:09-0500 Body weight 88.[address] Curly Morales Work Phone: [facility] 06-18-2022 13:09-0500 Diastolic blood pressure 60 mm[Hg] Dr. Curly Morales Work Phone: [facility] 06-18-2022 13:09-0500 Heart rate 60 /min Dr. Curly Morales Work Phone: [facility] 06-18-2022 13:09-0500 Respiratory rate 16 /min Dr. Curly Morales Work Phone: [facility] 06-18-2022 13:09-0500 Systolic blood pressure 110 mm[Hg] Dr. Curly Morales Work Phone: [facility] 12-10-2021 13:31-0400 Body height 177.[address] Curly Morales Work Phone: [facility] Work Phone: 12-10-2021 13:31-0400 Body mass index (BMI) [Ratio] 27.6 kg/m2 Dr. Curly Morales Work Phone: [facility] Work Phone: 12-10-2021 13:31-0400 Body weight 87.[address] Curly Morales Work Phone: [facility] Work Phone: 12-10-2021 13:31-0400 Diastolic blood pressure 58 mm[Hg] Dr. Curly Morales Work Phone: [facility] Work Phone: 12-10-2021 13:31-0400 Heart rate 60 /min Dr. Curly Morales Work Phone: [facility] Work Phone: 12-10-2021 13:31-0400 Respiratory rate 16 /min Dr. Curly Morales Work Phone: [facility] Work Phone: 12-10-2021 13:31-0400 Systolic blood pressure 114 mm[Hg] Dr. Curly Morales Work Phone: [facility] Work Phone: 12-07-2021 15:27-0400 Diastolic blood pressure 63 mm[Hg] Dr. Curly Morales Work Phone: [facility] Work Phone: 12-07-2021 15:27-0400 Heart rate 84 /min Dr. Curly Morales Work Phone: [facility] Work Phone: 12-07-2021 15:27-0400 Respiratory rate 18 /min Dr. Curly Morales Work Phone: [facility] Work Phone: 12-07-2021 15:27-0400 SaO2% (BldA) [Mass fraction] 97 % Dr. Curly Morales Work Phone: [facility] Work Phone: 12-07-2021 15:27-0400 Systolic blood pressure 108 mm[Hg] Dr. Curly Morales Work Phone: [facility] Work Phone: 12-07-2021 10:38-0400 Body height 177.[address] Curly Morales Work Phone: [facility] Work Phone: 12-07-2021 10:38-0400 Body mass index (BMI) [Ratio] 27.4 kg/m2 Dr. Curly Morales Work Phone: [facility] Work Phone: 12-07-2021 10:38-0400 Body temperature 97.5 [degF] Dr. Curly Morales Work Phone: [facility] Work Phone: 12-07-2021 10:38-0400 Body weight 86.[address] Curly Morales Work Phone: [facility] Work Phone: 12-02-2021 15:02-0400 Body temperature 97.5 [degF] Dr. Curly Morales Work Phone: [facility] Work Phone: 12-02-2021 15:02-0400 Diastolic blood pressure 72 mm[Hg] Dr. Curly Morales Work Phone: [facility] Work Phone: 12-02-2021 15:02-0400 Heart rate 61 /min Dr. Curly Morales Work Phone: [facility] Work Phone: 12-02-2021 15:02-0400 Respiratory rate 18 /min Dr. Curly Morales Work Phone: [facility] Work Phone: 12-02-2021 15:02-0400 SaO2% (BldA) [Mass fraction] 100 % Dr. Curly Morales Work Phone: [facility] Work Phone: 12-02-2021 15:02-0400 Systolic blood pressure 139 mm[Hg] Dr. Curly Morales Work Phone: [facility] Work Phone: 12-02-2021 10:30-0400 Inhaled oxygen flow rate 2 L/min Dr. Curly Morales Work Phone: [facility] Work Phone: 12-02-2021 08:06-0400 Body mass index (BMI) [Ratio] 27.1 kg/m2 Dr. Curly Morales Work Phone: [facility] Work Phone: 12-02-2021 08:06-0400 Body weight [address] Curly Morales Work Phone: [facility] Work Phone: 11-26-2021 09:07-0400 Body height 177.[address] Curly Morales Work Phone: [facility] Work Phone: 11-26-2021 09:07-0400 Body mass index (BMI) [Ratio] 27.8 kg/m2 Dr. Curly Morales Work Phone: [facility] Work Phone: 11-26-2021 09:07-0400 Body weight 87.[address] Curly Morales Work Phone: [facility] Work Phone: 11-26-2021 09:07-0400 Diastolic blood pressure 69 mm[Hg] Dr. Curly Morales Work Phone: [facility] Work Phone: 11-26-2021 09:07-0400 Respiratory rate 18 /min Dr. Curly Morales Work Phone: [facility] Work Phone: 11-26-2021 09:07-0400 Systolic blood pressure 141 mm[Hg] Dr. Curly Morales Work Phone: [facility] Work Phone: 12-22-2016 15:32-0400 BMI (Body Mass Index) 29.55 kg/m2 [facility] Work Phone: 12-22-2016 15:32-0400 BP Diastolic 70 mm[Hg] [facility] Work Phone: 12-22-2016 15:32-0400 BP Systolic 118 mm[Hg] Isidra Marroquin RN [facility] Work Phone: 12-22-2016 15:32-0400 Height 177.8 cm [facility] Work Phone: 12-22-2016 15:32-0400 Pulse (Heart Rate) 60 /min [facility] Work Phone: 12-22-2016 15:32-0400 Respiratory Rate 16 /min [facility] Work Phone: 12-22-2016 15:32-0400 Weight 93.44 kg [facility] Work Phone: 03-16-2016 12:42-0500 BSA (Body Surface Area) 2.08 m2 Isidra Marroquin RN [facility] Work Phone: 06-28-2011 16:08-0400 Height 177.8 cm [facility] Work Phone: Encounters Encounter Date Encounter Type Care Provider Facility Start: 01-29-2025 End: 01-29-[address] Kt Carson MD -[facility] Work Phone: Start: 01-29-2025 End: 01-29-2025 ambulatory Curly Morales Facility:[facility] Start: 09-25-2024 End: 11-05-2024 ambulatory CURLY MORALES MD Facility:[facility] [place] Start: 09-25-2024 End: 11-05-2024 Physical therapy management AMANDA JIMENEZ [facility] Start: 09-10-2024 End: 09-10-[address] Curly Morales MD Work Phone: [facility] Work Phone: Start: 09-10-2024 End: 09-10-[address] Luis Barragan MD -Laboratory Work Phone: Start: 09-10-2024 End: 09-10-2024 ambulatory Curly Morales Facility:[facility] Start: 08-18-2024 End: 08-19-2024 Emergency department patient visit Dr. Curly Morales MD Work Phone: -Emergency Department Work Phone: Start: 08-18-2024 End: 08-18-2024 Patient encounter procedure Inocencio SMITH [facility] Work Phone: Start: 08-18-2024 End: 08-18-2024 ambulatory Curly Morales Facility:[facility] Start: 08-06-2022 End: 08-06-[address] Curly Morales Work Phone: [facility] Work Phone: Start: 08-06-2022 End: 08-06-[address] Curly Morales Work Phone: [facility] Start: 07-27-2022 End: 07-27-[address] Curly Morales Work Phone: [facility] Work Phone: Start: 07-27-2022 End: 07-27-[address] Curly Morales Work Phone: [facility] Start: 07-23-[address] Curly Morales Work Phone: [facility] Start: 06-18-2022 End: 06-18-[address] Curly Morales Work Phone: [facility] Start: 02-09-2022 End: 02-09-[address] Curly Morales Work Phone: [facility] Work Phone: Start: 02-09-2022 End: 02-09-[address] Curly Morales Work Phone: [facility] Spec[facility] Start: 02-02-2022 End: 02-02-[address] Curly Morales Work Phone: [facility] Work Phone: Start: 02-02-2022 End: 02-02-[address] Curly Morales Work Phone: [facility] Start: 12-16-2021 End: 12-16-[address] Curly Morales Work Phone: [facility] Start: 12-10-2021 End: 12-10-[address] Curly Morales Work Phone: [facility] Start: 12-07-2021 End: 12-07-2021 Emergency department patient visit Dr. Curly Morales Work Phone: [facility]Emer[facility] Start: 12-02-2021 Non-patient / Non-visit Dr. Curly Morales Work Phone: [facility] Start: 12-02-2021 End: 12-02-2021 Admission to same day surgery center [facility] Start: 12-01-2021 End: 12-02-2021 Non-patient / Non-visit Dr. Curly Morales Work Phone: [facility] Start: 11-26-2021 End: 11-26-[address] Curly Morales Work Phone: [facility] Start: 11-25-2021 End: 11-25-[address] Curly Morales Work Phone: [facility] Work Phone: Start: 11-25-2021 End: 11-25-[address] Curly Morales Work Phone: [facility] Start: 11-20-2021 End: 11-20-[address] Cruly Morales Work Phone: [facility] Start: 12-12-2020 End: 12-12-2020 ambulatory MARIA ISABEL DUMONT [facility] Start: 12-08-2020 End: 12-08-2020 ambulatory SYED DAVIS [facility] Start: 10-28-2017 Patient encounter [facility] Procedures Date Procedure Procedure Detail Performing Clinician Start: 09-10-2024 Assay of prostate sp ecific antigen total Dr. Curly Morales MD Work Phone: Comment on above: This test was perfor med using the [employer] tPSA method. Measured values of a patient sample can vary depending on the testing procedure used. PSA values determined on patient samples by different testing procedures cannot be used interchangeably. If there is a change in PSA assays while monitoring therapy, sequential testing should be performed to confirm baseline values. Start: 08-18-2024 X-ray of chest, PA a nd lateral views Dr. Curly Morales MD Work Phone: Start: 08-18-[address] Curly Morales MD Work Phone: Start: 12-07-2021 Plain chest X-ray Dr. Ranjeet Morales Work Phone: Start: 12-02-2021 Total cholecystectom y and exploration of common bile duct Dr. Curly Morales Work Phone: Start: 12-02-[address] Curly Morales Work Phone: Start: 12-02-2021 Fluoroscopic guidance Janneth Morales Work Phone: Start: 11-25-[address] Curly Morales Work Phone: Start: 12-22-2016 End: 12-22-2016 Follow Up Appt 6 months Johnny Momin MD Start: 12-22-2016 End: 12-22-2016 MMM Johnny Momin MD Start: 03-16-2016 End: 03-16-2016 Follow Up Appt 6 months Isidra yung PA-C Work Phone: Start: 03-16-2016 End: 03-16-2016 Follow Up Appt Other Isidra dubois PA-C Work Phone: Start: 03-16-2016 End: 03-16-2016 PFM Isidra Arreaga PA-C Work Phone: Start: 02-25-2016 End: 03-09-2016 *Hepatic Function Panel Johnny Momin MD Start: 02-25-2016 End: 03-09-2016 Lipid 1996 panel - Serum or Plasma Johnny Momin MD Start: 09-01-2015 End: 09-01-2015 Follow Up Appt 6 months Johnny Momin MD Start: 09-01-2015 End: 09-01-2015 MMM Johnny Momin MD Start: 08-25-2015 End: 08-26-2015 *Hepatic Function Panel Johnny Momin MD Start: 08-25-2015 End: 08-26-2015 Lipid 1996 panel - Serum or Plasma Johnny Momin MD Start: 07-14-2015 End: 07-15-2015 Referral to neurologist Isidra yung PA-C Work Phone: Start: 02-26-2015 End: 03-12-2015 Carotid duplex Isidra Arreaga PA-C Work Phone: Start: 02-26-2015 End: 02-26-2015 Follow Up Appt 6 months Isidra yung PA-C Work Phone: Start: 02-26-2015 End: 02-26-2015 PFM Isidra Arreaga PA-C Work Phone: Start: 02-21-2015 End: 02-24-2015 *Hepatic Function Panel Johnny Momin MD Start: 02-21-2015 End: 02-24-2015 Lipid 1996 panel - Serum or Plasma Johnny Momin MD Start: 08-26-2014 End: 09-11-2014 Chest x-ray Johnny Momin MD Start: 08-26-2014 End: 08-26-2014 Ecg routine ecg w/least 12 lds w/i&r Johnny Momin MD Start: 08-26-2014 End: 08-26-2014 Follow Up Appt 6 months Johnny Momin MD Start: 08-26-2014 End: 08-26-2014 MMM Johnny Momin MD Start: 01-07-2014 End: 01-07-2014 Follow Up Appt 6 months Isidra yung PA-C Work Phone: Start: 01-07-2014 End: 01-07-2014 PFM Isidra Arreaga PA-C Work Phone: Start: 12-10-2013 End: 08-21-2014 *Hepatic Function Panel Johnny Momin MD Start: 12-10-2013 End: 08-21-2014 Lipid 1996 panel - Serum or Plasma Johnny Momin MD Start: 07-02-2013 End: 07-02-2013 Ecg routine ecg w/least 12 lds w/i&r Johnny Momin MD Start: 07-02-2013 End: 01-01-2014 Echocardiography Johnny Momin MD Start: 07-02-2013 End: 01-01-2014 Follow Up Appt 6 months Johnny Momin MD Start: 07-02-2013 End: 01-01-2014 MMM Johnny Momin MD Start: 07-02-2013 End: 01-01-2014 Nuclear stress test -exercise Johnny Momin MD Start: 11-22-2012 End: 06-29-2013 Echocardiography Johnny Momin MD Start: 11-22-2012 End: 01-01-2014 Follow Up Appt 6 months Johnny Momin MD Start: 11-22-2012 End: 01-01-2014 Follow Up Appt Other Johnny Momin MD Start: 11-22-2012 End: 06-29-2013 Lipid 1996 panel - Serum or Plasma Johnny Momin MD Start: 11-22-2012 End: 01-01-2014 PFM Johnny Momin MD Start: 07-26-2012 End: 11-20-2012 *Hepatic Function Panel Rudi Benjamin MD Start: 07-26-2012 End: 11-20-2012 Lipid 1996 panel - Serum or Plasma Rudi Benjamin MD Start: 01-13-2012 End: 07-21-2012 Ecg routine ecg w/least 12 lds w/i&r Rudi Benjamin MD Start: 01-13-2012 End: 01-13-2012 Follow Up Appt 6 months Rudi Benjamin MD Start: 12-24-2011 End: 01-11-2012 *Hepatic Function Panel Rudi Benjamin MD Start: 12-24-2011 End: 01-11-2012 Lipid 1996 panel - Serum or Plasma Rudi Benjamin MD Start: 06-28-2011 End: 06-28-2011 Ecg routine ecg w/least 12 lds w/i&r Rudi Benjamin MD Start: 06-28-2011 End: 06-28-2011 Follow Up Appt 6 months Rudi Benjamin MD History of cholecystectomy S/P cholecyste ctomy Dr. Curly Morales Work Phone: Urine culture Dr. Curly Morales Work Phone: Plan of Treatment Date Care Activity Detail Author Start: 08-19-2024 [facility] Start: 08-18-2024 [facility] Start: 12-02-2021 Anes intraperitoneal upper abdomen w/laps nos ANESTH SURG UPPER ABDOMEN [facility] Work Phone: Start: 12-02-2021 Laps surg cholecystectomy w/cholangiography LAPARO CHOLECYSTECTOMY/GRAPH [facility] Work Phone: Start: 12-02-2021 Patient discharge [facility] Work Phone: Start: 07-11-2017 End: 07-11-2017 Appointment Appointment [facility] Work Phone: Start: 02-16-2017 End: 02-16-2017 Appointment Appointment [facility] Work Phone: Start: 12-22-2016 End: 12-22-2016 *Hepatic Function Panel *Hepatic Function Panel [facility] Work Phone: Start: 12-22-2016 End: 12-22-2016 Follow Up Appt 6 months Follow Up Appt 6 months [facility] Work Phone: Start: 12-22-2016 End: 12-22-2016 Lipid panel [AGGREGATE] *Lipid Profile CC PCP [facility] Work Phone: Start: 12-22-2016 End: 12-22-2016 MMM MMM [facility] Work Phone: Start: 09-07-2016 End: 03-10-2016 *Hepatic Function Panel *Hepatic Function Panel [facility] Work Phone: Start: 09-07-2016 End: 03-10-2016 Lipid panel [AGGREGATE] *Lipid Profile CC PCP [facility] Work Phone: Start: 03-16-2016 End: 03-16-2016 Follow Up Appt 6 months Follow Up Appt 6 months [facility] Work Phone: Start: 03-16-2016 End: 03-16-2016 Follow Up Appt Other Follow Up Appt Other [facility] Work Phone: Start: 03-16-2016 End: 03-16-2016 PFM PFM [facility] Work Phone: Start: 02-25-2016 End: 03-09-2016 *Hepatic Function Panel *Hepatic Function Panel [facility] Work Phone: Start: 02-25-2016 End: 03-09-2016 Lipid panel [AGGREGATE] *Lipid Profile CC PCP [facility] Work Phone: Start: 09-01-2015 End: 09-01-2015 Follow Up Appt 6 months Follow Up Appt 6 months [facility] Work Phone: Start: 09-01-2015 End: 09-01-2015 MMM MMM [facility] Work Phone: Start: 08-25-2015 End: 08-25-2015 *Hepatic Function Panel *Hepatic Function Panel [facility] Work Phone: Start: 08-25-2015 End: 08-25-2015 Lipid panel [AGGREGATE] *Lipid Profile CC PCP [facility] Work Phone: Start: 07-14-2015 End: 07-14-2015 Neurology Referral Neurology Referral Neville Shaw, [address], [place], [address] [facility] Work Phone: Start: 02-26-2015 End: 03-12-2015 Carotid duplex Carotid duplex [facility] Work Phone: Start: 02-26-2015 End: 02-26-2015 Follow Up Appt 6 months Follow Up Appt 6 months [facility] Work Phone: Start: 02-26-2015 End: 02-26-2015 PFM PFM [facility] Work Phone: Start: 02-21-2015 End: 02-24-2015 *Hepatic Function Panel *Hepatic Function Panel [facility] Work Phone: Start: 02-21-2015 End: 02-24-2015 Lipid panel [AGGREGATE] *Lipid Profile CC PCP [facility] Work Phone: Start: 08-26-2014 End: 09-11-2014 Chest x-ray X-Ray, Chest, PA & Lateral [facility] Work Phone: Start: 08-26-2014 End: 08-26-2014 Ecg routine ecg w/least 12 lds w/i&r EKG (In office) [facility] Work Phone: Start: 08-26-2014 End: 08-26-2014 Follow Up Appt 6 months Follow Up Appt 6 months [facility] Work Phone: Start: 08-26-2014 End: 08-26-2014 MMM MMM [facility] Work Phone: Start: 01-07-2014 End: 01-07-2014 Follow Up Appt 6 months Follow Up Appt 6 months [facility] Work Phone: Start: 01-07-2014 End: 01-07-2014 PFM PFM [facility] Work Phone: Start: 12-10-2013 End: 08-21-2014 *Hepatic Function Panel *Hepatic Function Panel [facility] Work Phone: Start: 12-10-2013 End: 08-21-2014 Lipid panel [AGGREGATE] *Lipid Profile CC PCP [facility] Work Phone: Start: 07-02-2013 End: 07-02-2013 Ecg routine ecg w/least 12 lds w/i&r EKG (In office) [facility] Work Phone: Start: 07-02-2013 End: 07-03-2013 Echocardiography Echocardiogram (complete) [facility] Work Phone: Start: 07-02-2013 End: 01-01-2014 Follow Up Appt 6 months Follow Up Appt 6 months [facility] Work Phone: Start: 07-02-2013 End: 01-01-2014 MMM MMM [facility] Work Phone: Start: 07-02-2013 End: 07-03-2013 Nuclear stress test -exercise Nuclear stress test -exercise [facility] Work Phone: Start: 11-22-2012 End: 06-29-2013 *Hepatic Function Panel *Hepatic Function Panel [facility] Work Phone: Start: 11-22-2012 End: 01-01-2014 Follow Up Appt 6 months Follow Up Appt 6 months [facility] Work Phone: Start: 11-22-2012 End: 01-01-2014 Follow Up Appt Other Follow Up Appt Other [facility] Work Phone: Start: 11-22-2012 End: 06-29-2013 Lipid panel [AGGREGATE] *Lipid Profile CC PCP [facility] Work Phone: Start: 11-22-2012 End: 01-01-2014 PFM PFM [facility] Work Phone: Start: 07-26-2012 End: 11-20-2012 *Hepatic Function Panel *Hepatic Function Panel [facility] Work Phone: Start: 07-26-2012 End: 11-20-2012 Lipid panel [AGGREGATE] *Lipid Profile [facility] Work Phone: Start: 01-13-2012 End: 07-21-2012 Ecg routine ecg w/least 12 lds w/i&r EKG (In office) [facility] Work Phone: Start: 01-13-2012 End: 01-13-2012 Follow Up Appt 6 months Follow Up Appt 6 months [facility] Work Phone: Start: 12-24-2011 End: 01-11-2012 *Hepatic Function Panel *Hepatic Function Panel [facility] Work Phone: Start: 12-24-2011 End: 01-11-2012 Lipid panel [AGGREGATE] *Lipid Profile [facility] Work Phone: Start: 06-28-2011 End: 06-28-2011 Ecg routine ecg w/least 12 lds w/i&r EKG (In office) [facility] Work Phone: Start: 06-28-2011 End: 06-28-2011 Follow Up Appt 6 months Follow Up Appt 6 months [facility] Work Phone: Electrocardiographic procedure [facility] Work Phone: Patient Education [facility] Work Phone: Patient referral [facility] Work Phone: Immunizations Immunization Date Immunization Notes Care Provider [facility] 01-25-2017 influenza, injectabl e, quadrivalent, preservative free Dr. Curly Morales MD Work Phone: [facility] 01-25-2017 influenza, seasonal, injectable Dr. Curly Morales Work Phone: [facility] Payers Date Payer Category Payer Medicare 2024 Private Health Insurance [id number] Self-pay [id number] 2015 Unknown [id number] 2001 Medicare [id number] 1935 Unknown [id number] [id number] 1935 Unknown [id number] [id number] 1935 Unknown [id number] [id number] Unknown [id number] 2.16.8 [id number] Unknown [id number] 2.16.8 [id number] Unknown [id number] 2.16.8 [id number] Unknown [id number] 2.16.8 [id number] Social History Date Type Detail Facility Start: 11-30-2021 End: 06-18-2022 Tobacco smoking status NHIS Unknown if ever smoked [facility] Start: 01-27-2017 None [facility] Start: 01-27-2017 Spouse/ Signif icant Other [facility] Start: 1935 Sex Assigned At Male [facility] Start: 08-18-2024 End: 08-19-2024 Tobacco smoking status NHIS Ex-smoker (finding) [facility] Tobacco smoking status [facility] Start: 09-21-2024 Sex Male (finding) [facility] Sex [facility] Medical Equipment Procedure Code Equipment Code Equipment Original Text Equipment Identifier Dates Total cholecystectomy with exploration of common bile duct Ligation clip, synthetic polymer, non-bioabsorbable [id number] FDA Start: 12-02-2021 Goals Date Patient Goal Desired Activity /State Mental Status Date Assessment Result Facility 12-07-2021 Cognitive function Level Of Cons ciousness Awake;Alert;Appropriate;Follow s Commands [facility] Work Phone: 12-02-2021 Cognitive function Level Of Consciousness Drowsy [facility] Work Phone: 12-02-2021 Cognitive function Voice/Name [place] Work Phone: Clinical Notes 08-06-2022 to 01-29-2025 Note Date & Type Note Facility 01-29-2025 Progress note [facility] 01-29-2025 Progress note Note Date/Time January 29, 2025 3:01pm [facility] [address] [place], [place] [address] OFFICE VISIT Date of Service: 01/29/25 MR#: [id number] Acct: [id number] Name: ANGELIKA LUNA Rep #: [id number] : 1935 Provider: Dr. Pauline Carson MD Age/Sex: 89/M Location: [facility] Status: Signed HPI HPI History of Present Illness Details: ANGELIKA LUNA, is a 89 M who presents to the office today for today for a cardiovascular follow-up. He has a history of coronary artery disease with angioplasty and stenting of his proximal LAD and mid LAD. He also has a historyof paroxysmal atrial fibrillation in the setting of elevated CPK levels, hyperlipidemia and hypo-thyroidism. He was started on dronedarone and has tolerated it since. His major issue according to his at the moment is actually his Alzheimer's. He otherwise has been doing well. He denies any chest pain or shortness breath or paroxysmal nocturnal dyspnea pedal edema he has had no neck arm or jaw discomfort suggest angina. 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 Accompanied by: Daughter Is patient in pain?: No Allergies cephalexin (From Keflex) Allergy (Verified 01/29/25 13:47) Swelling diazepam (From Valium) Allergy (Verified 01/29/25 13:47) Other Zxrpibi-ZFP-IrA Reductase Inhibitor (Nxwicmk-Rwr-Kwd Reductase Inhibitor) Adverse Reaction (Verified 01/29/25 13:47) Rhabdomylosis Medications ?Medication ?Instructions ?Recorded ?Confirmed ?Type diphenhydramine 25 1 ea PO QHS 03/21/20 5 History mg-acetaminophen 500 mg tablet levothyroxine 75 mcg tablet 75 mcg PO DAILY THYROID 01/29/25 History betamethasone dipropionate 0.05 % 1 applic topical JACQUELINE LY PRN PRN 11/30/2101/29 History topical ointment SUMMER RASH glucosamine 750 ot-rjsssrhnsma-iuq 1 tab PO BID 01/29/25 History no1 644 mg-C 30 mg-devorah 1 mg tablet (Osteo Bi-Flex Triple Strength) loratadine 10 mg tablet (Claritin) 10 mg PO BID PRN al lergy symptoms 12/22/22 01/29/25 History metoprolol succinate 25 mg 25 mg PO DAILY #90 tabs 01/29/25 Rx tablet,extended release 24 hr amiodarone 200 mg tablet 200 mg PO QDAY #90 tabs 01/1001/29/25 Rx Relaxium PO 01/29/25 History acetaminophen 500 mg tablet 500 mg PO DAILY 01/29/25 1 History (Tylenol Extra Strength) finasteride 5 mg tablet 5 mg PO DAILY 01/29/2501/29 History mirtazapine 7.5 mg tablet 7.5 mg PO QDAY 01/29/2501/10 History fjihotkn-gao- 250 mg-dha 90 1 cap PO QDAY 01/29/25 History mg-epa 160 si-qfqe-uevq-zeax capsule (Ocuvite Adult 50 Plus) sennosides 8.6 mg capsule (senna) 17.2 mg PO QHS 01/2901/29/25 History tamsulosin 0.4 mg capsule 0.4 mg PO QHS 01/29/2501/29 History Ejection fraction %: 75 Have you fallen in the past year?: No PFSH Medical History Wears glasses History of Clostridium difficile infection Depression Thyroid disease History of steroid therapy Arthritis History of kidney stones High cholesterol Excessive bleeding Vertigo Former smoker History of edema History of stress test History of echocardiogram History of atrial fibrillation Cardiology follow-up encounter History of injury of tendon Alzheimers disease Atherosclerotic heart disease of [place] coronary artery without angina pectoris Pure hypercholesterolemia Memory loss Iatrogenic hypothyroidism Hyperlipidemia Left carotid bruit Paroxysmal atrial fibrillation CAD (coronary artery disease) Allergic reaction caused by a drug Swelling of right lower extremity Rhabdomyolysis Surgical History S/P cholecystectomy Hx of cholecystectomy (~11/2021) History of colonoscopy History of bilateral cataract extraction Status post trigger finger release Presence of coronary angioplasty implant and graft (~02/2006) S/P PTCA (percutaneous transluminal coronary angioplasty) Family History Mother CVA (cerebral vascular accident) CAD (coronary artery disease) Brother CAD (coronary artery disease) Cancer Myocardial infarction Sister , from congenital heart problems CAD (coronary artery disease) Father CAD (coronary artery disease) Myocardial infarction of [place] Social History Smoking Status: Former smoker how long ago did patient quit smokin alcohol intake: current alcohol intake frequency: a few times a month Alcohol type: beer and wine substance use type: does not use caffeine: Yes Type: tea Number of servings: 2 what type of physical activity do you participate in: none seatbelt use: always do you feel safe at home: Yes ROS Const Const: Positive for daytime sleepiness; Negative for fatigue, weakness or difficulty sleeping ENT ENT: Negative for dizziness or Nosebleed/epistaxis Cardio Chest Pain: No Palpitations: No Edema: None Resp Respiratory: Negative for SOB with activity, SOB at rest, SOB orthopnea\SOB lying down or Cough GI GI: Negative nausea, vomiting or heartburn Neuro Neuro: Negative for dizziness, lightheadedness, near syncope or weakness Endo Endo: Negative for fatigue Cardiology Exam Const Appearance: cooperative, healthy appearing, comfortable, no acute distress, welldeveloped and well groomed Nutritional Appearance: overweight Orientation: alert, awake and oriented x3 Head Head: normal to inspection, normocephalic and atraumatic Ears: hearing grossly normal bilaterally Nose: external nose normal Face and Sinus: face symmetric Eyes Eyelids: eyelids normal Conjunctivae: conjunctivae normal Pupils: PERRL EOM: EOM intact bilaterally Neck Neck: normal visual inspection and full ROM Carotids: normal carotid upstroke Chest Chest inspection: normal inspection of the chest, symmetric chest movement and normal respiratory effort Auscultation: Bilateral: Clear to Auscultation Cardio Palpation: normal PMI Rate: regular rate Rhythm: regular rhythm Heart sounds: S1 normal and S2 normal GI GI: normal to inspection, soft and bowel sounds present Neuro General: patient alert, patient awake, patient oriented x3 and moves all extremities Skin Skin: no rashes or lesions noted Extremities Pulses: Normal: Right Radial Pulse and Left Radial Pulse Lower Extremity Edema: None: Bilateral Psych Psychological: normal affect Supplemental Info Supplemental Information Echocardiogram January 2017 showed an estimated ejection fraction 75%, trivial mitral valve insufficiency, trivial tricuspid valve insufficiency, and mild focal aortic valve thickening. Stress test July 2013 was negative for myocardial induced ischemia or previous myocardial injury/infarction and reported an ejection fraction 65%. Heart cath August 2006 showed patency of proximal LAD stent and mid LAD stent. There was small vessel disease noted in his LAD and a small nondominant RCA. Medical therapy was recommended. Diagnostics: Electrocardiogram Echocardiogram Stress Test Nuclear Medicine Chest X-Ray Abdomen Ultrasound Abdomen/Pelvis CT Past Visits: Cardiology Visit Today Assessment and Plan Assessment and Plan (1) Paroxysmal atrial fibrillation: Status: Chronic Plan: He is currently in sinus rhythm. He is on metoprolol. He is not on any antiplatelet or anticoagulated due to concerns over hematuria. Patient has not had any recurrence that is aware of since starting Multaq. He will also continue with his current dose of metoprolol. We will continue to follow closely. (2) Atherosclerotic heart disease of [place] coronary artery without angina pectoris: Status: Chronic Qualifiers: [place] vs. transplanted heart: [place] heart Qualified Code(s): I25.10 -Atherosclerotic heart disease of [place] coronary artery without angina pectoris Plan: Patient does not have any signs symptoms of angina. It has been greater than 5 years since he has had a stress test. Did discuss this with patient and . Would like to continue with medical management. Patient currently does not haveany symptoms. This will be reevaluated if he has symptoms. wishes not to pursue a stress test. (3) Pure hypercholesterolemia: Status: Chronic Plan: Patient is not on any lipid-lowering medications. He did have rhabdomyolysis inthe past. does not wish to recheck his lipids. Plan He has been bothered quite a bit by his Alzheimer's. And we will continue current conservative management. Plan Details Additional Comments: The above was discussed and reviewed with the patient with his spouse present. They were both agreeable to this approach. Thank you for allowing me to participate in the care of your patient. Please don't hesitate to call if any issues arise. This note was generated using a voice recognition system and there may be incorrect words, spelling or punctuation that were not noted when reviewing the office note prior to saving. Follow Up: 1 Year (mmm) Coding Level of Care Code Off vis,est,level 3 Diagnoses Paroxysmal atrial fibrillation I48.0 Atherosclerosis of [place] coronary artery of [place] heart without angina pectoris I25.10 [place] vs. transplanted heart: [place] heart Pure hypercholesterolemia E78.00 Coding Level of Care Code Off vis,est,level 3 Diagnoses Paroxysmal atrial fibrillation I48.0 Atherosclerosis of [place] coronary artery of [place] heart without angina pectoris I25.10 [place] vs. transplanted heart: [place] heart Pure hypercholesterolemia E78.00 Clinical Quality Measures Falls Risk Screening/Assistive Devices Have you fallen in the past year?: No Cardiac Ejection fraction %: 75 01/29/25 1414 <Electronically signed by Kt Lagunas> Date _ Kt Carson MD Cosigner Signature: Date (if applicable) CC: Dr. Curly Morales MD ~ [facility] Work Phone: 1(549) 137-680010-02-2025 Evaluation note* Diagnosis Onset Date Resolution Status Admit Date Atherosclerotic heart diseas e of [place] coronary artery without angina pectoris chronic January 29 1:30pm Paroxysmal atrial fibrillation chron ic January 29, 2025 1:30pm Pure hypercholesterolemia chronic January 29, 2025 1:30pm [facility] Work Phone: 1(701) 410-913705-11-2025 Discharge summary [facility] Medical Records Department [address] [place] [address] Emergency Department Summary 08/18/24 MR#: [id number] Acct: [id number] Name: ANGELIKA LUNA Rep #:[id number] : 1935 88 From: Donna Levi PCP: Dr. Curly Morales MD Status:REG ER Location: ED HPI History of Present Illness Chief Complaint: Shortness of Breath Informant: patient and spouse/S.O. Limited: dementia Narrative Narrative: Patient is an 88-year-old male with history of coronary artery disease status post stent, proximal atrial fibrillation, pneumonia and dementia present with for cough. Patient woke up with cough this morning. 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 They did not have access to a chest x-ray. He was started on Augmentin. He was instructed to cometo the ER for further evaluation of symptoms worsen. Initial symptom again felt that his respiratory sounds were worse until he came in. Patient does report a cough with mucus production. Does not know what color it is. No fever reported. Denies any chest pain. Feels mildly short of breath. Denies any swelling of his legs. No report of any nausea or vomiting. No report of any urinary symptoms. Noother complaintsor concerns at this time. [facility] Medical History Wears glasses History of Clostridium difficile infection Depression Thyroid disease History of steroid therapy Arthritis History of kidney stones High cholesterol Excessive bleeding Vertigo Former smoker History of edema History of stress test History of echocardiogram History of atrial fibrillation Cardiology follow-up encounter History of injury of tendon Alzheimers disease Atherosclerotic heart disease of [place] coronary artery without angina pectoris Pure hypercholesterolemia Memory loss Iatrogenic hypothyroidism Hyperlipidemia Left carotid bruit Paroxysmal atrial fibrillation CAD (coronary artery disease) Allergic reaction caused by a drug Swelling of right lower extremity Rhabdomyolysis Home Medications ?Medication ?Instructions ?Recorded ?Last Taken ?Type diphenhydramine 25 1 ea PO QHS 03/21/20 Unknown History mg-acetaminophen 500 mg tablet levothyroxine 75 mcg tablet 75 mcg PO DAILY THYROID 12/02/21 06:15 History betamethasone dipropionate 0.05 % 1 applic topical JACQUELINE LY PRN PRN 11/30/21 Unknown History topical ointment SUMMER RASH glucosamine 750 mq-ooevvtdorrg-ftk 1 tab PO BID Unknown History no1 644 mg-C 30 mg-devorah 1 mg tablet (Osteo Bi-Flex Triple Strength) polyethylene glycol 3350 17 gram 17 g PO DAILY PRN con stipation 12/10/21 Unknown History oral powder packet (Miralax) finasteride 5 mg tablet 10 mg PO DAILY 06/18/22 Unkn own History loratadine 10 mg tablet (Claritin) 10 mg PO BID PRN al lergy symptoms 12/22/22 Unknown History metoprolol succinate 25 mg 25 mg PO DAILY #90 tabs Unknown Rx tablet,extended release 24 hr amiodarone 200 mg tablet 200 mg PO QDAY #30 tabs 01/03 Unknown Rx amoxicillin 875 mg-potassium 1 tab PO BID 7 days #14 t abs 08/18/24 Unknown Rx clavulanate 125 mg tablet Allergy/AdvReac Type Severity Reaction Status Date / Time cephalexin (From Keflex) Allergy Swelling Verified 08/18/24 22:44 diazepam (From Valium) Allergy Other Verified 08/18/24 22:44 Zlsbyzp-FPR-EwO Reductase AdvReac Rhabdomylos Verified 08/18/24 22:44 Inhibitor (Gpzipme-Awr-Ysm is Reductase Inhibitor) Family History Mother CVA (cerebral vascular accident) CAD (coronary artery disease) Brother CAD (coronary artery disease) Cancer Myocardial infarction Sister , from congenital heart problems CAD (coronary artery disease) Father CAD (coronary artery disease) Myocardial infarction of [place] Surgical History S/P cholecystectomy Hx of cholecystectomy (~11/2021) History of colonoscopy History of bilateral cataract extraction Status post trigger finger release Presence of coronary angioplasty implant and graft (~02/2006) S/P PTCA (percutaneous transluminal coronary angioplasty) Social History Smoking Status: Former smoker how long ago did patient quit smokin alcohol intake: current alcohol intake frequency: a few times a month Alcohol type: beer and wine substance use type: does not use caffeine: Yes Type: tea Number of servings: 2 what type of physical activity do you participate in: none seatbelt use: always do you feel safe at home: Yes ROS ROS ED Constitutional Constitutional ED: Denies chills or fever(s) ENT ENT ED: Reports rhinorrhea and other Details: Worsening tinnitus when waking up this morning ; Denies sore throat Cardiovascular Cardiovascular: Denies chest pain or palpitations Respiratory/Chest Respiratory/Chest: Reports cough, dyspnea and sputum Gastrointestinal Gastrointestinal: Denies abdominal pain, diarrhea, nausea or vomiting Genitourinary Genitourinary ED: Denies dysuria or hematuria Musculoskeletal Musculoskeletal: Denies arthralgias or myalgias Integumentary Denies rash Neurologic Neurologic: Denies weakness Hematologic/Lymphatic Hematologic/Lymphatic: Denies easy bleeding or easy bruising EXAM Physical Exam Const Vital Signs: 08/18/24 22:41 08/18/24 22:44 08/18/24 22:57 Temperature 98.4 F 98.2 F Temperature Source Oral Oral Pulse Rate 62 62 Respiratory Rate 18 18 Respiratory Effort Normal Respiratory Depth Normal Respiratory Pattern Normal Blood Pressure 113/89 H 113/69 Blood Pressure Mean 97 83 Pulse Ox 98 98 Oxygen Delivery Method Room Air 08/18/24 23:13 08/18/24 23:15 08/18/24 23:15 Temperature Temperature Source Pulse Rate 59 L 59 L Respiratory Rate 22 H 18 Respiratory Effort Respiratory Depth Respiratory Pattern Blood Pressure 115/64 115/64 Blood Pressure Mean 80 80 Pulse Ox 96 95 Oxygen Delivery Method 08/18/24 23:30 08/18/24 23:45 08/19/24 00:03 Temperature Temperature Source Pulse Rate 56 L Respiratory Rate 20 H Respiratory Effort Respiratory Depth Respiratory Pattern Blood Pressure 108/54 L 120/73 Blood Pressure Mean 71 87 Pulse Ox 97 96 Oxygen Delivery Method Room Air 08/19/24 00:04 08/19/24 00:15 08/19/24 00:18 Temperature 98.1 F Temperature Source Pulse Rate 55 L 53 L 55 L Respiratory Rate 18 15 16 Respiratory Effort Respiratory Depth Respiratory Pattern Blood Pressure 122/105 H 107/62 107/62 Blood Pressure Mean 112 75 77 Pulse Ox 98 95 97 Oxygen Delivery Method Room Air Positive well nourished and well developed General Appearance ED: well developed and NAD HEENT Reports moist mucous membranes HEENT Narrative: Normal oropharynx Eyes PERRL and EOMs intact bilaterally Neck supple and no JVD Chest Wall inspection of chest normal and palpation of chest normal Resp normal respiratory effort Resp Narrative: Mild crackles noted at the bases bilaterally. Scattered and expiratory wheezingand scattered rhonchi present Cardio regular rate, regular rhythm and no murmurs GI normal to inspection, nondistended, normoactive bowel sounds and non-tender Palpation: soft Extremity normal to inspection General Extremety ED: Negative for edema General Extremity: Negative for edema Neuro Sensorium / Orientation: alert Motor Exam: Negative for general weakness Psych mental status grossly normal Skin no rashes or lesions noted and no wounds MDM MDM MDM Narrative Medical decision making narrative: Patient Cano for 1 day of cough, wheezing and crackles at the bases. No feveror other systemic symptoms. Denies any chest pain. Does have a history of pneumonia as well as coronary artery disease. Differential includes pneumonia, viral syndrome, CHF exacerbation ACS. Patient overall is well-appearing with normal vital signs. He is not hypoxic. Workup including two-view chest x-ray, CBC, BMP, high-sensitivity troponin and BNP as well as EKG is obtained. Workup largely normal. Two-view chest x-ray viewed by myself as well as radiology does not show any definitive infiltrate orsigns of pulm vascular congestion/pleural effusion. I do question if there is asubtle developing infiltrate of the left lower lobe. Workup otherwise normal. He does have a mild elevation of his creatinine 1.51 with this appears near his baseline. Does not have an ALPA. Single high- sensitivity opponent normal at 7 EKG does not showany acute ischemic changes. Given that he does not have any chest pain the symptoms been present all day I do not think he requires further delta/trending of his troponins. BNP is normallow suspicionfor acute heart failure. Patient is a leg emergency room with no hypoxia is asymptomatic. Patient be discharged home to continue his Augmentin. Will be given albuterol inhaler as well as spacer needs at home. Discussed using Mucinex and Tylenol for symptom control as well. Discussed continued follow-up with primary care doctor next week. Patient and agreeable this plan of care. Diddiscuss return precautions including increased work of breathing, worsening after 48 hours or further concerns. Lab Data Labs: Laboratory Results - last 24 hr 08/18/24 23:08 WBC 4.5 RBC 4.11 L Hgb 13.5 Hct 39.2 L MCV 95.4 H MCH 32.8 H MCHC 34.4 RDW Std Deviation 43.8 RDW Coeff of [place] 12.5 Plt Count 114 L MPV 10.5 Immature Gran % (Auto) 0.400 Neut % (Auto) 55.8 Lymph % (Auto) 27.5 Orange % (Auto) 12.9 H Eos % (Auto) 2.7 Baso % (Auto) 0.7 Absolute Neuts (auto) 2.5 Absolute Lymphs (auto) 1.23 Nucleated RBC % 0 Sodium 140 Potassium 4.4 Chloride 107 Carbon Dioxide 22.4 Anion Gap 10 BUN 24 H Creatinine 1.51 H Estim Creat Clear Calc 38.86 L Est GFR (MDRD) Non-Af 44 L BUN/Creatinine Ratio 15.6 Glucose 116 H Calcium 9.1 Troponin T High Sens 7 NT pro BNP II 146 Radiography Chest X-Ray - ED: 2 View, Read by ED Physician, Read by Radiologist and No AcuteDisease Diagnostic Testing: Clinical Impression(s) from Imaging Studies Chest X-Ray 08/18/24 23:20 IMPRESSION: NO ACUTE FINDINGS. Reading Location: [facility] Rhythm Strip Rhythm Strip: Sinus Rhythm Rate: 61 Ectopy: None EKG Initial EKG: Attestation: I personally reviewed and interpreted this EKG as follows: Interpretation: Sinus Rhythm Comments: Normal sinus rhythm at a rate of 61 bpm Left axis deviation Left anterior fascicular block Normal ST segments Normal intervals Discharge Plan Triage Chief Complaint: Shortness of Breath ED Provider: Donna Owens Dx/Rx/DC Orders Clinical Impression: Lower respiratory tract infection, Cough Instructions: ED Pneumonia (Adult) Prescriptions: No Action finasteride 5 mg tablet 10 mg PO DAILY loratadine [Claritin] 10 mg tablet 10 mg PO BID PRN (Reason: allergy symptoms) amoxicillin-pot clavulanate 875-125 mg tablet 1 tab PO BID 7 Days Qty: 14 0RF levothyroxine 75 mcg tablet 75 mcg PO DAILY diphenhydramine-acetaminophen 1 EACH tablet 1 ea PO QHS betamethasone dipropionate 0.05 % ointment 1 applic TOPICAL DAILY PRN PRN (Reason: SUMMER RASH) Osteo Bi-Flex Triple Strength 750 mg-644 mg- 30 mg-1 mg Tablet 1 tab PO BID polyethylene glycol 3350 [Miralax] 17 gram powder in packet 17 g PO DAILY PRN (Reason: constipation) metoprolol succinate 25 mg tablet extended release 24 hr 25 mg PO DAILY Qty: 90 3RF amiodarone 200 mg tablet 200 mg PO QDAY Qty: 30 11RF Primary Care Provider: Curly Morales Referrals: Curly Morales MD [Primary Care Provider] - Activity Restrictions/Additional Instructions: Workup today was largely normal and reassuring. I suspect this is some type of infection whether itis bacterial pneumonia that is developing or a viral syndrome. Use inhaler to help with wheezing. Take [id number] Mucinex twice a day (per package instructions) to help thin up secretions and cough mild. Take Tylenol as needed for discomfort or fever. Take antibiotics as previously prescribed. If he is worsening especially after 48 hours or you havefurther concerns please do not hesitate toreturn the emergency room. Make sureyou are encouraging fluids Use inhaler every 4-6 hours with spacer attached 1 to 2 puffs Print Language: British Disposition Disposition: Home, Self Care What to do if you have Problems For any increased pain, shortness of breath, bleeding, nausea or vomiting, chestpain, or any unexpected problems, contact your Primary Care Provider. Call [facility] ([phone]) or report tothe closest Emergency Room. Call 911 if necessary. 08/19/24 0027 Cosigner Signature (if applicable): CC: Dr. Curly Morales MD ~ Signed [facility]05-10-2025 Radiology Diagnostic study note [facility] Imaging Services [address] [place] [address] Chest PA and Lateral MR#: [id number] Acct: [id number] Name: ANGELIKA LUNA Rep #: [id number] : 1935 M 88 From: Beatrice Harper MD PCP: Dr. Curly Morales MD Status: REG ER Study:Chest PA and Lateral Date of Exam: 08/18/24 Exam# [id number] Ordering Dr: Brian Owens DO PROCEDURE: CHEST PA AND LATERAL 08/18/2024 REASON FOR EXAM: COUGH TECHNIQUE: Frontal and lateral views of the chest. COMPARISON: 12/07/2021 FINDINGS: Hardware: None Heart: Heart size is mildly enlarged. Mediastinum: The mediastinal contour is unremarkable. Lungs: Bibasilar atelectasis. No focal consolidation. No pneumothorax. No pleural effusion. Bones: Degenerative changes are identified within the thoracic spine. RAD/Chest PA and Lateral IMPRESSION: NO ACUTE FINDINGS. Reading Location: [facility] CC: Dr. Donna Owens DO; Dr. Curly Moarles MD ~ [employer]: Signed [facility]05-10-2025 Discharge summary Author Donna Owens [facility] Note Date/Time August 19, 2024 12:27 am [facility] Medical Records Department [address] [place] [address] Emergency Department Summary 08/18/24 MR#: [id number] Acct: [id number] Name: ANGELIKA LUNA Rep #:[id number] : 1935 88 From: Donna Levi PCP: Dr. Curly Morales MD Status:REG ER Location: ED HPI History of Present Illness Chief Complaint: Shortness of Breath Informant: patient and spouse/S.O. Limited: dementia Narrative Narrative: Patient is an 88-year-old male with history of coronary artery disease status post stent, proximal atrial fibrillation, pneumonia and dementia present with for cough. Patient woke up with cough this morning. 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 They did not have access to a chest x-ray. He was started on Augmentin. He was instructed to come to the ER for further evaluation of symptoms worsen. Initial symptom again felt that his respiratory sounds were worse until he came in. Patient does report a cough with mucus production. Does not know what color it is. No fever reported. Denies any chest pain. Feels mildly short of breath. Denies any swelling of his legs. No report of any nausea or vomiting. No report of any urinary symptoms. No other complaintsor concerns at this time. [facility] Medical History Wears glasses History of Clostridium difficile infection Depression Thyroid disease History of steroid therapy Arthritis History of kidney stones High cholesterol Excessive bleeding Vertigo Former smoker History of edema History of stress test History of echocardiogram History of atrial fibrillation Cardiology follow-up encounter History of injury of tendon Alzheimers disease Atherosclerotic heart disease of [place] coronary artery without angina pectoris Pure hypercholesterolemia Memory loss Iatrogenic hypothyroidism Hyperlipidemia Left carotid bruit Paroxysmal atrial fibrillation CAD (coronary artery disease) Allergic reaction caused by a drug Swelling of right lower extremity Rhabdomyolysis Home Medications ?Medication ?Instructions ?Recorded ?Last Taken ?Type diphenhydramine 25 1 ea PO QHS 03/21/20 Unknown History mg-acetaminophen 500 mg tablet levothyroxine 75 mcg tablet 75 mcg PO DAILY THYROID 12/02/21 06:15 History betamethasone dipropionate 0.05 % 1 applic topical JACQUELINE LY PRN PRN 11/30/21 Unknown History topical ointment SUMMER RASH glucosamine 750 fy-oytbzlzbedf-fkc 1 tab PO BID Unknown History no1 644 mg-C 30 mg-devorah 1 mg tablet (Osteo Bi-Flex Triple Strength) polyethylene glycol 3350 17 gram 17 g PO DAILY PRN con stipation 12/10/21 Unknown History oral powder packet (Miralax) finasteride 5 mg tablet 10 mg PO DAILY 06/18/22 Unkn own History loratadine 10 mg tablet (Claritin) 10 mg PO BID PRN al lergy symptoms 12/22/22 Unknown History metoprolol succinate 25 mg 25 mg PO DAILY #90 tabs Unknown Rx tablet,extended release 24 hr amiodarone 200 mg tablet 200 mg PO QDAY #30 tabs 01/03 Unknown Rx amoxicillin 875 mg-potassium 1 tab PO BID 7 days #14 t abs 08/18/24 Unknown Rx clavulanate 125 mg tablet Allergy/AdvReac Type Severity Reaction Status Date / Time cephalexin (From Keflex) Allergy Swelling Verified 08/18/24 22:44 diazepam (From Valium) Allergy Other Verified 08/18/24 22:44 Yntpvto-HKN-RjH Reductase AdvReac Rhabdomylos Verified 08/18/24 22:44 Inhibitor (Mxabfme-Qfg-Tho is Reductase Inhibitor) Family History Mother CVA (cerebral vascular accident) CAD (coronary artery disease) Brother CAD (coronary artery disease) Cancer Myocardial infarction Sister , from congenital heart problems CAD (coronary artery disease) Father CAD (coronary artery disease) Myocardial infarction of [place] Surgical History S/P cholecystectomy Hx of cholecystectomy (~11/2021) History of colonoscopy History of bilateral cataract extraction Status post trigger finger release Presence of coronary angioplasty implant and graft (~02/2006) S/P PTCA (percutaneous transluminal coronary angioplasty) Social History Smoking Status: Former smoker how long ago did patient quit smokin alcohol intake: current alcohol intake frequency: a few times a month Alcohol type: beer and wine substance use type: does not use caffeine: Yes Type: tea Number of servings: 2 what type of physical activity do you participate in: none seatbelt use: always do you feel safe at home: Yes ROS ROS ED Constitutional Constitutional ED: Denies chills or fever(s) ENT ENT ED: Reports rhinorrhea and other Details: Worsening tinnitus when waking up this morning ; Denies sore throat Cardiovascular Cardiovascular: Denies chest pain or palpitations Respiratory/Chest Respiratory/Chest: Reports cough, dyspnea and sputum Gastrointestinal Gastrointestinal: Denies abdominal pain, diarrhea, nausea or vomiting Genitourinary Genitourinary ED: Denies dysuria or hematuria Musculoskeletal Musculoskeletal: Denies arthralgias or myalgias Integumentary Denies rash Neurologic Neurologic: Denies weakness Hematologic/Lymphatic Hematologic/Lymphatic: Denies easy bleeding or easy bruising EXAM Physical Exam Const Vital Signs: 08/18/24 22:41 08/18/24 22:44 08/18/24 22:57 Temperature 98.4 F 98.2 F Temperature Source Oral Oral Pulse Rate 62 62 Respiratory Rate 18 18 Respiratory Effort Normal Respiratory Depth Normal Respiratory Pattern Normal Blood Pressure 113/89 H 113/69 Blood Pressure Mean 97 83 Pulse Ox 98 98 Oxygen Delivery Method Room Air 08/18/24 23:13 08/18/24 23:15 08/18/24 23:15 Temperature Temperature Source Pulse Rate 59 L 59 L Respiratory Rate 22 H 18 Respiratory Effort Respiratory Depth Respiratory Pattern Blood Pressure 115/64 115/64 Blood Pressure Mean 80 80 Pulse Ox 96 95 Oxygen Delivery Method 08/18/24 23:30 08/18/24 23:45 08/19/24 00:03 Temperature Temperature Source Pulse Rate 56 L Respiratory Rate 20 H Respiratory Effort Respiratory Depth Respiratory Pattern Blood Pressure 108/54 L 120/73 Blood Pressure Mean 71 87 Pulse Ox 97 96 Oxygen Delivery Method Room Air 08/19/24 00:04 08/19/24 00:15 08/19/24 00:18 Temperature 98.1 F Temperature Source Pulse Rate 55 L 53 L 55 L Respiratory Rate 18 15 16 Respiratory Effort Respiratory Depth Respiratory Pattern Blood Pressure 122/105 H 107/62 107/62 Blood Pressure Mean 112 75 77 Pulse Ox 98 95 97 Oxygen Delivery Method Room Air Positive well nourished and well developed General Appearance ED: well developed and NAD HEENT Reports moist mucous membranes HEENT Narrative: Normal oropharynx Eyes PERRL and EOMs intact bilaterally Neck supple and no JVD Chest Wall inspection of chest normal and palpation of chest normal Resp normal respiratory effort Resp Narrative: Mild crackles noted at the bases bilaterally. Scattered and expiratory wheezingand scattered rhonchi present Cardio regular rate, regular rhythm and no murmurs GI normal to inspection, nondistended, normoactive bowel sounds and non-tender Palpation: soft Extremity normal to inspection General Extremety ED: Negative for edema General Extremity: Negative for edema Neuro Sensorium / Orientation: alert Motor Exam: Negative for general weakness Psych mental status grossly normal Skin no rashes or lesions noted and no wounds MDM MDM MDM Narrative Medical decision making narrative: Patient Cano for 1 day of cough, wheezing and crackles at the bases. No feveror other systemic symptoms. Denies any chest pain. Does have a history of pneumonia as well as coronary artery disease. Differential includes pneumonia, viral syndrome, CHF exacerbation ACS. Patient overall is well-appearing with normal vital signs. He is not hypoxic. Workup including two-view chest x-ray, CBC, BMP, high-sensitivity troponin and BNP as well as EKG is obtained. Workup largely normal. Two-view chest x-ray viewed by myself as well as radiology does not show any definitive infiltrate orsigns of pulm vascular congestion/pleural effusion. I do question if there is asubtle developing infiltrate of the left lower lobe. Workup otherwise normal. He does have a mild elevation of his creatinine 1.51 with this appears near his baseline. Does not have an ALPA. Single high-sensitivity opponent normal at 7 EKG does not show any acute ischemic changes. Given that he does not have any chest pain the symptoms been present all day I do not think he requires further delta/trending of his troponins. BNP is normallow suspicion for acute heart failure. Patient is a leg emergency room with no hypoxia is asymptomatic. Patient be discharged home to continue his Augmentin. Will be given albuterol inhaler as well as spacer needs at home. Discussed using Mucinex and Tylenol for symptom control as well. Discussed continued follow-up with primary care doctor next week. Patient and agreeable this plan of care. Did discuss return precautions including increased work of breathing, worsening after 48 hours or further concerns. Lab Data Labs: Laboratory Results - last 24 hr 08/18/24 23:08 WBC 4.5 RBC 4.11 L Hgb 13.5 Hct 39.2 L MCV 95.4 H MCH 32.8 H MCHC 34.4 RDW Std Deviation 43.8 RDW Coeff of [place] 12.5 Plt Count 114 L MPV 10.5 Immature Gran % (Auto) 0.400 Neut % (Auto) 55.8 Lymph % (Auto) 27.5 Orange % (Auto) 12.9 H Eos % (Auto) 2.7 Baso % (Auto) 0.7 Absolute Neuts (auto) 2.5 Absolute Lymphs (auto) 1.23 Nucleated RBC % 0 Sodium 140 Potassium 4.4 Chloride 107 Carbon Dioxide 22.4 Anion Gap 10 BUN 24 H Creatinine 1.51 H Estim Creat Clear Calc 38.86 L Est GFR (MDRD) Non-Af 44 L BUN/Creatinine Ratio 15.6 Glucose 116 H Calcium 9.1 Troponin T High Sens 7 NT pro BNP II 146 Radiography Chest X-Ray - ED: 2 View, Read by ED Physician, Read by Radiologist and No AcuteDisease Diagnostic Testing: Clinical Impression(s) from Imaging Studies Chest X-Ray 08/18/24 23:20 IMPRESSION: NO ACUTE FINDINGS. Reading Location: [facility] Rhythm Strip Rhythm Strip: Sinus Rhythm Rate: 61 Ectopy: None EKG Initial EKG: Attestation: I personally reviewed and interpreted this EKG as follows: Interpretation: Sinus Rhythm Comments: Normal sinus rhythm at a rate of 61 bpm Left axis deviation Left anterior fascicular block Normal ST segments Normal intervals Discharge Plan Triage Chief Complaint: Shortness of Breath ED Provider: Donna Owens Dx/Rx/DC Orders Clinical Impression: Lower respiratory tract infection, Cough Instructions: ED Pneumonia (Adult) Prescriptions: No Action finasteride 5 mg tablet 10 mg PO DAILY loratadine [Claritin] 10 mg tablet 10 mg PO BID PRN (Reason: allergy symptoms) amoxicillin-pot clavulanate 875-125 mg tablet 1 tab PO BID 7 Days Qty: 14 0RF levothyroxine 75 mcg tablet 75 mcg PO DAILY diphenhydramine-acetaminophen 1 EACH tablet 1 ea PO QHS betamethasone dipropionate 0.05 % ointment 1 applic TOPICAL DAILY PRN PRN (Reason: SUMMER RASH) Osteo Bi-Flex Triple Strength 750 mg-644 mg- 30 mg-1 mg Tablet 1 tab PO BID polyethylene glycol 3350 [Miralax] 17 gram powder in packet 17 g PO DAILY PRN (Reason: constipation) metoprolol succinate 25 mg tablet extended release 24 hr 25 mg PO DAILY Qty: 90 3RF amiodarone 200 mg tablet 200 mg PO QDAY Qty: 30 11RF Primary Care Provider: Curly Morales Referrals: Curly Morales MD [Primary Care Provider] - Activity Restrictions/Additional Instructions: Workup today was largely normal and reassuring. I suspect this is some type of infection whether it is bacterial pneumonia that is developing or a viral syndrome. Use inhaler to help with wheezing. Take sesl-vhm-ywmhmwc Mucinex twice a day (per package instructions) to help thin up secretions and cough mild. Take Tylenol as needed for discomfort or fever. Take antibiotics as previously prescribed. If he is worsening especially after 48 hours or you havefurther concerns please do not hesitate to return the emergency room. Make sureyou are encouraging fluids Use inhaler every 4-6 hours with spacer attached 1 to 2 puffs Print Language: British Disposition Disposition: Home, Self Care What to do if you have Problems For any increased pain, shortness of breath, bleeding, nausea or vomiting, chestpain, or any unexpected problems, contact your Primary Care Provider. Call [facility] ([phone]) or report to the closest Emergency Room. Call 911 if necessary. 08/19/247 <Electronically signed by Donna Owens DO> Cosigner Signature (if applicable): CC: Dr. Curly Morales MD ~ Signed [facility] Work Phone: 1(892) 475-233605-10-2025 Evaluation note* Diagnosis Onset Date Resolution Status Admit Date Lower respiratory tract infection [place] August 18, 2024 10:16am [facility] Work Phone: 1(140) 707-261704-28-2023 Discharge summary Author Cj Zimmerman [facility] August 06, 2022 10:05am Note Date/Time August 06, 2022 10: 05am [facility] Physical Therapy [facility] [address] [place] [address]. [address] [place] [address] / REHABILITATION SERVICES DISCHARGE SUMMARY MR#: [id number] Acct: [id number] Name: ANGELIKA LUNA Rep #: [id number] : 1935 86 From: Cj Zimmerman PT, ATC Referring Dr.: MAYNOR Watters Status: REG RCR Insurance: [facility] It has been my pleasure to treat ANGELIKA LUNA referred by Charan Watters PA-C, with the diagnosis of L hip OA for a total of 7 visit(s). Discharge Date: Please see the following information for a summary of their discharge status. Subjective: L hip feels good today. Pt feels ready for discharge L hip Pain Intensity (Out of 10): 2 % Improvement: 80 Objective/Function: L hip pain ranges from 0-3/10. L hip MMT 5/5 throughout. Pt is I with HEP. Rx goals achieved Goal 1:: Increase L hip strength x 1 grade to aid with ambulation Goal Progress: Goal Met Goal 2:: Decrease L hip pain x 50% to aid with sleep Goal Progress: Goal Met Goal 3:: I with HEP Goal Progress: Goal Met Plan: Discharge to HEP If there are questions or concerns regarding this patient's physical therapy, please feel free to call me at [phone]. Thank you for the referral of thispatient. Sincerely, Cj Zimmerman, PT, ATC Balance/Gait/Functional tests - Balance/Special Test Scores Lower Extremity Functional Score: 73 <Electronically signed by Cj Zimmerman PT, ATC> 08/06/22 1005 CC: MAYNOR Watters; Dr. Curly Morales MD ~ [facility] Signed [facility] Work Phone: Evaluation + Plan note No data available for this section [facility] Evaluation note* Diagnosis Onset Date Resolution Status Cholelithiasis [facility] Work Phone: Evaluation note* Diagnosis Onset Date Resolution Status Cholelithiasis acute Atherosclerotic heart diseas e of [place] coronary artery without angina pectoris chronic Paroxysmal atrial fibrillation chronic Presence of stent in coronary artery 2005 chronic Pure hypercholesterolemia [facility] Cholelithiasis [facility] Work Phone: Evaluation note* Diagnosis Onset Date Resolution Status Atherosclerotic heart diseas e of [place] coronary artery without angina pectoris chronic Paroxysmal atrial fibrillation chronic Presence of stent in coronary artery 2005 chronic Pure hypercholesterolemia [facility] Work Phone: Hospital Discharge instructions Additional Instructions Take medication as prescribed. Follow-up with Dr. Momin. Keep your scheduled appointment with Dr. Duron.[facility] Work Phone: Hospital Discharge instructions Additional Instructions Workup today was largely normal and reassuring. I suspect this is some type of infection whether it is bacterial pneumonia that is developing or a viral syndrome. Use inhaler to help with wheezing. Take iyrz-coc-tlquelc Mucinex twice a day (per package instructions) to help thin up secretions and cough mild. Take Tylenol as needed for discomfort or fever. Take antibiotics as previously prescribed. If he is worsening especially after 48 hours or you have further concerns please do not hesitate to return the emergency room. Make sure you are encouraging fluids Use inhaler every 4-6 hours with spacer attached 1 to [facility] Work Phone: Hospital Discharge instructions No data available for this section [facility] Progress note No data available for this section [facility] Reason for referral (narrative)No reason for referral information availableWParkview Health Work Phone: Summary Purpose Family History Relationship Condition Age at Onset Recorded Date/T josiah mother Cerebrovascular accident (CVA) Unknown Coronary artery disease Unknown brother Coronary artery disease Unknown Malignant neoplasm Unknown Myocardial infarction Unknown sister Coronary artery disease Unknown father Coronary artery disease Unknown Advance Directives Advance Directive Response Recorded Date/ Time Living Will Yes November 30 8:12am Power of Thermal Engineer Yes November 30 8:12am Advance Directive Response Recorded Date/ Time Name of Medical Power of Thermal Engineer Yulisa Luna November 30, 2021 8:12am Name of Medical Power of Thermal Engineer yulisa December 07, 2021 10:44am Living Will Yes December 07 10:44am Power of Thermal Engineer Yes December 07 10:44am Advance Directive Response Recorded Date/ Time Name of Medical Power of Thermal Engineer Yulisa Luna November 30, 2021 7:12am Name of Medical Power of Thermal Engineer yulisa December 07, 2021 9:44am Living Will Yes December 07 9:44am Power of Thermal Engineer Yes December 07 9:44am Advance Directive Response Recorded Date/ Time Living Will Yes December 07 10:44am Power of Thermal Engineer Yes December 07 10:44am Advance Directive Response Recorded Date/ Time Do you have a Healthcare Power of Thermal Engineer? Yes August 18, 2024 11:31pm Advance Directive Response Recorded Date/ Time Living Will Yes May 14 10:18am Do you have a Healthcare Power of Thermal Engineer? Yes May 14, 2023 10:18am Chief Complaint and Reason for Visit Chief Complaint RUQ PAIN GALLSTONES Reason for Visit Cholelithiasis Chief Complaint RUQ PAIN GALLSTONES LAP KIM W IOC LAP KIM W IOC PALIPITATIONS Reason for Visit Cholelithiasis Chief Complaint RUQ PAIN GALLSTONES LAP KIM W IOC LAP KIM W IOC LAP KIM W IOC PALIPITATIONS PALPITATIONS LAP KIM 12/02 Reason for Visit Cholelithiasis Atherosclerotic heart disease of [place] coronary artery without angina pectoris Paroxysmal atrial fibrillation Presence of stent in coronary artery Pure hypercholesterolemia Cholelithiasis Chief Complaint 1 Y FU L HIP OSTEOARTHRITIS RX HERE Reason for Visit Atherosclerotic hear t disease of [place] coronary artery without angina pectoris Paroxysmal atrial fibrillation Presence of stent in coronary artery Pure hypercholesterolemia Chief Complaint Admit Date EAR RINGING, CRACKLING NOISES August 18, 2024 10:16am SOB August 18, 2024 10:41 pm Reason for Visit Admit Date Lower respiratory tract infection August 182024 10:16am Chief Complaint Admit Date 1 Y FU January 29, 2025 1 :30pm Reason for Visit Admit Date Atherosclerotic heart diseas e of [place] coronary artery without angina pectoris January 29, 2025 1:30pm Paroxysmal atrial fibrillation January 102024 1:30pm Pure hypercholesterolemia January 29, 2025 1:30pm Additional Source Comments (unrecognized sect ion and content) No Status Records FoundNo Status Records FoundNo Status Records FoundNo Status Records Found INFORMATION SOURCE (unrecogn ized section and content) DATE CREATED AUTHOR 11/03/2017 [facility] DATE CREATED AUTHOR AUTHOR'S ORGANIZ ATION 12/14/2020 [facility] DATE CREATED AUTHOR AUTHOR'S ORGANIZ ATION 2024 [facility] DATE CREATED AUTHOR AUTHOR'S ORGANIZ ATION 01/29/2025 [facility] Goals (unrecognized section and content) Goals may be documented in a n alternate sectionGoals may be documented in an alternate sectionGoals may be documented in an alternate sectionGoals may be documented in an alternate sectionGoals may be documented in an alternate section No data available for this sectionGoals may be documented in an alternate section Care Teams (unrecognized sec tion and content) Team Status: Active Member Role Status Dates Dr. Curly Morales MD Family Provider Active Dr. Curly Morales MD Primary Care Provider Active Team Status: Inactive Member Role Status Dates Dr. Curly Morales MD Primary Care Provider, Referring P rovider Active Dr. Johnny Momin MD Attending Provider Active Team Status: Active Member Role Status Dates Dr. Curly Morales MD Primary Care Provider Active SARAH Spicer-C Attending Provider, Referring Pr ovider Active Team Status: Inactive Member Role Status Dates Dr. Curly Morales MD Primary Care Provider, Attending P rovider Active Team Status: Inactive Member Role Status Dates Dr. Curly Morales MD Primary Care Provider Active Charan SMITH PA-C Attending Provider, Referring Pr ovider Active Team Status: Active Member Role Status Dates Dr. Curly Morales MD Primary Care Provider Active Team Status: Inactive Member Role Status Dates Dr. Curly Morales MD Primary Care Provider Active Start: August 18, 2024 End: August 18, 2024 Dr. Curly Morales MD Referring Provider Active St art: August 18, 2024 End: August 18, 2024 SARAH De La Torre Attending Provider Active Start: August 18, 2024 End: August 18, 2024 Team Status: Inactive Member Role Status Dates Dr. Curly Morales MD Primary Care Provider Active Start: August 18, 2024 End: August 19, 2024 Dr. Donna Owens DO Emergency Provider Active Start: August 18, 2024 End: August 19, 2024 Team Status: Inactive Member Role Status Dates Dr. Curly Morales MD Primary Care Provider Active Start: August 18, 2024 End: August 19, 2024 Dr. Donna Owens DO Attending Provider Active Start: August 18, 2024 End: August 19, 2024 Dr. Donna Owens DO Emergency Provider Active Start: August 18, 2024 End: August 19, 2024 Team Status: Inactive Member Role Status Dates Dr. Curly Morales MD Primary Care Provider Active Start: September 10, 2024 End: September 10, 2024 Dr. Luis Barragan MD Attending Provider Active Start: September 10, 2024 End: September 10, 2024 Dr. Luis Barragan MD Referring Provider Active Start: September 10, 2024 End: September 10, 2024 Team Status: Active Member Role/Relationship Status Dates Dr. Curly Morales MD Primary care physician Active Team Status: Inactive Member Role/Relationship Status Dates Dr. Curly Morales MD Primary care physician Active Start: January 29, 2025 End: January 29, 2025 Dr. Curly Morales MD Referring Provider Active St art: January 29, 2025 End: January 29, 2025 Dr. Kt Carson MD Attending physician Active Start: January 29, 2025 End: January 29, 2025 FOR RECORDS PERTAINING TO PATIENTS WHO ARE OR HAVE BEEN ENROLLED IN A CHEMICAL DEPENDENCY/SUBSTANCEABUSE PROGRAM, SOME INFORMATION MAY BE OMITTED. This clinical summary was aggregated from multiple sources. Caution should be exercised in using it in the provision of clinical care. This summary normalizes information from multiple sources, and as a consequence, information in this document may materially change the coding, format and clinical context of patient data. In addition, data may be omitted in some cases. CLINICAL DECISIONS SHOULD BE BASED ON THE PRIMARY CLINICAL RECORDS. [facility] [employer] provides no warranty or guarantee of the accuracy or completeness of information in this document.
--- NOTE | 2025-03-15 16:14 | EX.ED.DYSGE1 ---
HPI History of Present Illness Chief Complaint: General Illness Informant: patient Onset/Context/Timing Onset: Weeks (1) Context: Gradual Onset Timing: Continuous Quality: Tired Location: Generalized Worsened by: Nothing Relieved by: Nothing Narrative Narrative: Patient presents with cough and congestion that has been getting worse over the past week. states patient was seen by his primary care physician and was started on doxycycline, prednisone, and an albuterol inhaler. states that patient has not been getting any better. Patient states his symptoms seem to be waxing and waning over the past week. states patient is more tired than usual. Patient admits to a cough but denies any sputum production. Patient admits to some shortness of breath. Patient admits to some general weakness. Patient also complains of a sore throat and postnasal drainage. 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 Pure hypercholesterolemia Memory loss Iatrogenic hypothyroidism Hyperlipidemia Left carotid bruit Paroxysmal atrial fibrillation CAD (coronary artery disease) Allergic reaction caused by a drug Swelling of right lower extremity Rhabdomyolysis Home Medications ?Medication ?Instructions ?Recorded ?Last Taken ?Type diphenhydramine 25 1 ea PO QHS 03/21/20 Unknown History mg-acetaminophen 500 mg tablet levothyroxine 75 mcg tablet 75 mcg PO DAILY THYROID 11/26/21 12/02/21 06:15 History betamethasone dipropionate 0.05 % 1 applic topical DAILY PRN PRN 11/30/21 Unknown History topical ointment SUMMER RASH glucosamine 750 xf-oxvubaugguu-woq 1 tab PO BID 11/30/21 Unknown History no1 644 mg-C 30 mg-devorah 1 mg tablet (Osteo Bi-Flex Triple Strength) loratadine 10 mg tablet (Claritin) 10 mg PO BID PRN allergy symptoms 12/22/22 Unknown History metoprolol succinate 25 mg 25 mg PO DAILY #90 tabs 09/21/24 Unknown Rx tablet,extended release 24 hr amiodarone 200 mg tablet 200 mg PO QDAY #90 tabs 01/28/25 Unknown Rx Relaxium PO 01/29/25 Unknown History acetaminophen 500 mg tablet 500 mg PO DAILY 01/29/25 Unknown History (Tylenol Extra Strength) finasteride 5 mg tablet 5 mg PO DAILY 01/29/25 Unknown History mirtazapine 7.5 mg tablet 7.5 mg PO QDAY 01/29/25 Unknown History obkgpywz-yza-otxvh0 250 mg-dha 90 1 cap PO QDAY 01/29/25 Unknown History mg-epa 160 rb-kqdd-ulda-zeax capsule (Ocuvite Adult 50 Plus) sennosides 8.6 mg capsule (senna) 17.2 mg PO QHS 01/29/25 Unknown History tamsulosin 0.4 mg capsule 0.4 mg PO QHS 01/29/25 Unknown History albuterol sulfate 90 mcg/actuation inhalation 03/15/25 Unknown History aerosol inhaler amoxicillin 875 mg-potassium 875 mg PO Q12H #20 TABLETS 03/15/25 Unknown Rx clavulanate 125 mg tablet doxycycline hyclate 100 mg tablet PO BID 03/15/25 Unknown History prednisone 20 mg tablet mg PO 03/15/25 Unknown History Allergy/AdvReac Type Severity Reaction Status Date / Time cephalexin (From Keflex) Allergy Swelling Verified 03/15/25 14:58 diazepam (From Valium) Allergy Other Verified 03/15/25 14:58 Dzchlcq-OOP-WjV Reductase AdvReac Rhabdomylos Verified 03/15/25 14:58 Inhibitor (Pyjylfh-Djc-Gam is Reductase Inhibitor) Family History Mother CVA (cerebral vascular accident) CAD (coronary artery disease) Brother CAD (coronary artery disease) Cancer Myocardial infarction Sister , from congenital heart problems CAD (coronary artery disease) Father CAD (coronary artery disease) Myocardial infarction of [place] Surgical History History of coronary artery stent placement S/P cholecystectomy Hx of cholecystectomy (~11/2021) History of colonoscopy History of bilateral cataract extraction Status post trigger finger release Presence of coronary angioplasty implant and graft (~02/2006) S/P PTCA (percutaneous transluminal coronary angioplasty) Social History Smoking Status: Former smoker how long ago did patient quit smokin alcohol intake: current alcohol intake frequency: a few times a month Alcohol type: beer and wine substance use type: does not use caffeine: Yes Type: tea Number of servings: 2 what type of physical activity do you participate in: none seatbelt use: always do you feel safe at home: Yes ROS ROS ED Constitutional Constitutional ED: Denies chills or fever(s) Eyes Eyes: Denies blurry vision or change in vision ENT ENT ED: Reports sore throat; Denies rhinorrhea Cardiovascular Cardiovascular: Denies chest pain or palpitations Respiratory/Chest Respiratory/Chest: Reports cough and dyspnea Gastrointestinal Gastrointestinal: Denies nausea or vomiting Genitourinary Genitourinary ED: Denies dysuria or hematuria Musculoskeletal Musculoskeletal: Denies back pain or neck pain Integumentary Denies abscess or rash Neurologic Neurologic: Denies headache(s) or weakness Allergic/Immunologic Allergic/Immunologic ED: Denies mouth swelling or urticaria EXAM Physical Exam Const Vital Signs: 03/15/25 14:57 03/15/25 16:56 03/15/25 17:53 Temperature 98.6 F Temperature Source Oral Pulse Rate 57 L 54 L 55 L Respiratory Rate 16 21 H 18 Blood Pressure 118/55 L 120/50 L 134/68 H Blood Pressure Mean 76 73 90 Pulse Ox 98 98 Oxygen Delivery Method Room Air Room Air Room Air 03/15/25 19:04 Temperature 97.7 F L Temperature Source Pulse Rate 56 L Respiratory Rate 17 Blood Pressure 124/90 H Blood Pressure Mean 101 Pulse Ox 98 Oxygen Delivery Method Positive well nourished and well developed General Appearance ED: well developed and NAD HEENT Reports moist mucous membranes Neck supple and no JVD Resp normal respiratory effort Auscultation: rhonchi throughout Cardio regular rate and regular rhythm GI non-tender and non-distended Palpation: soft Extremity normal to inspection General Extremety ED: Negative for edema or tenderness General Extremity: Negative for edema Neuro CN's II-XII intact bilaterally and no sensory deficits noted Sensorium / Orientation: alert Motor Exam: strength 5/5 throughout Psych mental status grossly normal MDM MDM MDM Narrative Medical decision making narrative: Differential diagnose includes pneumonia, bronchitis, viral illness, cardiac dysrhythmia, cardiac ischemia, and upper respiratory infection. Chest x-ray will be obtained to assess for pneumonia or bronchitis. EKG will be obtained to assess for cardiac dysrhythmia and cardiac ischemia. CBC will be obtained to assess for leukocytosis and anemia. Basic metabolic profile will be obtained to assess for electrolyte abnormality renal function. High-sensitivity troponin will be obtained to assess for cardiac ischemia. COVID-19, influenza, and RSV PCR will be obtained to assess for viral illness. History & Record Review Additional record(s) reviewed:: Prior labs Lab Data Attestation: I reviewed the patient's lab results. Lab results narrative: CBC was reviewed. White blood cell count was slightly low at 4.2. Hemoglobin was 11.4 and hematocrit was 34.9. Basic metabolic profile was reviewed. BUN was slightly elevated at 22 and creatinine was slightly elevated at 1.46. This is consistent with previous results. Initial high-sensitivity troponin was reviewed and was normal at 9. 2-hour repeat high-sensitivity troponin was reviewed and was also 9. Urinalysis was reviewed. There is no evidence of urinary tract infection or hematuria. COVID-19 PCR was reviewed and was negative. Influenza PCR was reviewed and was negative for influenza A and influenza B. RSV PCR was reviewed and was negative. Labs: Laboratory Results - last 24 hr 03/15/25 03/15/25 03/15/25 16:11 16:37 18:24 WBC 4.2 L RBC 3.64 L Hgb 11.4 L Hct 34.9 L MCV 95.9 H MCH 31.3 MCHC 32.7 RDW Std Deviation 45.9 H RDW Coeff of [place] 13.1 Plt Count TNP MPV TNP Immature Gran % (Auto) 0.500 Neut % (Auto) 64.6 Lymph % (Auto) 26.2 Green % (Auto) 8.3 Eos % (Auto) 0.2 Baso % (Auto) 0.2 Absolute Neuts (auto) 2.7 Absolute Lymphs (auto) 1.10 Nucleated RBC % 0 Differential Comment SCANNED Platelet Estimate SLT DEC Sodium 143 Potassium 4.0 Chloride 111 H Carbon Dioxide 21.6 Anion Gap 11 BUN 22 H Creatinine 1.46 H Estim Creat Clear Calc 36.11 L Est GFR (MDRD) Non-Af 46 L BUN/Creatinine Ratio 15.2 Glucose 97 Calcium 9.0 Troponin T High Sens 9 D Troponin T Hi Sens 2 Hr 9 Urine Color Yellow Urine Clarity Clear Urine pH 5.0 Ur Specific Irwin 1.020 Urine Protein 15 H Urine Glucose (UA) Normal Urine Ketones Negative Urine Occult Blood Negative Urine Nitrite Negative Urine Bilirubin Negative Urine Urobilinogen Normal Ur Leukocyte Esterase Negative Urine RBC 0-5 SEEN Urine WBC 0-5 SEEN Ur Squamous Epith Cells 0-5 SEEN Urine Bacteria 0 SEEN Urine Mucus 0 SEEN Radiography Chest X-Ray - ED: 2 View, Read by ED Physician, Read by Radiologist and No Acute Disease Diagnostic Testing: Clinical Impression(s) from Imaging Studies Chest X-Ray 03/15/25 16:45 IMPRESSION: No definite acute findings. Cardiomegaly. 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 Reading Location: [facility] EK Initial EKG: Attestation: I personally reviewed and interpreted this EKG as follows: Interpretation: Sinus Bradycardia (57), LAFB, AV Block (First-degree) and Non-Specific ST Changes Comments: EKG was obtained. On my independent interpretation, it showed a sinus bradycardia with a first-degree AV block with a rate of 57. OH interval was slightly prolonged at 218 ms. QRS interval was normal at 96 ms. QTc interval was normal at 436 ms. There is left axis deviation at -47. There is a left anterior fascicular block pattern noted. There are no acute ST or T wave changes. Treatment and Re-Evaluation :: Patient advised of his findings. Patient was instructed to follow-up with his primary care physician in 5 to 7 days. Patient was instructed to stop taking the doxycycline and was given a prescription for Augmentin to take instead. Patient was also advised that this could be a viral illness. Patient was instructed to continue his prednisone and albuterol as prescribed. Patient and spouse understood and were agreeable with the plan. All questions were answered. Discharge Plan Triage Chief Complaint: General Illness ED Provider: Geo Coleman Dx/Rx/DC Orders Clinical Impression: Bronchitis, Lower respiratory tract infection Instructions: Acute Bronchitis Prescriptions: New amoxicillin-pot clavulanate 875-125 mg tablet 875 mg PO Q12H Qty: 20 0RF No Action loratadine [Claritin] 10 mg tablet 10 mg PO BID PRN (Reason: allergy symptoms) finasteride 5 mg tablet 5 mg PO DAILY tamsulosin 0.4 mg capsule 0.4 mg PO QHS acetaminophen [Tylenol Extra Strength] 500 mg tablet 500 mg PO DAILY senna 8.6 mg capsule 17.2 mg PO QHS mirtazapine 7.5 mg tablet 7.5 mg PO QDAY Patient Comments: [NO ORIGINAL SIG] Ocuvite Adult 50 Plus 250 mg (90 mg-160 mg) capsule 1 cap PO QDAY Relaxium PO levothyroxine 75 mcg tablet 75 mcg PO DAILY diphenhydramine-acetaminophen 1 EACH tablet 1 ea PO QHS betamethasone dipropionate 0.05 % ointment 1 applic TOPICAL DAILY PRN PRN (Reason: SUMMER RASH) Osteo Bi-Flex Triple Strength 750 mg-644 mg- 30 mg-1 mg Tablet 1 tab PO BID prednisone 20 mg tablet PO albuterol sulfate 90 mcg/actuation HFA aerosol inhaler inhalation doxycycline hyclate 100 mg tablet PO BID metoprolol succinate 25 mg tablet extended release 24 hr 25 mg PO DAILY Qty: 90 3RF amiodarone 200 mg tablet 200 mg PO QDAY Qty: 90 3RF Primary Care Provider: Geo Morales Referrals: Geo Morales MD [Primary Care Provider, Family Practice] - 5-7 Days Print Language: [place] Timorese Disposition Disposition: Home, Self Care Discharge Date/Time: 03/15/25 19:09
--- NOTE | 2025-03-15 16:20 | EKG12_ITS ---
Test Reason : Blood Pressure : */* mmHG Vent. Rate : 57 BPM Atrial Rate : 57 BPM P-R Int : 218 ms QRS Dur : 96 ms QT Int : 448 ms P-R-T Axes : 34 -47 26 degrees QTcB Int : 436 ms Sinus bradycardia with 1st degree A-V block Left anterior fascicular block Abnormal ECG Confirmed by ADONAY NICHOLE, CLARA ([id number]), newspaper or periodical editor WAYNE MOSLEY ([id number]) on 03/18/2025 6:07:41 AM Referred By: Confirmed By: CLARA URIAS MD
[2025-03-15 16:43] LABS: Hematocrit 34.9 % (40-54); Hemoglobin 11.4 g/dL (13.0-16.5); Immature Granulocytes Count 0.020 X10^3/uL (0.0-0.0); Mean Corp Hgb Conc 32.7 g/dL (32-36); Mean Corpuscular Volume 95.9 fL (80-94); NRBC Flagged by Analyzer 0 % (0-5); POSITIVE COUNT YES; RBC Distribution Width CV 13.1 % (11.6-14.6); RBC Distribution Width SD 45.9 fl (35.1-43.9); Red Blood Count 3.64 M/mm3 (4.6-6.2); White Blood Count 4.2 K/mm3 (4.4-11.0)
[2025-03-15 16:43] LABS: Mucous, Urine 0 SEEN /hpf (<or=2+)
--- NOTE | 2025-03-15 16:45 | RAD_ITS ---
PROCEDURE: CHEST PA AND LATERAL 03/15/2025 REASON FOR EXAM: COUGH TECHNIQUE: Procedure Code: RADCXR Modality: DX Procedure: CHEST PA AND LATERAL COMPARISON: 08/18/2024, 12/07/2021. 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 No definite focal consolidation. No pneumothorax or sizable pleural effusion. Heart/Mediastinum: Cardiomegaly. Coronary artery stents. Bones/Soft tissues: Mild degenerative changes of the spine. RAD/Chest PA and Lateral IMPRESSION: No definite acute findings. Cardiomegaly. Coarse reticular opacities in the b ilateral lower lung zones likely reflecting chronic interstitial fibrotic lung changes, similar to prior exams. Reading Location: [id number]
[2025-03-15 16:51] LABS: Differential Indicated SCAN CRITERIA MET
[2025-03-15 16:56] VITALS: BP 120/50; PULSE 54; RESP 21
[2025-03-15 16:56] LABS: Color, Urine Yellow (Yellow); Glucose, Dipstick Normal (Normal); Ketone-Dipstick Negative (Negative); Leukocyte Esterase-Dipstick Negative /ul (Negative); Nitrite-Dipstick Negative (Negative); Occult Blood-Urine Negative /ul (Negative); Protein-Dipstick 15 mg/dl (Negative); Specific Gravity, Urine 1.020 (1.002-1.030); Urine Bilirubin Dipstick Negative (Negative)
[2025-03-15 16:58] LABS: Anion Gap 11 (5-15); BUN 22 mg/dL (4-19); BUN/Creat Ratio 15.2 RATIO (10-20); Calcium,Total 9.0 mg/dL (7.6-11.0); Carbon Dioxide 21.6 mmol/L (21.0-32.0); Chloride 111 mmol/L (98-108); Estimated Creatinine Clearance 36.11 ml/min (50-250); Glucose 97 mg/dL (70-99); Potassium 4.0 mmol/L (3.3-5.1)
[2025-03-15 17:12] LABS: Troponin T High Sensitivity 9 ng/L (<=22)
[2025-03-15 17:53] VITALS: BP 134/68; PULSE 55; RESP 18; O2SAT 98
[2025-03-15 18:07] LABS: Red Blood Cells-Urine 0-5 SEEN /hpf (0-5); Squamous Epithelial Cells - UA 0-5 SEEN /hpf (0-5)
[2025-03-15 18:45] LABS: Differential Comment SCANNED
[2025-03-15 18:50] LABS: Troponin T High Sens 2 HR 9 ng/L (<=22)
[2025-03-15 19:04] VITALS: BP 124/90; PULSE 56; RESP 17; TEMP 36.5; O2SAT 98
== END 2025-03-15 19:09 | disposition home or self-care (01) ==
PROVIDERS: Emergency Provider Emergency Medicine; PCP Family Medicine; Visit Provider Emergency Medicine
DX: J20.9 Acute bronchitis, unspecified (principal); Z87.891 Personal history of nicotine dependence
CPT/HCPCS: 71046; 80048; 81001; 84484; 85025; 87631; 93005; 99284; A4216

== ENCOUNTER 2025-03-19 14:19 | Outpatient (CLI) | payer MEDICARE, OTHER, SELFPAY ==
[2025-03-19 17:48] LABS: Hematocrit 39.0 % (40-54); Hemoglobin 12.6 g/dL (13.0-16.5); Immature Granulocytes Count 0.030 X10^3/uL (0.0-0.0); Mean Corp Hgb Conc 32.3 g/dL (32-36); Mean Corpuscular Volume 97.3 fL (80-94); NRBC Flagged by Analyzer 0 % (0-5); POSITIVE COUNT YES; RBC Distribution Width CV 13.2 % (11.6-14.6); RBC Distribution Width SD 46.7 fl (35.1-43.9); Red Blood Count 4.01 M/mm3 (4.6-6.2); White Blood Count 5.3 K/mm3 (4.4-11.0)
[2025-03-19 17:54] LABS: AST(SGOT) 14 U/L (<=37); Alanine Aminotransfer ALT/SGPT 15 U/L (<=46); Albumin, Serum 3.9 g/dL (3.4-4.8); Alkaline Phosphatase 66 U/L (40-129); Anion Gap 8 (5-15); BUN 18 mg/dL (4-19); BUN/Creat Ratio 12.6 RATIO (10-20); Calcium,Total 9.1 mg/dL (7.6-11.0); Carbon Dioxide 26.8 mmol/L (21.0-32.0); Chloride 108 mmol/L (98-108); Globulin 2.3 g/dL (2.2-4.2); Glucose 86 mg/dL (70-99); Potassium 4.1 mmol/L (3.3-5.1); Pro- Brain NATRIURETIC PEPTIDE 136 pg/mL (<=1800)
[2025-03-19 18:49] LABS: Differential Indicated SCAN CRITERIA MET
[2025-03-19 21:21] LABS: Differential Comment SCANNED
[2025-03-21 08:09] LABS: CRP, High Sensitivity 0.52 mg/L (0.00-3.00)
== END 2025-03-19 23:59 | disposition home or self-care (01) ==
PROVIDERS: PCP Family Medicine; Visit Provider Family Medicine
DX: I50.30 Unspecified diastolic (congestive) heart failure (principal); I25.10 Atherosclerotic heart disease of native coronary artery without angina pectoris
CPT/HCPCS: 36415; 80053; 83880; 85025; 86141